=== PATIENT | male | born 1960 | race Caucasian/White ===

== ENCOUNTER 2017-08-10 10:57 | Emergency (ER) | payer OTHER ==
[2017-08-10 11:07] VITALS: BP 157/88; PULSE 68; TEMP 97.9; BMI 22.6
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
[2017-08-10] MEDS ORDERED: PIPERACILLIN/TAZOB 4.5 GM 4.5 GM in DEXTROSE 5%-WATER - 100 ML IVPB ONE (12:50)
[2017-08-10] MEDS ORDERED: VANCOMYCIN 1,000 MG in DEXTROSE 5%-WATER - 250 ML IVPB ONE (12:50)
[2017-08-10] MEDS ORDERED: VANCOMYCIN 1 GRAM (PRE-DOCKED) 1,000 MG/250 ML BAG IVPB ONE (13:08)
[2017-08-10] MEDS ORDERED: PIPERACILLIN/TAZOB 4.5 GM 4.5 GM/100 ML BAG IVPB ONE (15:04)
[2017-08-10 15:30] LABS: BASO % 0.8 % (0-2.0); EOS % 1.1 % (0-4.5); HEMATOCRIT 54.4 % (35.4-49); HEMOGLOBIN 18.3 GM/dL (11.7-16.9); LYMPH % 46.6 % (8-40); MCH 32.9 pg (25.7-33.7); MCHC 33.6 g/dl (32.0-35.9); MEAN CELL VOLUME 97.9 fl (80-96); MEAN PLT VOLUME 9.2 fl (7.5-11.1); MONO % 10.4 % (3.8-10.2); NEUT % 41.1 % (42.8-82.8); PLATELET COUNT 332 K/MM3 (134-434); RBC 5.56 M/mm3 (4.00-5.60); RDW 15.3 % (11.9-15.9); WHITE BLOOD COUNT 10.6 K/mm3 (4.0-10.0)
[2017-08-10 15:55] LABS: ALBUMIN 3.9 g/dl (3.4-5.0); ANION GAP 11 (8-16); BLOOD UREA NITROGEN 29 mg/dL (7-18); CALCIUM 9.5 mg/dL (8.5-10.1); CHLORIDE 99 mmol/L (98-107); CO2 27 mmol/L (21-32); CREATININE 0.9 mg/dL (0.7-1.3); GLUCOSE,RANDOM 174 mg/dL (74-106); POTASSIUM 4.5 mmol/L (3.5-5.1); SGOT/AST 29 U/L (15-37); SGPT/ALT 55 U/L (12-78); SODIUM 137 mmol/L (136-145)
[2017-08-10 15:57] LABS: ALK PHOS 163 U/L (45-117); BILIRUBIN,TOTAL 0.8 mg/dL (0.2-1.0); TOT PROT 8.4 g/dl (6.4-8.2)
== END 2017-08-10 16:17 | disposition left against medical advice (07) ==
LOC: JER 10:57
DX: E11.621 Type 2 diabetes mellitus with foot ulcer (principal); L97.513 Non-pressure chronic ulcer of other part of right foot with necrosis of muscle; I12.0 Hypertensive chronic kidney disease with stage 5 chronic kidney disease or end stage renal disease; E11.22 Type 2 diabetes mellitus with diabetic chronic kidney disease; N18.6 End stage renal disease; N17.8 Other acute kidney failure; Z99.2 Dependence on renal dialysis; Z79.4 Long term (current) use of insulin; J44.9 Chronic obstructive pulmonary disease, unspecified; Z94.0 Kidney transplant status; Z94.4 Liver transplant status
CPT/HCPCS: 36415; 80053; 85025; 87040; 99283-25

== ENCOUNTER 2017-08-16 11:53 | Inpatient (IN) | payer OTHER ==
[2017-08-16 12:09] VITALS: BMI 22.6
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
[2017-08-16 14:28] LABS: HEMATOCRIT 49.5 % (35.4-49); HEMOGLOBIN 16.8 GM/dL (11.7-16.9); MCHC 33.9 g/dl (32.0-35.9); MEAN CELL VOLUME 97.3 fl (80-96); MEAN PLT VOLUME 8.5 fl (7.5-11.1); PLATELET COUNT 337 K/MM3 (134-434); RBC 5.08 M/mm3 (4.00-5.60); RDW 15.3 % (11.9-15.9); WHITE BLOOD COUNT 10.5 K/mm3 (4.0-10.0)
[2017-08-16] MEDS ORDERED: PIPERACIL/TAZOB 3.375 GM 3.375 GM/50 ML PREMIX IVPB ONE (14:42)
[2017-08-16] MEDS ORDERED: VANCOMYCIN 1,000 MG in DEXTROSE 5%-WATER - 250 ML IVPB ONE (14:42)
[2017-08-16 14:52] LABS: ALBUMIN 3.6 g/dl (3.4-5.0); ANION GAP 13 (8-16); BLOOD UREA NITROGEN 19 mg/dL (7-18); CALCIUM 9.1 mg/dL (8.5-10.1); CHLORIDE 100 mmol/L (98-107); CO2 25 mmol/L (21-32); GLUCOSE,RANDOM 156 mg/dL (74-106); POTASSIUM 4.1 mmol/L (3.5-5.1); SODIUM 138 mmol/L (136-145)
[2017-08-16] MEDS ORDERED: PIPERACILLIN/TAZOB 3.375 GM 3.375 GM/50 ML BAG IVPB ONE (14:54)
[2017-08-16] MEDS ORDERED: VANCOMYCIN 1 GRAM (PRE-DOCKED) 1,000 MG/250 ML BAG IVPB ONE (14:54)
[2017-08-16 14:57] LABS: ALK PHOS 167 U/L (45-117); BILIRUBIN,TOTAL 0.7 mg/dL (0.2-1.0); CREATININE 0.8 mg/dL (0.7-1.3); SGOT/AST 51 U/L (15-37); SGPT/ALT 70 U/L (12-78); TOT PROT 7.8 g/dl (6.4-8.2)
--- NOTE | 2017-08-16 15:01 | PDOC ---
Attending Attestation - Resident Resident Name: [email or web address] - ED Attending Attestation I have performed the following: I have examined & evaluated the patient, The case was reviewed & discussed with the resident, I agree w/resident's findings & plan, Exceptions are as noted - Physicial Exam PE: 08/16/17 14:59 Patient is awake and alert, afebrile, hemodynamically stable rrr cta sft, nt, nd r. foot: +5mm stage 2 ulcer to the medial aspect of the distal phalanx of the second toe with surrounding callus. Dorsalis pedis is +1. + Extensive onychomycosis. - Medical Decision Making 08/16/17 15:00 Patient is a 56-year-old diabetic, former smoker who presents with a stage II diabetic foot ulcer to the medial aspect of the right second toe. I suspect osteomyelitis. We'll obtain blood cultures, ESR and CRP. Will administer broad- spectrum antibiotics. Will admit. <Curt Howell - Last Filed: 08/16/17 14:59> - HPI HPI: 08/16/17 15:06 The patient is a 56M with a PMH of DM, kidney and liver transplant (2014), hypertension, CHF, and COPD who presents to the ER after being seen in the wound clinic for a diabetic foot ulcer on his R 2nd toe. <Rachael Restrepo - Last Filed: 08/16/17 15:08>
[2017-08-16 15:22] LABS: ANISOCYTOSIS 0; MACROCYTOSIS 1+; PLATELET ESTIMATE NORMAL
[2017-08-16 17:46] VITALS: TEMP 98.1
[2017-08-16] MEDS ORDERED: PIPERACILLIN/TAZOB 2.25 GM/50 ML PREMIX BAG IVPB SCH (18:00)
[2017-08-16] MEDS ORDERED: INSULIN DETEMIR 100 UNITS/ML MDV SQ SCH (22:00)
[2017-08-16] MEDS: NIFEdipine E.R. 30 MG TABLET (FP) PO SCH (22:18)
[2017-08-16] MEDS: INSULIN SLIDING SCALE (NOVOLOG) 1 VIAL SQ SCH (22:18)
[2017-08-16] MEDS: METOPROLOL TARTRATE 25 MG TABLET (FP) PO SCH (22:18)
[2017-08-16] MEDS: TACROLIMUS ANHYDROUS 1 MG CAPSULE PO SCH (22:19)
[2017-08-17] MEDS: PIPERACILLIN/TAZOB 2.25 GM 2.25 GM in DEXTROSE 5%-WATER - 50 ML IVPB SCH ×2 (00:11→10:20)
[2017-08-17] MEDS: INSULIN SLIDING SCALE (NOVOLOG) 1 VIAL SQ SCH (06:55)
[2017-08-17] MEDS ORDERED: INSULIN DETEMIR 100 UNITS/ML MDV SQ SCH (07:00)
[2017-08-17 08:16] LABS: BASO % 0.8 % (0-2.0); EOS % 1.7 % (0-4.5); HEMOGLOBIN 17.4 GM/dL (11.7-16.9); LYMPH % 55.1 % (8-40); MCHC 34.2 g/dl (32.0-35.9); MEAN CELL VOLUME 96.7 fl (80-96); MEAN PLT VOLUME 8.7 fl (7.5-11.1); MONO % 9.8 % (3.8-10.2); NEUT % 32.6 % (42.8-82.8); PLATELET COUNT 338 K/MM3 (134-434); RBC 5.27 M/mm3 (4.00-5.60); RDW 15.3 % (11.9-15.9)
[2017-08-17 08:44] LABS: ALBUMIN 3.5 g/dl (3.4-5.0); ANION GAP 9 (8-16); BLOOD UREA NITROGEN 14 mg/dL (7-18); CALCIUM 9.4 mg/dL (8.5-10.1); CHLORIDE 105 mmol/L (98-107); CO2 27 mmol/L (21-32); CREATININE 0.6 mg/dL (0.7-1.3); GLUCOSE,RANDOM 121 mg/dL (74-106); POTASSIUM 4.3 mmol/L (3.5-5.1); SGOT/AST 35 U/L (15-37); SODIUM 141 mmol/L (136-145)
[2017-08-17 08:48] LABS: ALK PHOS 152 U/L (45-117); BILIRUBIN,TOTAL 0.7 mg/dL (0.2-1.0); SGPT/ALT 58 U/L (12-78); TOT PROT 7.9 g/dl (6.4-8.2)
[2017-08-17] MEDS: METOPROLOL TARTRATE 25 MG TABLET (FP) PO SCH (09:23)
[2017-08-17] MEDS: TACROLIMUS ANHYDROUS 1 MG CAPSULE PO SCH (09:24)
[2017-08-17] MEDS: NIFEdipine E.R. 30 MG TABLET (FP) PO SCH (09:24)
[2017-08-17] MEDS ORDERED: MYCOPHENOLATE MOFETIL 500 MG TABLET PO SCH (10:00)
[2017-08-17] MEDS ORDERED: predniSONE 5 MG TABLET (UD) PO SCH (10:00)
[2017-08-17] MEDS ORDERED: PANTOPRAZOLE 20 MG TABLET (FP) PO SCH (10:00)
--- NOTE | 2017-08-17 10:12 | HP ---
Admitting History and Physical - Primary Care Physician PCP: Silvia Delgado - Admission Chief Complaint: foot wound History of Present Illness: ER history - History of Present Illness Initial Comments: 08/16/17 14:20 The patient is a 56M with a PMH of DM, kidney and liver transplant (2014), hypertension, CHF, and COPD who presents to the ER with a note to be admitted. The patient was seen in our wound clinic by Dr. Hannon on 08/15/17 and he wrote a note for admission for a diabetic foot ulcer on his R 2nd toe. The patient states that he noticed a blister on his toe 2 weeks ago. It has since popped and worsened. He has chronic numbness in his b/l LE. He denies any fever , chills, nausea, vomiting, CP, SOB. Pt seen by me in the ER- He was in the ER 08/10-- received Vancomycin and Zosyn-- dc on by Dr Delgado x 7days- went to wound clinic yesterday and was advised by Podiatry for admission for iv antibiotics- as per pt, he feels well- states that the ulcer is better than it was 2 weeks ago. 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 No: Alzheimer's, CVA, Dementia, Migraine, Seizure Cardiovascular: Yes: CHF, HTN. No: Pulmonary Hypertension Pulmonary: Yes: COPD Gastrointestinal: Yes: Cancer (hepatocellular), Other (Hepatitis C) Hepatobiliary: Yes: Hepatitis C Renal/: Yes: Renal Inusuff (CKD V) Heme/Onc: Yes: Anemia - Past Surgical History Past Surgical History: Yes: AV Fistula/Graft - Smoking History Smoking history: Former smoker Have you smoked in the past 12 months: No Aproximately how many cigarettes per day: 0 If you are a former smoker, when did you quit?: 2010 - Alcohol/Substance Use Hx Alcohol Use: No History of Substance Use: reports: None - Social History History of Recent Travel: No Home Medications - Allergies Allergies/Adverse Reactions: Allergies Allergy/AdvReac Type Severity Reaction Status Date / Time morphine Allergy Verified 08/16/17 12:06 - Home Medications Home Medications: Ambulatory Orders Hydrochlorothiazide 12.5 mg PO DAILY 08/10/17 Insulin Detemir [Levemir Flextouch] 14 unit SQ BIDAC 08/10/17 Metoprolol Tartrate 25 mg PO BID 08/10/17 Mycophenolate Mofetil 500 mg PO BID 08/10/17 Nifedipine ER [Procardia XL -] 60 mg PO BID 08/10/17 Prednisone 5 mg PO HS 08/10/17 Tacrolimus 1 mg PO BID 08/10/17 Hydrochlorothiazide [Hctz -] 12.5 mg PO DAILY 08/17/17 Levofloxacin [Levaquin] 500 mg PO DAILY #7 tablet 08/17/17 Family Disease History - Family Disease History Family Disease History: Heart Disease: Sister, Respiratory: Mother Review of Systems - Review of Systems Constitutional: denies: Chills, Fever Integumentary: reports: Wound Physical Examination Vital Signs: Vital Signs Temperature 98.1 F 08/16/17 17:46 Pulse Rate 84 08/16/17 17:46 Respiratory Rate 20 08/16/17 17:46 Blood Pressure 160/94 08/16/17 17:46 O2 Sat by Pulse Oximetry (%) 100 08/16/17 21:00 Constitutional: Yes: No Distress, Calm Cardiovascular: Yes: Regular Rate and Rhythm Respiratory: Yes: CTA Bilaterally Gastrointestinal: Yes: Normal Bowel Sounds, Soft. No: Tenderness Extremities: Yes: Other (medial side of rt 2 nd toe-- ulcer- clean base, no surrounding erythema, no discharge) Edema: No Labs: CBC, BMP 08/17/17 07:48 08/17/17 07:48 Imaging - Results X-ray: Report Reviewed (no osteomyelitis) Problem List - Problems (1) Diabetic foot ulcer Code(s): E11.621 - TYPE 2 DIABETES MELLITUS WITH FOOT ULCER; L97.509 - NON- PRESSURE CHRONIC ULCER OTH PRT UNSP FOOT W UNSP SEVERITY Qualifiers: Diabetic foot ulcer location: toe Diabetes mellitus type: other specified ( including LUCI) Laterality: right Non-pressure ulcer stage: unspecified non- pressure ulcer stage Qualified Code(s): E13.621 - Other specified diabetes mellitus with foot ulcer; L97.519 - Non-pressure chronic ulcer of other part of right foot with unspecified severity; L97.519 - Non-pressure chronic ulcer of other part of right foot with unspecified severity; L97.519 - Non-pressure chronic ulcer of other part of right foot with unspecified severity; L97.519 - Non-pressure chronic ulcer of other part of right foot with unspecified severity (2) DM Diabetes mellitus type 2 Code(s): E11.9 - TYPE 2 DIABETES MELLITUS WITHOUT COMPLICATIONS (3) Diabetic ulcer of foot associated with diabetes mellitus due to underlying condition, with necrosis of muscle Code(s): E08.621 - DIABETES MELLITUS DUE TO UNDERLYING CONDITION W FOOT ULCER; L97.503 - NON-PRS CHRONIC ULCER OTH PRT UNSP FOOT W NECROSIS OF MUSCLE Qualifiers: Diabetic foot ulcer location: toe Laterality: right Qualified Code(s): E08.621 - Diabetes mellitus due to underlying condition with foot ulcer; L97.513 - Non-pressure chronic ulcer of other part of right foot with necrosis of muscle; L97.513 - Non-pressure chronic ulcer of other part of right foot with necrosis of muscle; L97.513 - Non-pressure chronic ulcer of other part of right foot with necrosis of muscle; L97.513 - Non-pressure chronic ulcer of other part of right foot with necrosis of muscle Assessment/Plan PLAN Received jasson Castillo and Christianne spoke with Dr Broderick- pt wishes to go home--will dc pt home on po Levaquin x 7 days He will follow up in office for MRI foot
--- NOTE | 2017-08-17 10:53 | PN ---
Progress Note (short form) - Note Progress Note: NONHEALING ULCER OF THE TOE Some ERYTHEMA SWELLING noted Selected Entries 08/16/17 17:46 Temperature 98.1 F Pulse Rate 84 Respiratory 20 Rate Blood Pressure 160/94 Laboratory Tests 08/16/17 08/16/17 08/17/17 14:19 Unknown 07:48 WBC 10.0 Hgb 17.4 H Hct 51.0 H Plt Count 338 ESR 2 BUN Creatinine AST ALT Alkaline Phosphatase C-Reactive Protein 0.6 H 08/17/17 07:48 WBC Hgb Hct Plt Count ESR BUN 14 D Creatinine 0.6 L D AST 35 D ALT 58 Alkaline Phosphatase 152 H C-Reactive Protein Assessment Diabetic man with toe ulcer and cellulitis of the toe RUle out osteomyelitis Plan Vanco [facility] MRI or toe If he jacobo not want admission Augmentin and outpt MRI Problem List - Problems (1) Cellulitis Code(s): L03.90 - CELLULITIS, UNSPECIFIED (2) Diabetic foot ulcer Code(s): E11.621 - TYPE 2 DIABETES MELLITUS WITH FOOT ULCER; L97.509 - NON- PRESSURE CHRONIC ULCER OTH PRT UNSP FOOT W UNSP SEVERITY Qualifiers: Diabetic foot ulcer location: toe Diabetes mellitus type: other specified ( including LUCI) Laterality: right Non-pressure ulcer stage: unspecified non- pressure ulcer stage Qualified Code(s): E13.621 - Other specified diabetes mellitus with foot ulcer; L97.519 - Non-pressure chronic ulcer of other part of right foot with unspecified severity; L97.519 - Non-pressure chronic ulcer of other part of right foot with unspecified severity; L97.519 - Non-pressure chronic ulcer of other part of right foot with unspecified severity; L97.519 - Non-pressure chronic ulcer of other part of right foot with unspecified severity
--- NOTE | 2017-08-17 11:01 | CONSULT ---
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 No: Alzheimer's, CVA, Dementia, Migraine, Seizure Cardio/Vascular: Yes: CHF, HTN. No: Pulmonary Hypertension Pulmonary: Yes: COPD Gastrointestinal: Yes: Cancer (hepatocellular), Other (Hepatitis C) Hepatobiliary: Yes: Hepatitis C Renal/: Yes: Renal Inusuff (CKD V) - Past Surgical History Past Surgical History: Yes: AV Fistula/Graft - Alcohol/Substance Use Hx Alcohol Use: No History of Substance Use: reports: None - Smoking History Smoking history: Former smoker Have you smoked in the past 12 months: No Aproximately how many cigarettes per day: 0 If you are a former smoker, when did you quit?: 2010 - Social History Usual Living Arrangement: With Parent History of Recent Travel: No Home Medications - Allergies Allergies/Adverse Reactions: Allergies Allergy/AdvReac Type Severity Reaction Status Date / Time morphine Allergy Verified 08/16/17 12:06 - Home Medications Home Medications: Ambulatory Orders Hydrochlorothiazide 12.5 mg PO DAILY 08/10/17 Insulin Detemir [Levemir Flextouch] 14 unit SQ BIDAC 08/10/17 Metoprolol Tartrate 25 mg PO BID 08/10/17 Mycophenolate Mofetil 500 mg PO BID 08/10/17 Nifedipine ER [Procardia Xl -] 60 mg PO BID 08/10/17 Prednisone 5 mg PO HS 08/10/17 Tacrolimus 1 mg PO BID 08/10/17 Hydrochlorothiazide [Hctz -] 12.5 mg PO DAILY 08/17/17 Family Disease History - Family Disease History Family Disease History: Heart Disease: Sister, Respiratory: Mother Physical Exam Vital Signs: Vital Signs Temperature 98.1 F 08/16/17 17:46 Pulse Rate 84 08/16/17 17:46 Respiratory Rate 20 08/16/17 17:46 Blood Pressure 160/94 08/16/17 17:46 O2 Sat by Pulse Oximetry (%) 100 08/16/17 21:00 Labs: CBC, BMP 08/17/17 07:48 08/17/17 07:48
--- NOTE | 2017-08-17 11:01 | DS ---
Physical Examination Vital Signs: Vital Signs Temperature 98.1 F 08/16/17 17:46 Pulse Rate 84 08/16/17 17:46 Respiratory Rate 20 08/16/17 17:46 Blood Pressure 160/94 08/16/17 17:46 O2 Sat by Pulse Oximetry (%) 100 08/16/17 21:00 Labs: CBC, BMP 08/17/17 07:48 08/17/17 07:48 Discharge Summary Reason For Visit: DIABETIC FOOT Current Active Problems Cellulitis (Acute) Diabetic foot ulcer (Acute) Hospital Course: Admitted for diabetic foot Seen by ID Xray foot - does not show osteomyelitis Received Vanco and Zosyn in ER Pt dc home on PO Levaquin x 7days to follow up with Dr Delgado for MRI foot Condition: Stable - Instructions Referrals: Silvia Delgado MD [Primary Care Provider] - Disposition: HOME - Home Medications Comprehensive Discharge Medication List: Ambulatory Orders Hydrochlorothiazide 12.5 mg PO DAILY 08/10/17 Insulin Detemir [Levemir Flextouch] 14 unit SQ BIDAC 08/10/17 Metoprolol Tartrate 25 mg PO BID 08/10/17 Mycophenolate Mofetil 500 mg PO BID 08/10/17 Nifedipine ER [Procardia Xl -] 60 mg PO BID 08/10/17 Prednisone 5 mg PO HS 08/10/17 Tacrolimus 1 mg PO BID 08/10/17 Hydrochlorothiazide [Hctz -] 12.5 mg PO DAILY 08/17/17
[2017-08-17 11:29] VITALS: BP 172/98; PULSE 67
--- NOTE | 2017-08-17 11:32 | CONS ---
INFECTIOUS DISEASE CONSULTATION DATE OF CONSULTATION: DATE OF DICTATION: 08/17/2017 This is a 56-year-old male, known insulin-dependent diabetic with a history of both liver and kidney transplant at [facility], previously had end-stage renal disease and on dialysis until he received his kidney transplant. He presents now for evaluation of a soft tissue ulcer of the right 2nd toe with erythema and swelling of the toe. He was seen by Dr. Silvia Delgado as an outpatient and apparently treated with amoxicillin and referred to the wound care clinic earlier this week, where he was advised admission but declined, instead choosing to return to be admitted today. He has no fever or chills and has already expressed his desire to not remain in the hospital. PAST MEDICAL HISTORY: As noted above. Hepatitis C. CURRENT MEDICATIONS: Include insulin, 5 mg prednisone, Lopressor, Procardia, CellCept, tacrolimus, Protonix. ALLERGIES: MORPHINE. SOCIAL HISTORY: Former smoker. Former history of substance abuse. FAMILY HISTORY: Noncontributory. REVIEW OF SYSTEMS: Respiratory: No cough, shortness of breath. Cardiac: No chest pain, palpitations, syncope. Gastrointestinal: No nausea, vomiting, diarrhea. Genitourinary: No abdominal pain, nausea, vomiting, diarrhea. PHYSICAL EXAMINATION: General: He was an alert male in no acute distress. Vital Signs: The temperature was 98.1, pulse 84, blood pressure 160/94, respirations 20. Neck: Supple. Lungs: Clear. Heart: S1, S2. Regular rhythm without murmur. Abdomen: Soft, nontender, without organomegaly. Extremities: No clubbing, cyanosis, or edema. An ulcer was noted of the right 2nd toe with diffuse swelling of the toe and erythema. DIAGNOSTIC DATA: The white count is 17.4, hemoglobin , platelets of 338. BUN 14, creatinine 0.6. Alkaline phosphatase 152. CRP 0.6. ESR of 2. ASSESSMENT: Diabetic soft tissue ulcer of the toe with secondary cellulitis and swelling, rule out underlying osteomyelitis. As discussed with his primary care doctor, could admit for admission, start vancomycin and Zosyn, obtain MRI. Should he decide not to stay, would give him Augmentin 875 b.i.d. and arrange for outpatient MRI. LUZ MARIA LAWSON M.D. [id number]
[2017-08-17] MEDS ORDERED: VANCOMYCIN 1,250 MG in DEXTROSE 5%-WATER - 250 ML IVPB SCH (13:00)
[2017-08-17] MEDS ORDERED: PIPERACILLIN/TAZOB 4.5 GM 4.5 GM in DEXTROSE 5%-WATER 100 ML IVPB SCH (18:00)
== END 2017-08-17 11:29 | disposition home or self-care (01) | DRG 383 ==
LOC: JER 11:53 → JERBED 14:42 → INTOOBSV 14:42 → UNDOADMOB 14:42 → OBSVTOIN 08-17 17:46 → JERBED 08-17 17:46 → UNDOADMOB 08-17 17:46 → INTOOBSV 08-17 17:46 → UNDOADMOB 08-17 17:47 → JERBED 08-17 17:47 → OBSVTOIN 08-17 17:47 → INTOOBSV 08-17 17:47
PROVIDERS: ADMIT Internal Medicine; ATTEND Internal Medicine
DX: L03.031 Cellulitis of right toe (principal); L97.503 Non-pressure chronic ulcer of other part of unspecified foot with necrosis of muscle; E11.621 Type 2 diabetes mellitus with foot ulcer; Z94.4 Liver transplant status; I10 Essential (primary) hypertension; J44.9 Chronic obstructive pulmonary disease, unspecified; Z94.0 Kidney transplant status
CPT/HCPCS: 36415; 73630-TC-RT-FY; 80053; 82962; 85025; 85651; 86140; 87040; 87070; 87186; 87205; 99284-25; J7517

== ENCOUNTER 2017-09-21 11:38 | Inpatient (IN) | payer OTHER ==
--- NOTE | 2017-09-21 12:08 | HP ---
Admitting History and Physical - Primary Care Physician PCP: Silvia Delgado - Admission Chief Complaint: right toe infection History of Present Illness: The patient is a 56M with a PMH of DM, kidney and liver transplant (2014), hypertension, CHF, and COPD who is directly admitted here for iv antibiotics for non healing wound for toe-- osteomyelitis. Pt was seen by ID- Dr Broderick in the office and had a probe placed inside-- advised to have terminal gauger antibiotics. Pt failed outpt PO therapy. Had been seen by me in ER last month for same--was dc on po antibiotics at that time. He has chronic numbness in his b/l LE. He denies any fever, chills, nausea, vomiting, CP, SOB. 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 No: Alzheimer's, CVA, Dementia, Migraine, Seizure Cardiovascular: Yes: CHF, HTN. No: Pulmonary Hypertension Pulmonary: Yes: COPD Gastrointestinal: Yes: Cancer (hepatocellular), Other (Hepatitis C) Hepatobiliary: Yes: Hepatitis C Renal/: Yes: Renal Inusuff (CKD V) Heme/Onc: Yes: Anemia - Past Surgical History Past Surgical History: Yes: AV Fistula/Graft - Smoking History Smoking history: Former smoker Have you smoked in the past 12 months: No Aproximately how many cigarettes per day: 0 If you are a former smoker, when did you quit?: 2010 - Alcohol/Substance Use Hx Alcohol Use: No History of Substance Use: reports: None - Social History History of Recent Travel: No Home Medications - Allergies Allergies/Adverse Reactions: Allergies Allergy/AdvReac Type Severity Reaction Status Date / Time morphine Allergy Verified 08/16/17 12:06 - Home Medications Home Medications: Ambulatory Orders Hydrochlorothiazide 12.5 mg PO DAILY 08/10/17 Insulin Detemir [Levemir Flextouch] 14 unit SQ BIDAC 08/10/17 Metoprolol Tartrate 25 mg PO BID 08/10/17 Mycophenolate Mofetil 500 mg PO BID 08/10/17 Nifedipine ER [Procardia XL -] 60 mg PO BID 08/10/17 Prednisone 5 mg PO HS 08/10/17 Tacrolimus 1 mg PO BID 08/10/17 Hydrochlorothiazide [Hctz -] 12.5 mg PO DAILY 08/17/17 Levofloxacin [Levaquin] 500 mg PO DAILY #7 tablet 08/17/17 Family Disease History - Family Disease History Family Disease History: Heart Disease: Sister, Respiratory: Mother Review of Systems - Review of Systems Constitutional: denies: Chills, Fever Integumentary: reports: Wound. denies: Blister Physical Examination Constitutional: Yes: No Distress, Calm Cardiovascular: Yes: Regular Rate and Rhythm Respiratory: Yes: CTA Bilaterally Gastrointestinal: Yes: Normal Bowel Sounds, Soft. No: Tenderness Extremities: Yes: Other (rt 2nd toe swollen, erythema+, not warm or tender. Medial side-- ulcer noted, bloody discharge) Neurological: Yes: Alert, Oriented Psychiatric: Yes: Alert Labs: pending Imaging - Results EKG: Pending Problem List - Problems (1) Osteomyelitis Code(s): M86.9 - OSTEOMYELITIS, UNSPECIFIED (2) HTN (hypertension) Code(s): I10 - ESSENTIAL (PRIMARY) HYPERTENSION (3) Diabetes Code(s): E11.9 - TYPE 2 DIABETES MELLITUS WITHOUT COMPLICATIONS (4) Diabetic foot ulcer Code(s): E11.621 - TYPE 2 DIABETES MELLITUS WITH FOOT ULCER; L97.509 - NON- PRESSURE CHRONIC ULCER OTH PRT UNSP FOOT W UNSP SEVERITY Qualifiers: Diabetic foot ulcer location: toe Diabetes mellitus type: other specified ( including LUCI) Laterality: right Non-pressure ulcer stage: unspecified non- pressure ulcer stage Qualified Code(s): E13.621 - Other specified diabetes mellitus with foot ulcer; L97.519 - Non-pressure chronic ulcer of other part of right foot with unspecified severity; L97.519 - Non-pressure chronic ulcer of other part of right foot with unspecified severity; L97.519 - Non-pressure chronic ulcer of other part of right foot with unspecified severity; L97.519 - Non-pressure chronic ulcer of other part of right foot with unspecified severity Assessment/Plan PLAN Check labs Start IV vanco and Zosyn ID and Podiatry evaluation Pt would like amputation of toe-- he does not want to stay in NH for half-way antibiotics-- but he would consider half-way antibiotics infusion at home or come here daily meds reconciled check sugars
[2017-09-21] MEDS ORDERED: PIPERACILLIN/TAZOB 4.5 GM 4.5 GM in DEXTROSE 5%-WATER 100 ML IVPB ONE (12:30)
[2017-09-21 12:42] LABS: HEMATOCRIT 52.9 % (35.4-49); HEMOGLOBIN 17.6 GM/dL (11.7-16.9); MCH 32.7 pg (25.7-33.7); MCHC 33.3 g/dl (32.0-35.9); MEAN CELL VOLUME 98.3 fl (80-96); MEAN PLT VOLUME 9.3 fl (7.5-11.1); PLATELET COUNT 369 K/MM3 (134-434); RBC 5.38 M/mm3 (4.00-5.60); RDW 14.7 % (11.9-15.9); WHITE BLOOD COUNT 10.7 K/mm3 (4.0-10.0)
--- NOTE | 2017-09-21 12:51 | CONSULT ---
Consult - text type - Consultation Consultation Note: Podiatry Consult: 56 year old DM M, history of kidney and liver transplant, COPD, presents with R 2nd digit ulcer probing to bone. Denies F/V/N/C/SOB/CP. Afebrile, VSS. Notes he was recently in the hospital and did not want IV abx, discharged on PO abx. he was seen by infectious disease who noted worsening of ulcer and ED admission prompted. BYRON: R foot: pedal pulses weakly palpable, TG wnl, CFT brisk to all toes. Medial IPJ 2nd digit ulcer probing to bone, exposed bone present, no purulence, no fluctuance, moderate periwound erythema, no streaking cellulitis, no active SOIs. Imp: 56 year old DM M with R 2nd digit ulcer and clinical osteomyelitis 1. IV abx 2. Local wound care 3. Discussed treatment options with patient who wants to have toe amputation 4. Recommend vascular studies, vascular consultation 5. Will do surgery early next week Kiki Patiño DPM
[2017-09-21] MEDS ORDERED: VANCOMYCIN 1 GM PREMIX - 1 GM/200 ML BAG IVPB ONE (13:00)
[2017-09-21 13:05] LABS: ALBUMIN 3.7 g/dl (3.4-5.0); ANION GAP 9 (8-16); BLOOD UREA NITROGEN 23 mg/dL (7-18); CALCIUM 8.8 mg/dL (8.5-10.1); CHLORIDE 100 mmol/L (98-107); CO2 27 mmol/L (21-32); CREATININE 0.8 mg/dL (0.7-1.3); GLUCOSE,RANDOM 148 mg/dL (74-106); POTASSIUM 4.3 mmol/L (3.5-5.1); SGOT/AST 42 U/L (15-37); SGPT/ALT 77 U/L (12-78); SODIUM 136 mmol/L (136-145)
[2017-09-21 13:07] LABS: ALK PHOS 206 U/L (45-117); BILIRUBIN,TOTAL 0.8 mg/dL (0.2-1.0)
[2017-09-21 13:20] VITALS: BMI 22.5
[2017-09-21 13:22] LABS: ACTIVATED PTT 31.9 SECONDS (26.9-34.4); INR 0.99 (0.82-1.09); PROTHROMBIN TIME (PATIENT) 11.2 SEC (9.7-13.0)
--- NOTE | 2017-09-21 14:02 | EKG ---
Test Reason : Blood Pressure : / mmHG Vent. Rate : 075 BPM Atrial Rate : 075 BPM P-R Int : 144 ms QRS Dur : 096 ms QT Int : 378 ms P-R-T Axes : 065 054 071 degrees QTc Int : 422 ms NORMAL SINUS RHYTHM POSSIBLE LEFT ATRIAL ENLARGEMENT LEFT VENTRICULAR HYPERTROPHY ABNORMAL ECG WHEN COMPARED WITH ECG OF 21-APR-2014 11:12, NO SIGNIFICANT CHANGE WAS FOUND Confirmed by BELTRAN ANDERSON MD ([id number]) on 09/21/2017 2:01:31 PM Referred By: Confirmed By:BELTRAN ANDERSON MD
[2017-09-21 14:05] LABS: ERYTHROCYTE SEDIMENTATION RATE 7 mm/hr (0-20)
[2017-09-21] MEDS ORDERED: PIPERACILLIN/TAZOBACTAM 4.5 GM VIAL IVPB ONE (14:27)
[2017-09-21] MEDS ORDERED: DEXTROSE 5%-WATER 100 ML IVPB ONE (14:27)
[2017-09-21 14:49] LABS: PLATELET ESTIMATE SLT INCREASE
--- NOTE | 2017-09-21 15:40 | CON.ID ---
Consult Consult Specialty:: Ingfectious disease Referred by:: Dr. Rosa Edmondson Reason for Consultation:: Osteomyelitis - History of Present Illness History of Present Illness: The patient is a 56 yo m w/ PMH DM, Kidney/Liver txp for cirrhosis (on tacrolimus, mycophenolate, prednisone), COPD who was sent to the hospital for direct admission for IV ABX by Dr. Delgado. Patient has a long history of a nonhhealing DM foot ulcer on the medial side of his second toe on the right. He was admitted to [facility] approx 1 month ago for this same ulcer and was d/c home on 7 days of levaquin and instructions to follow w/ Dr Delgado for an outpatient MRI. Per EMR records, the MRI was positive for osteo. Per the patient, he dropped a hammer on the toe 3 weeks ago and fractured it. Patient denies fevers, chills abdominal pain, diarrhea or pain at the site of the ulcer. We were called to elvaulate the patient for ABX course for acute osteo. 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 No: Alzheimer's, CVA, Dementia, Migraine, Seizure Cardio/Vascular: Yes: CHF, HTN. No: Pulmonary Hypertension Pulmonary: Yes: COPD Gastrointestinal: Yes: Cancer (hepatocellular), Other (Hepatitis C) Hepatobiliary: Yes: Hepatitis C Renal/: Yes: Renal Inusuff (CKD V) - Past Surgical History Past Surgical History: Yes: AV Fistula/Graft - Alcohol/Substance Use Hx Alcohol Use: Yes (FEW GLASSES OF WINE) History of Substance Use: reports: None - Smoking History Smoking history: Former smoker Have you smoked in the past 12 months: No Aproximately how many cigarettes per day: 0 If you are a former smoker, when did you quit?: 2010 - Social History Usual Living Arrangement: With Parent History of Recent Travel: No Home Medications - Allergies Allergies/Adverse Reactions: Allergies Allergy/AdvReac Type Severity Reaction Status Date / Time morphine Allergy Verified 08/16/17 12:06 - Home Medications Home Medications: Ambulatory Orders Insulin Detemir [Levemir Flextouch] 14 unit SQ BIDAC 08/10/17 Metoprolol Tartrate 25 mg PO BID 08/10/17 Mycophenolate Mofetil 500 mg PO BID 08/10/17 Nifedipine ER [Procardia XL -] 60 mg PO BID 08/10/17 Prednisone 5 mg PO HS 08/10/17 Tacrolimus 1 mg PO BID 08/10/17 Hydrochlorothiazide [Hctz -] 12.5 mg PO DAILY 08/17/17 Alprazolam 2 mg PO HS PRN 09/21/17 Family Disease History - Family Disease History Family Disease History: Heart Disease: Sister, Respiratory: Mother Review of Systems - Review of Systems Constitutional: denies: Chills, Fever, Night Sweats, Unintentional Wgt. Loss Cardiovascular: denies: Chest Pain, Palpitations, Shortness of Breath Respiratory: denies: Cough, SOB, SOB on Exertion Gastrointestinal: denies: Abdominal Pain, Constipation, Diarrhea, Nausea, Vomiting Integumentary: reports: Wound (right second toe) Physical Exam Vital Signs: Vital Signs Temperature 98.2 F 09/21/17 13:00 Pulse Rate 72 09/21/17 13:00 Respiratory Rate 18 09/21/17 13:00 Blood Pressure 134/80 09/21/17 13:00 O2 Sat by Pulse Oximetry (%) Constitutional: Yes: Well Nourished, No Distress, Calm HENT: Yes: Atraumatic, Normocephalic, Other (patient has no on either top or bottom.) Cardiovascular: Yes: Regular Rate and Rhythm, S1, S2. No: JVD, Gallop, Murmur, Rub Respiratory: Yes: Regular, CTA Bilaterally Gastrointestinal: Yes: Normal Bowel Sounds, Soft Extremities: Yes: Other (There is an ulcer on the medial side of the patient's second toe on the right. The ulcer is approx. 1.5x1.5 cm, clean at the base and appears to probe to bone. Patient refuses probing 2/2 pain.) Edema: No Neurological: Yes: Alert, Oriented Psychiatric: Yes: Alert, Oriented Labs: CBC, BMP 09/21/17 12:20 09/21/17 12:20 Imaging - Results Chest X-ray: Image Reviewed Assessment/Plan The patient is a 56 yo m w/ PMH DM, kidney/renal txp 2/2 Hep C and cirrhosis and COPD who was admitted for treatment of acute osteo. -s/p 7 days po levaquin -WBC elevated to 10.7 -outpatient MRI showed osteo; awaiting report from PCP -Patient afebruile and clinically stable. -will order wound cx, blood cx. -pt s/p Vancomycin 1g and Zosyn 4.5 g once each. -CRP elevated to .4 -will order Zosyn 3.375g Q8H, Vanco 1g daily -will follow -case d/w Dr. Serna
[2017-09-21] MEDS: PIPERACILLIN/TAZOB 3.375 GM 3.375 GM in DEXTROSE 5%-WATER - 50 ML IVPB SCH (17:23)
[2017-09-21] MEDS: INSULIN SLIDING SCALE (NOVOLOG) 1 VIAL SQ SCH (17:56)
[2017-09-21] MEDS ORDERED: PT OWN MED DRAWER 7, Y5N ONE ×2 (18:19→21:06)
[2017-09-21] MEDS: predniSONE 5 MG TABLET (UD) PO SCH (21:21)
[2017-09-21] MEDS: METOPROLOL TARTRATE 25 MG TABLET (FP) PO SCH (21:21)
[2017-09-21] MEDS: INSULIN (LEVEMIR) 100 UNITS/ML UNITS SQ SCH ×2 (21:21→21:41)
[2017-09-21] MEDS: MYCOPHENOLATE MOFETIL 500 MG TABLET PO SCH (21:21)
[2017-09-21] MEDS: NIFEdipine E.R. 30 MG TABLET (FP) PO SCH (21:22)
[2017-09-21] MEDS ORDERED: METOPROLOL TARTRATE 25 MG TABLET (FP) PO ONE (22:00)
[2017-09-21] MEDS: TACROLIMUS ANHYDROUS 1 MG CAPSULE PO SCH (22:57)
[2017-09-22] MEDS ORDERED: PIPERACILLIN/TAZOBACTAM 3.375 GM VIAL IVPB ONE ×3 (01:31→18:10)
[2017-09-22] MEDS ORDERED: DEXTROSE 5%-WATER - 50 ML IVPB ONE ×3 (01:31→18:10)
[2017-09-22] MEDS: VANCOMYCIN 1,000 MG in DEXTROSE 5%-WATER - 250 ML IVPB SCH ×2 (02:00→15:50)
[2017-09-22] MEDS: PIPERACILLIN/TAZOB 3.375 GM 3.375 GM in DEXTROSE 5%-WATER - 50 ML IVPB SCH ×3 (02:00→19:03)
[2017-09-22] MEDS: INSULIN SLIDING SCALE (NOVOLOG) 1 VIAL SQ SCH ×3 (06:45→17:55)
[2017-09-22] MEDS: INSULIN (LEVEMIR) 100 UNITS/ML UNITS SQ SCH ×2 (06:48→21:50)
[2017-09-22 07:18] LABS: BASO % 0.5 % (0-2.0); EOS % 0.7 % (0-4.5); HEMATOCRIT 51.2 % (35.4-49); HEMOGLOBIN 17.7 GM/dL (11.7-16.9); LYMPH % 52.2 % (8-40); MCH 33.6 pg (25.7-33.7); MCHC 34.5 g/dl (32.0-35.9); MEAN CELL VOLUME 97.3 fl (80-96); MEAN PLT VOLUME 8.8 fl (7.5-11.1); MONO % 8.8 % (3.8-10.2); NEUT % 37.8 % (42.8-82.8); PLATELET COUNT 354 K/MM3 (134-434); RBC 5.26 M/mm3 (4.00-5.60); RDW 14.8 % (11.9-15.9); WHITE BLOOD COUNT 10.9 K/mm3 (4.0-10.0)
[2017-09-22 08:00] LABS: ALBUMIN 3.4 g/dl (3.4-5.0); ANION GAP 8 (8-16); BLOOD UREA NITROGEN 15 mg/dL (7-18); CALCIUM 9.1 mg/dL (8.5-10.1); CHLORIDE 104 mmol/L (98-107); CO2 28 mmol/L (21-32); GLUCOSE,RANDOM 144 mg/dL (74-106); POTASSIUM 4.1 mmol/L (3.5-5.1); SODIUM 140 mmol/L (136-145)
[2017-09-22 08:02] LABS: ALK PHOS 172 U/L (45-117); BILIRUBIN,TOTAL 0.8 mg/dL (0.2-1.0); CREATININE 0.8 mg/dL (0.7-1.3); SGOT/AST 26 U/L (15-37); SGPT/ALT 59 U/L (12-78); TOT PROT 7.5 g/dl (6.4-8.2)
[2017-09-22] MEDS ORDERED: PT OWN MED DRAWER 7, Y5N ONE (09:54)
--- NOTE | 2017-09-22 10:07 | PN ---
Progress Note (short form) - Note Progress Note: pt seen/ examined. well known to me no complains. Vital Signs Temp 97.7 F 09/22/17 06:00 Pulse 59 L 09/22/17 06:00 Resp 18 09/22/17 06:00 BP 138/64 09/22/17 06:00 Pulse Ox Intake & Output 09/21/17 09/21/17 09/22/17 11:59 23:59 11:59 Intake Total 900 300 Balance 900 300 Weight 161 lb 9.6 oz 156 lb Intake: IVPB 300 300 Oral 600 Other: Voiding Method Toilet Toilet # Unmeasured Voids Void 3 1 Bowel Movement No No Height 5 ft 11 in Body Mass Index (BMI) 22.5 Weight Measurement Method Standing Scale Standing Scale Active Medications Hydrochlorothiazide (Hctz -) 12.5 mg PO DAILY COUNTS INCLUDE 234 BEDS AT THE [facility] Vancomycin HCl 1,000 mg/ (Dextrose) 250 mls @ 166.667 mls/hr IVPB BID@0300, 1500 COUNTS INCLUDE 234 BEDS AT THE [facility] PRN Reason: Protocol Last Admin: 09/22/17 02:00 Dose: 166.667 mls/hr Piperacillin Sod/Tazobactam (Sod 3.375 gm/ Dextrose) 50 mls @ 100 mls/hr IVPB Q8H-IV CONCEPCION PRN Reason: Protocol Last Admin: 09/22/17 02:00 Dose: 100 mls/hr Insulin Aspart (Novolog Vial Sliding Scale -) 1 vial SQ BIDAC COUNTS INCLUDE 234 BEDS AT THE [facility] PRN Reason: Protocol Last Admin: 09/22/17 06:45 Dose: Not Given Insulin Detemir (Levemir Vial) 14 units SQ BID@0700,2200 COUNTS INCLUDE 234 BEDS AT THE [facility] Last Admin: 09/22/17 06:48 Dose: 14 units Metoprolol Tartrate (Lopressor -) 50 mg PO BID COUNTS INCLUDE 234 BEDS AT THE [facility] Mycophenolate Mofetil (Cellcept -) 500 mg PO BID COUNTS INCLUDE 234 BEDS AT THE [facility] Last Admin: 09/21/17 21:21 Dose: 500 mg Nifedipine (Procardia Xl -) 60 mg PO BID COUNTS INCLUDE 234 BEDS AT THE [facility] Last Admin: 09/21/17 21:22 Dose: 60 mg Prednisone (Deltasone -) 5 mg PO HS COUNTS INCLUDE 234 BEDS AT THE [facility] Last Admin: 09/21/17 21:21 Dose: 5 mg Tacrolimus (Prograf) 1 mg PO BID COUNTS INCLUDE 234 BEDS AT THE [facility] Last Admin: 09/21/17 22:57 Dose: Not Given CBC, BMP 09/22/17 06:50 09/22/17 06:50 Physical Examination Constitutional: Yes: No Distress, Comfortable Cardiovascular: Yes: Regular Rate and Rhythm Respiratory: Yes: CTA Bilaterally Gastrointestinal: Yes: Normal Bowel Sounds, Soft. No: Tenderness Extremities: Yes: Other (rt 2nd toe swollen, erythema+, not warm or tender. Medial side-- ulcer noted, bloody discharge) Neurological: Yes: Alert, awake Psychiatric: Yes: Alert/ calm Problem List - Problems (1) Osteomyelitis Code(s): M86.9 - OSTEOMYELITIS, UNSPECIFIED (2) HTN (hypertension) Code(s): I10 - ESSENTIAL (PRIMARY) HYPERTENSION (3) Diabetes Code(s): E11.9 - TYPE 2 DIABETES MELLITUS WITHOUT COMPLICATIONS (4) Diabetic foot ulcer Code(s): E11.621 - TYPE 2 DIABETES MELLITUS WITH FOOT ULCER; L97.509 - NON- PRESSURE CHRONIC ULCER OTH PRT UNSP FOOT W UNSP SEVERITY Qualifiers: Diabetic foot ulcer location: toe Diabetes mellitus type: other specified ( including LUCI) Laterality: right Non-pressure ulcer stage: unspecified non- pressure ulcer stage Qualified Code(s): E13.621 - Other specified diabetes mellitus with foot ulcer; L97.519 - Non-pressure chronic ulcer of other part of right foot with unspecified severity; L97.519 - Non-pressure chronic ulcer of other part of right foot with unspecified severity; L97.519 - Non-pressure chronic ulcer of other part of right foot with unspecified severity; L97.519 - Non-pressure chronic ulcer of other part of right foot with unspecified severity Assessment/Plan Abx i/d on case podiatry consult noted/ appreciated Vascular consult. will follow
[2017-09-22] MEDS: METOPROLOL TARTRATE 50 MG TABLET (FP) PO SCH ×2 (10:15→21:52)
[2017-09-22] MEDS: MYCOPHENOLATE MOFETIL 500 MG TABLET PO SCH ×2 (10:15→21:51)
[2017-09-22] MEDS: NIFEdipine E.R. 30 MG TABLET (FP) PO SCH ×2 (10:16→21:51)
[2017-09-22] MEDS: HYDROCHLOROTHIAZIDE 12.5 MG CAPSULE (FP) PO SCH (10:16)
[2017-09-22] MEDS: TACROLIMUS ANHYDROUS 1 MG CAPSULE PO SCH ×2 (10:16→21:52)
--- NOTE | 2017-09-22 10:19 | CONSULT ---
Consult Consult Specialty:: vascular Reason for Consultation:: right 2nd toe ulcer with bone exposed. Pt wants amputation. Podiatry on case. 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 No: Alzheimer's, CVA, Dementia, Migraine, Seizure Cardio/Vascular: Yes: CHF, HTN. No: Pulmonary Hypertension Pulmonary: Yes: COPD Gastrointestinal: Yes: Cancer (hepatocellular), Other (Hepatitis C) Hepatobiliary: Yes: Hepatitis C Renal/: Yes: Renal Inusuff (CKD V) - Past Surgical History Past Surgical History: Yes: AV Fistula/Graft - Alcohol/Substance Use Hx Alcohol Use: Yes (FEW GLASSES OF WINE) History of Substance Use: reports: None - Smoking History Smoking history: Former smoker Have you smoked in the past 12 months: No Aproximately how many cigarettes per day: 0 If you are a former smoker, when did you quit?: 2010 - Social History Usual Living Arrangement: With Parent History of Recent Travel: No Home Medications - Allergies Allergies/Adverse Reactions: Allergies Allergy/AdvReac Type Severity Reaction Status Date / Time morphine Allergy Verified 08/16/17 12:06 - Home Medications Home Medications: Ambulatory Orders Insulin Detemir [Levemir Flextouch] 14 unit SQ BIDAC 08/10/17 Metoprolol Tartrate 50 mg PO BID 08/10/17 Mycophenolate Mofetil 500 mg PO BID 08/10/17 Nifedipine ER [Procardia XL -] 60 mg PO BID 08/10/17 Prednisone 5 mg PO HS 08/10/17 Tacrolimus 1 mg PO BID 08/10/17 Hydrochlorothiazide [Hctz -] 12.5 mg PO DAILY 08/17/17 Alprazolam 2 mg PO HS PRN 09/21/17 Family Disease History - Family Disease History Family Disease History: Heart Disease: Sister, Respiratory: Mother Review of Systems - Review of Systems Constitutional: reports: No Symptoms Eyes: reports: No Symptoms HENT: reports: No Symptoms Neck: reports: No Symptoms Cardiovascular: reports: No Symptoms Respiratory: reports: No Symptoms Gastrointestinal: reports: No Symptoms Genitourinary: reports: No Symptoms Breasts: reports: No Symptoms Reported Musculoskeletal: reports: No Symptoms Integumentary: reports: No Symptoms Neurological: reports: No Symptoms Endocrine: reports: No Symptoms Hematology/Lymphatic: reports: No Symptoms Psychiatric: reports: No Symptoms Physical Exam Vital Signs: Vital Signs Temperature 97.7 F 09/22/17 06:00 Pulse Rate 59 L 09/22/17 06:00 Respiratory Rate 18 09/22/17 06:00 Blood Pressure 138/64 09/22/17 06:00 O2 Sat by Pulse Oximetry (%) Constitutional: Yes: Well Nourished, No Distress, Calm Eyes: Yes: WNL, Conjunctiva Clear, EOM Intact HENT: Yes: WNL, Atraumatic, Normocephalic Neck: Yes: WNL, Supple, Trachea Midline Cardiovascular: Yes: WNL, Regular Rate and Rhythm Respiratory: Yes: WNL, Regular, CTA Bilaterally Gastrointestinal: Yes: WNL, Normal Bowel Sounds ...Rectal Exam: Yes: WNL Renal/: Yes: WNL Breast(s): Yes: WNL Musculoskeletal: Yes: WNL Extremities: Yes: Other (right 2nd toe ulcer.) Integumentary: Yes: WNL Wound/Incision: Yes: Clean/Dry Neurological: Yes: WNL, Alert, Oriented ...Motor Strength: WNL Psychiatric: Yes: WNL Labs: CBC, BMP 09/22/17 06:50 09/22/17 06:50 Problem List - Problems (1) Diabetes Code(s): E11.9 - TYPE 2 DIABETES MELLITUS WITHOUT COMPLICATIONS (2) Diabetic ulcer of foot associated with diabetes mellitus due to underlying condition, with necrosis of muscle Code(s): E08.621 - DIABETES MELLITUS DUE TO UNDERLYING CONDITION W FOOT ULCER; L97.503 - NON-PRS CHRONIC ULCER OTH PRT UNSP FOOT W NECROSIS OF MUSCLE Qualifiers: Diabetic foot ulcer location: toe Laterality: right Qualified Code(s): E08.621 - Diabetes mellitus due to underlying condition with foot ulcer; L97.513 - Non-pressure chronic ulcer of other part of right foot with necrosis of muscle; L97.513 - Non-pressure chronic ulcer of other part of right foot with necrosis of muscle; L97.513 - Non-pressure chronic ulcer of other part of right foot with necrosis of muscle; L97.513 - Non-pressure chronic ulcer of other part of right foot with necrosis of muscle Assessment/Plan right 2nd toe ulcer with bone exposed. Will order CTA to look at runoff of into foot. Pt is a ex smoker for 30 plus years. Podiatry on case for amputation. Brian Franz DO
[2017-09-22] MEDS: METOPROLOL TARTRATE 25 MG TABLET (FP) PO SCH (10:30)
[2017-09-22 10:32] LABS: ERYTHROCYTE SEDIMENTATION RATE 2 mm/hr (0-20)
--- NOTE | 2017-09-22 15:29 | PN ---
Progress Note, Physician History of Present Illness: ID follow up Patient seen and examined at bedside. No new complaints, no events overnight. - Current Medication List Current Medications: Active Medications Hydrochlorothiazide (Hctz -) 12.5 mg PO DAILY [facility] Last Admin: 09/22/17 10:16 Dose: 12.5 mg Vancomycin HCl 1,000 mg/ (Dextrose) 250 mls @ 166.667 mls/hr IVPB BID@0300, 1500 [facility] PRN Reason: Protocol Last Admin: 09/22/17 02:00 Dose: 166.667 mls/hr Piperacillin Sod/Tazobactam (Sod 3.375 gm/ Dextrose) 50 mls @ 100 mls/hr IVPB Q8H-IV [facility] PRN Reason: Protocol Last Admin: 09/22/17 10:14 Dose: 100 mls/hr Insulin Aspart (Novolog Vial Sliding Scale -) 1 vial SQ BIDAC [facility] PRN Reason: Protocol Last Admin: 09/22/17 06:45 Dose: Not Given Insulin Detemir (Levemir Vial) 14 units SQ BID@0700,2200 [facility] Last Admin: 09/22/17 06:48 Dose: 14 units Metoprolol Tartrate (Lopressor -) 50 mg PO BID [facility] Last Admin: 09/22/17 10:15 Dose: 50 mg Mycophenolate Mofetil (Cellcept -) 500 mg PO BID [facility] Last Admin: 09/22/17 10:15 Dose: 500 mg Nifedipine (Procardia Xl -) 60 mg PO BID [facility] Last Admin: 09/22/17 10:16 Dose: 60 mg Prednisone (Deltasone -) 5 mg PO HS [facility] Last Admin: 09/21/17 21:21 Dose: 5 mg Tacrolimus (Prograf) 1 mg PO BID [facility] Last Admin: 09/22/17 10:16 Dose: 1 mg - Objective Vital Signs: Vital Signs Temperature 97.9 F 09/22/17 14:45 Pulse Rate 69 09/22/17 14:45 Respiratory Rate 20 09/22/17 14:45 Blood Pressure 159/96 09/22/17 14:45 O2 Sat by Pulse Oximetry (%) Constitutional: Yes: Well Nourished, No Distress, Calm HENT: Yes: Atraumatic, Normocephalic Cardiovascular: Yes: Regular Rate and Rhythm, S1, S2. No: Bruit, JVD, Gallop, Murmur, Rub Respiratory: Yes: Regular, CTA Bilaterally Gastrointestinal: Yes: Normal Bowel Sounds, Soft Extremities: Yes: Other (Patient's second toe erythema improved today. Ulcer unchanged.) Edema: No Neurological: Yes: Alert, Oriented Psychiatric: Yes: Alert, Oriented Labs: CBC, BMP 09/22/17 06:50 09/22/17 06:50 INR, PTT INR 0.99 (0.82-1.09) 09/21/17 12:20 Assessment/Plan The patient is a 56 yo m w/ PMH DM, kidney/renal txp 2/2 Hep C and cirrhosis and COPD who was admitted for treatment of acute osteo. -WBC elevated to 10.9 -outpatient MRI showed osteo; awaiting report from PCP -Patient afebrile and clinically stable. -f/u wound cx, blood cx. -c/w Zosyn 3.375g Q8H (day 3) -c/w Vanco 1g daily (day3) -Patient seen by Dr. Franz; ordered CTA w/ runoff. -surgical mgmt as per vascular and podiatry. -will follow -case d/w Dr. Serna
[2017-09-22] MEDS ORDERED: INSULIN (NOVOLOG) ASPART 100 UNITS/ML 10ML VIAL SQ ONE (21:23)
[2017-09-22] MEDS: predniSONE 5 MG TABLET (UD) PO SCH (21:51)
[2017-09-23] MEDS ORDERED: DEXTROSE 5%-WATER - 50 ML IVPB ONE ×3 (00:58→17:51)
[2017-09-23] MEDS ORDERED: PIPERACILLIN/TAZOBACTAM 3.375 GM VIAL IVPB ONE ×3 (00:58→17:51)
[2017-09-23] MEDS: PIPERACILLIN/TAZOB 3.375 GM 3.375 GM in DEXTROSE 5%-WATER - 50 ML IVPB SCH ×3 (01:45→18:12)
[2017-09-23] MEDS: VANCOMYCIN 1,000 MG in DEXTROSE 5%-WATER - 250 ML IVPB SCH ×2 (02:13→15:19)
[2017-09-23] MEDS: INSULIN SLIDING SCALE (NOVOLOG) 1 VIAL SQ SCH ×2 (06:45→17:09)
[2017-09-23] MEDS: INSULIN (LEVEMIR) 100 UNITS/ML UNITS SQ SCH ×2 (06:52→22:19)
[2017-09-23] MEDS ORDERED: INSULIN (NOVOLOG) ASPART 100 UNITS/ML 10ML VIAL ONE (07:00)
--- NOTE | 2017-09-23 08:28 | PN ---
Progress Note, Physician Chief Complaint: no complaints - Current Medication List Current Medications: Active Medications Hydrochlorothiazide (Hctz -) 12.5 mg PO DAILY [facility] Last Admin: 09/22/17 10:16 Dose: 12.5 mg Vancomycin HCl 1,000 mg/ (Dextrose) 250 mls @ 166.667 mls/hr IVPB BID@0300, 1500 [facility] PRN Reason: Protocol Last Admin: 09/23/17 02:13 Dose: 166.667 mls/hr Piperacillin Sod/Tazobactam (Sod 3.375 gm/ Dextrose) 50 mls @ 100 mls/hr IVPB Q8H-IV [facility] PRN Reason: Protocol Last Admin: 09/23/17 01:45 Dose: 100 mls/hr Insulin Aspart (Novolog Vial Sliding Scale -) 1 vial SQ BIDAC [facility] PRN Reason: Protocol Last Admin: 09/23/17 06:45 Dose: Not Given Insulin Detemir (Levemir Vial) 14 units SQ BID@0700,2200 [facility] Last Admin: 09/23/17 06:52 Dose: 10 units Metoprolol Tartrate (Lopressor -) 50 mg PO BID [facility] Last Admin: 09/22/17 21:52 Dose: 50 mg Mycophenolate Mofetil (Cellcept -) 500 mg PO BID [facility] Last Admin: 09/22/17 21:51 Dose: 500 mg Nifedipine (Procardia Xl -) 60 mg PO BID [facility] Last Admin: 09/22/17 21:51 Dose: 60 mg Prednisone (Deltasone -) 5 mg PO HS [facility] Last Admin: 09/22/17 21:51 Dose: 5 mg Tacrolimus (Prograf) 1 mg PO BID [facility] Last Admin: 09/22/17 21:52 Dose: 1 mg - Objective Vital Signs: Vital Signs Temperature 97.3 F L 09/23/17 06:05 Pulse Rate 68 09/23/17 06:05 Respiratory Rate 20 09/23/17 06:05 Blood Pressure 132/94 09/23/17 06:05 O2 Sat by Pulse Oximetry (%) 98 09/22/17 21:00 Constitutional: Yes: No Distress Cardiovascular: Yes: Regular Rate and Rhythm Respiratory: Yes: CTA Bilaterally Gastrointestinal: Yes: Normal Bowel Sounds, Soft. No: Tenderness Edema: No Labs: CBC, BMP 09/22/17 06:50 09/22/17 06:50 INR, PTT INR 0.99 (0.82-1.09) 09/21/17 12:20 Problem List - Problems (1) Osteomyelitis Code(s): M86.9 - OSTEOMYELITIS, UNSPECIFIED (2) HTN (hypertension) Code(s): I10 - ESSENTIAL (PRIMARY) HYPERTENSION (3) Diabetes Code(s): E11.9 - TYPE 2 DIABETES MELLITUS WITHOUT COMPLICATIONS (4) Diabetic foot ulcer Code(s): E11.621 - TYPE 2 DIABETES MELLITUS WITH FOOT ULCER; L97.509 - NON- PRESSURE CHRONIC ULCER OTH PRT UNSP FOOT W UNSP SEVERITY Qualifiers: Diabetic foot ulcer location: toe Diabetes mellitus type: other specified ( including LUCI) Laterality: right Non-pressure ulcer stage: unspecified non- pressure ulcer stage Qualified Code(s): E13.621 - Other specified diabetes mellitus with foot ulcer; L97.519 - Non-pressure chronic ulcer of other part of right foot with unspecified severity; L97.519 - Non-pressure chronic ulcer of other part of right foot with unspecified severity; L97.519 - Non-pressure chronic ulcer of other part of right foot with unspecified severity; L97.519 - Non-pressure chronic ulcer of other part of right foot with unspecified severity Assessment/Plan PLAN iv antibiotics CTA noted-- spoke with Dr Franz-- will need angiogram and angioplasty Renal eval continue with meds DM control
[2017-09-23] MEDS ORDERED: PT OWN MED DRAWER 7, Y5N ONE ×3 (11:06→22:17)
[2017-09-23] MEDS: HYDROCHLOROTHIAZIDE 12.5 MG CAPSULE (FP) PO SCH (11:10)
[2017-09-23] MEDS: NIFEdipine E.R. 30 MG TABLET (FP) PO SCH ×2 (11:10→22:20)
[2017-09-23] MEDS: METOPROLOL TARTRATE 50 MG TABLET (FP) PO SCH ×2 (11:10→22:20)
[2017-09-23] MEDS: MYCOPHENOLATE MOFETIL 500 MG TABLET PO SCH ×2 (11:11→22:20)
[2017-09-23] MEDS: TACROLIMUS ANHYDROUS 1 MG CAPSULE PO SCH ×2 (11:11→22:21)
--- NOTE | 2017-09-23 12:47 | PN ---
Progress Note (short form) - Note Progress Note: Vascular surgery CTA reviewed - pt with right second toe ulcer with bone exposed. CTA obtained due to extensive smoking history. CTA shows disease in external iliac artery, Sfa, and popliteal artery. Infrapopliteal vessels not well visualized. Pt will need angiogram, angioplasty to look at runoff. Please medically clear. Brian Franz DO Problem List - Problems (1) Diabetes Code(s): E11.9 - TYPE 2 DIABETES MELLITUS WITHOUT COMPLICATIONS (2) Diabetic ulcer of foot associated with diabetes mellitus due to underlying condition, with necrosis of muscle Code(s): E08.621 - DIABETES MELLITUS DUE TO UNDERLYING CONDITION W FOOT ULCER; L97.503 - NON-PRS CHRONIC ULCER OTH PRT UNSP FOOT W NECROSIS OF MUSCLE Qualifiers: Diabetic foot ulcer location: toe Laterality: right Qualified Code(s): E08.621 - Diabetes mellitus due to underlying condition with foot ulcer; L97.513 - Non-pressure chronic ulcer of other part of right foot with necrosis of muscle; L97.513 - Non-pressure chronic ulcer of other part of right foot with necrosis of muscle; L97.513 - Non-pressure chronic ulcer of other part of right foot with necrosis of muscle; L97.513 - Non-pressure chronic ulcer of other part of right foot with necrosis of muscle
--- NOTE | 2017-09-23 13:14 | PN ---
Progress Note, Physician History of Present Illness: Awake, alert No compliants No c/o toe pain Afebrile - Current Medication List Current Medications: Active Medications Hydrochlorothiazide (Hctz -) 12.5 mg PO DAILY [facility] Last Admin: 09/23/17 11:10 Dose: 12.5 mg Vancomycin HCl 1,000 mg/ (Dextrose) 250 mls @ 166.667 mls/hr IVPB BID@0300, 1500 [facility] PRN Reason: Protocol Last Admin: 09/23/17 02:13 Dose: 166.667 mls/hr Piperacillin Sod/Tazobactam (Sod 3.375 gm/ Dextrose) 50 mls @ 100 mls/hr IVPB Q8H-IV [facility] PRN Reason: Protocol Last Admin: 09/23/17 11:10 Dose: 100 mls/hr Insulin Aspart (Novolog Vial Sliding Scale -) 1 vial SQ BIDAC [facility] PRN Reason: Protocol Last Admin: 09/23/17 06:45 Dose: Not Given Insulin Detemir (Levemir Vial) 14 units SQ BID@0700,2200 [facility] Last Admin: 09/23/17 06:52 Dose: 10 units Metoprolol Tartrate (Lopressor -) 50 mg PO BID [facility] Last Admin: 09/23/17 11:10 Dose: 50 mg Mycophenolate Mofetil (Cellcept -) 500 mg PO BID [facility] Last Admin: 09/23/17 11:11 Dose: 500 mg Nifedipine (Procardia Xl -) 60 mg PO BID [facility] Last Admin: 09/23/17 11:10 Dose: 60 mg Prednisone (Deltasone -) 5 mg PO HS [facility] Last Admin: 09/22/17 21:51 Dose: 5 mg Tacrolimus (Prograf) 1 mg PO BID [facility] Last Admin: 09/23/17 11:11 Dose: 1 mg - Objective Vital Signs: Vital Signs Temperature 97.3 F L 09/23/17 06:05 Pulse Rate 75 09/23/17 10:00 Respiratory Rate 18 09/23/17 10:00 Blood Pressure 166/99 09/23/17 10:00 O2 Sat by Pulse Oximetry (%) 98 09/22/17 21:00 Constitutional: Yes: No Distress Cardiovascular: Yes: Regular Rate and Rhythm, S1, S2 Respiratory: Yes: CTA Bilaterally Gastrointestinal: Yes: Normal Bowel Sounds Extremities: Yes: Other (+ R 2nd toe ulcer no drainage) Labs: CBC, BMP 09/22/17 06:50 09/22/17 06:50 INR, PTT INR 0.99 (0.82-1.09) 09/21/17 12:20 Assessment/Plan Infected toe ulcer/ osteomyelitis Diabetes mellitus S/P Liver/ kidney transplant Await c/s Continue empiric vancomycin/zosyn Vancomycin level
--- NOTE | 2017-09-23 17:42 | PN ---
Progress Note (short form) - Note Progress Note: Seen at bedside with non healing ulcer 2nd toe left foot Pt seen by vascular and angio discussed Pt has wound interdigitally with bone exposed Non tender on palpation and ROM Proximal phalanx head exposed (+) edema and erythema noted Impression; Osteomyelitis 2nd toe left Plan: Pt will need 2nd toe amputation after vascular clearance Will cont to follow
[2017-09-23] MEDS: predniSONE 5 MG TABLET (UD) PO SCH (22:20)
[2017-09-24] MEDS ORDERED: PIPERACILLIN/TAZOBACTAM 3.375 GM VIAL IVPB ONE ×3 (00:59→16:50)
[2017-09-24] MEDS ORDERED: DEXTROSE 5%-WATER - 50 ML IVPB ONE ×3 (00:59→16:50)
[2017-09-24] MEDS: PIPERACILLIN/TAZOB 3.375 GM 3.375 GM in DEXTROSE 5%-WATER - 50 ML IVPB SCH ×3 (01:06→18:40)
[2017-09-24] MEDS: VANCOMYCIN 1,000 MG in DEXTROSE 5%-WATER - 250 ML IVPB SCH ×2 (02:03→16:56)
[2017-09-24] MEDS: INSULIN SLIDING SCALE (NOVOLOG) 1 VIAL SQ SCH ×2 (06:53→16:36)
[2017-09-24] MEDS: INSULIN (LEVEMIR) 100 UNITS/ML UNITS SQ SCH ×2 (06:53→23:31)
[2017-09-24] MEDS ORDERED: PT OWN MED DRAWER 7, Y5N ONE ×4 (09:07→22:01)
[2017-09-24] MEDS: NIFEdipine E.R. 30 MG TABLET (FP) PO SCH ×2 (09:11→23:30)
[2017-09-24] MEDS: METOPROLOL TARTRATE 50 MG TABLET (FP) PO SCH ×2 (09:11→23:30)
[2017-09-24] MEDS: MYCOPHENOLATE MOFETIL 500 MG TABLET PO SCH ×2 (09:11→23:31)
[2017-09-24] MEDS: HYDROCHLOROTHIAZIDE 12.5 MG CAPSULE (FP) PO SCH (09:11)
[2017-09-24] MEDS: TACROLIMUS ANHYDROUS 1 MG CAPSULE PO SCH ×2 (09:12→23:30)
--- NOTE | 2017-09-24 11:05 | CONSULT ---
Consult - text type - Consultation Consultation Note: Renal Consult for Renal transplant and Contrast Nephropathy Risk Stratification This is a 56 year old gentleman with PMhx of Hepatitis C with HCC s/p Liver and Kidney transplant, DM, CHF, COPD who presented with infected wound on foot with osteomylitis. Pt s/p CTA with runoff earlier this admission. Cr is 0.8mg and stable. No acute complaints. getting IV Abx. Denies any sob, chest pain, abd pain, N/V/D. Making urine. No flank pain or graft pain. PMhx: as above Allergies: NKDA Family hx: NC Social Hx: Former smoker ROS: as per HPI Home Medications Medication Instructions Recorded Insulin Detemir [Levemir Flextouch] 14 unit SQ BIDAC 08/10/17 Metoprolol Tartrate 50 mg PO BID 08/10/17 Mycophenolate Mofetil 500 mg PO BID 08/10/17 Nifedipine ER [Procardia XL -] 60 mg PO BID 08/10/17 Prednisone 5 mg PO HS 08/10/17 Tacrolimus 2 mg PO BID 08/10/17 Hydrochlorothiazide [Hctz -] 12.5 mg PO DAILY 08/17/17 Alprazolam 2 mg PO HS PRN 09/21/17 Vital Signs Temperature 97.8 F 09/24/17 06:10 Pulse Rate 64 09/24/17 06:10 Respiratory Rate 18 09/24/17 06:10 Blood Pressure 128/70 09/24/17 06:10 O2 Sat by Pulse Oximetry (%) 97 09/23/17 21:00 Intake & Output 09/21/17 09/22/17 09/23/17 09/24/17 23:59 23:59 23:59 23:59 Intake Total 900 1715 1100 300 Output Total 2000 Balance 900 1715 -900 300 Weight 73.301 kg 70.76 kg NAD awake and alert MMM No JVD RRR soft NT/Nd no LE edema CBC, BMP 09/22/17 06:50 09/22/17 06:50 Current Medications Hydrochlorothiazide (Hctz -) 12.5 mg PO DAILY [facility] Last Admin: 09/24/17 09:11 Dose: 12.5 mg Vancomycin HCl 1,000 mg/ (Dextrose) 250 mls @ 166.667 mls/hr IVPB BID@0300, 1500 [facility] PRN Reason: Protocol Last Admin: 09/24/17 02:03 Dose: 166.667 mls/hr Piperacillin Sod/Tazobactam (Sod 3.375 gm/ Dextrose) 50 mls @ 100 mls/hr IVPB Q8H-IV [facility] PRN Reason: Protocol Last Admin: 09/24/17 09:13 Dose: 100 mls/hr Insulin Aspart (Novolog Vial Sliding Scale -) 1 vial SQ BIDAC [facility] PRN Reason: Protocol Last Admin: 09/24/17 06:53 Dose: 2 units Insulin Detemir (Levemir Vial) 14 units SQ BID@0700,2200 [facility] Last Admin: 09/24/17 06:53 Dose: 14 units Metoprolol Tartrate (Lopressor -) 50 mg PO BID [facility] Last Admin: 09/24/17 09:11 Dose: 50 mg Mycophenolate Mofetil (Cellcept -) 500 mg PO BID [facility] Last Admin: 09/24/17 09:11 Dose: 500 mg Nifedipine (Procardia Xl -) 60 mg PO BID [facility] Last Admin: 09/24/17 09:11 Dose: 60 mg Prednisone (Deltasone -) 5 mg PO HS [facility] Last Admin: 09/23/17 22:20 Dose: 5 mg Tacrolimus (Prograf) 2 mg PO BID [facility] 56 year old gentleman with PMhx of Hepatitis C with HCC s/p Liver and Kidney transplant, DM, CHF, COPD who presented with infected wound on foot with osteomylitis. #ESRD s/p Renal Transplant #Liver transplant #LE Wound/Osteomylitis #PVD #Hypertension #Contrast Nephropathy Risk stratification Risk of MASHA discussed with the patient. He was informed that Renal Transplant patients with normal renal function have a 3-7% change of Renal injury with IV contrast exposure. It was explained to him that low osm contrast, IVF Hydration can be done to minimize risk but not eliminate it completely. At this time he says that he would not want to have contrast exposure at this time. I will call his transplant human resources director and discuss the case with him tomorrow. Tacrolimus dose was increased to 2mg BID (was dose he was on at home) continue MMF 500mg BID, prednisone 5mg daily continue Abx as per ID check Vanco levels continue Neifedipine, HCTZ, Metoprolol Thank you Will follow Alvin Alexandra DO
--- NOTE | 2017-09-24 11:10 | PN ---
Progress Note, Physician Chief Complaint: no complaints anxious to leave hospital - Current Medication List Current Medications: Active Medications Hydrochlorothiazide (Hctz -) 12.[address] [facility] Last Admin: 09/24/17 09:11 Dose: 12.5 mg Vancomycin HCl 1,000 mg/ (Dextrose) 250 mls @ 166.667 mls/hr IVPB BID@0300, 1500 [facility] PRN Reason: Protocol Last Admin: 09/24/17 02:03 Dose: 166.667 mls/hr Piperacillin Sod/Tazobactam (Sod 3.375 gm/ Dextrose) 50 mls @ 100 mls/hr IVPB Q8H-IV [facility] PRN Reason: Protocol Last Admin: 09/24/17 09:13 Dose: 100 mls/hr Insulin Aspart (Novolog Vial Sliding Scale -) [address] [facility] PRN Reason: Protocol Last Admin: 09/24/17 06:53 Dose: 2 units Insulin Detemir (Levemir Vial) 14 units SQ BID@0700,2200 [facility] Last Admin: 09/24/17 06:53 Dose: 14 units Metoprolol Tartrate (Lopressor -) [address] [facility] Last Admin: 09/24/17 09:11 Dose: 50 mg Mycophenolate Mofetil (Cellcept -) [address] [facility] Last Admin: 09/24/17 09:11 Dose: 500 mg Nifedipine (Procardia Xl -) [address] [facility] Last Admin: 09/24/17 09:11 Dose: 60 mg Prednisone (Deltasone -) [address] [facility] Last Admin: 09/23/17 22:20 Dose: 5 mg Tacrolimus (Prograf) [address] [facility] - Objective Vital Signs: Vital Signs Temperature 97.8 F 09/24/17 06:10 Pulse Rate 64 09/24/17 06:10 Respiratory Rate 18 09/24/17 06:10 Blood Pressure 128/70 09/24/17 06:10 O2 Sat by Pulse Oximetry (%) 97 09/23/17 21:00 Constitutional: Yes: No Distress Cardiovascular: Yes: Regular Rate and Rhythm Respiratory: Yes: CTA Bilaterally Gastrointestinal: Yes: Normal Bowel Sounds, Soft. No: Tenderness Edema: No Labs: CBC, BMP 09/22/17 06:50 09/22/17 06:50 INR, PTT INR 0.99 (0.82-1.09) 09/21/17 12:20 Problem List - Problems (1) Osteomyelitis Code(s): M86.9 - OSTEOMYELITIS, UNSPECIFIED (2) HTN (hypertension) Code(s): I10 - ESSENTIAL (PRIMARY) HYPERTENSION (3) Diabetes Code(s): E11.9 - TYPE 2 DIABETES MELLITUS WITHOUT COMPLICATIONS (4) Diabetic foot ulcer Code(s): E11.621 - TYPE 2 DIABETES MELLITUS WITH FOOT ULCER; L97.509 - NON- PRESSURE CHRONIC ULCER OTH PRT UNSP FOOT W UNSP SEVERITY Qualifiers: Diabetic foot ulcer location: toe Diabetes mellitus type: other specified ( including LUCI) Laterality: right Non-pressure ulcer stage: unspecified non- pressure ulcer stage Qualified Code(s): E13.621 - Other specified diabetes mellitus with foot ulcer; L97.519 - Non-pressure chronic ulcer of other part of right foot with unspecified severity; L97.519 - Non-pressure chronic ulcer of other part of right foot with unspecified severity; L97.519 - Non-pressure chronic ulcer of other part of right foot with unspecified severity; L97.519 - Non-pressure chronic ulcer of other part of right foot with unspecified severity Assessment/Plan PLAN iv antibiotics CTA noted-- spoke with Dr Franz-- will need angiogram and angioplasty spoke with Nephrology- Dr Alexandra-- may need to use CO2 for angio continue with meds DM control
[2017-09-24] MEDS: predniSONE 5 MG TABLET (UD) PO SCH (23:30)
[2017-09-25] MEDS ORDERED: PIPERACILLIN/TAZOBACTAM 3.375 GM VIAL IVPB ONE ×3 (01:56→17:57)
[2017-09-25] MEDS ORDERED: DEXTROSE 5%-WATER - 50 ML IVPB ONE ×3 (01:56→17:58)
[2017-09-25] MEDS: PIPERACILLIN/TAZOB 3.375 GM 3.375 GM in DEXTROSE 5%-WATER - 50 ML IVPB SCH ×3 (02:10→18:17)
[2017-09-25] MEDS ORDERED: PT OWN MED DRAWER 7, Y5N ONE ×5 (02:52→21:25)
[2017-09-25] MEDS: VANCOMYCIN 1,000 MG in DEXTROSE 5%-WATER - 250 ML IVPB SCH ×2 (02:56→15:36)
[2017-09-25] MEDS: INSULIN (LEVEMIR) 100 UNITS/ML UNITS SQ SCH ×2 (06:35→21:46)
[2017-09-25] MEDS: INSULIN SLIDING SCALE (NOVOLOG) 1 VIAL SQ SCH ×2 (06:36→17:13)
[2017-09-25] MEDS: METOPROLOL TARTRATE 50 MG TABLET (FP) PO SCH ×2 (10:20→21:45)
[2017-09-25] MEDS: HYDROCHLOROTHIAZIDE 12.5 MG CAPSULE (FP) PO SCH (10:20)
[2017-09-25] MEDS: NIFEdipine E.R. 30 MG TABLET (FP) PO SCH ×2 (10:21→21:44)
[2017-09-25] MEDS: MYCOPHENOLATE MOFETIL 500 MG TABLET PO SCH ×2 (10:26→21:44)
[2017-09-25] MEDS: TACROLIMUS ANHYDROUS 1 MG CAPSULE PO SCH ×2 (10:28→21:44)
--- NOTE | 2017-09-25 11:30 | PN ---
Progress Note (short form) - Note Progress Note: Podiatry: Seen/evaluated at bedside, NAD. Pain controlled, denies F/V/N/C/SOB/CP. AFebrile, VSS. BYRON: R foot: pedal pulses dopplerable, TG wnl, CFT brisk to all toes. Medial 2nd digit ulcer chronic with exposed bone at IPJ, no purulence, no fluctuance, no streaking cellulitis, no signs of active infection. Mild tenderness to palpation. Imp: 56 year old DM M R 2nd digit ulcer exposed bone, clinical osteomyelitis 1. IV abx 2. Discussed case at length with Dr. Franz who will clear patient for OR. 3. Discussed risks, benefits, alternatives to surgery. He is amenable to 2nd digit amputation. Discussed increased risk given his smoking, diabetes and liver/kidney transplant. 4. NPO at midnight 5. For 2nd toe amputation tomorrow Kiki Patiño DPM
[2017-09-25 12:59] LABS: ANION GAP 6 (8-16); BLOOD UREA NITROGEN 17 mg/dL (7-18); CHLORIDE 101 mmol/L (98-107); CO2 28 mmol/L (21-32); CREATININE 0.7 mg/dL (0.7-1.3); GLUCOSE,RANDOM 70 mg/dL (74-106); POTASSIUM 3.8 mmol/L (3.5-5.1); SODIUM 135 mmol/L (136-145)
--- NOTE | 2017-09-25 13:12 | PN ---
Progress Note (short form) - Note Progress Note: Pt seen/ examined comfortable All f/u noted Discussed with Dr. Franz also No angio planned Cleared for surgery tomorrow Vital Signs Temp 97.9 F 09/25/17 10:18 Pulse 68 09/25/17 10:18 Resp 20 09/25/17 10:18 BP 172/98 09/25/17 10:18 Pulse Ox 99 09/24/17 21:00 Intake & Output 09/24/17 09/25/17 09/25/17 23:59 11:59 23:59 Intake Total 950 300 Balance 950 300 Intake: IVPB 300 300 Oral 650 Other: Voiding Method Toilet Toilet # Unmeasured Voids Void 1 2 Bowel Movement Yes No # Bowel Movements 1 Active Medications Hydrochlorothiazide (Hctz -) 12.5 mg PO DAILY [facility] Last Admin: 09/25/17 10:20 Dose: 12.5 mg Vancomycin HCl 1,000 mg/ (Dextrose) 250 mls @ 166.667 mls/hr IVPB BID@0300, 1500 [facility] PRN Reason: Protocol Last Admin: 09/25/17 02:56 Dose: 166.667 mls/hr Piperacillin Sod/Tazobactam (Sod 3.375 gm/ Dextrose) 50 mls @ 100 mls/hr IVPB Q8H-IV [facility] PRN Reason: Protocol Last Admin: 09/25/17 10:25 Dose: 100 mls/hr Insulin Aspart (Novolog Vial Sliding Scale -) 1 vial SQ BIDAC [facility] PRN Reason: Protocol Last Admin: 09/25/17 06:36 Dose: 4 units Insulin Detemir (Levemir Vial) 14 units SQ BID@0700,2200 [facility] Last Admin: 09/25/17 06:35 Dose: 14 units Metoprolol Tartrate (Lopressor -) 50 mg PO BID [facility] Last Admin: 09/25/17 10:20 Dose: 50 mg Mycophenolate Mofetil (Cellcept -) 500 mg PO BID [facility] Last Admin: 09/25/17 10:26 Dose: 500 mg Nifedipine (Procardia Xl -) 60 mg PO BID [facility] Last Admin: 09/25/17 10:21 Dose: 60 mg Prednisone (Deltasone -) 5 mg PO HS [facility] Last Admin: 09/24/17 23:30 Dose: 5 mg Tacrolimus (Prograf) 2 mg PO BID [facility] Last Admin: 09/25/17 10:28 Dose: 2 mg CBC, BMP 09/22/17 06:50 09/25/17 12:15 Microbiology 09/21/17 16:40 Blood Culture - Preliminary Blood - Peripheral Venous NO GROWTH OBTAINED AFTER 72 HOURS, INCUBATION TO CONTINUE FOR 2 DAYS. 09/21/17 18:00 Gram Stain - Final Toe - Right Second Wound Culture - Final Staphylococcus Coagulase Neg Corynebacterium Species Physical Examination Constitutional: Yes: No Distress, Comfortable Cardiovascular: Yes: Regular Rate and Rhythm Respiratory: Yes: CTA Bilaterally Gastrointestinal: Yes: Normal Bowel Sounds, Soft. No: Tenderness Extremities: Yes: Other (rt 2nd toe swollen, erythema+, not warm or tender. Medial side-- ulcer noted, bloody discharge) Neurological: Yes: Alert, awake Psychiatric: Yes: Alert/Awake A/P Stable For OR tomorrow Medically stable for same will follow Problem List - Problems (1) Diabetes Code(s): E11.9 - TYPE 2 DIABETES MELLITUS WITHOUT COMPLICATIONS (2) HTN (hypertension) Code(s): I10 - ESSENTIAL (PRIMARY) HYPERTENSION (3) Osteomyelitis Code(s): M86.9 - OSTEOMYELITIS, UNSPECIFIED (4) Diabetic ulcer of foot associated with diabetes mellitus due to underlying condition, with necrosis of muscle Code(s): E08.621 - DIABETES MELLITUS DUE TO UNDERLYING CONDITION W FOOT ULCER; L97.503 - NON-PRS CHRONIC ULCER OTH PRT UNSP FOOT W NECROSIS OF MUSCLE Qualifiers: Diabetic foot ulcer location: toe Laterality: right Qualified Code(s): E08.621 - Diabetes mellitus due to underlying condition with foot ulcer; L97.513 - Non-pressure chronic ulcer of other part of right foot with necrosis of muscle; L97.513 - Non-pressure chronic ulcer of other part of right foot with necrosis of muscle; L97.513 - Non-pressure chronic ulcer of other part of right foot with necrosis of muscle; L97.513 - Non-pressure chronic ulcer of other part of right foot with necrosis of muscle
--- NOTE | 2017-09-25 14:31 | PN ---
Progress Note, Physician History of Present Illness: Awake, alert OOB in chair No complaints of foot pain Afebrile - Current Medication List Current Medications: Active Medications Hydrochlorothiazide (Hctz -) 12.5 mg PO DAILY [facility] Last Admin: 09/25/17 10:20 Dose: 12.5 mg Vancomycin HCl 1,000 mg/ (Dextrose) 250 mls @ 166.667 mls/hr IVPB BID@0300, 1500 [facility] PRN Reason: Protocol Last Admin: 09/25/17 02:56 Dose: 166.667 mls/hr Piperacillin Sod/Tazobactam (Sod 3.375 gm/ Dextrose) 50 mls @ 100 mls/hr IVPB Q8H-IV [facility] PRN Reason: Protocol Last Admin: 09/25/17 10:25 Dose: 100 mls/hr Insulin Aspart (Novolog Vial Sliding Scale -) 1 vial SQ BIDAC [facility] PRN Reason: Protocol Last Admin: 09/25/17 06:36 Dose: 4 units Insulin Detemir (Levemir Vial) 14 units SQ BID@0700,2200 [facility] Last Admin: 09/25/17 06:35 Dose: 14 units Metoprolol Tartrate (Lopressor -) 50 mg PO BID [facility] Last Admin: 09/25/17 10:20 Dose: 50 mg Mycophenolate Mofetil (Cellcept -) 500 mg PO BID [facility] Last Admin: 09/25/17 10:26 Dose: 500 mg Nifedipine (Procardia Xl -) 60 mg PO BID [facility] Last Admin: 09/25/17 10:21 Dose: 60 mg Prednisone (Deltasone -) 5 mg PO HS [facility] Last Admin: 09/24/17 23:30 Dose: 5 mg Tacrolimus (Prograf) 2 mg PO BID [facility] Last Admin: 09/25/17 10:28 Dose: 2 mg - Objective Vital Signs: Vital Signs Temperature 97.9 F 09/25/17 10:18 Pulse Rate 64 09/25/17 13:46 Respiratory Rate 20 09/25/17 13:46 Blood Pressure 135/84 09/25/17 13:46 O2 Sat by Pulse Oximetry (%) 98 09/25/17 10:15 Constitutional: Yes: No Distress Eyes: Yes: Conjunctiva Clear Cardiovascular: Yes: Regular Rate and Rhythm, S1, S2 Respiratory: Yes: CTA Bilaterally Gastrointestinal: Yes: Normal Bowel Sounds, Soft. No: Tenderness Extremities: Yes: Other (decreased 2nd toe erythema/ swelling. Ulcer dry) Labs: CBC, BMP 09/22/17 06:50 09/25/17 12:15 INR, PTT INR 0.99 (0.82-1.09) 09/21/17 12:20 Assessment/Plan Infected toe ulcer/ osteomyelitis Diabetes mellitus S/P Liver/ kidney transplant Wound c/s likely contaminant Continue empiric vancomycin/zosyn For toe amputation
--- NOTE | 2017-09-25 16:40 | PN ---
Progress Note (short form) - Note Progress Note: VAscular Surgery Pt seen and examined. right second digit ulcer with bone exposed. Pt has a strong dopplerable pulse on foot. There is a signal in the distal foot above the the second toe. Pt is a translpant pt , and it would be best to spare the pt the contrast load. Pt should heal procedure. Podiatry to do procedure laurent. Cleared from a vascular standpoint. Radha Franz DO Problem List - Problems (1) Diabetes Code(s): E11.9 - TYPE 2 DIABETES MELLITUS WITHOUT COMPLICATIONS (2) Diabetic ulcer of foot associated with diabetes mellitus due to underlying condition, with necrosis of muscle Code(s): E08.621 - DIABETES MELLITUS DUE TO UNDERLYING CONDITION W FOOT ULCER; L97.503 - NON-PRS CHRONIC ULCER OTH PRT UNSP FOOT W NECROSIS OF MUSCLE Qualifiers: Diabetic foot ulcer location: toe Laterality: right Qualified Code(s): E08.621 - Diabetes mellitus due to underlying condition with foot ulcer; L97.513 - Non-pressure chronic ulcer of other part of right foot with necrosis of muscle; L97.513 - Non-pressure chronic ulcer of other part of right foot with necrosis of muscle; L97.513 - Non-pressure chronic ulcer of other part of right foot with necrosis of muscle; L97.513 - Non-pressure chronic ulcer of other part of right foot with necrosis of muscle
--- NOTE | 2017-09-25 17:08 | PN ---
Progress Note (short form) - Note Progress Note: Renal follow up for Renal transplant, contrast nephropathy prophylaxis Pt seen and examined in the solarium no acute complaints denies any sob, chest pain no LE pain or swelling' Vital Signs Temperature 97.9 F 09/25/17 14:27 Pulse Rate 61 09/25/17 14:27 Respiratory Rate 18 09/25/17 14:27 Blood Pressure 135/84 09/25/17 13:46 O2 Sat by Pulse Oximetry (%) 98 09/25/17 10:15 Intake & Output 09/22/17 09/23/17 09/24/17 09/25/17 23:59 23:59 23:59 23:59 Intake Total 1715 1100 1250 1200 Output Total 2000 Balance 1715 -900 1250 1200 Weight 70.76 kg NAD awake and alert No LE edema CBC, BMP 09/22/17 06:50 09/25/17 12:15 Current Medications Hydrochlorothiazide (Hctz -) 12.5 mg PO DAILY [facility] Last Admin: 09/25/17 10:20 Dose: 12.5 mg Vancomycin HCl 1,000 mg/ (Dextrose) 250 mls @ 166.667 mls/hr IVPB BID@0300, 1500 [facility] PRN Reason: Protocol Last Admin: 09/25/17 15:36 Dose: 166.667 mls/hr Piperacillin Sod/Tazobactam (Sod 3.375 gm/ Dextrose) 50 mls @ 100 mls/hr IVPB Q8H-IV [facility] PRN Reason: Protocol Last Admin: 09/25/17 10:25 Dose: 100 mls/hr Insulin Aspart (Novolog Vial Sliding Scale -) 1 vial SQ BIDAC [facility] PRN Reason: Protocol Last Admin: 09/25/17 06:36 Dose: 4 units Insulin Detemir (Levemir Vial) 14 units SQ BID@0700,2200 [facility] Last Admin: 09/25/17 06:35 Dose: 14 units Metoprolol Tartrate (Lopressor -) 50 mg PO BID [facility] Last Admin: 09/25/17 10:20 Dose: 50 mg Mycophenolate Mofetil (Cellcept -) 500 mg PO BID [facility] Last Admin: 09/25/17 10:26 Dose: 500 mg Nifedipine (Procardia Xl -) 60 mg PO BID [facility] Last Admin: 09/25/17 10:21 Dose: 60 mg Prednisone (Deltasone -) 5 mg PO HS [facility] Last Admin: 09/24/17 23:30 Dose: 5 mg Tacrolimus (Prograf) 2 mg PO BID [facility] Last Admin: 09/25/17 10:28 Dose: 2 mg 56 year old gentleman with PMhx of Hepatitis C with HCC s/p Liver and Kidney transplant, DM, CHF, COPD who presented with infected wound on foot with osteomylitis. #ESRD s/p Renal Transplant #Liver transplant #LE Wound/Osteomylitis #PVD #Hypertension #Contrast Nephropathy Risk stratification Discussed case with Dr. Kumar who is ok with pt receiving contrast if it were needed as per vascular and podiatry will plan for amputation as peripheral pules seem good Renal function stable after initial contrast exposure continue Tacrolimus, MMF, Prednisone Abx as per JEFFY Alexandra DO
[2017-09-25] MEDS: predniSONE 5 MG TABLET (UD) PO SCH (21:45)
[2017-09-26] MEDS ORDERED: DEXTROSE 5%-WATER - 50 ML IVPB ONE ×3 (01:17→18:30)
[2017-09-26] MEDS ORDERED: PIPERACILLIN/TAZOBACTAM 3.375 GM VIAL IVPB ONE ×3 (01:17→18:30)
[2017-09-26] MEDS: PIPERACILLIN/TAZOB 3.375 GM 3.375 GM in DEXTROSE 5%-WATER - 50 ML IVPB SCH ×3 (02:10→18:33)
[2017-09-26] MEDS: VANCOMYCIN 1,000 MG in DEXTROSE 5%-WATER - 250 ML IVPB SCH ×2 (02:51→15:18)
[2017-09-26] MEDS: INSULIN (LEVEMIR) 100 UNITS/ML UNITS SQ SCH ×2 (06:41→22:16)
[2017-09-26] MEDS: INSULIN SLIDING SCALE (NOVOLOG) 1 VIAL SQ SCH ×2 (06:42→18:41)
[2017-09-26] MEDS: HYDROCHLOROTHIAZIDE 12.5 MG CAPSULE (FP) PO SCH (10:15)
[2017-09-26] MEDS: METOPROLOL TARTRATE 50 MG TABLET (FP) PO SCH ×2 (10:15→22:16)
[2017-09-26] MEDS: NIFEdipine E.R. 30 MG TABLET (FP) PO SCH ×2 (10:15→22:16)
[2017-09-26] MEDS ORDERED: PT OWN MED DRAWER 7, Y5N ONE ×2 (10:16→22:04)
[2017-09-26] MEDS: MYCOPHENOLATE MOFETIL 500 MG TABLET PO SCH ×2 (10:17→22:17)
[2017-09-26] MEDS: TACROLIMUS ANHYDROUS 1 MG CAPSULE PO SCH ×2 (10:19→22:18)
[2017-09-26] MEDS ORDERED: SODIUM CHLORIDE 0.45% 1,000 ML IV SCH ×2 (10:30→17:35)
--- NOTE | 2017-09-26 11:15 | PN ---
Progress Note, Physician Chief Complaint: awaiting to go to OR for amputation no complaints - Current Medication List Current Medications: Active Medications Hydrochlorothiazide (Hctz -) 12.5 mg PO DAILY [facility] Last Admin: 09/26/17 10:15 Dose: 12.5 mg Vancomycin HCl 1,000 mg/ (Dextrose) 250 mls @ 166.667 mls/hr IVPB BID@0300, 1500 [facility] PRN Reason: Protocol Last Admin: 09/26/17 02:51 Dose: 166.667 mls/hr Piperacillin Sod/Tazobactam (Sod 3.375 gm/ Dextrose) 50 mls @ 100 mls/hr IVPB Q8H-IV [facility] PRN Reason: Protocol Last Admin: 09/26/17 10:18 Dose: 100 mls/hr Sodium Chloride (1/2 Normal Saline) 1,000 mls @ 75 mls/hr IV ASDIR [facility] Insulin Aspart (Novolog Vial Sliding Scale -) 1 vial SQ BIDAC [facility] PRN Reason: Protocol Last Admin: 09/26/17 06:42 Dose: Not Given Insulin Detemir (Levemir Vial) 14 units SQ BID@0700,2200 [facility] Last Admin: 09/26/17 06:41 Dose: Not Given Metoprolol Tartrate (Lopressor -) 50 mg PO BID [facility] Last Admin: 09/26/17 10:15 Dose: 50 mg Mycophenolate Mofetil (Cellcept -) 500 mg PO BID [facility] Last Admin: 09/26/17 10:17 Dose: 500 mg Nifedipine (Procardia Xl -) 60 mg PO BID [facility] Last Admin: 09/26/17 10:15 Dose: 60 mg Prednisone (Deltasone -) 5 mg PO HS [facility] Last Admin: 09/25/17 21:45 Dose: 5 mg Tacrolimus (Prograf) 2 mg PO BID [facility] Last Admin: 09/26/17 10:19 Dose: 2 mg - Objective Vital Signs: Vital Signs Temperature 97.3 F L 09/26/17 06:10 Pulse Rate 69 09/26/17 06:10 Respiratory Rate 18 09/26/17 06:10 Blood Pressure 138/74 09/26/17 06:10 O2 Sat by Pulse Oximetry (%) 97 09/25/17 21:00 Constitutional: Yes: No Distress Cardiovascular: Yes: Regular Rate and Rhythm Respiratory: Yes: CTA Bilaterally Gastrointestinal: Yes: Normal Bowel Sounds, Soft. No: Tenderness Extremities: Yes: Other (right second toe-- edema, erythema, ulcer noted with exposed bone) Edema: No Labs: CBC, BMP 09/22/17 06:50 09/25/17 12:15 INR, PTT INR 0.99 (0.82-1.09) 09/21/17 12:20 Problem List - Problems (1) Osteomyelitis Code(s): M86.9 - OSTEOMYELITIS, UNSPECIFIED (2) HTN (hypertension) Code(s): I10 - ESSENTIAL (PRIMARY) HYPERTENSION (3) Diabetes Code(s): E11.9 - TYPE 2 DIABETES MELLITUS WITHOUT COMPLICATIONS (4) Diabetic foot ulcer Code(s): E11.621 - TYPE 2 DIABETES MELLITUS WITH FOOT ULCER; L97.509 - NON- PRESSURE CHRONIC ULCER OTH PRT UNSP FOOT W UNSP SEVERITY Qualifiers: Diabetic foot ulcer location: toe Diabetes mellitus type: other specified ( including LUCI) Laterality: right Non-pressure ulcer stage: unspecified non- pressure ulcer stage Qualified Code(s): E13.621 - Other specified diabetes mellitus with foot ulcer; L97.519 - Non-pressure chronic ulcer of other part of right foot with unspecified severity; L97.519 - Non-pressure chronic ulcer of other part of right foot with unspecified severity; L97.519 - Non-pressure chronic ulcer of other part of right foot with unspecified severity; L97.519 - Non-pressure chronic ulcer of other part of right foot with unspecified severity Assessment/Plan PLAN iv antibiotics for amputation today continue with meds DM control Vascular follow up noted-- pt has pulses , does not need angio at this time
[2017-09-26] MEDS ORDERED: MIDAZOLAM HCL 2 MG/2 ML SINGLE DOSE VIAL ONE ×2 (16:23→16:32)
[2017-09-26] MEDS ORDERED: LIDOCAINE HCL 1%, 10 MG/ML (20ML VIAL) INF ONE (16:44)
--- NOTE | 2017-09-26 17:14 | OP ---
Operative Note - Note: Operative Date: 09/26/17 Pre-Operative Diagnosis: R 2nd toe osteomyelitis Operation: R 2nd toe amputation Findings: see op note Post-Operative Diagnosis: Same as Pre-op Surgeon: Rajesh Patiño Anesthesia: Local, MAC Specimens Removed: R 2nd toe bone and soft tissue Estimated Blood Loss (mls): 20 Operative Report Dictated: Yes
[2017-09-26] MEDS ORDERED: oxyCODONE HCL 5 MG TABLET PO PRN (17:17)
--- NOTE | 2017-09-26 17:18 | PN ---
Progress Note (short form) - Note Progress Note: Renal follow up for Renal transplant, contrast nephropathy prophylaxis Pt seen and examined at the bedside awake and alert no acute complaints for OR today Vital Signs Temperature 97.4 F L 09/26/17 14:43 Pulse Rate 64 09/26/17 14:43 Respiratory Rate 18 09/26/17 14:43 Blood Pressure 157/96 09/26/17 14:43 O2 Sat by Pulse Oximetry (%) 97 09/26/17 09:00 Intake & Output 09/23/17 09/24/17 09/25/17 09/26/17 23:59 23:59 23:59 23:59 Intake Total 1100 1250 1500 200 Output Total 2000 520 Balance -900 1250 1500 -320 NAD awake and alert No LE edema CBC, BMP 09/22/17 06:50 09/25/17 12:15 Laboratory Tests 09/25/17 12:15 Calcium 9.0 Current Medications Hydrochlorothiazide (Hctz -) 12.5 mg PO DAILY [facility] Last Admin: 09/26/17 10:15 Dose: 12.5 mg Vancomycin HCl 1,000 mg/ (Dextrose) 250 mls @ 166.667 mls/hr IVPB BID@0300, 1500 [facility] PRN Reason: Protocol Last Admin: 09/26/17 15:18 Dose: 166.667 mls/hr Piperacillin Sod/Tazobactam (Sod 3.375 gm/ Dextrose) 50 mls @ 100 mls/hr IVPB Q8H-IV [facility] PRN Reason: Protocol Last Admin: 09/26/17 10:18 Dose: 100 mls/hr Sodium Chloride (1/2 Normal Saline) 1,000 mls @ 75 mls/hr IV ASDIR [facility] Last Admin: 09/26/17 11:57 Dose: 75 mls/hr Insulin Aspart (Novolog Vial Sliding Scale -) 1 vial SQ BIDAC [facility] PRN Reason: Protocol Last Admin: 09/26/17 06:42 Dose: Not Given Insulin Detemir (Levemir Vial) 14 units SQ BID@0700,2200 [facility] Last Admin: 09/26/17 06:41 Dose: Not Given Metoprolol Tartrate (Lopressor -) 50 mg PO BID [facility] Last Admin: 09/26/17 10:15 Dose: 50 mg Mycophenolate Mofetil (Cellcept -) 500 mg PO BID [facility] Last Admin: 09/26/17 10:17 Dose: 500 mg Nifedipine (Procardia Xl -) 60 mg PO BID [facility] Last Admin: 09/26/17 10:15 Dose: 60 mg Prednisone (Deltasone -) 5 mg PO HS [facility] Last Admin: 09/25/17 21:45 Dose: 5 mg Tacrolimus (Prograf) 2 mg PO BID [facility] Last Admin: 09/26/17 10:19 Dose: 2 mg 56 year old gentleman with PMhx of Hepatitis C with HCC s/p Liver and Kidney transplant, DM, CHF, COPD who presented with infected wound on foot with osteomylitis. #ESRD s/p Renal Transplant #Liver transplant #LE Wound/Osteomylitis #PVD #Hypertension #Contrast Nephropathy Risk stratification Renal function stable at this time no plan for further contrast exposure at this time continue Tacrolimus BID, Cellcept, Prednisone Trend BUN/Cr Abx as per ID Podiatry and vascular follow up Alvin Alexandra DO
--- NOTE | 2017-09-26 18:20 | OP ---
DATE OF OPERATION: 09/26/2017 PREOPERATIVE DIAGNOSIS: Right second toe osteomyelitis. POSTOPERATIVE DIAGNOSIS: Right second toe osteomyelitis. PROCEDURE: Right second toe amputation. SURGEON: Rajesh Patiño D.P.M. PLANT OPERATIONS MANAGER: None. ANESTHESIA: IV sedation with local. ESTIMATED BLOOD LOSS: 20 mL. HEMOSTASIS: Surgical dissection. PATHOLOGY: Right second toe, bone and soft tissue. COMPLICATIONS: None. DESCRIPTION OF PROCEDURE: The patient was brought to the operating room and placed on the operating table in a supine position. Following induction of IV sedation, local anesthesia was achieved utilizing 10 mL of 2% lidocaine plain. The right foot was scrubbed, draped, and prepped in the usual sterile fashion. Attention was directed to the right second toe, where an ulcer on the medial aspect of the toe was exposed, bone was visualized and appreciated. I began by performing a 4-cm linear longitudinal incision over the 2nd metatarsal. I extended my incision distally in tennis racket fashion to circumferentially excise the 2nd toe. The incision was deepened to the level of the bone, utilizing sharp and blunt dissection. The 2nd toe was disarticulated at the level of the 2nd metatarsal phalangeal joint. It was removed from the operative site and sent to pathology for analysis. An appropriate soft tissue culture was obtained. Next a linear periosteal incision was made on the dorsal aspect of the 2nd metatarsal. The 2nd metatarsal head was then resected utilizing a sagittal saw. The 2nd metatarsal head was removed from the operative site and sectioned for both bone culture and proximal bone pathology. Surgical site was copiously irrigated with sterile saline. The incision was coapted and maintained utilizing 3-0 nylon in a simple interrupted suture fashion. Following conclusion of the procedure, the incision was covered with Xeroform and a sterile compressive dressing was applied to the right foot consisting of sterile gauze, Linnea, Kerlix, and an DEBORAH wrap. The patient tolerated the procedure and anesthesia well without complication. He was transferred from the operating room to recovery unit with vital signs stable and neurovasculature intact to the right foot. PRO [id number] cc: [facility]
[2017-09-26] MEDS ORDERED: predniSONE 5 MG TABLET (UD) PO SCH (22:00)
[2017-09-26] MEDS ORDERED: INSULIN (LEVEMIR) 100 UNITS/ML UNITS SQ ONE (22:03)
[2017-09-26] MEDS ORDERED: INSULIN (NOVOLOG) ASPART 100 UNITS/ML 10ML VIAL ONE (22:04)
[2017-09-26] MEDS: oxyCODONE HCL 5 MG TABLET PO PRN (22:14)
[2017-09-27] MEDS ORDERED: VANCOMYCIN 1,000 MG in DEXTROSE 5%-WATER - 250 ML IVPB SCH (03:00)
[2017-09-27] MEDS ORDERED: DEXTROSE 5%-WATER - 50 ML IVPB ONE ×2 (03:13→09:51)
[2017-09-27] MEDS ORDERED: PIPERACILLIN/TAZOBACTAM 3.375 GM VIAL IVPB ONE ×2 (03:13→09:50)
[2017-09-27] MEDS: PIPERACILLIN/TAZOB 3.375 GM 3.375 GM in DEXTROSE 5%-WATER - 50 ML IVPB SCH ×2 (03:20→10:08)
[2017-09-27] MEDS ORDERED: PT OWN MED DRAWER 7, Y5N ONE ×2 (04:05→09:50)
[2017-09-27] MEDS ORDERED: INSULIN SLIDING SCALE (NOVOLOG) 1 VIAL SQ SCH (07:00)
[2017-09-27] MEDS: INSULIN (LEVEMIR) 100 UNITS/ML UNITS SQ SCH (07:13)
[2017-09-27 08:10] LABS: CHLORIDE 103 mmol/L (98-107); POTASSIUM 4.2 mmol/L (3.5-5.1); SODIUM 138 mmol/L (136-145)
[2017-09-27 08:18] LABS: ANION GAP 9 (8-16); BLOOD UREA NITROGEN 14 mg/dL (7-18); CALCIUM 8.8 mg/dL (8.5-10.1); CO2 26 mmol/L (21-32); CREATININE 0.7 mg/dL (0.7-1.3); GLUCOSE,RANDOM 153 mg/dL (74-106)
[2017-09-27] MEDS ORDERED: HYDROCHLOROTHIAZIDE 12.5 MG CAPSULE (FP) PO SCH (10:00)
[2017-09-27] MEDS: TACROLIMUS ANHYDROUS 1 MG CAPSULE PO SCH (10:06)
[2017-09-27] MEDS: NIFEdipine E.R. 30 MG TABLET (FP) PO SCH (10:07)
[2017-09-27] MEDS: METOPROLOL TARTRATE 50 MG TABLET (FP) PO SCH (10:07)
[2017-09-27] MEDS: MYCOPHENOLATE MOFETIL 500 MG TABLET PO SCH (10:08)
[2017-09-27] MEDS: oxyCODONE HCL 5 MG TABLET PO PRN (10:09)
--- NOTE | 2017-09-27 11:32 | PN ---
Progress Note (short form) - Note Progress Note: Podiatry F/U: Seen/evaluated at bedside, NAD. Pain controlled, denies F/V/N/C/SOB/CP. Afebrile. S/p R 2nd digit amputation POD#1. BYRON: R foot: dressing C/D/I, no active bleeding, no strikethrough. Sutures well coapted, no dehiscence noted. No purulent drainage, no fluctuance, no periwound erythema, no ascending cellulitis, no signs of active infection. Minimal tenderness to palpation. WBC: 10.9 OR Cx: pending OR Path: pending Imp: 56 year old DM M s/p R 2nd digit amputation for clinical osteomyelitis 1. Abx per ID. Discussed case with ID, will likely discharge on PO abx given confidence of all infected bone removed. 2. Keep dressing C/D/I. DSD applied R foot. 3. Partial WB R heel with surgical offloading shoe. 4. Does not need dressing care at home, will keep dressing C/D/i at home. 5. Will f/u with me in 1 week in wound healing center, 10/03/17. Kiki Patiño DPM
--- NOTE | 2017-09-27 11:52 | PN ---
Progress Note, Physician History of Present Illness: POD #1 amputation R 2nd toe Awake, alert No complaints of foot pain Afebrile - Current Medication List Current Medications: Active Medications Hydrochlorothiazide (Hctz -) 12.5 mg PO DAILY [facility] Last Admin: 09/27/17 10:08 Dose: 12.5 mg Sodium Chloride (1/2 Normal Saline) 1,000 mls @ 75 mls/hr IV ASDIR [facility] Last Admin: 09/26/17 18:32 Dose: 75 mls/hr Vancomycin HCl 1,000 mg/ (Dextrose) 250 mls @ 166.667 mls/hr IVPB BID@0300, 1500 [facility]; Protocol Last Admin: 09/27/17 04:00 Dose: 166.667 mls/hr Piperacillin Sod/Tazobactam (Sod 3.375 gm/ Dextrose) 50 mls @ 100 mls/hr IVPB Q8H-IV [facility]; Protocol Last Admin: 09/27/17 10:08 Dose: 100 mls/hr [facility]ulin [facility] ([facility]iding [facility] -[facility] Last Admin: 09/27/17 07:12 Dose: 4 units Insulin Detemir (Levemir Vial) 14 units SQ BID@0700,2200 [facility] Last Admin: 09/27/17 07:13 Dose: 14 units Metoprolol Tartrate (Lopressor -) 50 mg PO BID [facility] Last Admin: 09/27/17 10:07 Dose: 50 mg Mycophenolate Mofetil (Cellcept -) 500 mg PO BID [facility] Last Admin: 09/27/17 10:08 Dose: 500 mg Nifedipine (Procardia Xl -) 60 mg PO BID [facility] Last Admin: 09/27/17 10:07 Dose: 60 mg Oxycodone HCl (Roxicodone -) 5 mg PO Q4H PRN PRN Reason: PAIN LEVEL 1-5 Last Admin: 09/26/17 18:33 Dose: 5 mg Oxycodone HCl (Roxicodone -) 10 mg PO Q6H PRN PRN Reason: PAIN LEVEL 6 - 10 Last Admin: 09/27/17 10:09 Dose: 10 mg Prednisone (Deltasone -) 5 mg PO [facility] Last Admin: 09/26/17 22:16 Dose: 5 mg Tacrolimus (Prograf) 2 mg PO BID [facility] Last Admin: 09/27/17 10:06 Dose: 2 mg - Objective Vital Signs: Vital Signs Temperature 97.5 F L 09/27/17 10:00 Pulse Rate 74 09/27/17 10:00 Respiratory Rate 19 09/27/17 10:00 Blood Pressure 131/78 09/27/17 10:00 O2 Sat by Pulse Oximetry (%) 96 09/26/17 21:00 Constitutional: Yes: No Distress Eyes: Yes: Conjunctiva Clear Cardiovascular: Yes: Regular Rate and Rhythm, S1, S2 Respiratory: Yes: CTA Bilaterally Gastrointestinal: Yes: Normal Bowel Sounds, Soft Extremities: Yes: Other (R 2nd toe amputation site with sutures in place.) Labs: CBC, BMP 09/22/17 06:50 09/27/17 06:50 INR, PTT INR 0.99 (0.82-1.09) 09/21/17 12:20 Assessment/Plan POD #1 amputation R 2nd toe Infected toe ulcer/ osteomyelitis Diabetes mellitus S/P Liver/ kidney transplant D/C IV antibiotics Keflex 500mg po bid x 3d Outpatient follow up wound care center 1w
--- NOTE | 2017-09-27 12:03 | DS ---
Physical Examination Vital Signs: Vital Signs Temperature 97.5 F L 09/27/17 10:00 Pulse Rate 74 09/27/17 10:00 Respiratory Rate 19 09/27/17 10:00 Blood Pressure 131/78 09/27/17 10:00 O2 Sat by Pulse Oximetry (%) 96 09/26/17 21:00 Constitutional: Yes: No Distress, Calm Cardiovascular: Yes: Regular Rate and Rhythm Respiratory: Yes: CTA Bilaterally Gastrointestinal: Yes: Normal Bowel Sounds, Soft. No: Tenderness Extremities: Yes: Amputation Edema: No Labs: CBC, BMP 09/22/17 06:50 09/27/17 06:50 Discharge Summary Reason For Visit: OSTEOMYELITIS Current Active Problems Diabetes (Acute) HTN (hypertension) (Acute) Osteomyelitis (Acute) Hospital Course: Admitted for right second toe ulcer, osteomyelitis Seen by ID, Vascular, Podiatry and Renal CTA shows peripheral arterial disease-- no need for angiogram per Vascular as pt can not tolerate contrast burden due to transplanted kidneys and it was decided that he can be medically managed. He underwent amputation of second toe right foot in 09/26 will be dc home on PO Keflex x 3 days Follow up with DR Patiño in 1 week Condition: Improved - Instructions Referrals: Rajesh Patiño MD [Staff Physician] - 1 Week Disposition: HOME - Home Medications Comprehensive Discharge Medication List: Ambulatory Orders Insulin Detemir [Levemir Flextouch] 14 unit SQ BIDAC 08/10/17 Metoprolol Tartrate 50 mg PO BID 08/10/17 Mycophenolate Mofetil 500 mg PO BID 08/10/17 Nifedipine ER [Procardia XL -] 60 mg PO BID 08/10/17 Prednisone 5 mg PO HS 08/10/17 Tacrolimus 1 mg PO BID 08/10/17 Hydrochlorothiazide [Hctz -] 12.5 mg PO DAILY 08/17/17 Alprazolam 2 mg PO HS PRN 09/21/17
[2017-09-27] MEDS ORDERED: CEPHALEXIN MONOHYDRATE 500 MG CAPSULE (UD) PO SCH (12:15)
[2017-09-27 13:25] VITALS: BP 155/95; PULSE 67; TEMP 98
--- NOTE | 2017-09-27 14:01 | PN ---
Progress Note (short form) - Note Progress Note: Anesthesia post op Pt seen and examined S:alert and awake O: Vital Signs Temperature 98 F 09/27/17 13:23 Pulse Rate 67 09/27/17 13:23 Respiratory Rate 18 09/27/17 13:23 Blood Pressure 155/95 09/27/17 13:23 O2 Sat by Pulse Oximetry (%) 97 09/27/17 09:00 CBC, BMP 09/22/17 06:50 09/27/17 06:50 A/P: s/p Right 2nd toe amputation Doing well post op Continue current care Micah Morgan MD
--- NOTE | 2017-09-27 18:09 | PN ---
Progress Note (short form) - Note Progress Note: Renal follow up for Renal transplant, contrast nephropathy prophylaxis Pt seen and examined at the bedside no complaints for discharge home today Vital Signs Temperature 98 F 09/27/17 13:23 Pulse Rate 67 09/27/17 13:23 Respiratory Rate 18 09/27/17 13:23 Blood Pressure 155/95 09/27/17 13:23 O2 Sat by Pulse Oximetry (%) 97 09/27/17 09:00 NAD awake and alert No LE edema CBC, BMP 09/22/17 06:50 09/27/17 06:50 56 year old gentleman with PMhx of Hepatitis C with HCC s/p Liver and Kidney transplant, DM, CHF, COPD who presented with infected wound on foot with osteomylitis. 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
--- NOTE | 2017-09-29 17:33 | PATH ---
Surgical Pathology Report Patient Name: CATRACHO GARCIA [facility]. Rec. #: [id number] /Age/Gender: 1960 (Age: 56) / M Account: [id number] Location: [address] [place] [address]/[facility] Taken: 09/26/2017 Received: 09/27/2017 Reported: 09/29/2017 Physicians: PRO Harris M.D. Specimen(s) Received A: SECOND TOE RIGHT FOOT B: PROXIMAL BONE Clinical History Osteomyelitis Final Diagnosis A. FOOT, SECOND TOE, RIGHT, AMPUTATION: PORTION OF DIGIT WITH ACUTE AND CHRONIC NECROTIZING INFLAMMATION, AND ASSOCIATED ULCERATION. UNDERLYING BONE WITH ACUTE OSTEOMYELITIS. SURGICAL MARGINS ARE VIABLE. B. PROXIMAL BONE, BIOPSY: BONE WITHOUT SIGNIFICANT PATHOLOGIC FINDINGS. NO EVIDENCE OF ACUTE OSTEOMYELITIS. Electronically Signed Shereen Renteria M.D. Gross Description A. Received in formalin labeled "second toe right foot," is a 6.0 x 2.2 x 2.0 cm toe amputation specimen. The specimen displays a 2 cm in length exposed portion of bone at the proximal aspect. The epidermal surface displays a 1.3 x 0.6 cm peters, ulcerated lesion at 0.5 cm from the skin and soft tissue margin. The lesion appears to involve the underlying bone. Shoulder Pad Molder sections are submitted in 3 cassettes as follows: 1-lesion with underlying bone, following decalcification; 2-bone margin, following decalcification; 3-skin and soft tissue margin. B. Received in formalin labeled "proximal bone," is a 1.7 x 1.1 x 0.8 cm peters, irregular portion of bone. Shoulder Pad Molder sections are submitted in one cassette, following decalcification. 09/28/2017 [facility]/28/2017
== END 2017-09-27 14:05 | disposition home or self-care (01) | DRG 314 ==
LOC: J5S 11:38
PROVIDERS: ADMIT Internal Medicine; ATTEND Internal Medicine
PROC: 0Y6R0Z0 Detachment at Right 2nd Toe, Complete, Open Approach (ICD-10-PCS; principal; 2017-09-26 13:00)
DX: E11.69 Type 2 diabetes mellitus with other specified complication (principal); E11.621 Type 2 diabetes mellitus with foot ulcer; Z94.0 Kidney transplant status; E11.51 Type 2 diabetes mellitus with diabetic peripheral angiopathy without gangrene; L97.519 Non-pressure chronic ulcer of other part of right foot with unspecified severity; Z94.4 Liver transplant status; M86.171 Other acute osteomyelitis, right ankle and foot; I12.9 Hypertensive chronic kidney disease with stage 1 through stage 4 chronic kidney disease, or unspecified chronic kidney disease; E11.22 Type 2 diabetes mellitus with diabetic chronic kidney disease; N18.9 Chronic kidney disease, unspecified
CPT/HCPCS: 36415; 71045-TC-FY; 73630-TC-RT-FY; 75635-TC; 80048; 80053; 82962; 85025; 85610; 85651; 85730; 86140; 87040; 87070; 87075; 87077; 87205; 93005; 93010; 94760; G0480; J7517

== ENCOUNTER 2018-09-04 07:54 | Day surgery (SDC) | payer OTHER ==
[2018-09-04 09:02] VITALS: BMI 22.6
[2018-09-04 11:11] VITALS: TEMP 97.5
[2018-09-04 11:33] VITALS: PULSE 61
[2018-09-04 14:44] VITALS: BP 121/74
== END 2018-09-04 12:00 | disposition home or self-care (01) ==
LOC: JASU-ENDO 07:54
PROVIDERS: ATTEND Internal Medicine Gastroenterology
PROC: 0DJD8ZZ Inspection of Lower Intestinal Tract, Via Natural or Artificial Opening Endoscopic (ICD-10-PCS; principal; 2018-09-04 09:45)
DX: Z12.11 Encounter for screening for malignant neoplasm of colon (principal); Z86.010 Personal history of colon polyps
CPT/HCPCS: 82962

== ENCOUNTER 2019-12-14 19:31 | Inpatient (IN) | payer OTHER ==
[2019-12-14] MEDS ORDERED: ACETAMINOPHEN 1000 MG/100 ML VIAL (NON FORMULARY) IVPB ONE (22:28)
[2019-12-14] MEDS ORDERED: METOCLOPRAMIDE HCL INJECTION 10 MG/2 ML VIAL IVPB ONE (22:28)
[2019-12-14] MEDS ORDERED: SODIUM CHLORIDE 1,000 ML IV ONE (22:31)
[2019-12-14] MEDS ORDERED: METOCLOPRAMIDE HCL INJECTION 10 MG/2 ML VIAL ONE (22:48)
[2019-12-14] MEDS ORDERED: ACETAMINOPHEN INJECTION 100 ML IVPB ONE (22:48)
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
--- NOTE | 2019-12-14 22:56 | PDOC ---
Documentation entered by Marci Olmstead SCRIBE, acting as scribe for Davide Lunsford MD. Davide Lunsford MD: This documentation has been prepared by the ryaneAysha Sydney, SCRIBE, under my direction and personally reviewed by me in its entirety. I confirm that the documentation accurately reflects all work, treatment, procedures, and medical decision making performed by me. Attending Attestation - Resident Resident Name: Angelica Gardner - ED Attending Attestation I have performed the following: I have examined & evaluated the patient, The case was reviewed & discussed with the resident, I agree w/resident's findings & plan, Exceptions are as noted - HPI HPI: 12/14/19 22:33 59yM hx of DM, kidney and liver transplant (2014), hypertension, CHF, and COPD who presents to the ER with a few weeks of intermitent headache. Patient states that he started off with a headache around Father's Day that woke him from sleep, was in posterior scalp, was intermittent and occasionally radiate down his shoulder, had followed up with his primary care doctor who referred him for a CAT scan which was unremarkable, he was referred to neurology who recommended an MRI that is sitll pending. Patient states that his headache is constant for the last several weeks seems to worsen when he is laying down, it also seems to intermittently radiate from the back of his head down his arms, face, legs. He denies any focal vision changes, focal numbness, tingling, weakness, nausea, vomiting, chest pain, shortness of breath, abdominal pain. No recent falls or injuries. Patient did briefly have his prednisone dose increased as it was thought to be a cluster headache however it did not help his headaches so it was changed back to his normal dose. Patient was also given headache medicain that briefly improves his headcahe for 30 min. pt also notes he has had a weak/hoarse voice for several weeks and has [facility] E[facility] and had a scope without any abnormalities. - Physicial Exam PE: 12/14/19 22:47 GENERAL: The patient is awake, alert, and fully oriented, Nontoxic - in no acute distress. HEAD: Normocephalic, atraumatic. EYES: extraocular movements intact, sclera anicteric, conjunctiva clear. ENT: Normal voice, Moist mucous membranes. NECK: Normal range of motion, supple, no focal midline tenderness in the thoracic or lumbar spine LUNGS: Breath sounds equal, clear to auscultation bilaterally. No wheezes, no rhonchi, no rales. HEART: Regular rate and rhythm, normal S1 and S2 without murmur, rub or gallop. ABDOMEN: Soft, nontender, No guarding, no rebound. No CVA tenderness EXTREMITIES: Normal range of motion, no edema. NEUROLOGICAL: No facial assymetry, Normal speech, moving all 4 extremities spontaneously and symmetrically, sensation intact and symmeric in upper and lower extremities, rapid alternating movements normal, [id number] normal. PSYCH: Normal mood, normal affect. SKIN: Warm, Dry, normal turgor, - Medical Decision Making 12/14/19 22:48 Differential for the patient's headache includes possible cluster headache, cervical spine radiculopathy will ck basic labs pt given supplemental o2 o see if it improves his headache will give regluan for headache. p declines motrin/tylenol will obtain ct cervical spine as he harley has a CT head to eval for possible cervical cause will reassess 12/14/19 23:[address], pt still having headache case signed out to evening team to reeval and dispo Discharge - Discharge Information Problems reviewed: Yes Clinical Impression/Diagnosis: Headache Qualifiers: Headache type: unspecified Headache chronicity pattern: chronic headache Intractability: intractable Qualified Code(s): R51 - Headache Condition: Stable - Additional Discharge Information - Follow up/Referral - Patient Discharge Instructions - Post Discharge Activity
[2019-12-14] MEDS ORDERED: oxyCODONE HCL 5 MG TABLET PO ONE (23:18)
[2019-12-14 23:20] LABS: BASO % 0.9 % (0-2.0); EOS % 0.7 % (0-4.5); HEMATOCRIT 52.5 % (35.4-49); HEMOGLOBIN 17.5 GM/dL (11.7-16.9); LYMPH % 30.6 % (8-40); MCH 32.8 pg (25.7-33.7); MCHC 33.3 g/dl (32.0-35.9); MEAN CELL VOLUME 98.5 fl (80-96); MEAN PLT VOLUME 8.7 fl (7.5-11.1); MONO % 7.6 % (3.8-10.2); NEUT % 60.2 % (42.8-82.8); PLATELET COUNT 362 K/MM3 (134-434); RBC 5.33 M/mm3 (4.00-5.60); RDW 14.1 % (11.9-15.9); WHITE BLOOD COUNT 8.8 K/mm3 (4.0-10.0)
[2019-12-14 23:37] LABS: ALBUMIN 3.1 g/dl (3.4-5.0); BLOOD UREA NITROGEN 13.5 mg/dL (7-18); CALCIUM 9.7 mg/dL (8.5-10.1); CREATININE 0.8 mg/dL (0.55-1.3); MAGNESIUM 1.9 mg/dL (1.8-2.4); PHOSPHOROUS 3.2 mg/dL (2.5-4.9); POTASSIUM 5.2 mmol/L (3.5-5.1); TOT PROT 7.1 g/dl (6.4-8.2)
[2019-12-14 23:41] LABS: BILIRUBIN,TOTAL 0.4 mg/dL (0.2-1)
[2019-12-14] MEDS ORDERED: oxyCODONE HCL 5 MG TABLET ONE (23:46)
--- NOTE | 2019-12-15 00:38 | PN ---
Teaching Attending Note Name of Resident: Kala Godinez ATTENDING PHYSICIAN STATEMENT I saw and evaluated the patient. I reviewed the resident's note and discussed the case with the resident. I agree with the resident's findings and plan as documented. SUBJECTIVE: Patient is a 59 year old man with a PMH of Insulin-treated DM, Kidney and liver transplant (2014), Hypertension, CHF (no ECHO on record) and COPD who presents to the ER with a few weeks of intermittent headache. Patient states that he started off with a headache around Father's Day that woke him from sleep, was in posterior scalp, was intermittent and occasionally radiate down his shoulder, had followed up with his primary care doctor who referred him for a CAT scan which was unremarkable. He was referred to Neurology who recommended an MRI that is still pending. Patient states that his headache is constant for the last several weeks seems to worsen when he is laying down, it also seems to intermittently radiate from the back of his head down his arms, face, legs. He denies any focal vision changes, focal numbness, tingling, weakness, nausea, vomiting, chest pain, shortness of breath or abdominal pain. No recent falls or injuries. Patient did briefly have his Prednisone dose increased as it was thought to be a cluster headache however it did not help his headaches so it was changed back to his normal dose. Patient reports he has had a weak/hoarse voice for several weeks and has seen ENT and had a scope without any abnormalities. Patient denies palpitations, dizziness, fever, chills, diarrhea, constipation, dysuria, frequency, urgency, melena, hematochezia or hematuria. Denies alcohol, tobacco or illicit drug use. No sick contacts or recent travels. Family history is unremarkable. OBJECTIVE: Alert Vital Signs Period Temp Pulse Resp BP Sys/[place] Pulse Ox Last 24 Hr 97.3 F-98.7 F 87-89 19-20 131-157/81-89 98-99 HEENT: No Jaundice, eye redness or discharge, PERRLA, EOMI. Normocephalic, atraumatic. External ears are normal and hearing is grossly intact. No nasal discharge. Neck: Supple, nontender. No palpable adenopathy or thyromegaly. No JVD Chest: Good effort. Clear to auscultation and percussion. Heart: Regular. No S3, rub or murmur Abdomen: Not distended, soft, nontender and no HSM. No rebound or guarding. Normal bowel sounds. Ext: Peripheral pulses intact. Leg edema. Skin: Warm and dry. No petechiae, rash or ecchymosis. Neuro: Alert. Oriented x3. CN 2-12 grossly intact. Sensation grossly intact in all four extremities and DTR are symmetric. Psych: Appropriate mood and affect. Good insight. Home Medications Medication Instructions Recorded Nifedipine ER [Procardia XL -] 60 mg PO BID 08/10/17 Prednisone 5 mg PO HS 08/10/17 Tacrolimus 2 mg PO BID 08/10/17 Alprazolam 1 mg PO HS 09/03/18 Aspirin [Aspirin EC] 81 mg PO DAILY 09/03/18 Insulin Glargine,Hum.rec.anlog 14 unit SQ BID 09/03/18 [Basaglar Kwikpen U-100] Mycophenolate Mofetil 500 mg PO BID 09/03/18 Gluco Tab 1 tab PO PRN PRN 09/04/18 Metoprolol Tartrate 25 mg PO BID 12/14/19 Butalb/Acetaminophen/Caffeine 1 each PO TID PRN #12 capsule 12/15/19 [Fioricet 50-300-40 mg Capsule] Abnormal Lab Results 12/14/19 12/14/19 23:00 23:00 Hgb 17.5 H Hct 52.5 H MCV 98.5 H Sodium 133 L Potassium 5.2 H Chloride 97 L Anion Gap 5 L Random Glucose 123 H AST 43 H Albumin 3.1 L Current Medications Generic Name Dose Route Start Last Admin Trade Name Freq PRN Reason Stop Dose Admin Enoxaparin Sodium 40 mg 12/15/19 10:00 Lovenox - SQ DAILY CONCEPCION Hydromorphone HCl 0.5 mg 12/15/19 06:03 Dilaudid Vial - IVPB Q4H PRN PAIN LEVEL 7 - 10 Sodium Chloride 1,000 mls @ 75 mls/hr 12/15/19 06:00 12/15/19 06:14 Normal Saline - IV 75 mls/hr ASDIR CONCEPCION Administration Topiramate 25 mg 12/15/19 22:00 Topamax - PO HS CONCEPCION ASSESSMENT AND PLAN: 1. Persistent headache - Etiology unclear. No evidence of acute intracranial pathology on noncontrast head CT scan. Will get MRI of brain, treat with Imitrex and Topamax, consult Neurology. CXR and urinalysis pending. Hyperkalemia is unexplained. Will hydrate gently with IV NS to enhance potassium excretion. Continue antirejection drugs and consult Nephrology/GI for transplant care. Avoid any hepatotoxic agents and nephrotoxic agents such as NSAIDS, aminoglycosides, contrast dyes and certain Alternative medicine products. Viral testing for COVID-19 ordered and patient placed on airborne, droplet and contact isolation. EKG shows NSR at 77/minute, T wave inversion in aVL,V5,V6 and QTc [address] Initial troponin is negative. No old EKG available for comparison. Will repeat EKG in am. Will continue comprehensive care for all of patients comorbid conditions. 2. Hypoalbuminemia - Possibly due to combined effects of malnutrition and inflammation associated with comorbid conditions. Will ensure adequate dietary protein intake and also consult chief station engineer. Urinalysis pending. 3. DM For now, we will hold the home diabetes drugs and implement sliding scale insulin regimen. Provide comprehensive diabetes care with patient teaching and counseling about the importance of adherence to prescribed diabetes regimen, euglycemia, eye care and foot care. 4. Hypertension Will restart suitable outpatient antihypertensive drugs when clinically appropriate. Subsequently, will revise regimen to ensure [id number] excellent BP control. Patient counseled on the injurious effects of uncontrolled hypertension. Nonpharmacologic measures to control hypertension like weight loss, salt restriction and exercise stressed. Importance of adherence to treatment regimen and attainment of normotension emphasized. 5. DVT prophylaxis - Heparin 5000u sq tid. 6. Advance directives - Full code
[2019-12-15] MEDS ORDERED: morphine CARPU-JECT 2 MG/1 ML DISP.SYRIN IVPUSH ONE ×2 (01:28→02:45)
[2019-12-15] MEDS ORDERED: MORPHINE SULFATE 2 MG/ML VIAL ONE ×2 (02:12→02:58)
[2019-12-15 05:24] VITALS: BMI 21.9
[2019-12-15] MEDS ORDERED: SUMAtriptan SUCCINATE 50 MG TABLET PO ONE (05:58)
[2019-12-15] MEDS ORDERED: TOPIRAMATE 25 MG TABLET PO ONE (05:59)
[2019-12-15] MEDS ORDERED: HYDROmorphone HCl 2 MG/ML VIAL IVPB PRN ×2 (06:03→13:25)
[2019-12-15] MEDS: SODIUM CHLORIDE 1,000 ML IV SCH ×2 (06:14→21:32)
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
[2019-12-15 08:01] LABS: BLOOD UREA NITROGEN 12.8 mg/dL (7-18); CALCIUM 9.7 mg/dL (8.5-10.1); CREATININE 0.7 mg/dL (0.55-1.3); POTASSIUM 4.6 mmol/L (3.5-5.1)
--- NOTE | 2019-12-15 08:52 | EKG ---
Test Reason : Blood Pressure : / mmHG Vent. Rate : 077 BPM Atrial Rate : 077 BPM P-R Int : 146 ms QRS Dur : 090 ms QT Int : 370 ms P-R-T Axes : 063 070 108 degrees QTc Int : 418 ms NORMAL SINUS RHYTHM SEPTAL INFARCT , AGE UNDETERMINED T WAVE ABNORMALITY, CONSIDER LATERAL ISCHEMIA ABNORMAL ECG WHEN COMPARED WITH ECG OF 21-SEP-2017 13:48, T WAVE INVERSION NOW EVIDENT IN LATERAL LEADS Confirmed by Lisa Veras ([id number]) on 12/15/2019 8:52:04 AM Referred By: Confirmed By:Lisa Veras
[2019-12-15] MEDS: ENOXAPARIN NA (PORCINE) 40 MG/0.4 ML DISP.SYRIN SQ SCH (09:23)
--- NOTE | 2019-12-15 10:44 | PN ---
Progress Note (short form) - Note Progress Note: PULMONARY CONSULTATION DICTATED 12/15/19 IMP L HILAR MASS/CONSOLIDATION LIKELY CA HEADACHES H/O LIVER CA WITH RENAL METS S/P LIVER/KIDNEY TRANSPLANT H/O HEP C COPD CHF HTN DM ERYTHROCYTOSIS H/O TOBACCO ABUSE HOARSENESS ? SECONDARY TO LUNG CA PLAN CHEST CT INHALED BRONCHODILATORS NEURO EVALUATION FURTHER RECOMMENDATIONS AFTER CHEST CT REVIEWED REPEAT CBC ENT EVALUATION DR RIVERA Problem List - Problems (1) Headache Code(s): R51 - HEADACHE (2) Diabetes Code(s): E11.9 - TYPE 2 DIABETES MELLITUS WITHOUT COMPLICATIONS (3) Hypertensive renal disease Code(s): I12.9 - HYPERTENSIVE CHRONIC KIDNEY DISEASE W STG 1-4/UNSP CHR KDNY; N18.9 - CHRONIC KIDNEY DISEASE, UNSPECIFIED (4) Infiltrate noted on imaging study Code(s): R93.8 - ABNORMAL FINDINGS ON DIAGNOSTIC IMAGING OF ANN * DO NOT USE * (5) Hoarseness Code(s): R49.0 - DYSPHONIA (6) Lung mass Code(s): R91.8 - OTHER NONSPECIFIC ABNORMAL FINDING OF LUNG FIELD
[2019-12-15] MEDS ORDERED: HYDROmorphone HCL CARPU-JECT 2 MG/1 ML DISP.SYRIN IVPUSH PRN (13:21)
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
[2019-12-15] MEDS ORDERED: morphine SULFATE IMMEDIATE RELEASE 30 MG TAB PO SCH (13:30)
[2019-12-15] MEDS: morphine SO4 SUSTAINED ACTING 30 MG TABLET.SA PO SCH ×2 (14:28→21:30)
[2019-12-15] MEDS: HYDROmorphone HCl 2 MG/ML VIAL IVPB PRN ×2 (14:41→23:20)
[2019-12-15] MEDS: ONDANSETRON 4 MG/2 ML VIAL IVPUSH PRN ×2 (14:41→21:45)
--- NOTE | 2019-12-15 14:58 | CONS ---
PULMONARY CONSULTATION DATE OF CONSULTATION: 12/15/2019 REFERRING PHYSICIAN: Elsie Mohan MD HISTORY: Patient is a 59-year-old male with an extensive past medical history that includes liver CA initially treated with radiation seed implants and subsequent kidney metastasis, status post liver and kidney transplant in 2014 at [facility], insulin-dependent diabetes mellitus, hypertension, CHF, questionable COPD, longstanding history of tobacco use approximately a pack and a half a day to 2 packs per day, quit approximately 10 years ago, admitted to [facility] with a complaint of headache which started around Father's Day. Patient states at the time he woke up from his sleep, posterior scalp, headache was intermittent and radiating to his shoulder. Of note is the patient apparently went to a neurologist who recommended an MRI of the was negative. Of note is the patient has also been complaining of about a 10-pound weight loss since the headaches began as well as in the past week or so hoarseness. Apparently he went for an ENT evaluation and was told everything was within normal limits. Of note is the patient had a chest x-ray performed on admission which revealed left hilar mass and mass consolidation. 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 There is no history of recent travel. PAST MEDICAL HISTORY: Again includes liver CA as well as with metastasis to the kidney, status post radiation seed implants, status post renal transplant, hypertension, insulin-dependent diabetes mellitus, COPD. REVIEW OF SYSTEMS: Positive hoarseness. Positive weight loss. Positive headaches. No fever. No chills. No hemoptysis. No chest pain. No palpitations. CURRENT MEDICATIONS: Include Lovenox, Topamax, normal saline, Dilaudid. PHYSICAL EXAMINATION: General: Patient is a thin male awake, alert in no acute distress. Vital Signs: He is afebrile. Blood pressure is 167/93. Respiratory rate is 18. O2 saturation is 98% on room air. HEENT: Normocephalic, atraumatic. Neck: Supple. Heart: Regular, S1, S2. Chest: Clear. Abdomen: Soft. Bowel sounds positive. Extremities: No cyanosis or edema. LABORATORIES: WBC is 8.8, hemoglobin 17.5, hematocrit 52.5 with a platelet count of 362,000. BUN 10, creatinine 12.8. He is COVID negative. Chest x-ray as noted. IMPRESSION: 1. 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 2. Headaches. 3. History of liver carcinoma with renal metastasis, status post liver and kidney transplant. 4. History of hepatitis C. 5. Chronic obstructive pulmonary disease. 6. Congestive heart failure. 7. Hypertension. 8. Diabetes. 9. Erythrocytosis. 10. History of tobacco use. 11. Hoarseness questionably secondary to lung carcinoma. PLAN: Chest CT, inhaled bronchodilators, neurologic evaluation. Further recommendations after CT scan of the chest reviewed. Repeat CBC. Consider ENT evaluation. ATIF RIVERA M.D. LEWIS/[id number]
[2019-12-15] MEDS ORDERED: diazePAM 5 MG TABLET PO ONE (16:30)
[2019-12-15] MEDS: INSULIN (NOVOLOG) ASPART 100 UNITS/ML 10ML VIAL SQ SCH (16:43)
[2019-12-15] MEDS ORDERED: PT OWN MED DRAWER 7, Y5N ONE ×3 (17:34→23:12)
[2019-12-15] MEDS ORDERED: INSULIN (NOVOLOG) ASPART 100 UNITS/ML 10ML VIAL ONE (21:03)
[2019-12-15] MEDS: NIFEdipine E.R 60 MG TABLET PO SCH (21:30)
[2019-12-15] MEDS: TACROLIMUS ANHYDROUS 1 MG CAPSULE PO SCH (21:30)
[2019-12-15] MEDS: predniSONE 5 MG TABLET (UD) PO SCH (21:30)
[2019-12-15] MEDS: METOPROLOL TARTRATE 25 MG TABLET (FP) PO SCH (21:30)
[2019-12-15] MEDS: TOPIRAMATE 25 MG TABLET PO SCH (21:30)
[2019-12-15] MEDS: INSULIN (LEVEMIR) 100 UNITS/ML UNITS SQ SCH (21:31)
[2019-12-15] MEDS: MYCOPHENOLATE MOFETIL 250 MG CAPSULE PO SCH (21:31)
[2019-12-15] MEDS ORDERED: TACROLIMUS ANHYDROUS 1 MG CAPSULE PO SCH (22:00)
[2019-12-15] MEDS ORDERED: MYCOPHENOLATE MOFETIL 250 MG CAPSULE PO SCH (22:00)
--- NOTE | 2019-12-15 22:29 | CON.NEURO ---
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 No: Alzheimer's, CVA, Dementia, Migraine, Seizure Cardio/Vascular: Yes: CHF, HTN. No: Pulmonary Hypertension Pulmonary: Yes: COPD Gastrointestinal: Yes: Cancer (hepatocellular), Other (Hepatitis C) Hepatobiliary: Yes: Hepatitis C Renal/: Yes: Renal Inusuff (CKD V) - Past Surgical History Past Surgical History: Yes: AV Fistula/Graft - Alcohol/Substance Use Hx Alcohol Use: Yes (FEW GLASSES OF WINE) History of Substance Use: reports: None - Smoking History Smoking history: Former smoker Have you smoked in the past 12 months: No Aproximately how many cigarettes per day: 0 If you are a former smoker, when did you quit?: 2010 - Social History Usual Living Arrangement: With Parent History of Recent Travel: No Home Medications - Allergies Allergies/Adverse Reactions: Allergies Allergy/AdvReac Type Severity Reaction Status Date / Time morphine Allergy Verified 12/15/19 02:26 - Home Medications Home Medications: Ambulatory Orders Nifedipine ER [Procardia XL -] 60 mg PO BID 08/10/17 Prednisone 5 mg PO HS 08/10/17 Tacrolimus 2 mg PO BID 08/10/17 Alprazolam 1 mg PO HS 09/03/18 Aspirin [Aspirin EC] 81 mg PO DAILY 09/03/18 Insulin Glargine,Hum.rec.anlog [Basaglar Kwikpen U-100] 14 unit SQ BID 09/03/18 Mycophenolate Mofetil 500 mg PO BID 09/03/18 Gluco Tab 1 tab PO PRN PRN 09/04/18 Metoprolol Tartrate 25 mg PO BID 12/14/19 Butalb/Acetaminophen/Caffeine [Fioricet 50-300-40 mg Capsule] 1 each PO TID PRN #12 capsule 12/15/19 Physical Exam-Neuro Vital Signs: Vital Signs Temperature 98.6 F 12/15/19 09:00 Pulse Rate 82 12/15/19 09:00 Respiratory Rate 18 12/15/19 09:00 Blood Pressure 150/84 12/15/19 09:00 O2 Sat by Pulse Oximetry (%) 96 12/15/19 09:00 Labs: CBC, BMP 12/14/19 23:00 12/15/19 06:15 Assessment/Plan cc Consntant headache since october 2019 HPI 59 year old male , seen with his son and health proxy at bedside. He has history of DM, Kidney trasnpant [place] 2015, HTN, CHF, COPD. Patient has nodule in lung and being work up. Patient has liver ca with renal mets. He has been having headache, which started in occpital region and has been constant everyday. He has bene taking oxycodone, fiorecet . Patient had normal ct head in [facility] in november 2019. He ws scheduled for mri and could not get it doen . Patient continue to have constant severe headache . Patient also have voice hoarseness . He also have history of neck pain and disc disease. PAST MEDICAL HISTORY: as above Allergies morphine Allergy (Verified 12/15/19 02:26) HOME MEDICATIONS: Home Medications Medication Instructions Recorded Nifedipine ER [Procardia XL -] 60 mg PO BID 08/10/17 Prednisone 5 mg PO HS 08/10/17 Tacrolimus 2 mg PO BID 08/10/17 Alprazolam 1 mg PO HS 09/03/18 Aspirin [Aspirin EC] 81 mg PO DAILY 09/03/18 Insulin Glargine,Hum.rec.anlog 14 unit SQ BID 09/03/18 [Basaglar Kwikpen U-100] Mycophenolate Mofetil 500 mg PO BID 09/03/18 Gluco Tab 1 tab PO PRN PRN 09/04/18 Metoprolol Tartrate 25 mg PO BID 12/14/19 Butalb/Acetaminophen/Caffeine 1 each PO TID PRN #12 capsule 12/15/19 [Fioricet 50-300-40 mg Capsule] ROS,FH,SH reviewed in chart NEUROLOGICAL EXAMINATION Alert oriented x 3, neck is supple vss voice is hoarse, speech is normal, eomi, pupils reactive neck is supple moving all ext sensation is normal ct head normal in november 2019 mri of brain pending bun and creatinine is normal Assessment/Plan Constant headhace since october, clinically there is no evidence of meningitis( no fever, mental status is normal and neck is supple), most likley cervicogenic headhace, vs medication overuse and rule out any mets Plan: start nortripytline 25 mg qhs - agree with mri of brain, mri of brain can be done with contrast if 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
[2019-12-16] MEDS: morphine SO4 SUSTAINED ACTING 30 MG TABLET.SA PO SCH ×3 (06:09→21:39)
[2019-12-16] MEDS: ONDANSETRON 4 MG/2 ML VIAL IVPUSH PRN ×2 (06:09→11:44)
[2019-12-16] MEDS: SODIUM CHLORIDE 1,000 ML IV SCH ×2 (06:21→17:49)
[2019-12-16] MEDS: INSULIN (NOVOLOG) ASPART 100 UNITS/ML 10ML VIAL SQ SCH ×3 (06:22→16:41)
[2019-12-16 08:35] LABS: HEMATOCRIT 52.4 % (35.4-49); HEMOGLOBIN 17.5 GM/dL (11.7-16.9); MCH 33.3 pg (25.7-33.7); MCHC 33.3 g/dl (32.0-35.9); MEAN PLT VOLUME 9.6 fl (7.5-11.1); PLATELET COUNT 317 K/MM3 (134-434); RBC 5.24 M/mm3 (4.00-5.60); RDW 13.6 % (11.9-15.9); WHITE BLOOD COUNT 9.6 K/mm3 (4.0-10.0)
[2019-12-16 08:57] LABS: ALBUMIN 2.9 g/dl (3.4-5.0); BILIRUBIN,TOTAL 0.6 mg/dL (0.2-1); BLOOD UREA NITROGEN 17.8 mg/dL (7-18); CALCIUM 9.3 mg/dL (8.5-10.1); CREATININE 0.7 mg/dL (0.55-1.3); POTASSIUM 4.7 mmol/L (3.5-5.1); TOT PROT 6.6 g/dl (6.4-8.2)
[2019-12-16] MEDS ORDERED: PT OWN MED DRAWER 7, Y5N ONE ×2 (09:28→21:33)
[2019-12-16] MEDS: HYDROmorphone HCl 2 MG/ML VIAL IVPB PRN (09:29)
[2019-12-16] MEDS: NIFEdipine E.R 60 MG TABLET PO SCH ×2 (09:32→21:42)
[2019-12-16] MEDS: MYCOPHENOLATE MOFETIL 250 MG CAPSULE PO SCH ×2 (09:34→21:42)
[2019-12-16] MEDS: INSULIN (LEVEMIR) 100 UNITS/ML UNITS SQ SCH ×2 (09:34→21:39)
[2019-12-16] MEDS: ENOXAPARIN NA (PORCINE) 40 MG/0.4 ML DISP.SYRIN SQ SCH (09:35)
[2019-12-16] MEDS: METOPROLOL TARTRATE 25 MG TABLET (FP) PO SCH ×2 (09:35→21:41)
[2019-12-16] MEDS: TACROLIMUS ANHYDROUS 1 MG CAPSULE PO SCH ×2 (09:36→21:41)
--- NOTE | 2019-12-16 11:11 | PN ---
Progress Note (short form) - Note Progress Note: PULMONARY Denies shortness of breath, chest pain. +voice hoarseness. Vital Signs Period Temp Pulse Resp BP Sys/[place] Pulse Ox Last 24 Hr 97.9 F-98.7 F 87-168 18-18 144-195/95-120 95-97 Gen: NAD at rest Heart: RRR Lung: decreased breath sounds at the bases Abd: soft, nontender Ext: no edema CBC, BMP 12/16/19 06:57 12/16/19 06:57 Active Medications Diazepam (Valium -) 5 mg PO ONCE ONE Stop: 12/15/19 13:23 Enoxaparin Sodium (Lovenox -) 40 mg SQ DAILY [facility] Last Admin: 12/16/19 09:35 Dose: 40 mg Documented by: Hydromorphone HCl (Dilaudid Vial -) 1 mg IVPB Q6H PRN PRN Reason: PAIN LEVEL 6-10 Last Admin: 12/16/19 09:29 Dose: 1 mg Documented by: Sodium Chloride (Normal Saline -) 1,000 mls @ 75 mls/hr IV ASDIR [facility] Last Admin: 12/16/19 06:21 Dose: Not Given Documented by: Insulin Aspart (Novolog Vial) 0 units SQ TIDAC [facility]; Protocol Last Admin: 12/16/19 06:22 Dose: Not Given Documented by: Insulin Detemir (Levemir Vial) 14 units SQ BID [facility] Last Admin: 12/16/19 09:34 Dose: 14 units Documented by: Metoprolol Tartrate (Lopressor -) 25 mg PO BID [facility] Last Admin: 12/16/19 09:35 Dose: 25 mg Documented by: Morphine Sulfate (Ms Contin -) 30 mg PO TID [facility] Last Admin: 12/16/19 06:09 Dose: 30 mg Documented by: Mycophenolate Mofetil (Cellcept -) 500 mg PO BID [facility] Last Admin: 12/16/19 09:34 Dose: 500 mg Documented by: Nifedipine (Procardia Xl -) 60 mg PO BID [facility] Last Admin: 12/16/19 09:32 Dose: 60 mg Documented by: Nortriptyline HCl (Pamelor -) 25 mg PO HS [facility] Ondansetron HCl (Zofran Injection) 4 mg IVPUSH Q4H PRN PRN Reason: NAUSEA AND/OR VOMITING Last Admin: 12/16/19 06:09 Dose: 4 mg Documented by: Prednisone (Deltasone -) 5 mg PO HS [facility] Last Admin: 12/15/19 21:30 Dose: 5 mg Documented by: Tacrolimus (Prograf) 2 mg PO BID [facility] Last Admin: 12/16/19 09:36 Dose: 2 mg Documented by: Topiramate (Topamax -) 25 mg PO HS [facility] Last Admin: 12/15/19 21:30 Dose: 25 mg Documented by: A/P Suspect Metastatic Lung Cancer Hyponatremia h/o Liver Ca s/p Liver/Renal Transplant COPD CHF h/o Hep C HTN DM - oncology eval - thoracic surgery eval for possible EBUS - O2 to keep SpO2 >90% - inhaled bronchodilators - pain control - DVT prophylaxis
[2019-12-16] MEDS ORDERED: INSULIN (NOVOLOG) ASPART 100 UNITS/ML 10ML VIAL ONE ×2 (11:37→16:30)
--- NOTE | 2019-12-16 11:42 | PN ---
Progress Note, Physician History of Present Illness: pt seen/ examined chart is reviewed Awake and comfortable Still complains of headache all follow-ups noted CT chest----images also removed with pulmonary----hilar/lung mass--- likely malignant Biopsy to be planned Patient denies chest pain Or shortness of breath Hoarseness of voice present - Current Medication List Current Medications: Active Medications Diazepam (Valium -) 5 mg PO ONCE ONE Stop: 12/15/19 13:23 Enoxaparin Sodium (Lovenox -) 40 mg SQ DAILY [facility] Last Admin: 12/16/19 09:35 Dose: 40 mg Documented by: Hydromorphone HCl (Dilaudid Vial -) 1 mg IVPB Q6H PRN PRN Reason: PAIN LEVEL 6-10 Last Admin: 12/16/19 09:29 Dose: 1 mg Documented by: Sodium Chloride (Normal Saline -) 1,000 mls @ 75 mls/hr IV ASDIR [facility] Last Admin: 12/16/19 06:21 Dose: Not Given Documented by: Insulin Aspart (Novolog Vial) 0 units SQ TIDAC [facility]; Protocol Last Admin: 12/16/19 06:22 Dose: Not Given Documented by: Insulin Detemir (Levemir Vial) 14 units SQ BID [facility] Last Admin: 12/16/19 09:34 Dose: 14 units Documented by: Metoprolol Tartrate (Lopressor -) 25 mg PO BID [facility] Last Admin: 12/16/19 09:35 Dose: 25 mg Documented by: Morphine Sulfate (Ms Contin -) 30 mg PO TID [facility] Last Admin: 12/16/19 06:09 Dose: 30 mg Documented by: Mycophenolate Mofetil (Cellcept -) 500 mg PO BID [facility] Last Admin: 12/16/19 09:34 Dose: 500 mg Documented by: Nifedipine (Procardia Xl -) 60 mg PO BID [facility] Last Admin: 12/16/19 09:32 Dose: 60 mg Documented by: Nortriptyline HCl (Pamelor -) 25 mg PO [facility] Ondansetron HCl (Zofran Injection) 4 mg IVPUSH Q4H PRN PRN Reason: NAUSEA AND/OR VOMITING Last Admin: 12/16/19 06:09 Dose: 4 mg Documented by: Prednisone (Deltasone -) 5 mg PO [facility] Last Admin: 12/15/19 21:30 Dose: 5 mg Documented by: Tacrolimus (Prograf) 2 mg PO BID [facility] Last Admin: 12/16/19 09:36 Dose: 2 mg Documented by: Topiramate (Topamax -) 25 mg PO HS [facility] Last Admin: 12/15/19 21:30 Dose: 25 mg Documented by: - Objective Vital Signs: Vital Signs Temperature 98.0 F 12/16/19 10:00 Pulse Rate 90 12/16/19 10:00 Respiratory Rate 18 12/16/19 10:00 Blood Pressure 142/76 12/16/19 10:00 O2 Sat by Pulse Oximetry (%) 95 12/16/19 10:00 Constitutional: Yes: No Distress, Anxious Eyes: Yes: Conjunctiva Clear Neck: Yes: Supple Cardiovascular: Yes: Regular Rate and Rhythm Respiratory: Yes: Diminished Gastrointestinal: Yes: Soft Edema: No Neurological: Yes: Alert Labs: CBC, BMP 12/16/19 06:57 12/16/19 06:57 Problem List - Problems (1) Transplanted organ and tissue status Code(s): Z94.9 - TRANSPLANTED ORGAN AND TISSUE STATUS, UNSPECIFIED (2) Headache Code(s): R51 - HEADACHE Qualifiers: Headache type: unspecified Headache chronicity pattern: chronic headache Intractability: intractable Qualified Code(s): R51 - Headache (3) Hoarseness Code(s): R49.0 - DYSPHONIA (4) Lung mass Code(s): R91.8 - OTHER NONSPECIFIC ABNORMAL FINDING OF LUNG FIELD Assessment/Plan discussed with patient also in detail MRI brain today Thoracic surgery and oncology consults Lung biopsy--- to be scheduled Continue present care for now Discussed with Dr. Rivas also Will follow
--- NOTE | 2019-12-16 13:22 | PN ---
Progress Note (short form) - Note Progress Note: Thoracic Surgery: Consult re: possible EBUS. Appears to have advanced lung cancer, small cell is high in differential. Should have brain MR, bronchoscopy may be sufficient for dx and staging if small cell. If not, could do EBUS as outpatient.
--- NOTE | 2019-12-16 13:31 | CONSULT ---
Consultation: REQUESTING PROVIDER: Dr. Rivas CONSULT REQUEST: We have been asked to medically evaluate this patient for possible metastatic lung CA. HISTORY OF PRESENT ILLNESS: Patient is a 59 year old male with past medical history of liver cancer (HCC) with renal metastasis s/p kidney/liver transplant (2014), HTN, CHF, COPD, Hx of HCV, was admitted for further evaluation of headache. Head CT was unremarkable, Neurology has been consulted which recommended Topamax and Nortriptylline daily. Chest CT was done which showed LAUREL mass with multiple LAD, concern for possible metastatic lung CA. On evaluation, patient reported headache and "not feeling good", that he didn't want to answer any more questions, stating "so many doctors has seen me already. I don't want to repeat myself again and again." He provided he gets his care from [facility], but does not follow a heme-onc doctor. PMHx:as above PSHx: AVF/graft, cholecystectomy, ?splenectomy, kidney/liver transplant SHx: former smoker, denies EtOH use Allergies: morphine REVIEW OF SYSTEMS: CONSTITUTIONAL: Absent: fever, chills, diaphoresis, generalized weakness, malaise, loss of appetite, weight change HEENT: Absent: rhinorrhea, nasal congestion, throat pain, throat swelling, difficulty swallowing, mouth swelling, ear pain, eye pain, visual changes CARDIOVASCULAR: Absent: chest pain, syncope, palpitations, irregular heart rate, lightheadedness, peripheral edema RESPIRATORY: Absent: cough, shortness of breath, dyspnea with exertion, orthopnea, wheezing, stridor, hemoptysis GASTROINTESTINAL: Absent: abdominal pain, abdominal distension, nausea, vomiting, diarrhea, constipation, melena, hematochezia GENITOURINARY: Absent: dysuria, frequency, urgency, hesitancy, hematuria, flank pain, genital pain MUSCULOSKELETAL: Absent: myalgia, arthralgia, joint swelling, back pain, neck pain SKIN: Absent: rash, itching, pallor HEMATOLOGIC/IMMUNOLOGIC: Absent: easy bleeding, easy bruising, lymphadenopathy, frequent infections ENDOCRINE: Absent: unexplained weight gain, unexplained weight loss, heat intolerance, cold intolerance NEUROLOGIC: headache Absent:focal weakness or paresthesias, dizziness, unsteady gait, seizure, mental status changes, bladder or bowel incontinence PSYCHIATRIC: Absent: anxiety, depression, suicidal or homicidal ideation, hallucinations. PHYSICAL EXAMINATION Vital Signs - 24 hr 12/15/19 12/15/19 12/16/19 21:00 23:45 02:00 Temperature 98.7 F 98.4 F Pulse Rate 95 H 92 H 87 Respiratory 18 18 Rate Blood Pressure 195/120 H 144/95 157/104 H O2 Sat by Pulse 96 97 Oximetry (%) 12/16/19 12/16/19 06:00 10:00 Temperature 97.9 F 98.0 F Pulse Rate 168 H 90 Respiratory 18 18 Rate Blood Pressure 168/95 142/76 O2 Sat by Pulse 95 95 Oximetry (%) GENERAL: Awake, alert, and fully oriented. Patient refused further physical exam. Laboratory Results - last 24 hr 12/15/19 12/15/19 12/15/19 02:40 16:41 21:29 WBC RBC Hgb Hct MCV MCH MCHC RDW Plt Count MPV Sodium Potassium Chloride Carbon Dioxide Anion Gap BUN Creatinine Est GFR (CKD-EPI)AfAm Est GFR (CKD-EPI)NonAf POC Glucometer 114 141 Random Glucose Calcium Total Bilirubin AST ALT Alkaline Phosphatase Total Protein Albumin COVID-19 (FRANKO) Not detected 12/16/19 12/16/19 12/16/19 06:13 06:57 06:57 WBC 9.6 RBC 5.24 Hgb 17.5 H Hct 52.4 H MCV 100.0 H MCH 33.3 MCHC 33.3 RDW 13.6 Plt Count 317 MPV 9.6 D Sodium 135 L Potassium 4.7 Chloride 99 Carbon Dioxide 27 Anion Gap 9 BUN 17.8 Creatinine 0.7 Est GFR (CKD-EPI)AfAm 120.56 Est GFR (CKD-EPI)NonAf 104.02 POC Glucometer 108 Random Glucose 135 H Calcium 9.3 Total Bilirubin 0.6 AST 42 H ALT 29 Alkaline Phosphatase 106 Total Protein 6.6 Albumin 2.9 L COVID-19 (FRANKO) 12/16/19 12/16/19 09:45 11:32 WBC RBC Hgb Hct MCV MCH MCHC RDW Plt Count MPV Sodium Potassium Chloride Carbon Dioxide Anion Gap BUN Creatinine Est GFR (CKD-EPI)AfAm Est GFR (CKD-EPI)NonAf POC Glucometer 197 157 Random Glucose Calcium Total Bilirubin AST ALT Alkaline Phosphatase Total Protein Albumin COVID-19 (FRANKO) Active Medications Generic Name Dose Route Start Last Admin Trade Name Freq PRN Reason Stop Dose Admin Diazepam 5 mg 12/15/19 13:22 Valium - PO 12/15/19 13:23 ONCE ONE Enoxaparin Sodium 40 mg 12/15/19 10:00 12/16/19 09:35 Lovenox - SQ 40 mg DAILY [facility] Administration Hydromorphone HCl 1 mg 12/15/19 13:59 12/16/19 09:29 Dilaudid Vial - IVPB 1 mg Q6H PRN Administration PAIN LEVEL 6-10 Sodium Chloride 1,000 mls @ 75 mls/hr 12/15/19 06:00 12/16/19 06:21 Normal Saline - IV Not Given ASDIR [facility] Insulin Aspart 0 units 12/15/19 16:30 12/16/19 11:45 Novolog Vial SQ 2 units TIDAC [facility] Administration Protocol Insulin Detemir 14 units 12/15/19 22:00 12/16/19 09:34 Levemir Vial SQ 14 units BID [facility] Administration Metoprolol Tartrate 25 mg 12/15/19 22:00 12/16/19 09:35 Lopressor - PO 25 mg BID [facility] Administration Morphine Sulfate 30 mg 12/15/19 14:15 12/16/19 06:09 Ms Contin - PO 30 mg TID [facility] Administration Mycophenolate Mofetil 500 mg 12/15/19 22:00 12/16/19 09:34 Cellcept - PO 500 mg BID [facility] Administration Nifedipine 60 mg 12/15/19 22:00 12/16/19 09:32 Procardia Xl - PO 60 mg BID [facility] Administration Nortriptyline HCl 25 mg 12/16/19 22:00 Pamelor - PO HS [facility] Ondansetron HCl 4 mg 12/15/19 13:03 12/16/19 11:44 Zofran Injection IVPUSH 4 mg Q4H PRN Administration NAUSEA AND/OR VOMITING Prednisone 5 mg 12/15/19 22:00 12/15/19 21:30 Deltasone - PO 5 mg HS [facility] Administration Tacrolimus 2 mg 12/15/19 22:00 12/16/19 09:36 Prograf PO 2 mg BID [facility] Administration Topiramate 25 mg 12/15/19 22:00 12/15/19 21:30 Topamax - PO 25 mg HS [facility] Administration ASSESSMENT/PLAN: Patient is a 59 year old male with past medical history of ?liver cancer with renal metastasis s/p kidney/liver transplant (2015), HTN, CHF, COPD, Hx of HCV, found to have lung mass on chest CT with concern for possible metastatic lung CA. #LAUREL lung mass -Chest CT : mass within upper lobe abutting the mediastinum and inseparable from mediastinal adenopathy. Additional mediastinal adenopathy in the tracheal,precarinal and subcarinal areas. Sclerotic lesion within the body of the sternum. -Thoracic surgery (Dr. Luevano) consulted. Recs appreciated. 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 - New Patient This patient is new to me today: Yes Date on this admission: 12/16/19 - Critical Care Critical Care patient: No ATTENDING PHYSICIAN STATEMENT I saw and evaluated the patient. I reviewed the resident's note and discussed the case with the resident. I agree with the resident's findings and plan as documented. SUBJECTIVE: OBJECTIVE: ASSESSMENT AND PLAN:
[2019-12-16] MEDS ORDERED: diazePAM 5 MG TABLET PO ONE (16:45)
--- NOTE | 2019-12-16 18:21 | PN ---
Progress Note (short form) - Note Progress Note: c Consntant headache since october 2019 HPI 59 year old male , seen with his son and health proxy at bedside. He has history of DM, Kidney trasnpant [place] 2015, HTN, CHF, COPD. Patient has nodule in lung and being work up. Patient has liver ca with renal mets. He has been having headache, which started in occpital region and has been constant everyday. He has bene taking oxycodone, fiorecet . Patient had normal ct head in [facility] in november 2019. He ws scheduled for mri and could not get it doen . Patient continue to have constant severe headache . Patient also have voice hoarseness . He also have history of neck pain and disc disease. patient continue to have headache and would get his first dose of nortripytline today NEUROLOGICAL EXAMINATION Alert oriented x 3, neck is supple vss voice is hoarse, speech is normal, eomi, pupils reactive neck is supple moving all ext sensation is normal ct head normal in november 2019 mri of brain pending bun and creatinine is normal Assessment/Plan Constant headhace since october, clinically there is no evidence of meningitis( no fever, mental status is normal and neck is supple), most likley cervicogenic headhace, vs medication overuse and rule out any mets Plan: continu enortripytline 25 mg qhs - would follow up mri of brain - avoid analgesic overuse Thanking you so much Ahsan Van MD
[2019-12-16] MEDS: predniSONE 5 MG TABLET (UD) PO SCH (21:40)
[2019-12-16] MEDS: TOPIRAMATE 25 MG TABLET PO SCH (21:41)
[2019-12-16] MEDS ORDERED: NORTRIPTYLINE HCL 25 MG CAPSULE PO SCH (22:00)
[2019-12-16 23:08] LABS: EPI CELLS 4 /uL (0-25.1); HYALINE CASTS 1 /uL (0-3.1); PH,URINE 6.5 (5.0-8.0); URINE APPEARANCE CLEAR; URINE BACTERIA 45 /uL (0-1359); URINE BILIRUBIN NEGATIVE (NEGATIVE); URINE COLOR YELLOW; URINE GLUCOSE (UA) NEGATIVE (NEGATIVE); URINE KETONE TRACE (NEGATIVE); URINE LEUK ESTERASE NEGATIVE (NEGATIVE); URINE NITRITE NEGATIVE (NEGATIVE); URINE PROTEIN 2+ (NEGATIVE); URINE WBC 4 /uL (0-25.8)
[2019-12-17] MEDS ORDERED: METOPROLOL TARTRATE 25 MG TABLET (FP) PO ONE (02:00)
[2019-12-17] MEDS: SODIUM CHLORIDE 1,000 ML IV SCH ×2 (03:54→06:04)
[2019-12-17] MEDS: HYDROmorphone HCl 2 MG/ML VIAL IVPB PRN (04:02)
[2019-12-17] MEDS: ONDANSETRON 4 MG/2 ML VIAL IVPUSH PRN (04:02)
[2019-12-17] MEDS: INSULIN (NOVOLOG) ASPART 100 UNITS/ML 10ML VIAL SQ SCH ×2 (06:04→11:08)
[2019-12-17] MEDS: morphine SO4 SUSTAINED ACTING 30 MG TABLET.SA PO SCH ×3 (06:44→14:07)
--- NOTE | 2019-12-17 08:03 | PN ---
Teaching Attending Note Name of Resident: Martha Briggs ATTENDING PHYSICIAN STATEMENT I saw and evaluated the patient. I reviewed the resident's note and discussed the case with the resident. I agree with the resident's findings and plan as documented. ASSESSMENT AND PLAN: 89 year old male with past medical history of hepatitis C, hepatocellular carcinoma s/p TACE ] s/p kidney/liver transplant (2014), HTN, CHF, COPD, Hx of HCV, was admitted for further evaluation of headache. CT was done which showed 10 cm LAUREL mass contiguous with mediastinal adenopathy, encasing LAUREL bronchus'. Sclerotic sternal lesion Evaluated by CT surgery and recommending CT guided biopsy awaiting tissue diagnosis will check AFP Erythrocytosis --post transplant erythrocytosis. Check LDH/erythropoietin level Monitor
[2019-12-17 08:56] LABS: INR 1.03 (0.83-1.09); PROTHROMBIN TIME (PATIENT) 12.1 SEC (9.7-13.0)
[2019-12-17 09:28] LABS: ALBUMIN 2.8 g/dl (3.4-5.0); BILIRUBIN,TOTAL 0.7 mg/dL (0.2-1); BLOOD UREA NITROGEN 14.2 mg/dL (7-18); CALCIUM 8.5 mg/dL (8.5-10.1); CREATININE 0.6 mg/dL (0.55-1.3); POTASSIUM 4.2 mmol/L (3.5-5.1); TOT PROT 6.1 g/dl (6.4-8.2); URIC ACID 7.1 mg/dL (2.6-7.2)
[2019-12-17] MEDS: NIFEdipine E.R 60 MG TABLET PO SCH (09:29)
[2019-12-17] MEDS: ENOXAPARIN NA (PORCINE) 40 MG/0.4 ML DISP.SYRIN SQ SCH (09:29)
[2019-12-17] MEDS: TACROLIMUS ANHYDROUS 1 MG CAPSULE PO SCH (09:30)
[2019-12-17] MEDS: MYCOPHENOLATE MOFETIL 250 MG CAPSULE PO SCH (09:30)
[2019-12-17] MEDS: METOPROLOL TARTRATE 25 MG TABLET (FP) PO SCH (09:35)
[2019-12-17] MEDS ORDERED: METOPROLOL TARTRATE 50 MG TABLET (FP) PO SCH (10:00)
--- NOTE | 2019-12-17 11:01 | PN ---
Progress Note (short form) - Note Progress Note: PULMONARY Still with headache. MRI brain unremarkable. Denies shortness of breath, chest pain. +voice hoarseness. Unable to do CT guided biopsy until 12/19 as he was on A SA. Vital Signs Period Temp Pulse Resp BP Sys/Montelongo Pulse Ox Last 24 Hr 97.7 F-99.1 F 79-91 18-18 124-171/75-110 94-96 Gen: NAD at rest Heart: RRR Lung: decreased breath sounds at the bases Abd: soft, nontender Ext: no edema CBC, BMP 12/17/19 07:50 12/17/19 07:50 Active Medications Enoxaparin Sodium (Lovenox -) 40 mg SQ DAILY [facility] Last Admin: 12/17/19 09:29 Dose: 40 mg Documented by: Hydromorphone HCl (Dilaudid Vial -) 1 mg IVPB Q6H PRN PRN Reason: PAIN LEVEL 6-10 Last Admin: 12/17/19 04:02 Dose: 1 mg Documented by: Sodium Chloride (Normal Saline -) 1,000 mls @ 75 mls/hr IV ASDIR [facility] Last Admin: 12/17/19 06:04 Dose: Not Given Documented by: Insulin Aspart (Novolog Vial) 0 units SQ TIDAC [facility]; Protocol Last Admin: 12/17/19 06:04 Dose: Not Given Documented by: Insulin Detemir (Levemir Vial) 14 units SQ BID [facility] Last Admin: 12/16/19 21:39 Dose: 10 units Documented by: Metoprolol Tartrate (Lopressor -) 25 mg PO BID [facility] Last Admin: 12/17/19 09:35 Dose: Not Given Documented by: Metoprolol Tartrate (Lopressor -) 50 mg PO BID [facility] Last Admin: 12/17/19 09:29 Dose: 50 mg Documented by: Morphine Sulfate (Ms Contin -) 30 mg PO TID [facility] Last Admin: 12/17/19 07:43 Dose: 30 mg Documented by: Mycophenolate Mofetil (Cellcept -) 500 mg PO BID [facility] Last Admin: 12/17/19 09:30 Dose: 500 mg Documented by: Nifedipine (Procardia Xl -) 60 mg PO BID [facility] Last Admin: 12/17/19 09:29 Dose: 60 mg Documented by: Nortriptyline HCl (Pamelor -) 25 mg PO HS [facility] Last Admin: 12/16/19 21:41 Dose: 25 mg Documented by: Ondansetron HCl (Zofran Injection) 4 mg IVPUSH Q4H PRN PRN Reason: NAUSEA AND/OR VOMITING Last Admin: 12/17/19 04:02 Dose: 4 mg Documented by: Prednisone (Deltasone -) 5 mg PO [facility] Last Admin: 12/16/19 21:40 Dose: 5 mg Documented by: Tacrolimus (Prograf) 2 mg PO BID [facility] Last Admin: 12/17/19 09:30 Dose: 2 mg Documented by: Topiramate (Topamax -) 25 mg PO [facility] Last Admin: 12/16/19 21:41 Dose: 25 mg Documented by: A/P Suspect Metastatic Lung Cancer Hyponatremia h/o Liver Ca s/p Liver/Renal Transplant COPD CHF h/o Hep C HTN DM - O2 to keep SpO2 >90% - inhaled bronchodilators - pain control - DVT prophylaxis - no objections to discharge home and outpt f/u for CT guided biopsy
[2019-12-17] MEDS: INSULIN (LEVEMIR) 100 UNITS/ML UNITS SQ SCH (11:08)
--- NOTE | 2019-12-17 12:01 | PN ---
Physical Exam: SUBJECTIVE: Patient still reports headache. MRI w/o contrast unremarkable. On review of patient's chart at [facility], patient has hx of HCC s/p TACE, s/p renal/liver transplant in 2015. Polycythemia noted on previous labs, with baseline Hct around 50. Patient refused thorough exam. OBJECTIVE: Vital Signs Period Temp Pulse Resp BP Sys/Montelongo Pulse Ox Last 24 Hr 97.7 F-99.1 F 79-91 18-18 124-171/75-110 94-96 GENERAL: The patient is awake, alert, and fully oriented, in no acute distress LUNGS: decreased breath sounds bilaterally HEART: Regular rate and rhythm, S1, S2 ABDOMEN: Soft, nontender, nondistended, normoactive bowel sounds EXTREMITIES: warm, well-perfused, no edema. SKIN: Warm, dry, normal turgor Laboratory Results - last 24 hr 12/16/19 12/16/19 12/16/19 16:07 21:28 21:30 WBC Corrected WBC (auto) RBC Hgb Hct MCV MCH MCHC RDW Plt Count MPV Absolute Neuts (auto) Neutrophils % Lymphocytes % Monocytes % Eosinophils % Basophils % Nucleated RBC % Platelet Estimate Platelet Comment PT with INR INR Sodium Potassium Chloride Carbon Dioxide Anion Gap BUN Creatinine Est GFR (CKD-EPI)AfAm Est GFR (CKD-EPI)NonAf POC Glucometer 175 152 Random Glucose Uric Acid Calcium Total Bilirubin AST ALT Alkaline Phosphatase LD Total Total Protein Albumin Vitamin B12 Serum Folate TSH Urine Color Yellow Urine Appearance Clear Urine pH 6.5 Ur Specific [place] 1.018 Urine Protein 2+ H Urine Glucose (UA) Negative Urine Ketones Trace H Urine Blood Negative Urine Nitrite Negative Urine Bilirubin Negative Urine Urobilinogen 1.0 Ur Leukocyte Esterase Negative Urine WBC (Auto) 4 Urine Casts (Auto) 1 U Epithel Cells (Auto) 4 Urine Bacteria (Auto) 45 12/17/19 12/17/19 12/17/19 06:02 07:50 07:50 WBC Cancelled Corrected WBC (auto) Cancelled RBC Cancelled Hgb Cancelled Hct Cancelled MCV Cancelled MCH Cancelled MCHC Cancelled RDW Cancelled Plt Count Cancelled MPV Cancelled Absolute Neuts (auto) Cancelled Neutrophils % Cancelled Lymphocytes % Cancelled Monocytes % Cancelled Eosinophils % Cancelled Basophils % Cancelled Nucleated RBC % Cancelled Platelet Estimate Cancelled Platelet Comment Cancelled PT with INR 12.10 INR 1.03 Sodium Potassium Chloride Carbon Dioxide Anion Gap BUN Creatinine Est GFR (CKD-EPI)AfAm Est GFR (CKD-EPI)NonAf POC Glucometer 89 Random Glucose Uric Acid Calcium Total Bilirubin AST ALT Alkaline Phosphatase LD Total Total Protein Albumin Vitamin B12 Serum Folate TSH Urine Color Urine Appearance Urine pH Ur Specific [place] Urine Protein Urine Glucose (UA) Urine Ketones Urine Blood Urine Nitrite Urine Bilirubin Urine Urobilinogen Ur Leukocyte Esterase Urine WBC (Auto) Urine Casts (Auto) U Epithel Cells (Auto) Urine Bacteria (Auto) 12/17/19 12/17/19 07:50 11:03 WBC Corrected WBC (auto) RBC Hgb Hct MCV MCH MCHC RDW Plt Count MPV Absolute Neuts (auto) Neutrophils % Lymphocytes % Monocytes % Eosinophils % Basophils % Nucleated RBC % Platelet Estimate Platelet Comment PT with INR INR Sodium 135 L Potassium 4.2 Chloride 100 Carbon Dioxide 27 Anion Gap 7 L BUN 14.2 Creatinine 0.6 Est GFR (CKD-EPI)AfAm 128.45 Est GFR (CKD-EPI)NonAf 110.83 POC Glucometer 143 Random Glucose 99 Uric Acid 7.1 Calcium 8.5 Total Bilirubin 0.7 AST 36 ALT 24 Alkaline Phosphatase 92 LD Total 751 H Total Protein 6.1 L Albumin 2.8 L Vitamin B12 466 Serum Folate 8 TSH 0.61 Urine Color Urine Appearance Urine pH Ur Specific [place] Urine Protein Urine Glucose (UA) Urine Ketones Urine Blood Urine Nitrite Urine Bilirubin Urine Urobilinogen Ur Leukocyte Esterase Urine WBC (Auto) Urine Casts (Auto) U Epithel Cells (Auto) Urine Bacteria (Auto) Active Medications Generic Name Dose Route Start Last Admin Trade Name Erica PRN Reason Stop Dose Admin Enoxaparin Sodium 40 mg 12/15/19 10:00 12/17/19 09:29 Lovenox - SQ 40 mg DAILY [facility] Administration Hydromorphone HCl 1 mg 12/15/19 13:59 12/17/19 04:02 Dilaudid Vial - IVPB 1 mg Q6H PRN Administration PAIN LEVEL 6-10 Sodium Chloride 1,000 mls @ 75 mls/hr 12/15/19 06:00 12/17/19 06:04 Normal Saline - IV Not Given ASDIR [facility] Insulin Aspart 0 units 12/15/19 16:30 12/17/19 11:08 Novolog Vial SQ Not Given TIDAC [facility] Protocol Insulin Detemir 14 units 08/09/20 22:00 12/17/19 11:08 Levemir Vial SQ 14 units BID [facility] Administration Metoprolol Tartrate 25 mg 12/15/19 22:00 12/17/19 09:35 Lopressor - PO Not Given BID [facility] Metoprolol Tartrate 50 mg 12/17/19 10:00 12/17/19 09:29 Lopressor - PO 50 mg BID [facility] Administration Morphine Sulfate 30 mg 12/15/19 14:15 12/17/19 07:43 Ms Contin - PO 30 mg TID [facility] Administration Mycophenolate Mofetil 500 mg 12/15/19 22:00 12/17/19 09:30 Cellcept - PO 500 mg BID [facility] Administration Nifedipine 60 mg 12/15/19 22:00 12/17/19 09:29 Procardia Xl - PO 60 mg BID [facility] Administration Nortriptyline HCl 25 mg 12/16/19 22:00 12/16/19 21:41 Pamelor - PO 25 mg HS [facility] Administration Ondansetron HCl 4 mg 12/15/19 13:03 12/17/19 04:02 Zofran Injection IVPUSH 4 mg Q4H PRN Administration NAUSEA AND/OR VOMITING Prednisone 5 mg 12/15/19 22:00 12/16/19 21:40 Deltasone - PO 5 mg HS [facility] Administration Tacrolimus 2 mg 12/15/19 22:00 12/17/19 09:30 Prograf PO 2 mg BID [facility] Administration Topiramate 25 mg 12/15/19 22:00 12/16/19 21:41 Topamax - PO 25 mg HS [facility] Administration ASSESSMENT/PLAN: Patient is a 59 year old male with past medical history of ?liver cancer with renal metastasis s/p kidney/liver transplant (2014), HTN, CHF, COPD, Hx of HCV, found to have lung mass on chest CT with concern for possible metastatic lung CA. #LAUREL lung mass -Chest CT : mass within upper lobe abutting the mediastinum and inseparable from mediastinal adenopathy. Additional mediastinal adenopathy in the tracheal,precarinal and subcarinal areas. Sclerotic lesion within the body of the sternum. -Thoracic surgery (Dr. Luevano) consulted. Recs appreciated. 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 - New Patient This patient is new to me today: No - Critical Care Critical Care patient: No ATTENDING PHYSICIAN STATEMENT I saw and evaluated the patient. I reviewed the resident's note and discussed the case with the resident. I agree with the resident's findings and plan as documented. SUBJECTIVE: OBJECTIVE: ASSESSMENT AND PLAN:
--- NOTE | 2019-12-17 12:45 | DS ---
Physical Examination Vital Signs: Vital Signs Temperature 98.0 F 12/17/19 10:00 Pulse Rate 85 12/17/19 10:00 Respiratory Rate 18 12/17/19 10:00 Blood Pressure 146/85 12/17/19 10:00 O2 Sat by Pulse Oximetry (%) 96 12/17/19 10:00 Constitutional: Yes: No Distress, Anxious Cardiovascular: Yes: Regular Rate and Rhythm Respiratory: Yes: CTA Bilaterally Gastrointestinal: Yes: Normal Bowel Sounds, Soft. No: Tenderness Edema: No Labs: CBC, BMP 12/17/19 07:50 12/17/19 07:50 Discharge Summary Problems reviewed: Yes Reason For Visit: HEADACHE Current Active Problems Headache (Acute) Hoarseness (Acute) Lung mass (Acute) Transplanted organ and tissue status (Acute) Hospital Course: Admitted for intractable headaches - CT head whic was done last month was negative. CT c spine no acute pathology He had CXR suspicious for left upper lobe mass- CT chest shows neoplasm in left upper lobe CT CHEST IMPRESSION: Mass within the left upper lobe abutting the mediastinum and inseparable from mediastinal adenopathy as described above. Additional mediastinal adenopathy as discussed above. Sclerotic lesion within the body of the sternum. Small pericardiac effusion. Status post laminectomy. MRI BRAIN Impression: No suspicious metastatic disease to the brain or to the meninges at this no ncontrast study. If metastasis remain clinically suspicious MRI with contrast should be considered for definitive diagnosis. Otherwise there are ischemic changes in the white matter of both cerebral hemispheres also in the kimo sequela most probably to long-standing hypertension or small vessel atherosclerosis.. No evidence of acute infarction. No evidence of intracerebral hemorrhage, subdural fluid collection or hydrocephalus.. Cerebellopontine angles unremarkable Seen by Neurology, Pulmonary and Cardiothoracic surgeon I spoke with Priti clinical nurse coordinator for liver transplant team at [facility] and she agreed for Nortriptyline and Topamax for headaches Headaches better with meds Pt dc home today with advice to come to registration here at [facility] ---> Pt advised to come to [facility] for COVID 19 PCR on Tuesday 12/19 -- schedule CTguided biopsy needle lung on Friday 12/22 Condition: Stable - Instructions Diet, Activity, Other Instructions: Pt advised to come to [facility] for COVID 19 PCR on Tuesday 12/19 -- schedule CTguided biopsy needle lung on Friday 12/22 Disposition: HOME - Home Medications Comprehensive Discharge Medication List: Ambulatory Orders Nifedipine ER [Procardia XL -] 60 mg PO BID 08/10/17 Prednisone 5 mg PO HS 08/10/17 Tacrolimus 2 mg PO BID 08/10/17 Alprazolam 1 mg PO HS 09/03/18 Insulin Glargine,Hum.rec.anlog [Basaglar Kwikpen U-100] 14 unit SQ BID 09/03/18 Mycophenolate Mofetil 500 mg PO BID 09/03/18 Gluco Tab 1 tab PO PRN PRN 09/04/18 Metoprolol Tartrate 25 mg PO BID 12/14/19 Butalb/Acetaminophen/Caffeine [Fioricet 50-300-40 mg Capsule] 1 each PO TID PRN #12 capsule 12/15/19 Morphine *Sr* [MS Contin -] 30 mg PO TID #30 tablet.sa MDD 3 12/17/19 Nortriptyline HCl [Pamelor -] 25 mg PO HS #30 capsule 12/17/19 Polyethylene Glycol 3350 [Miralax (For Daily Use) -] 17 gm PO DAILY #1 bottle 12/17/19 Topiramate [Topamax -] 25 mg PO HS #30 tablet 12/17/19
[2019-12-17 13:25] VITALS: BP 108/67; PULSE 75; TEMP 97.7
--- NOTE | 2019-12-17 22:52 | PN ---
Progress Note (short form) - Note Progress Note: HPI 59 year old male , seen with his son and health proxy at bedside. He has history of DM, Kidney trasnpant IN 2015, HTN, CHF, COPD. Patient has nodule in lung and being work up. Patient has liver ca with renal mets. He has been having headache, which started in occpital region and has been constant everyday. He has bene taking oxycodone, fiorecet . Patient had normal ct head in [facility] in november 2019. He ws scheduled for mri and could not get it doen . Patient continue to have constant severe headache . Patient also have voice hoarseness . mri of brain without contast is normal, he refused with contrast without consulting his transplant toilet attendant. pateint headhace is better NEUROLOGICAL EXAMINATION Alert oriented x 3, neck is supple vss voice is hoarse, speech is normal, eomi, pupils reactive neck is supple moving all ext sensation is normal ct head normal in november 2019 mri of brain is normal, he refused with contrast withotu consulting his transplant toilet attendant bun and creatinine is normal Assessment/Plan Constant headhace since october, clinically there is no evidence of meningitis( no fever, mental status is normal and neck is supple), most likley cervicogenic headhace, vs medication overuse , there is no evidence of mets ( mri of brain done without contrast) Plan: continu enortripytline 25 mg qhs - mri of brain with contrast if needed and symptoms worsened - avoid analgesic overuse, follow up outpatient Thanking you so much Ahsan Van MD
== END 2019-12-17 17:35 | disposition home or self-care (01) | DRG 136 ==
LOC: JER 19:31 → JERBED 12-15 00:20 → J6S 12-15 03:51
PROVIDERS: ADMIT Internal Medicine; ATTEND Internal Medicine
DX: C34.90 Malignant neoplasm of unspecified part of unspecified bronchus or lung (principal); R91.8 Other nonspecific abnormal finding of lung field; I13.2 Hypertensive heart and chronic kidney disease with heart failure and with stage 5 chronic kidney disease, or end stage renal disease; E11.22 Type 2 diabetes mellitus with diabetic chronic kidney disease; N18.5 Chronic kidney disease, stage 5; I50.9 Heart failure, unspecified; Z94.0 Kidney transplant status; J44.9 Chronic obstructive pulmonary disease, unspecified; Z94.4 Liver transplant status; E87.1 Hypo-osmolality and hyponatremia; D75.1 Secondary polycythemia; E11.40 Type 2 diabetes mellitus with diabetic neuropathy, unspecified; M50.223 Other cervical disc displacement at C6-C7 level; R59.0 Localized enlarged lymph nodes; R49.0 Dysphonia; M54.12 Radiculopathy, cervical region; E87.5 Hyperkalemia; G43.909 Migraine, unspecified, not intractable, without status migrainosus; Z86.19 Personal history of other infectious and parasitic diseases; Z85.05 Personal history of malignant neoplasm of liver
CPT/HCPCS: 36415; 70551-TC; 71045-TC-FY; 71250-TC; 72125-TC; 80048; 80053; 81003; 82607; 82668; 82746; 82962; 83615; 83735; 84100; 84443; 84550; 85025; 85027; 85610; 85730; 93005; 93010; 99285-25; J7517; U0003

== ENCOUNTER 2019-12-24 05:05 | Day surgery (SDC) | payer OTHER ==
[2019-12-23 10:54] VITALS: BMI 29.6
[2019-12-24 15:26] VITALS: BP 144/83; PULSE 80; TEMP 97.7
--- NOTE | 2019-12-26 14:55 | PATH ---
Surgical Pathology Report Patient Name: CATRACHO GARCIA [facility]. Rec. #: [id number] /Age/Gender: 1960 (Age: 59) / M Account: [id number] Location: RADIOLOGY INTER Taken: 12/24/2019 Received: 12/24/2019 Reported: 12/26/2019 Physicians: Adrian Merino M.D. 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 SEE COMMENT. Comment: Histologic sections show a predominantly necrotic neoplasm. Viable tumor aggregates show hyperchromasia, increased nucleus to cytoplasmic ratio, and granular chromatin. Focal nuclear molding noted. Marked apoptosis and necrosis present. Immunohistochemical stains performed and interpreted at [facility] show the tumor is positive for synaptophysin; while negative for TTF-1. Rare focal staining for chromogranin and AE1/3 is noted. CD45 stains rare aggregates of lymphocytes. Additional immunohistochemical stains performed [facility] [place] ([id number]) and interpreted at [facility] show the tumor is positive for CD56, while negative for CK7, CK20, p40, Tdt, CD117. Rare aggregates of CD5+ T-lymphocytes are noted. Proliferative marker, Ki-67 is high (~50%). Overall findings show a necrotic neoplasm with neuroendocrine differentiation, suspect Small cell carcinoma. Imaging findings of large mediastinal and hilar masses, as well as associated lymphadenopathy are noted. Suggest clinical and radiologic correlation. Case discussed with Dr. Edmondson, 12/26/19. Positive and negative controls (internal if applicable) show appropriate results. Electronically Signed Shereen Renteria M.D. Gross Description Received in formalin labeled "mediastinal biopsy," is a 1.0 x 0.5 x 0.1 cm aggregate of peters soft tissue fragments. The formalin is filtered and the specimen is entirely submitted in one cassette. DL/12/24/2019 saudi/12/24/2019
== END 2019-12-24 15:03 | disposition home or self-care (01) ==
LOC: JRADIR 05:05
PROVIDERS: ATTEND Internal Medicine
PROC: 0WBC3ZX Excision of Mediastinum, Percutaneous Approach, Diagnostic (ICD-10-PCS; principal; 2019-12-24)
DX: D38.3 Neoplasm of uncertain behavior of mediastinum (principal)
CPT/HCPCS: 32405; 71045-TC-FY; 77012-TC; 88305-TC; 88341-TC; 88342-TC

== ENCOUNTER 2019-12-26 12:00 | Inpatient (IN) | payer OTHER ==
[2019-12-26 12:05] VITALS: BMI 22.3
[2019-12-26] MEDS ORDERED: LACTATED RINGERS SOLUTION 1000 ML INFUS.BAG IV ONE (12:22)
[2019-12-26 12:49] LABS: ACTIVATED PTT 30.1 SECONDS (25.2-36.5)
[2019-12-26 12:53] LABS: INR 1.36 (0.82-1.09); PROTHROMBIN TIME (PATIENT) 15.1 SEC (10.2-13.0)
[2019-12-26 12:57] LABS: HEMOGLOBIN 17.4 GM/dl (11.7-16.9); MCH 32.6 pg (25.7-33.7); MCHC 32.7 g/dl (32.0-35.9); MEAN CELL VOLUME 99.8 fl (80-96); MEAN PLT VOLUME 10.4 fl (7.5-11.1); PLATELET COUNT 593 K/MM3 (134-434); RBC 5.31 M/mm3 (4.00-5.60); RDW 13.4 % (11.9-15.9); WHITE BLOOD COUNT 15.6 K/mm3 (4.0-10.8)
[2019-12-26] MEDS ORDERED: VANCOMYCIN 1,000 MG in DEXTROSE 5%-WATER - 250 ML IVPB ONE (13:07)
[2019-12-26] MEDS ORDERED: PIPERACILLIN/TAZOB 3.375 GM 3.375 GM in DEXTROSE 5%-WATER - 50 ML IVPB ONE (13:07)
[2019-12-26 13:16] LABS: ALBUMIN 2.6 g/dl (3.4-5.0); BILIRUBIN,TOTAL 1.8 mg/dl (0.2-1); CALCIUM 9.3 mg/dl (8.5-10); CREATININE 0.9 mg/dl (0.55-1.3); TOT PROT 6.5 g/dl (6.4-8.2)
--- NOTE | 2019-12-26 13:28 | PDOC ---
Attending Attestation - Resident Resident Name: Warren De León - ED Attending Attestation I have performed the following: I have examined & evaluated the patient, The case was reviewed & discussed with the resident, I agree w/resident's findings & plan, Exceptions are as noted - HPI HPI: 12/26/19 13:28 59 year old male with past medical history of hepatitis C, hepatocellular carcinoma s/p TACE ] s/p kidney/liver transplant (2014), HTN, CHF, COPD, Hx of HCV, Status post lung biopsy on Monday presents to the ED with decreased p.o. intake nausea continued headaches constipation generalized weakness. Nauseous and retching but no vomiting no diarrhea last bowel movement yesterday no abdominal distention denies fevers but endorses chills unable to tolerate p.o. secondary to nausea - Physicial Exam PE: 12/26/19 13:29 12/26/19 13:33 Discharge - Follow up/Referral Referrals: Silvia Delgado MD [Primary Care Provider] - - Patient Discharge Instructions - Post Discharge Activity
[2019-12-26] MEDS ORDERED: ACETAMINOPHEN 1000 MG/100 ML VIAL (NON FORMULARY) IVPB ONE (13:30)
[2019-12-26] MEDS ORDERED: METOCLOPRAMIDE HCL INJECTION 10 MG/2 ML VIAL IVPB ONE (13:30)
[2019-12-26] MEDS ORDERED: SODIUM CHLORIDE 0.9% 1000 ML INFUS.BAG IV ONE (13:30)
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
[2019-12-26] MEDS ORDERED: PIPERACILLIN/TAZOB 3.375 GM 3.375 GM/50 ML BAG IVPB ONE (13:34)
[2019-12-26] MEDS ORDERED: METOCLOPRAMIDE HCL INJECTION 10 MG/2 ML VIAL ONE (13:34)
[2019-12-26] MEDS ORDERED: ACETAMINOPHEN INJECTION 100 ML IVPB ONE (13:34)
[2019-12-26] MEDS ORDERED: Methylnaltrexone Bromide 12 MG/0.6 ML KIT SQ STA (13:47)
[2019-12-26] MEDS ORDERED: VANCOMYCIN 1,000 MG VIAL (RESTRICTED TO ID ONLY) ONE (13:55)
--- NOTE | 2019-12-26 14:16 | HP ---
Admitting History and Physical - Past Medical History [employer]: Yes: Peripheral Neuropathy. No: Alzheimer's, CVA, Dementia, Migraine, Seizure Cardiovascular: Yes: CHF, HTN. No: Pulmonary Hypertension Pulmonary: Yes: COPD Gastrointestinal: Yes: Cancer (hepatocellular), Other (Hepatitis C) Hepatobiliary: Yes: Hepatitis C Renal/: Yes: Renal Inusuff (CKD V) Heme/Onc: Yes: Anemia - Past Surgical History Past Surgical History: Yes: AV Fistula/Graft - Smoking History Smoking history: Former smoker Have you smoked in the past 12 months: No Aproximately how many cigarettes per day: 0 If you are a former smoker, when did you quit?: 2010 - Alcohol/Substance Use Hx Alcohol Use: Yes (FEW GLASSES OF WINE) History of Substance Use: reports: None - Social History History of Recent Travel: No Home Medications - Allergies Allergies/Adverse Reactions: Allergies Allergy/AdvReac Type Severity Reaction Status Date / Time morphine AdvReac Verified 12/26/19 12:01 - Home Medications Home Medications: Ambulatory Orders Nifedipine ER [Procardia XL -] 60 mg PO BID 08/10/17 Prednisone 5 mg PO HS 08/10/17 Tacrolimus 2 mg PO BID 08/10/17 Alprazolam 1 mg PO HS 09/03/18 Insulin Glargine,Hum.rec.anlog [Basagljuan Farrar U-100] 14 unit SQ BID 09/03/18 Mycophenolate Mofetil 500 mg PO BID 09/03/18 Metoprolol Tartrate 25 mg PO BID 12/14/19 Physical Examination Vital Signs: Vital Signs Temperature 98.1 F 12/26/19 12:01 Pulse Rate 118 H 12/26/19 13:46 Respiratory Rate 19 12/26/19 13:46 Blood Pressure 167/101 H 12/26/19 13:46 O2 Sat by Pulse Oximetry (%) 99 12/26/19 13:46 Labs: CBC, BMP 12/26/19 12:25 12/26/19 12:25 Assessment/Plan spoke with pathologist-- necrotic lesion--neoplasm--- may be small cell - would prefer the lung biopsy as this one was mediastinal biopsy Will call Oncology evaluation
[2019-12-26 14:21] LABS: EPITHELIAL CELLS RARE /hpf
[2019-12-26 14:23] LABS: ADD RBC MORPHOLOGY YES
[2019-12-26 14:25] LABS: ANISOCYTOSIS 1+; HOWELL-JOLLY BODIES 1+; PLATELET ESTIMATE INCREASED
[2019-12-26] MEDS ORDERED: cefTRIAXone SODIUM 1 GM VIAL ONE (17:14)
[2019-12-26] MEDS ORDERED: DEXTROSE 5%-WATER - 50 ML IVPB ONE (17:15)
[2019-12-26] MEDS: INSULIN SLIDING SCALE (NOVOLOG) 1 VIAL SQ SCH (18:03)
[2019-12-26] MEDS: CEFTRIAXONE 1 GM in DEXTROSE 5%-WATER - 50 ML IVPB SCH (18:03)
[2019-12-26] MEDS ORDERED: INSULIN (NOVOLOG) ASPART 100 UNITS/ML 10ML VIAL ONE (18:46)
[2019-12-26] MEDS ORDERED: morphine SO4 SUSTAINED ACTING 15 MG TABLET.SA PO ONE (19:57)
[2019-12-26] MEDS ORDERED: PT OWN MED DRAWER 7, Y5N ONE (21:23)
[2019-12-26] MEDS: METOPROLOL TARTRATE 25 MG TABLET (FP) PO SCH (21:32)
[2019-12-26] MEDS: INSULIN (LEVEMIR) 100 UNITS/ML UNITS SQ SCH (21:32)
[2019-12-26] MEDS: ALPRAZolam 1 MG TABLET PO SCH (21:33)
[2019-12-26] MEDS: predniSONE 5 MG TABLET (UD) PO SCH (21:33)
[2019-12-26] MEDS: MYCOPHENOLATE MOFETIL 500 MG TABLET PO SCH (21:33)
[2019-12-26] MEDS: NIFEdipine E.R 60 MG TABLET PO SCH (21:33)
[2019-12-26] MEDS: TACROLIMUS ANHYDROUS 1 MG CAPSULE PO SCH (21:35)
[2019-12-26] MEDS: ONDANSETRON 4 MG/2 ML VIAL IVPUSH PRN (21:45)
[2019-12-27] MEDS: INSULIN SLIDING SCALE (NOVOLOG) 1 VIAL SQ SCH ×3 (06:46→17:35)
[2019-12-27 08:12] LABS: HEMATOCRIT 47.6 % (35.4-49); HEMOGLOBIN 16.2 GM/dL (11.7-16.9); MCH 33.2 pg (25.7-33.7); MEAN CELL VOLUME 97.7 fl (80-96); MEAN PLT VOLUME 9.8 fl (7.5-11.1); PLATELET COUNT 535 K/MM3 (134-434); RBC 4.87 M/mm3 (4.00-5.60); RDW 13.9 % (11.9-15.9); WHITE BLOOD COUNT 12.1 K/mm3 (4.0-10.0)
--- NOTE | 2019-12-27 10:41 | EKG ---
Test Reason : Blood Pressure : / mmHG Vent. Rate : 114 BPM Atrial Rate : 114 BPM P-R Int : 080 ms QRS Dur : 126 ms QT Int : 370 ms P-R-T Axes : 000 025 199 degrees QTc Int : 509 ms SINUS TACHYCARDIA WITH SHORT SD WITH PREMATURE SUPRAVENTRICULAR COMPLEXES LEFT VENTRICULAR HYPERTROPHY WITH QRS WIDENING AND REPOLARIZATION ABNORMALITY NONSPECIFIC ST ABNORMALITY ABNORMAL ECG Confirmed by ADORE LABOY MD ([id number]) on 12/27/2019 10:41:23 AM Referred By: BELTRAN PAGAN Confirmed By:ADORE LABOY MD
[2019-12-27] MEDS ORDERED: DEXTROSE 5%-WATER - 50 ML IVPB ONE ×2 (11:15→17:15)
[2019-12-27] MEDS ORDERED: cefTRIAXone SODIUM 1 GM VIAL ONE (11:15)
--- NOTE | 2019-12-27 11:45 | PN ---
Progress Note, Physician History of Present Illness: patient seen and examined Chart is reviewed In pain----chest hurts as well as back Moderate distress Not eating Otherwise alert and awake - Current Medication List Current Medications: Active Medications Alprazolam (Xanax) 1 mg PO HS [facility] Last Admin: 12/26/19 21:33 Dose: 1 mg Documented by: Ceftriaxone Sodium 1 gm/ (Dextrose) 50 mls @ 100 mls/hr IVPB DAILY [facility] Last Admin: 12/26/19 18:03 Dose: 100 mls/hr Documented by: Potassium Chloride/Dextrose/Sod Cl (D5-1/2ns+20 Meq Kcl -) 20 meq in 1,000 mls @ 42 mls/hr IV ASDIR [facility] Insulin Aspart (Novolog Vial Sliding Scale -) 1 vial SQ TIDAC [facility]; Protocol Last Admin: 12/27/19 06:46 Dose: Not Given Documented by: Insulin Detemir (Levemir Vial) 14 units SQ BID [facility] Last Admin: 12/26/19 21:32 Dose: 14 units Documented by: Metoprolol Tartrate (Lopressor -) 25 mg PO BID [facility] Last Admin: 12/26/19 21:32 Dose: 25 mg Documented by: Mycophenolate Mofetil (Cellcept -) 500 mg PO BID [facility] Last Admin: 12/26/19 21:33 Dose: 500 mg Documented by: Nifedipine (Procardia Xl -) 60 mg PO BID [facility] Last Admin: 12/26/19 21:33 Dose: 60 mg Documented by: Nortriptyline HCl (Pamelor -) 25 mg PO DAILY [facility] Ondansetron HCl (Zofran Injection) 4 mg IVPUSH Q4H PRN PRN Reason: NAUSEA AND/OR VOMITING Last Admin: 12/26/19 21:45 Dose: 4 mg Documented by: Oxycodone HCl (Roxicodone -) 5 mg PO Q4H PRN PRN Reason: PAIN LEVEL 6-10 Prednisone (Deltasone -) 5 mg PO HS [facility] Last Admin: 12/26/19 21:33 Dose: 5 mg Documented by: Tacrolimus (Prograf) 2 mg PO BID [facility] Last Admin: 12/26/19 21:35 Dose: 2 mg Documented by: Topiramate (Topamax -) 25 mg PO DAILY [facility] - Objective Vital Signs: Vital Signs Temperature 98.5 F 12/27/19 02:18 Pulse Rate 94 H 12/27/19 02:18 Respiratory Rate 22 H 12/27/19 02:18 Blood Pressure 147/89 12/27/19 02:18 O2 Sat by Pulse Oximetry (%) 94 L 12/27/19 02:18 Constitutional: Yes: Moderate Distress Neck: Yes: Supple Cardiovascular: Yes: Regular Rate and Rhythm Respiratory: Yes: Diminished Gastrointestinal: Yes: Soft Edema: No Neurological: Yes: Alert Labs: CBC, BMP 12/27/19 06:53 12/26/19 12:25 INR, PTT INR 1.36 (0.82-1.09) H 12/26/19 12:21 Problem List - Problems (1) Lung cancer Code(s): C34.90 - MALIGNANT NEOPLASM OF UNSP PART OF UNSP BRONCHUS OR LUNG (2) Pneumonia Code(s): J18.9 - PNEUMONIA, UNSPECIFIED ORGANISM Qualifiers: Pneumonia type: due to unspecified organism Laterality: left Lung location: lower lobe of lung Qualified Code(s): J18.9 - Pneumonia, unspecified organism (3) Diabetes Code(s): E11.9 - TYPE 2 DIABETES MELLITUS WITHOUT COMPLICATIONS (4) Lung mass Code(s): R91.8 - OTHER NONSPECIFIC ABNORMAL FINDING OF LUNG FIELD (5) Transplanted organ and tissue status Code(s): Z94.9 - TRANSPLANTED ORGAN AND TISSUE STATUS, UNSPECIFIED (6) Pericardial effusion Code(s): I31.3 - PERICARDIAL EFFUSION (NONINFLAMMATORY) Assessment/Plan discussed with nursing staff patient not eating Will start on mild hydration Start on oxycodone for pain echocardiogram--- For pericardial effusion Antibiotics--- got Zosyn dose yesterday Pulmonary/ID/oncology consults have been requested Mediastinal biopsy----shows----small cell Await above consults--input Condition guarded We will follow
[2019-12-27] MEDS: INSULIN (LEVEMIR) 100 UNITS/ML UNITS SQ SCH ×2 (11:59→22:31)
[2019-12-27] MEDS: METOPROLOL TARTRATE 25 MG TABLET (FP) PO SCH ×2 (11:59→22:26)
[2019-12-27] MEDS: NIFEdipine E.R 60 MG TABLET PO SCH ×2 (11:59→22:26)
[2019-12-27] MEDS: TOPIRAMATE 25 MG TABLET PO SCH (12:00)
[2019-12-27] MEDS: TACROLIMUS ANHYDROUS 1 MG CAPSULE PO SCH ×2 (12:00→22:26)
[2019-12-27] MEDS: CEFTRIAXONE 1 GM in DEXTROSE 5%-WATER - 50 ML IVPB SCH (12:01)
[2019-12-27] MEDS: NORTRIPTYLINE HCL 25 MG CAPSULE PO SCH (12:02)
[2019-12-27] MEDS: MYCOPHENOLATE MOFETIL 500 MG TABLET PO SCH ×2 (12:04→22:25)
--- NOTE | 2019-12-27 13:06 | PN ---
Progress Note (short form) - Note Progress Note: ID CONSULT DICTATED
--- NOTE | 2019-12-27 13:19 | ECHO ---
Version: 1 Name: CATRACHO GARCIA Exam: Adult Echocardiogram Study Date: 12/27/2019, 12:40 PM Age: 59 Years MMode/2D Measurements & Calculations IVSd: 1.48 cm LVIDs: 2.47 cm LVIDd: 3.1 cm LVPWd: 0.87 cm LAV (MOD-bp): 50.1 ml LVOT diam: 2.01 cm Ao root diam: 2.7 cm LA dimension: 3.5 cm Doppler Measurements & Calculations MV E max lizzy: 47.4 cm/sec MV A max lizzy: 89.3 cm/sec MV E/A: 0.53 Ao max P.7 mmHg Ao V2 max: 129.0 cm/sec AI P1/2t: 258.5 msec Left Ventricle There is mild concentric left ventricular hypertrophy. Left ventricular systolic function is grossly normal. Ejection Fraction = 50-55%. The transmitral spectral Doppler flow pattern is suggestive of impaired LV relaxation. Right Ventricle The right ventricle is grossly normal size. The right ventricular systolic function is grossly donavan l. Atria The left atrium is mildly dilated. Mitral Valve There is moderate to severe mitral annular calcification. There is no mitral valve stenosis. There i s no mitral regurgitation noted. Tricuspid Valve The tricuspid valve is not well visualized, but is grossly normal. There is Trace to mild tricuspid regurgitation. Aortic Valve The aortic valve opens well. There is mild aortic sclerosis.;. No hemodynamically significant valvul ar aortic stenosis. Trace to mild aortic regurgitation. Pulmonic Valve The pulmonic valve is not well seen, but is grossly normal. There is no pulmonic valvular stenosis. Great Vessels The aortic root is normal size. Pericardium/Pleura Small to moderate sized pericardial effusion. No RA or RV diastolic collapse to suggest tamponade, c linical correlation required. Summary Statements Small to moderate sized pericardial effusion. No RA or RV diastolic collapse to suggest tamponade, c linical correlation required. There is mild concentric left ventricular hypertrophy. Left ventricular systolic function is grossly normal. Ejection Fraction = 50-55%. The transmitral spectral Doppler flow pattern is suggestive of impaired LV relaxation. The left atrium is mildly dilated. There is moderate to severe mitral annular calcification. There is Trace to mild tricuspid regurgitation. Trace to mild aortic regurgitation. MD Jordan *Carola 12/27/2019, 1:18 PM Ordering Physician: Silvia Delgado Performed By: Sandra Lieberman
[2019-12-27] MEDS: oxyCODONE HCL 5 MG TABLET PO PRN (13:38)
[2019-12-27] MEDS: D5-1/2NS+20 MEQ KCL - 20 MEQ/1,000 ML INFUS.BAG IV SCH (13:39)
--- NOTE | 2019-12-27 14:12 | CON.NEP ---
Consult Consult Specialty:: Nephrology Referred by:: Medicine Reason for Consultation:: Renal Transplantat - History of Present Illness Chief Complaint: Weakness History of Present Illness: This is a 59 year old male with history of Hep C with HCC s/p Liver and kidney transplant (2014), CHF, COPD, and hypertension who presented to the ED with anoxrexia and generalized weakness and admitted with suspected pnemonia and pleural effusion with suspicion of empyema. Pt recently had a IR Lung biopsy to access a hilar mass noted on recent imaging. Pt has worsening anxoreixa and constipation following and presented to the ED. Pt has a productive cough with clear/white sputum. Denies any chest pain. Denies any sob at rest. No flank pain. No graft tenderness. Making urine but less so as he is not eating well. Denies any fever or chills. 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 No: Alzheimer's, CVA, Dementia, Migraine, Seizure Cardio/Vascular: Yes: CHF, HTN. No: Pulmonary Hypertension Pulmonary: Yes: COPD Gastrointestinal: Yes: Cancer (hepatocellular), Other (Hepatitis C) Hepatobiliary: Yes: Hepatitis C Renal/: Yes: Renal Inusuff (CKD V) - Past Surgical History Past Surgical History: Yes: AV Fistula/Graft - Alcohol/Substance Use Hx Alcohol Use: Yes (FEW GLASSES OF WINE) History of Substance Use: reports: None - Smoking History Smoking history: Former smoker Have you smoked in the past 12 months: No Aproximately how many cigarettes per day: 0 If you are a former smoker, when did you quit?: 2010 - Social History Usual Living Arrangement: With Parent History of Recent Travel: No Home Medications - Allergies Allergies/Adverse Reactions: Allergies Allergy/AdvReac Type Severity Reaction Status Date / Time morphine AdvReac Verified 12/26/19 12:01 - Home Medications Home Medications: Ambulatory Orders Nifedipine ER [Procardia XL -] 60 mg PO BID 08/10/17 Prednisone 5 mg PO HS 08/10/17 Tacrolimus 2 mg PO BID 08/10/17 Alprazolam 1 mg PO HS 09/03/18 Insulin Glargine,Hum.rec.anlog [Basaglar Kwikpen U-100] 14 unit SQ BID 09/03/18 Mycophenolate Mofetil 500 mg PO BID 09/03/18 Metoprolol Tartrate 25 mg PO BID 12/14/19 Family Medical History Family History: Unremarkable Review of Systems - Review of Systems Constitutional: reports: Lethargy, Loss of Appetite, Weakness Eyes: reports: No Symptoms HENT: reports: No Symptoms Neck: reports: No Symptoms Cardiovascular: denies: Chest Pain, Edema, Palpitations, Shortness of Breath Respiratory: reports: Cough. denies: Hemoptysis, SOB, SOB on Exertion Gastrointestinal: reports: Constipation. denies: Abdominal Pain, Diarrhea Genitourinary: reports: No Symptoms Musculoskeletal: reports: No Symptoms Integumentary: reports: No Symptoms Neurological: reports: No Symptoms Endocrine: reports: No Symptoms Nephrology Consult - Height Height: 5 ft 11 in - Weight Weight: 72.575 kg - BMI Body Mass Index (BMI): 22.3 - Lab Results CBC,BMP: CBC, BMP 12/27/19 06:53 12/26/19 12:25 Anion Gap: Anion Gap Anion Gap 24 MMOL/L (8-16) H 12/26/19 12:25 - Imaging Cat Scan: Report Reviewed - Physical Examination Vital Signs: Vital Signs Temperature 98.5 F 12/27/19 02:18 Pulse Rate 94 H 12/27/19 02:18 Respiratory Rate 22 H 12/27/19 02:18 Blood Pressure 147/89 12/27/19 02:18 O2 Sat by Pulse Oximetry (%) 94 L 12/27/19 02:18 Constitutional: Yes: No Distress, Calm Eyes: Yes: Conjunctiva Clear HENT: Yes: Atraumatic, Normocephalic Neck: Yes: Supple, Trachea Midline Cardiovascular: Yes: Regular Rate and Rhythm Respiratory: Yes: Regular, Diminished (Left more then right). No: On Nasal O2, Rales, Rhonchi Gastrointestinal: Yes: Soft, Other (no tenderness over renal graft site). No: Tenderness Renal/: No: Anuria, Bladder Distention, CVA Tenderness - Left, CVA Tenderness - Right, Jimenez Present Extremities: No: Cold, Cool, Cyanosis Edema: No Neurological: Yes: Alert, Oriented Assessment/Plan 59 year old male with history of Hep C with HCC s/p Liver and kidney transplant (2014), CHF, COPD, and hypertension who presented to the ED with anoxrexia and generalized weakness and admitted with suspected pnemonia and pleural effusion with suspicion of empyema. 1. CKD/Renal transplant with preserved eGFR 2. Anorexia/Weakness 3. Suspected pneumonia/empyema 4. Lung mass 5. Colitis/Constipation 6. Lactic acidosis Renal function stable at this time. Continue Cellcept/Prograf at the present doses. Trend renal function and electrolytes daily Check prograf level in AM Continue empiric antibiotics as per ID Pulmonary eval pending to access lung mass/effusion/empyema Trend Lactic acid levels to normal can continue gentle IVF hydration PRN Lasix for shortness of breath Thank you Alvin Alexandra DO
[2019-12-27] MEDS ORDERED: PIPERACILLIN/TAZOBACTAM 3.375 GM VIAL IVPB ONE (17:15)
[2019-12-27] MEDS: PIPERACILLIN/TAZOB 3.375 GM 3.375 GM in DEXTROSE 5%-WATER - 50 ML IVPB SCH (17:35)
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
[2019-12-27] MEDS ORDERED: PT OWN MED DRAWER 7, Y5N ONE (22:23)
[2019-12-27] MEDS: predniSONE 5 MG TABLET (UD) PO SCH (22:25)
[2019-12-27] MEDS: ALPRAZolam 1 MG TABLET PO SCH (22:26)
[2019-12-28] MEDS ORDERED: DEXTROSE 5%-WATER - 50 ML IVPB ONE ×3 (01:29→16:57)
[2019-12-28] MEDS ORDERED: PIPERACILLIN/TAZOBACTAM 3.375 GM VIAL IVPB ONE ×3 (01:29→16:57)
[2019-12-28] MEDS: PIPERACILLIN/TAZOB 3.375 GM 3.375 GM in DEXTROSE 5%-WATER - 50 ML IVPB SCH ×3 (01:47→17:34)
[2019-12-28] MEDS: oxyCODONE HCL 5 MG TABLET PO PRN ×4 (05:13→21:35)
[2019-12-28] MEDS: INSULIN SLIDING SCALE (NOVOLOG) 1 VIAL SQ SCH ×3 (06:12→17:34)
[2019-12-28 07:47] LABS: BASO % 0.2 % (0-2.0); EOS % 0.1 % (0-4.5); HEMATOCRIT 46.3 % (35.4-49); HEMOGLOBIN 15.4 GM/dL (11.7-16.9); LYMPH % 13.8 % (8-40); MCH 32.3 pg (25.7-33.7); MCHC 33.3 g/dl (32.0-35.9); MEAN CELL VOLUME 97.1 fl (80-96); MEAN PLT VOLUME 9.6 fl (7.5-11.1); NEUT % 73.9 % (42.8-82.8); PLATELET COUNT 557 K/MM3 (134-434); RBC 4.77 M/mm3 (4.00-5.60); RDW 14.2 % (11.9-15.9); WHITE BLOOD COUNT 11.4 K/mm3 (4.0-10.0)
[2019-12-28 08:14] LABS: BILIRUBIN,TOTAL 0.8 mg/dL (0.2-1); BLOOD UREA NITROGEN 17.5 mg/dL (7-18); CALCIUM 8.8 mg/dL (8.5-10.1); CREATININE 0.6 mg/dL (0.55-1.3); MAGNESIUM 1.5 mg/dL (1.8-2.4); PHOSPHOROUS 3.2 mg/dL (2.5-4.9); POTASSIUM 3.7 mmol/L (3.5-5.1); TOT PROT 5.5 g/dl (6.4-8.2)
--- NOTE | 2019-12-28 09:27 | PN ---
Progress Note (short form) - Note Progress Note: c/o diffuse body pain no headaches decrease appetite nausea+ depressed Vital Signs - 24 hr 12/27/19 12/27/19 12/27/19 14:00 18:20 21:00 Temperature 98.1 F 98.7 F Pulse Rate 90 98 H Respiratory 20 20 Rate Blood Pressure 112/79 141/82 O2 Sat by Pulse 96 95 Oximetry (%) 12/27/19 12/28/19 22:28 06:17 Temperature 98.2 F 97.6 F Pulse Rate 103 H 107 H Respiratory 22 H 22 H Rate Blood Pressure 119/77 112/71 O2 Sat by Pulse 94 L 94 L Oximetry (%) Current Medications Generic Name Dose Route Start Last Admin Trade Name Freq PRN Reason Stop Dose Admin Alprazolam 1 mg 12/26/19 22:00 12/27/19 22:26 Xanax PO 1 mg HS CONCEPCION Administration Potassium Chloride/Dextrose/Sod Cl 20 meq in 1,000 mls @ 42 mls/hr 12/27/19 11:45 12/27/19 13:39 D5-1/2ns+20 Meq Kcl - IV 42 mls/hr ASDIR CONCEPCION Administration Piperacillin Sod/Tazobactam 50 mls @ 100 mls/hr 12/27/19 18:00 12/28/19 09:37 Sod 3.375 gm/ Dextrose IVPB 100 mls/hr Q8H-IV CONCEPCION Administration Protocol Insulin Aspart 1 vial 12/26/19 16:30 12/28/19 06:12 Novolog Vial Sliding Scale - SQ 2 units TIDAC [facility]CE[facility] Administration Protocol Insulin Detemir 14 units 12/26/19 22:00 12/28/19 09:37 Levemir Vial SQ 14 units BID CON[facility]ION Administration Metoprolol Tartrate 25 mg 12/26/19 22:00 12/28/19 09:35 Lopressor - PO 25 mg BID CON[facility] Administration Mycophenolate Mofetil 500 mg 12/26/19 22:00 12/28/19 09:36 Cellcept - PO 500 mg BID CON[facility] Administration Nifedipine 60 mg 12/26/19 22:00 12/28/19 09:35 Procardia Xl - PO 60 mg BID CON[facility] Administration Nortriptyline HCl 25 mg 12/27/19 10:00 12/28/19 09:35 Pamelor - PO 25 mg DAILY [facility]CE[facility] Administration Ondansetron HCl 4 mg 12/26/19 15:33 12/28/19 09:50 Zofran Injection IVPUSH 4 mg Q4H PRN Administration NAUSEA AND/OR VOMITING Oxycodone HCl 5 mg 12/27/19 11:42 12/28/19 09:37 Roxicodone - PO 5 mg Q4H PRN Administration PAIN LEVEL 6-10 Prednisone 5 mg 12/26/19 22:00 12/27/19 22:25 Deltasone - PO 5 mg HS [facility] Administration Tacrolimus 2 mg 12/26/19 22:00 12/28/19 09:36 Prograf PO 2 mg BID CON[facility]PCION Administration Topiramate 25 mg 12/27/19 10:00 12/28/19 09:36 Topamax - PO 25 mg DAILY CON[facility] Administration Laboratory Results - last 24 hr 12/26/19 12/27/19 12/27/19 14:03 12:07 17:19 WBC RBC Hgb Hct MCV MCH MCHC RDW Plt Count MPV Absolute Neuts (auto) Neutrophils % Lymphocytes % Monocytes % Eosinophils % Basophils % Nucleated RBC % Sodium Potassium Chloride Carbon Dioxide Anion Gap BUN Creatinine Est GFR (CKD-EPI)AfAm Est GFR (CKD-EPI)NonAf POC Glucometer 97 158 Random Glucose Lactic Acid Calcium Phosphorus Magnesium Total Bilirubin AST ALT Alkaline Phosphatase Total Protein Albumin COVID-19 (FRANKO) Not detected 12/27/19 12/28/19 12/28/19 22:30 06:11 06:40 WBC 11.4 H RBC 4.77 Hgb 15.4 Hct 46.3 MCV 97.1 H MCH 32.3 MCHC 33.3 RDW 14.2 Plt Count 557 H MPV 9.6 Absolute Neuts (auto) 8.5 H Neutrophils % 73.9 D Lymphocytes % 13.8 D Monocytes % 12.0 H Eosinophils % 0.1 D Basophils % 0.2 Nucleated RBC % 0 Sodium Potassium Chloride Carbon Dioxide Anion Gap BUN Creatinine Est GFR (CKD-EPI)AfAm Est GFR (CKD-EPI)NonAf POC Glucometer 157 191 Random Glucose Lactic Acid Calcium Phosphorus Magnesium Total Bilirubin AST ALT Alkaline Phosphatase Total Protein Albumin COVID-19 (FRANKO) 12/28/19 12/28/19 06:40 06:40 WBC RBC Hgb Hct MCV MCH MCHC RDW Plt Count MPV Absolute Neuts (auto) Neutrophils % Lymphocytes % Monocytes % Eosinophils % Basophils % Nucleated RBC % Sodium 133 L Potassium 3.7 Chloride 92 L Carbon Dioxide 29 Anion Gap 12 BUN 17.5 Creatinine 0.6 Est GFR (CKD-EPI)AfAm 128.45 Est GFR (CKD-EPI)NonAf 110.83 POC Glucometer Random Glucose 171 H Lactic Acid 1.8 Calcium 8.8 Phosphorus 3.2 Magnesium 1.5 L Total Bilirubin 0.8 AST 28 ALT 12 L Alkaline Phosphatase 113 Total Protein 5.5 L Albumin 2.0 L COVID-19 (FRANKO) S1 S2 RRR Weak Lungs decreased Abd- soft, NT no edema PLAN IV antibiotics Pain control Advance diet Oncology eval DVT prophylaxis Problem List - Problems (1) Lung cancer Code(s): C34.90 - MALIGNANT NEOPLASM OF UNSP PART OF UNSP BRONCHUS OR LUNG (2) Pneumonia Code(s): J18.9 - PNEUMONIA, UNSPECIFIED ORGANISM Qualifiers: Pneumonia type: due to unspecified organism Laterality: left Lung location: lower lobe of lung Qualified Code(s): J18.9 - Pneumonia, unspecified organism (3) DM Diabetes mellitus type 2 Code(s): E11.9 - TYPE 2 DIABETES MELLITUS WITHOUT COMPLICATIONS (4) HTN (hypertension) Code(s): I10 - ESSENTIAL (PRIMARY) HYPERTENSION
[2019-12-28] MEDS ORDERED: PT OWN MED DRAWER 7, Y5N ONE (09:31)
[2019-12-28] MEDS: NORTRIPTYLINE HCL 25 MG CAPSULE PO SCH (09:35)
[2019-12-28] MEDS: NIFEdipine E.R 60 MG TABLET PO SCH ×2 (09:35→21:29)
[2019-12-28] MEDS: METOPROLOL TARTRATE 25 MG TABLET (FP) PO SCH ×2 (09:35→21:30)
[2019-12-28] MEDS: TACROLIMUS ANHYDROUS 1 MG CAPSULE PO SCH ×2 (09:36→21:29)
[2019-12-28] MEDS: MYCOPHENOLATE MOFETIL 500 MG TABLET PO SCH ×2 (09:36→21:34)
[2019-12-28] MEDS: TOPIRAMATE 25 MG TABLET PO SCH (09:36)
[2019-12-28] MEDS: INSULIN (LEVEMIR) 100 UNITS/ML UNITS SQ SCH ×2 (09:37→21:31)
[2019-12-28] MEDS: ONDANSETRON 4 MG/2 ML VIAL IVPUSH PRN ×3 (09:50→21:15)
[2019-12-28] MEDS ORDERED: FENTANYL PATCH WASTE MC PRN (09:58)
[2019-12-28 11:23] LABS: ANISOCYTOSIS 0; MACROCYTOSIS 0; PLATELET ESTIMATE INCREASED
[2019-12-28] MEDS: fentaNYL 12mcg/hr PATCH.TD72 TD SCH (11:54)
[2019-12-28] MEDS: HEPARIN NA (PORCINE) 5,000 UNITS/ML 1ML VIAL SQ SCH ×2 (11:55→21:32)
[2019-12-28] MEDS: D5-1/2NS+20 MEQ KCL - 20 MEQ/1,000 ML INFUS.BAG IV SCH ×2 (11:56→16:01)
--- NOTE | 2019-12-28 12:19 | CON.PULM ---
Consult Consult Specialty:: PULMONARY Referred by:: MONIKA Reason for Consultation:: LUNG CANCER - History of Present Illness Chief Complaint: NAUSEA/ANOREXIA/DEPRESSION History of Present Illness: 59 year old male with past medical history of hepatitis C, hepatocellular carcinoma s/p TACE ] s/p kidney/liver transplant (2014), HTN, CHF, COPD, Hx of HCV, Status post lung biopsy on Monday presents to the ED with decreased p.o. intake nausea continued headaches constipation generalized weakness. Nauseous and retching but no vomiting no diarrhea last bowel movement yesterday no abdominal distention denies fevers but endorses chills unable to tolerate p.o. 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 No: Alzheimer's, CVA, Dementia, Migraine, Seizure Cardio/Vascular: Yes: CHF, HTN. No: Pulmonary Hypertension Pulmonary: Yes: COPD Gastrointestinal: Yes: Cancer (hepatocellular), Other (Hepatitis C) Hepatobiliary: Yes: Hepatitis C Renal/: Yes: Renal Inusuff (CKD V) Heme/Onc: Yes: Anemia - Past Surgical History Past Surgical History: Yes: AV Fistula/Graft - Alcohol/Substance Use Hx Alcohol Use: Yes (FEW GLASSES OF WINE) History of Substance Use: reports: None - Smoking History Smoking history: Former smoker Have you smoked in the past 12 months: No Aproximately how many cigarettes per day: 0 If you are a former smoker, when did you quit?: 2010 - Social History Usual Living Arrangement: With Parent History of Recent Travel: No Home Medications - Allergies Allergies/Adverse Reactions: Allergies Allergy/AdvReac Type Severity Reaction Status Date / Time morphine AdvReac Verified 12/26/19 12:01 - Home Medications Home Medications: Ambulatory Orders Nifedipine ER [Procardia XL -] 60 mg PO BID 08/10/17 Prednisone 5 mg PO HS 08/10/17 Tacrolimus 2 mg PO BID 08/10/17 Alprazolam 1 mg PO HS 09/03/18 Insulin Glargine,Hum.rec.anlog [Basaglar Kwikpen U-100] 14 unit SQ BID 09/03/18 Mycophenolate Mofetil 500 mg PO BID 09/03/18 Metoprolol Tartrate 25 mg PO BID 12/14/19 Family Medical History Family History: Unable to Obtain, Unremarkable Review of Systems - Review of Systems Constitutional: reports: Lethargy, Malaise, Unintentional Wgt. Loss, Weakness. denies: Fever Eyes: denies: Blind Spots HENT: denies: Difficult Swallowing Neck: reports: No Symptoms Cardiovascular: reports: Chest Pain, Shortness of Breath Respiratory: reports: Cough, Exercise Intolerance, SOB, SOB on Exertion. denies: Hemoptysis, Wheezing Gastrointestinal: reports: Nausea. denies: Abdominal Pain, Diarrhea, Rectal Bleeding, Vomiting Genitourinary: denies: Burning Breasts: reports: No Symptoms Reported Musculoskeletal: reports: Back Pain Integumentary: reports: No Symptoms Neurological: reports: No Symptoms Psychiatric: reports: Depression Physical Exam Vital Sings: Vital Signs Temperature 98.7 F 12/28/19 10:00 Pulse Rate 99 H 12/28/19 10:00 Respiratory Rate 18 12/28/19 10:00 Blood Pressure 125/76 12/28/19 10:00 O2 Sat by Pulse Oximetry (%) 96 12/28/19 10:00 Constitutional: Yes: Thin Eyes: Yes: Conjunctiva Clear HENT: Yes: Atraumatic Neck: Yes: Supple Cardiovascular: Yes: Tachycardia, S1, S2 Respiratory: Yes: Diminished Gastrointestinal: Yes: Soft Edema: No Neurological: Yes: Alert Psychiatric: Yes: Other (APPEARS DEPRESSED) Labs: CBC, BMP 12/28/19 06:40 12/28/19 06:40 REST REVIEWED Imaging - Results Chest X-ray: Report Reviewed, Image Reviewed Cat Scan: Report Reviewed, Image Reviewed EKG: Report Reviewed, Image Reviewed Problem List - Problems (1) Nausea Code(s): R11.0 - NAUSEA (2) Lung cancer Code(s): C34.90 - MALIGNANT NEOPLASM OF UNSP PART OF UNSP BRONCHUS OR LUNG (3) Pneumonia Code(s): J18.9 - PNEUMONIA, UNSPECIFIED ORGANISM Qualifiers: Pneumonia type: due to unspecified organism Laterality: left Lung location: lower lobe of lung Qualified Code(s): J18.9 - Pneumonia, unspecified organism (4) CKD (chronic kidney disease) stage 5, GFR less than 15 ml/min Code(s): N18.5 - CHRONIC KIDNEY DISEASE, STAGE 5 (5) DM Diabetes mellitus type 2 Code(s): E11.9 - TYPE 2 DIABETES MELLITUS WITHOUT COMPLICATIONS (6) HTN (hypertension) Code(s): I10 - ESSENTIAL (PRIMARY) HYPERTENSION (7) Infiltrate noted on imaging study Code(s): R93.8 - ABNORMAL FINDINGS ON DIAGNOSTIC IMAGING OF ANN * DO NOT USE * (8) Lung mass Code(s): R91.8 - OTHER NONSPECIFIC ABNORMAL FINDING OF LUNG FIELD (9) Transplanted organ and tissue status Code(s): Z94.9 - TRANSPLANTED ORGAN AND TISSUE STATUS, UNSPECIFIED Assessment/Plan LARGE MASS (PRESUMED SMALL CELL ON PATH) AND LOCULATED EFFUSION (DOUBT EMPYEMA CLINICAL SCENARIO DOES NOT SUPPORT) WOULD ASK IR TO PERFORM THORACENTESIS AWAITING ONCO INPUT BRAIN MRI IS NEGATIVE FOR METS Km DUPREE MD
--- NOTE | 2019-12-28 16:27 | PN.HO ---
Progress Note (short form) - Note Progress Note: Patient seen and examined c/o pain allover Discussed in great detail his pathology results AFVSS Rt. neck adenopathy? Cor: RSR, No murmurs, No gallops Lungs: decreased at bases Abd: Soft, Normal bowel sounds, No organomegaly Ext:No significant edema LAbs/MEds reviewed A/P 59 year old male with past medical history of HTN, DM, hepatitis C, hepatocellular carcinoma s/p TACE ] s/p kidney/liver transplant (2014), HTN, CHF, COPD, Hx of HCV, Status CT guided mediastinal biopsy on 12/24/19 presents to the ED with decreased p.o. intake, nausea continued headaches generalized weakness. CT c/a/p -- LAUREL infiltrate/ Large , partially loculate Left pleural effusion, Large lt. hilar mass with mediastinal extensions, extensive mediatinal adenopathy, occlusion of LAUREL bronchus, s/p cholecystectomy, s/p splenectomy, ? 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 - TTF1 neg., high Ki67 50%, + synaptophysis, rare chromogranin and AE1/3 on cellcept/prograf on zosyn on antihypertensives, pain control blood cultures negative Cr 0.6/LFTs nl/Hgbnl/Plts nl/ ECho-- LVH, LVEF --50-55% thoracentesis per IR/pulmonary Will need to complete staging w/u with bone scan . If feasible PETCT outpatient MRI brain w/o contrast 12/15 was neg. for mets will need port placement will need rad-onc consult Furtehr recs based on staging w/u check LDH/uric acid
[2019-12-28] MEDS ORDERED: INSULIN (NOVOLOG) ASPART 100 UNITS/ML 10ML VIAL ONE (18:02)
--- NOTE | 2019-12-28 18:03 | PN ---
Progress Note (short form) - Note Progress Note: Problems 1. CKD/Renal transplant with preserved eGFR 2. Anorexia/Weakness 3. Suspected pneumonia/empyema 4. Lung mass 5. Colitis/Constipation 6. Lactic acidosis Active Medications Alprazolam (Xanax) 1 mg PO HS [facility] Last Admin: 12/27/19 22:26 Dose: 1 mg Documented by: Docusate Sodium (Colace -) 300 mg PO [facility] Fentanyl (Duragesic 12mcg Patch -) 1 patch TD Q72H [facility] Stop: 01/04/20 09:59 Last Admin: 12/28/19 11:54 Dose: 1 patch Documented by: Heparin Sodium (Porcine) (Heparin -) 5,000 unit SQ BID [facility] Last Admin: 12/28/19 11:55 Dose: 5,000 unit Documented by: Potassium Chloride/Dextrose/Sod Cl (D5-1/2ns+20 Meq Kcl -) 20 meq in 1,000 mls @ 42 mls/hr IV ASDIR [facility] Last Admin: 12/28/19 16:01 Dose: 42 mls/hr Documented by: Piperacillin Sod/Tazobactam (Sod 3.375 gm/ Dextrose) 50 mls @ 100 mls/hr IVPB Q8H-IV [facility]; Protocol Last Admin: 12/28/19 17:34 Dose: 100 mls/hr Documented by: Insulin Aspart (Novolog Vial Sliding Scale -) 1 vial SQ TIDAC [facility]; Protocol Last Admin: 12/28/19 17:34 Dose: Not Given Documented by: Insulin Detemir (Levemir Vial) 14 units SQ BID [facility] Last Admin: 12/28/19 09:37 Dose: 14 units Documented by: Metoprolol Tartrate (Lopressor -) 25 mg PO BID [facility] Last Admin: 12/28/19 09:35 Dose: 25 mg Documented by: Miscellaneous (Duragesic Patch Waste) 1 each MC PRN PRN PRN Reason: PAIN Mycophenolate Mofetil (Cellcept -) 500 mg PO BID [facility] Last Admin: 12/28/19 09:36 Dose: 500 mg Documented by: Nifedipine (Procardia Xl -) 60 mg PO BID [facility] Last Admin: 12/28/19 09:35 Dose: 60 mg Documented by: Nortriptyline HCl (Pamelor -) 25 mg PO DAILY [facility] Last Admin: 12/28/19 09:35 Dose: 25 mg Documented by: Ondansetron HCl (Zofran Injection) 4 mg IVPUSH Q4H PRN PRN Reason: NAUSEA AND/OR VOMITING Last Admin: 12/28/19 17:34 Dose: 4 mg Documented by: Oxycodone HCl (Roxicodone -) 5 mg PO Q4H PRN PRN Reason: PAIN LEVEL 6-10 Last Admin: 12/28/19 16:01 Dose: 5 mg Documented by: Prednisone (Deltasone -) 5 mg PO HS [facility] Last Admin: 12/27/19 22:25 Dose: 5 mg Documented by: Tacrolimus (Prograf) 2 mg PO BID [facility] Last Admin: 12/28/19 09:36 Dose: 2 mg Documented by: Topiramate (Topamax -) 25 mg PO DAILY [facility] Last Admin: 12/28/19 09:36 Dose: 25 mg Documented by: Last Vital Signs Temp Pulse Resp BP Pulse Ox 98.7 F 99 H 18 125/76 96 12/28/19 10:00 12/28/19 10:00 12/28/19 10:00 12/28/19 10:00 12/28/19 10:00 CBC, BMP 12/28/19 06:40 12/28/19 06:40 IMP- Hyponatremia Hyperglycemia Leukocytosis Kidney transplant Renal function stable at this time. Plan Continue Cellcept/Prograf at the present doses. Trend renal function and electrolytes daily Check prograf level Continue empiric antibiotics as per ID Pulmonary eval pending to access lung mass/effusion/empyema Trend Lactic acid levels can continue gentle IVF hydration PRN Lasix for shortness of breath
[2019-12-28] MEDS: DOCUSATE SODIUM 100 MG CAPSULE (FP) PO SCH (21:28)
[2019-12-28] MEDS: predniSONE 5 MG TABLET (UD) PO SCH (21:34)
[2019-12-28] MEDS: ALPRAZolam 1 MG TABLET PO SCH (21:36)
[2019-12-29] MEDS ORDERED: DEXTROSE 5%-WATER - 50 ML IVPB ONE ×3 (01:58→15:34)
[2019-12-29] MEDS ORDERED: PIPERACILLIN/TAZOBACTAM 3.375 GM VIAL IVPB ONE ×3 (01:58→15:33)
[2019-12-29] MEDS: PIPERACILLIN/TAZOB 3.375 GM 3.375 GM in DEXTROSE 5%-WATER - 50 ML IVPB SCH ×3 (04:46→17:22)
[2019-12-29] MEDS: ONDANSETRON 4 MG/2 ML VIAL IVPUSH PRN ×3 (04:48→17:18)
[2019-12-29] MEDS: oxyCODONE HCL 5 MG TABLET PO PRN ×4 (06:51→20:02)
[2019-12-29] MEDS: INSULIN SLIDING SCALE (NOVOLOG) 1 VIAL SQ SCH ×3 (06:51→17:26)
[2019-12-29] MEDS ORDERED: PT OWN MED DRAWER 7, Y5N ONE ×2 (09:02→15:35)
[2019-12-29] MEDS: MYCOPHENOLATE MOFETIL 500 MG TABLET PO SCH ×2 (10:11→22:31)
[2019-12-29] MEDS: INSULIN (LEVEMIR) 100 UNITS/ML UNITS SQ SCH ×2 (10:11→22:31)
[2019-12-29] MEDS: HEPARIN NA (PORCINE) 5,000 UNITS/ML 1ML VIAL SQ SCH ×2 (10:11→22:32)
[2019-12-29] MEDS: TACROLIMUS ANHYDROUS 1 MG CAPSULE PO SCH ×2 (10:12→22:32)
[2019-12-29] MEDS: TOPIRAMATE 25 MG TABLET PO SCH (10:12)
[2019-12-29] MEDS: NORTRIPTYLINE HCL 25 MG CAPSULE PO SCH (10:12)
[2019-12-29] MEDS: NIFEdipine E.R 60 MG TABLET PO SCH ×2 (10:12→22:30)
[2019-12-29] MEDS: METOPROLOL TARTRATE 25 MG TABLET (FP) PO SCH ×2 (10:12→22:30)
[2019-12-29] MEDS: D5-1/2NS+20 MEQ KCL - 20 MEQ/1,000 ML INFUS.BAG IV SCH ×2 (11:39→15:45)
--- NOTE | 2019-12-29 11:41 | PN ---
Progress Note (short form) - Note Progress Note: PULMONARY NO ACUTE EVENTS OVERNIGHT AFEBRILE 93% R/A Constitutional: Yes: Thin Eyes: Yes: Conjunctiva Clear HENT: Yes: Atraumatic Neck: Yes: Supple Cardiovascular: Yes: Tachycardia, S1, S2 Respiratory: Yes: Diminished Gastrointestinal: Yes: Soft Edema: No Neurological: Yes: Alert Psychiatric: Yes: Other (APPEARS DEPRESSED) Labs: NOTED Chest X-ray: Report Reviewed, Image Reviewed Cat Scan: Report Reviewed, Image Reviewed EKG: Report Reviewed, Image Reviewed Problem List - Problems (1) Nausea Code(s): R11.0 - NAUSEA (2) Lung cancer Code(s): C34.90 - MALIGNANT NEOPLASM OF UNSP PART OF UNSP BRONCHUS OR LUNG (3) Pneumonia Code(s): J18.9 - PNEUMONIA, UNSPECIFIED ORGANISM Qualifiers: Pneumonia type: due to unspecified organism Laterality: left Lung location: lower lobe of lung Qualified Code(s): J18.9 - Pneumonia, unspecified organism (4) CKD (chronic kidney disease) stage 5, GFR less than 15 ml/min Code(s): N18.5 - CHRONIC KIDNEY DISEASE, STAGE 5 (5) DM Diabetes mellitus type 2 Code(s): E11.9 - TYPE 2 DIABETES MELLITUS WITHOUT COMPLICATIONS (6) HTN (hypertension) Code(s): I10 - ESSENTIAL (PRIMARY) HYPERTENSION (7) Infiltrate noted on imaging study Code(s): R93.8 - ABNORMAL FINDINGS ON DIAGNOSTIC IMAGING OF ANN * DO NOT USE * (8) Lung mass Code(s): R91.8 - OTHER NONSPECIFIC ABNORMAL FINDING OF LUNG FIELD (9) Transplanted organ and tissue status Code(s): Z94.9 - TRANSPLANTED ORGAN AND TISSUE STATUS, UNSPECIFIED Assessment/Plan LARGE MASS (PRESUMED SMALL CELL ON PATH) AND LOCULATED EFFUSION (DOUBT EMPYEMA CLINICAL SCENARIO DOES NOT SUPPORT) WOULD ASK IR TO PERFORM THORACENTESIS ONCO INPUT NOTED BRAIN MRI IS NEGATIVE FOR METS Km DUPREE MD Problem List - Problems (1) Nausea Code(s): R11.0 - NAUSEA (2) Lung cancer Code(s): C34.90 - MALIGNANT NEOPLASM OF UNSP PART OF UNSP BRONCHUS OR LUNG (3) Pneumonia Code(s): J18.9 - PNEUMONIA, UNSPECIFIED ORGANISM Qualifiers: Pneumonia type: due to unspecified organism Laterality: left Lung location: lower lobe of lung Qualified Code(s): J18.9 - Pneumonia, unspecified organism (4) CKD (chronic kidney disease) stage 5, GFR less than 15 ml/min Code(s): N18.5 - CHRONIC KIDNEY DISEASE, STAGE 5 (5) DM Diabetes mellitus type 2 Code(s): E11.9 - TYPE 2 DIABETES MELLITUS WITHOUT COMPLICATIONS (6) HTN (hypertension) Code(s): I10 - ESSENTIAL (PRIMARY) HYPERTENSION (7) Infiltrate noted on imaging study Code(s): R93.8 - ABNORMAL FINDINGS ON DIAGNOSTIC IMAGING OF ANN * DO NOT USE * (8) Lung mass Code(s): R91.8 - OTHER NONSPECIFIC ABNORMAL FINDING OF LUNG FIELD (9) Transplanted organ and tissue status Code(s): Z94.9 - TRANSPLANTED ORGAN AND TISSUE STATUS, UNSPECIFIED
--- NOTE | 2019-12-29 14:20 | PN ---
Progress Note (short form) - Note Progress Note: c/o diffuse body pain no headaches decrease appetite nausea+ depressed vitals noted Requesting to increase oxycodone 12/26/19 12/27/19 12/27/19 14:03 12:07 17:19 WBC RBC Hgb Hct MCV MCH MCHC RDW Plt Count MPV Absolute Neuts (auto) Neutrophils % Lymphocytes % Monocytes % Eosinophils % Basophils % Nucleated RBC % Sodium Potassium Chloride Carbon Dioxide Anion Gap BUN Creatinine Est GFR (CKD-EPI)AfAm Est GFR (CKD-EPI)NonAf POC Glucometer 97 158 Random Glucose Lactic Acid Calcium Phosphorus Magnesium Total Bilirubin AST ALT Alkaline Phosphatase Total Protein Albumin COVID-19 (FRANKO) Not detected 12/27/19 12/28/19 12/28/19 22:30 06:11 06:40 WBC 11.4 H RBC 4.77 Hgb 15.4 Hct 46.3 MCV 97.1 H MCH 32.3 MCHC 33.3 RDW 14.2 Plt Count 557 H MPV 9.6 Absolute Neuts (auto) 8.5 H Neutrophils % 73.9 D Lymphocytes % 13.8 D Monocytes % 12.0 H Eosinophils % 0.1 D Basophils % 0.2 Nucleated RBC % 0 Sodium Potassium Chloride Carbon Dioxide Anion Gap BUN Creatinine Est GFR (CKD-EPI)AfAm Est GFR (CKD-EPI)NonAf POC Glucometer 157 191 Random Glucose Lactic Acid Calcium Phosphorus Magnesium Total Bilirubin AST ALT Alkaline Phosphatase Total Protein Albumin COVID-19 (FRANKO) 12/28/19 12/28/19 06:40 06:40 WBC RBC Hgb Hct MCV MCH MCHC RDW Plt Count MPV Absolute Neuts (auto) Neutrophils % Lymphocytes % Monocytes % Eosinophils % Basophils % Nucleated RBC % Sodium 133 L Potassium 3.7 Chloride 92 L Carbon Dioxide 29 Anion Gap 12 BUN 17.5 Creatinine 0.6 Est GFR (CKD-EPI)AfAm 128.45 Est GFR (CKD-EPI)NonAf 110.83 POC Glucometer Random Glucose 171 H Lactic Acid 1.8 Calcium 8.8 Phosphorus 3.2 Magnesium 1.5 L Total Bilirubin 0.8 AST 28 ALT 12 L Alkaline Phosphatase 113 Total Protein 5.5 L Albumin 2.0 L COVID-19 (FRANKO) S1 S2 RRR Weak Lungs decreased Abd- soft, NT no edema PLAN hematology eval noted. I will consult radiation oncology. Bone scan tomorrow Pain control--increase oxycodone Advance diet DVT prophylaxis Problem List - Problems (1) Lung cancer Code(s): C34.90 - MALIGNANT NEOPLASM OF UNSP PART OF UNSP BRONCHUS OR LUNG (2) Pneumonia Code(s): J18.9 - PNEUMONIA, UNSPECIFIED ORGANISM Qualifiers: Pneumonia type: due to unspecified organism Laterality: left Lung location: lower lobe of lung Qualified Code(s): J18.9 - Pneumonia, unspecified organism (3) DM Diabetes mellitus type 2 Code(s): E11.9 - TYPE 2 DIABETES MELLITUS WITHOUT COMPLICATIONS (4) HTN (hypertension) Code(s): I10 - ESSENTIAL (PRIMARY) HYPERTENSION
[2019-12-29] MEDS ORDERED: INSULIN (LEVEMIR) 100 UNITS/ML UNITS SQ ONE (15:34)
[2019-12-29] MEDS ORDERED: INSULIN (NOVOLOG) ASPART 100 UNITS/ML 10ML VIAL ONE (17:31)
[2019-12-29] MEDS: NYSTATIN 500,000 UNITS/5 ML SUSPENSION PO SCH (17:31)
[2019-12-29] MEDS: DOCUSATE SODIUM 100 MG CAPSULE (FP) PO SCH (22:30)
[2019-12-29] MEDS: predniSONE 5 MG TABLET (UD) PO SCH (22:31)
[2019-12-29] MEDS: ALPRAZolam 1 MG TABLET PO SCH (22:33)
[2019-12-30] MEDS: NYSTATIN 500,000 UNITS/5 ML SUSPENSION PO SCH ×5 (00:23→23:48)
[2019-12-30] MEDS: oxyCODONE HCL 5 MG TABLET PO PRN ×7 (00:24→22:46)
[2019-12-30] MEDS: ONDANSETRON 4 MG/2 ML VIAL IVPUSH PRN ×5 (00:28→23:48)
[2019-12-30] MEDS ORDERED: DEXTROSE 50%-WATER - 25 GM/50 ML VIAL IVPUSH ONE (01:36)
[2019-12-30] MEDS ORDERED: PIPERACILLIN/TAZOBACTAM 3.375 GM VIAL IVPB ONE ×3 (01:53→17:24)
[2019-12-30] MEDS ORDERED: DEXTROSE 5%-WATER - 50 ML IVPB ONE ×3 (01:53→17:24)
[2019-12-30] MEDS: PIPERACILLIN/TAZOB 3.375 GM 3.375 GM in DEXTROSE 5%-WATER - 50 ML IVPB SCH ×3 (01:58→17:33)
--- NOTE | 2019-12-30 03:24 | PN ---
Progress Note (short form) - Note Progress Note: Rapid response called for pt at 07/22 on 12/30/2019 to [place]. Rapid response team arrived at bedside immediately. RN reports unwitnessed fall. Pt found seated on floor, with soiled underwear. He reports attempting to clean himself after passing bowel movement and sliding off the toilet bowl. No loss of consciousness, no dizziness, no aura, no tongue biting, and no vision changes. Pt reports that he did not hit his head. On exam, pt is AOx3, requesting help to get cleaned up. After being cleaned, pt refusing any further assessment. Including vital sings and physical exam. Risks and complications of a fall without complete assessment explained in detail. Pt made aware of specific signs and symptoms - including but not limited to: localized pain, bleeding, vision changes, headache, and sensorimotor deficits. Pt refusing CT scan and other relevant radiographs. Plan agreed for regular re-assessment with RN and nurses aide.
[2019-12-30] MEDS: INSULIN SLIDING SCALE (NOVOLOG) 1 VIAL SQ SCH ×3 (06:58→17:32)
[2019-12-30] MEDS ORDERED: PT OWN MED DRAWER 7, Y5N ONE ×2 (09:05→21:43)
[2019-12-30] MEDS: NIFEdipine E.R 60 MG TABLET PO SCH ×2 (09:29→21:56)
[2019-12-30] MEDS: TACROLIMUS ANHYDROUS 1 MG CAPSULE PO SCH ×2 (09:29→21:56)
[2019-12-30] MEDS: INSULIN (LEVEMIR) 100 UNITS/ML UNITS SQ SCH ×2 (09:29→21:55)
[2019-12-30] MEDS: METOPROLOL TARTRATE 25 MG TABLET (FP) PO SCH ×2 (09:30→21:56)
[2019-12-30] MEDS: MYCOPHENOLATE MOFETIL 500 MG TABLET PO SCH ×2 (09:30→21:55)
[2019-12-30] MEDS: TOPIRAMATE 25 MG TABLET PO SCH (09:30)
[2019-12-30] MEDS: NORTRIPTYLINE HCL 25 MG CAPSULE PO SCH (09:31)
[2019-12-30] MEDS: HEPARIN NA (PORCINE) 5,000 UNITS/ML 1ML VIAL SQ SCH ×2 (09:39→21:55)
--- NOTE | 2019-12-30 10:02 | PN ---
Progress Note, Physician - Current Medication List Current Medications: Active Medications Alprazolam (Xanax) 1 mg PO HS [facility] Last Admin: 12/29/19 22:33 Dose: Not Given Documented by: Docusate Sodium (Colace -) 300 mg PO HS [facility] Last Admin: 12/29/19 22:30 Dose: 300 mg Documented by: Fentanyl (Duragesic 12mcg Patch -) 1 patch TD Q72H [facility] Stop: 01/04/20 09:59 Last Admin: 12/28/19 11:54 Dose: 1 patch Documented by: Heparin Sodium (Porcine) (Heparin -) 5,000 unit SQ BID [facility] Last Admin: 12/30/19 09:39 Dose: 5,000 unit Documented by: Potassium Chloride/Dextrose/Sod Cl (D5-1/2ns+20 Meq Kcl -) 20 meq in 1,000 mls @ 42 mls/hr IV ASDIR [facility] Last Admin: 12/29/19 15:45 Dose: 42 mls/hr Documented by: Piperacillin Sod/Tazobactam (Sod 3.375 gm/ Dextrose) 50 mls @ 100 mls/hr IVPB Q8H-IV [facility]; Protocol Last Admin: 12/30/19 01:58 Dose: 100 mls/hr Documented by: Insulin Aspart (Novolog Vial Sliding Scale -) 1 vial SQ TIDAC [facility]; Protocol Last Admin: 12/30/19 06:58 Dose: Not Given Documented by: Insulin Detemir (Levemir Vial) 14 units SQ BID [facility] Last Admin: 12/30/19 09:29 Dose: 14 units Documented by: Metoprolol Tartrate (Lopressor -) 25 mg PO BID [facility] Last Admin: 12/30/19 09:30 Dose: 25 mg Documented by: Miscellaneous (Duragesic Patch Waste) 1 each MC PRN PRN PRN Reason: PAIN Mycophenolate Mofetil (Cellcept -) 500 mg PO BID [facility] Last Admin: 12/30/19 09:30 Dose: 500 mg Documented by: Nifedipine (Procardia Xl -) 60 mg PO BID [facility] Last Admin: 12/30/19 09:29 Dose: 60 mg Documented by: Nortriptyline HCl (Pamelor -) 25 mg PO DAILY [facility] Last Admin: 12/30/19 09:31 Dose: 25 mg Documented by: Nystatin (Nystatin Oral Suspension -) 500,000 units PO Q6HPO [facility] Last Admin: 12/30/19 06:14 Dose: 500,000 units Documented by: Ondansetron HCl (Zofran Injection) 4 mg IVPUSH Q4H PRN PRN Reason: NAUSEA AND/OR VOMITING Last Admin: 12/30/19 09:38 Dose: 4 mg Documented by: Oxycodone HCl (Roxicodone -) 10 mg PO Q4H PRN PRN Reason: PAIN LEVEL 6-10 Last Admin: 12/30/19 09:31 Dose: 10 mg Documented by: Prednisone (Deltasone -) 5 mg PO HS [facility] Last Admin: 12/29/19 22:31 Dose: 5 mg Documented by: Tacrolimus (Prograf) 2 mg PO BID [facility] Last Admin: 12/30/19 09:29 Dose: 2 mg Documented by: Topiramate (Topamax -) 25 mg PO DAILY [facility] Last Admin: 12/30/19 09:30 Dose: 25 mg Documented by: - Objective Vital Signs: Vital Signs Temperature 98.1 F 12/30/19 05:16 Pulse Rate 101 H 12/30/19 05:16 Respiratory Rate 18 12/30/19 05:16 Blood Pressure 109/63 12/30/19 05:16 O2 Sat by Pulse Oximetry (%) 95 12/30/19 05:16 Labs: CBC, BMP 12/28/19 06:40 12/28/19 06:40 INR, PTT INR 1.36 (0.82-1.09) H 12/26/19 12:21 Assessment/Plan Problem List - Problems (1) Nausea Code(s): R11.0 - NAUSEA (2) Lung cancer Code(s): C34.90 - MALIGNANT NEOPLASM OF UNSP PART OF UNSP BRONCHUS OR LUNG (3) Pneumonia Code(s): J18.9 - PNEUMONIA, UNSPECIFIED ORGANISM Qualifiers: Pneumonia type: due to unspecified organism Laterality: left Lung location: lower lobe of lung Qualified Code(s): J18.9 - Pneumonia, unspecified organism (4) CKD (chronic kidney disease) stage 5, GFR less than 15 ml/min Code(s): N18.5 - CHRONIC KIDNEY DISEASE, STAGE 5 (5) DM Diabetes mellitus type 2 Code(s): E11.9 - TYPE 2 DIABETES MELLITUS WITHOUT COMPLICATIONS (6) HTN (hypertension) Code(s): I10 - ESSENTIAL (PRIMARY) HYPERTENSION (7) Infiltrate noted on imaging study Code(s): R93.8 - ABNORMAL FINDINGS ON DIAGNOSTIC IMAGING OF ANN * DO NOT USE * (8) Lung mass Code(s): R91.8 - OTHER NONSPECIFIC ABNORMAL FINDING OF LUNG FIELD (9) Transplanted organ and tissue status Code(s): Z94.9 - TRANSPLANTED ORGAN AND TISSUE STATUS, UNSPECIFIED Assessment/Plan LARGE MASS (PRESUMED SMALL CELL ON PATH) AND LOCULATED EFFUSION (DOUBT EMPYEMA CLINICAL SCENARIO DOES NOT SUPPORT) WOULD ASK IR TO PERFORM THORACENTESIS AWAITING ONCO INPUT BRAIN MRI IS NEGATIVE FOR METS DR RIVERA
[2019-12-30 10:30] LABS: BASO % 0.2 % (0-2.0); HEMATOCRIT 46.9 % (35.4-49); HEMOGLOBIN 15.2 GM/dL (11.7-16.9); LYMPH % 9.9 % (8-40); MCH 31.8 pg (25.7-33.7); MCHC 32.5 g/dl (32.0-35.9); MEAN CELL VOLUME 98.1 fl (80-96); MEAN PLT VOLUME 9.8 fl (7.5-11.1); MONO % 10.7 % (3.8-10.2); NEUT % 79.2 % (42.8-82.8); PLATELET COUNT 618 K/MM3 (134-434); RBC 4.78 M/mm3 (4.00-5.60); RDW 14.3 % (11.9-15.9); WHITE BLOOD COUNT 17.5 K/mm3 (4.0-10.0)
[2019-12-30 11:41] LABS: ALBUMIN 1.9 g/dl (3.4-5.0); BILIRUBIN,TOTAL 0.8 mg/dL (0.2-1); BLOOD UREA NITROGEN 17.4 mg/dL (7-18); CALCIUM 8.8 mg/dL (8.5-10.1); CREATININE 0.8 mg/dL (0.55-1.3); TOT PROT 5.8 g/dl (6.4-8.2)
--- NOTE | 2019-12-30 11:41 | PN ---
Progress Note, Physician History of Present Illness: patient seen and examined today Chart is reviewed awake events noted pain better Not eating due to nausea - Current Medication List Current Medications: Active Medications Alprazolam (Xanax) 1 mg PO HS [facility] Last Admin: 12/29/19 22:33 Dose: Not Given Documented by: Docusate Sodium (Colace -) 300 mg PO HS [facility] Last Admin: 12/29/19 22:30 Dose: 300 mg Documented by: Fentanyl (Duragesic 12mcg Patch -) 1 patch TD Q72H [facility] Stop: 01/04/20 09:59 Last Admin: 12/28/19 11:54 Dose: 1 patch Documented by: Heparin Sodium (Porcine) (Heparin -) 5,000 unit SQ BID [facility] Last Admin: 12/30/19 09:39 Dose: 5,000 unit Documented by: Potassium Chloride/Dextrose/Sod Cl (D5-1/2ns+20 Meq Kcl -) 20 meq in 1,000 mls @ 42 mls/hr IV ASDIR [facility] Last Admin: 12/29/19 15:45 Dose: 42 mls/hr Documented by: Piperacillin Sod/Tazobactam (Sod 3.375 gm/ Dextrose) 50 mls @ 100 mls/hr IVPB Q8H-IV [facility]; Protocol Last Admin: 12/30/19 11:00 Dose: 100 mls/hr Documented by: Insulin Aspart (Novolog Vial Sliding Scale -) 1 vial SQ TIDAC [facility]; Protocol Last Admin: 12/30/19 06:58 Dose: Not Given Documented by: Insulin Detemir (Levemir Vial) 14 units SQ BID [facility] Last Admin: 12/30/19 09:29 Dose: 14 units Documented by: Metoprolol Tartrate (Lopressor -) 25 mg PO BID [facility] Last Admin: 12/30/19 09:30 Dose: 25 mg Documented by: Miscellaneous (Duragesic Patch Waste) 1 each MC PRN PRN PRN Reason: PAIN Mycophenolate Mofetil (Cellcept -) 500 mg PO BID [facility] Last Admin: 12/30/19 09:30 Dose: 500 mg Documented by: Nifedipine (Procardia Xl -) 60 mg PO BID [facility] Last Admin: 12/30/19 09:29 Dose: 60 mg Documented by: Nortriptyline HCl (Pamelor -) 25 mg PO DAILY [facility] Last Admin: 12/30/19 09:31 Dose: 25 mg Documented by: Nystatin (Nystatin Oral Suspension -) 500,000 units PO Q6HPO [facility] Last Admin: 12/30/19 06:14 Dose: 500,000 units Documented by: Ondansetron HCl (Zofran Injection) 4 mg IVPUSH Q4H PRN PRN Reason: NAUSEA AND/OR VOMITING Last Admin: 12/30/19 09:38 Dose: 4 mg Documented by: Oxycodone HCl (Roxicodone -) 10 mg PO Q4H PRN PRN Reason: PAIN LEVEL 6-10 Last Admin: 12/30/19 09:31 Dose: 10 mg Documented by: Prednisone (Deltasone -) 5 mg PO HS [facility] Last Admin: 12/29/19 22:31 Dose: 5 mg Documented by: Tacrolimus (Prograf) 2 mg PO BID [facility] Last Admin: 12/30/19 09:29 Dose: 2 mg Documented by: Topiramate (Topamax -) 25 mg PO DAILY [facility] Last Admin: 12/30/19 09:30 Dose: 25 mg Documented by: - Objective Vital Signs: Vital Signs Temperature 98.1 F 12/30/19 05:16 Pulse Rate 101 H 12/30/19 05:16 Respiratory Rate 18 12/30/19 05:16 Blood Pressure 109/63 12/30/19 05:16 O2 Sat by Pulse Oximetry (%) 95 12/30/19 05:16 Constitutional: Yes: Anxious, Mild Distress Neck: Yes: Supple Cardiovascular: Yes: Regular Rate and Rhythm Respiratory: Yes: Diminished Gastrointestinal: Yes: Soft Edema: No Neurological: Yes: Alert Labs: CBC, BMP 12/30/19 09:00 12/30/19 09:00 INR, PTT INR 1.36 (0.82-1.09) H 12/26/19 12:21 Problem List - Problems (1) Lung cancer Code(s): C34.90 - MALIGNANT NEOPLASM OF UNSP PART OF UNSP BRONCHUS OR LUNG (2) Pneumonia Code(s): J18.9 - PNEUMONIA, UNSPECIFIED ORGANISM Qualifiers: Pneumonia type: due to unspecified organism Laterality: left Lung location: lower lobe of lung Qualified Code(s): J18.9 - Pneumonia, unspecified organism (3) Diabetes Code(s): E11.9 - TYPE 2 DIABETES MELLITUS WITHOUT COMPLICATIONS (4) Lung mass Code(s): R91.8 - OTHER NONSPECIFIC ABNORMAL FINDING OF LUNG FIELD (5) Transplanted organ and tissue status Code(s): Z94.9 - TRANSPLANTED ORGAN AND TISSUE STATUS, UNSPECIFIED (6) Pericardial effusion Code(s): I31.3 - PERICARDIAL EFFUSION (NONINFLAMMATORY) Assessment/Plan Discussed with RN/ Pt Continue present care Fall precautions Work up -- staging in progress Bone scan today Increase Zofran will follow thoracocentesis to be scheduled as per pulmonary
[2019-12-30] MEDS: D5-1/2NS+20 MEQ KCL - 20 MEQ/1,000 ML INFUS.BAG IV SCH ×2 (12:17→23:55)
--- NOTE | 2019-12-30 15:30 | PN ---
Progress Note, Physician History of Present Illness: PULMONARY COMFORTABLE,-RESP DISTRESS,=CP - Current Medication List Current Medications: Active Medications Alprazolam (Xanax) 1 mg PO HS [facility] Last Admin: 12/29/19 22:33 Dose: Not Given Documented by: Docusate Sodium (Colace -) 300 mg PO HS [facility] Last Admin: 12/29/19 22:30 Dose: 300 mg Documented by: Fentanyl (Duragesic 12mcg Patch -) 1 patch TD Q72H [facility] Stop: 01/04/20 09:59 Last Admin: 12/28/19 11:54 Dose: 1 patch Documented by: Heparin Sodium (Porcine) (Heparin -) 5,000 unit SQ BID [facility] Last Admin: 12/30/19 09:39 Dose: 5,000 unit Documented by: Potassium Chloride/Dextrose/Sod Cl (D5-1/2ns+20 Meq Kcl -) 20 meq in 1,000 mls @ 42 mls/hr IV ASDIR [facility] Last Admin: 12/30/19 12:17 Dose: 42 mls/hr Documented by: Piperacillin Sod/Tazobactam (Sod 3.375 gm/ Dextrose) 50 mls @ 100 mls/hr IVPB Q8H-IV [facility]; Protocol Last Admin: 12/30/19 11:00 Dose: 100 mls/hr Documented by: Insulin Aspart (Novolog Vial Sliding Scale -) 1 vial SQ TIDAC [facility]; Protocol Last Admin: 12/30/19 12:15 Dose: Not Given Documented by: Insulin Detemir (Levemir Vial) 14 units SQ BID [facility] Last Admin: 12/30/19 09:29 Dose: 14 units Documented by: Metoprolol Tartrate (Lopressor -) 25 mg PO BID [facility] Last Admin: 12/30/19 09:30 Dose: 25 mg Documented by: Miscellaneous (Duragesic Patch Waste) 1 each MC PRN PRN PRN Reason: PAIN Mycophenolate Mofetil (Cellcept -) 500 mg PO BID [facility] Last Admin: 12/30/19 09:30 Dose: 500 mg Documented by: Nifedipine (Procardia Xl -) 60 mg PO BID [facility] Last Admin: 12/30/19 09:29 Dose: 60 mg Documented by: Nortriptyline HCl (Pamelor -) 25 mg PO DAILY [facility] Last Admin: 12/30/19 09:31 Dose: 25 mg Documented by: Nystatin (Nystatin Oral Suspension -) 500,000 units PO Q6HPO [facility] Last Admin: 12/30/19 12:17 Dose: 500,000 units Documented by: Ondansetron HCl (Zofran Injection) 8 mg IVPUSH Q6H PRN PRN Reason: NAUSEA AND/OR VOMITING Oxycodone HCl (Roxicodone -) 10 mg PO Q4H PRN PRN Reason: PAIN LEVEL 6-10 Last Admin: 12/30/19 14:24 Dose: 10 mg Documented by: Prednisone (Deltasone -) 5 mg PO HS [facility] Last Admin: 12/29/19 22:31 Dose: 5 mg Documented by: Tacrolimus (Prograf) 2 mg PO BID [facility] Last Admin: 12/30/19 09:29 Dose: 2 mg Documented by: Topiramate (Topamax -) 25 mg PO DAILY [facility] Last Admin: 12/30/19 09:30 Dose: 25 mg Documented by: - Objective Vital Signs: Vital Signs Temperature 98.6 F 12/30/19 14:47 Pulse Rate 90 12/30/19 08:35 Respiratory Rate 20 12/30/19 14:47 Blood Pressure 90/52 L 12/30/19 14:47 O2 Sat by Pulse Oximetry (%) 98 12/30/19 09:00 Constitutional: Yes: Calm, Thin Eyes: Yes: WNL HENT: Yes: WNL Neck: Yes: WNL Cardiovascular: Yes: Regular Rate and Rhythm, S1, S2 Respiratory: Yes: Diminished Gastrointestinal: Yes: Normal Bowel Sounds, Soft Extremities: Yes: WNL Edema: No Labs: CBC, BMP 12/30/19 09:00 12/30/19 09:00 INR, PTT INR 1.36 (0.82-1.09) H 12/26/19 12:21 Assessment/Plan Assessment/Plan LARGE MASS (PRESUMED SMALL CELL ON PATH) AND LOCULATED EFFUSION IR TO PERFORM THORACENTESIS OUTPATIENT PET CT BONE SCAN RESULTS PENDING DR RIVERA Problem List - Problems (1) Nausea Code(s): R11.0 - NAUSEA (2) Lung cancer Code(s): C34.90 - MALIGNANT NEOPLASM OF UNSP PART OF UNSP BRONCHUS OR LUNG (3) Pneumonia Code(s): J18.9 - PNEUMONIA, UNSPECIFIED ORGANISM Qualifiers: Pneumonia type: due to unspecified organism Laterality: left Lung locati on: lower lobe of lung Qualified Code(s): J18.9 - Pneumonia, unspecified organism (4) CKD (chronic kidney disease) stage 5, GFR less than 15 ml/min Code(s): N18.5 - CHRONIC KIDNEY DISEASE, STAGE 5 (5) DM Diabetes mellitus type 2 Code(s): E11.9 - TYPE 2 DIABETES MELLITUS WITHOUT COMPLICATIONS (6) HTN (hypertension) Code(s): I10 - ESSENTIAL (PRIMARY) HYPERTENSION (7) Infiltrate noted on imaging study Code(s): R93.8 - ABNORMAL FINDINGS ON DIAGNOSTIC IMAGING OF ANN * DO NOT USE * (8) Lung mass Code(s): R91.8 - OTHER NONSPECIFIC ABNORMAL FINDING OF LUNG FIELD (9) Transplanted organ and tissue status Code(s): Z94.9 - TRANSPLANTED ORGAN AND TISSUE STATUS, UNSPECIFIED
--- NOTE | 2019-12-30 16:16 | PN ---
Physical Exam: SUBJECTIVE: Patient seen and examined at bedside. Patient had an unwitnessed fall overnight. Today, patient still reports generalized body aches, denies headache. Denies chest pain, shortness of breath, dizziness. OBJECTIVE: Vital Signs Temperature 98.6 F 12/30/19 14:47 Pulse Rate 101 H 12/30/19 14:40 Respiratory Rate 12/30/19 14:47 Blood Pressure 90/52 L 12/30/19 14:47 O2 Sat by Pulse Oximetry (%) 100 12/30/19 14:40 GENERAL: The patient is awake, alert, and fully oriented, in no acute distress LUNGS: decreased breath sounds bilaterally HEART: Regular rate and rhythm, S1, S2 ABDOMEN: Soft, nontender, nondistended, normoactive bowel sounds EXTREMITIES: warm, well-perfused, no edema. SKIN: Warm, dry, normal turgor Laboratory Results - last 24 hr 12/29/19 12/30/19 12/30/19 17:17 01:33 02:11 WBC RBC Hgb Hct MCV MCH MCHC RDW Plt Count MPV Absolute Neuts (auto) Neutrophils % Lymphocytes % Monocytes % Eosinophils % Basophils % Nucleated RBC % Sodium Potassium Chloride Carbon Dioxide Anion Gap BUN Creatinine Est GFR (CKD-EPI)AfAm Est GFR (CKD-EPI)NonAf POC Glucometer 90 50 184 Random Glucose Calcium Total Bilirubin AST ALT Alkaline Phosphatase Total Protein Albumin 12/30/19 12/30/19 12/30/19 06:17 07:01 09:00 WBC 17.5 H RBC 4.78 Hgb 15.2 Hct 46.9 MCV 98.1 H MCH 31.8 MCHC 32.5 RDW 14.3 Plt Count 618 H MPV 9.8 Absolute Neuts (auto) 13.9 H Neutrophils % 79.2 Lymphocytes % 9.9 D Monocytes % 10.7 H Eosinophils % 0.0 D Basophils % 0.2 Nucleated RBC % 0 Sodium Potassium Chloride Carbon Dioxide Anion Gap BUN Creatinine Est GFR (CKD-EPI)AfAm Est GFR (CKD-EPI)NonAf POC Glucometer 65 76 Random Glucose Calcium Total Bilirubin AST ALT Alkaline Phosphatase Total Protein Albumin 12/30/19 12/30/19 09:00 12:12 WBC RBC Hgb Hct MCV MCH MCHC RDW Plt Count MPV Absolute Neuts (auto) Neutrophils % Lymphocytes % Monocytes % Eosinophils % Basophils % Nucleated RBC % Sodium 134 L Potassium 4.0 Chloride 92 L Carbon Dioxide 29 Anion Gap 13 BUN 17.4 Creatinine 0.8 Est GFR (CKD-EPI)AfAm 114.13 Est GFR (CKD-EPI)NonAf 98.47 POC Glucometer 120 Random Glucose 67 L Calcium 8.8 Total Bilirubin 0.8 AST 41 H ALT 12 L Alkaline Phosphatase 118 H Total Protein 5.8 L Albumin 1.9 L Active Medications Generic Name Dose Route Start Last Admin Trade Name Freq PRN Reason Stop Dose Admin Alprazolam 1 mg 12/26/19 22:00 12/29/19 22:33 Xanax PO Not Given HS [facility] Docusate Sodium 300 mg 12/28/19 22:00 12/29/19 22:30 Colace - PO 300 mg HS [facility] Administration Fentanyl 1 patch 12/28/19 10:00 12/28/19 11:54 Duragesic 12mcg Patch - TD 01/04/20 09:59 1 patch Q72H [facility] Administration Heparin Sodium (Porcine) 5,000 unit 12/28/19 10:00 12/30/19 09:39 Heparin - SQ 5,000 unit BID [facility] Administration Potassium Chloride/Dextrose/Sod Cl 20 meq in 1,000 mls @ 42 mls/hr 12/27/19 11:45 12/30/19 12:17 D5-1/2ns+20 Meq Kcl - IV 42 mls/hr ASDIR [facility] Administration Piperacillin Sod/Tazobactam 50 mls @ 100 mls/hr 12/27/19 18:00 12/30/19 11:00 Sod 3.375 gm/ Dextrose IVPB 100 mls/hr Q8H-IV [facility] Administration Protocol Insulin Aspart 1 vial 12/26/19 16:30 12/30/19 12:15 Novolog Vial Sliding Scale - SQ Not Given TIDAC [facility] Protocol Insulin Detemir 14 units 12/26/19 22:00 12/30/19 09:29 Levemir Vial SQ 14 units BID [facility] Administration Metoprolol Tartrate 25 mg 12/26/19 22:00 12/30/19 09:30 Lopressor - PO 25 mg BID [facility] Administration Miscellaneous 1 each 12/28/19 09:58 Duragesic Patch Waste MC PRN PRN PAIN Mycophenolate Mofetil 500 mg 12/26/19 22:00 12/30/19 09:30 Cellcept - PO 500 mg BID [facility] Administration Nifedipine 60 mg 12/26/19 22:00 12/30/19 09:29 Procardia Xl - PO 60 mg BID [facility] Administration Nortriptyline HCl 25 mg 12/27/19 10:00 12/30/19 09:31 Pamelor - PO 25 mg DAILY [facility] Administration Nystatin 500,000 units 12/29/19 18:00 12/30/19 12:17 Nystatin Oral Suspension - PO 500,000 units Q6HPO [facility] Administration Ondansetron HCl 8 mg 12/30/19 11:40 Zofran Injection IVPUSH Q6H PRN NAUSEA AND/OR VOMITING Oxycodone HCl 10 mg 12/29/19 14:19 12/30/19 14:24 Roxicodone - PO 10 mg Q4H PRN Administration PAIN LEVEL 6-10 Prednisone 5 mg 12/26/19 22:00 12/29/19 22:31 Deltasone - PO 5 mg HS [facility] Administration Tacrolimus 2 mg 12/26/19 22:00 12/30/19 09:29 Prograf PO 2 mg BID [facility] Administration Topiramate 25 mg 12/27/19 10:00 12/30/19 09:30 Topamax - PO 25 mg DAILY [facility] Administration ASSESSMENT/PLAN: Patient is a 59 year old male with past medical history of ?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 #LAUREL lung mass -Chest CT : interval increased LAUREL opacity consistent with an infiltrate. Interval development of moderate to large at least partially loculated left pleural fluid collection, sterile vs possibly empyema. Large left hilar lesion with contiguous mediastinal extension. Extensive mediastinal lymphadenopathy. Possible ascending and transverse colitis. 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 -ID consulted. REcs appreciated. -Pulm consulted. Recs appreciated. -Rad-onc consulted. Recs appreciated. 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 - New Patient This patient is new to me today: No - Critical Care Critical Care patient: No ATTENDING PHYSICIAN STATEMENT I saw and evaluated the patient. I reviewed the resident's note and discussed the case with the resident. I agree with the resident's findings and plan as documented. SUBJECTIVE: OBJECTIVE: ASSESSMENT AND PLAN:
--- NOTE | 2019-12-30 16:36 | PN ---
Progress Note, Physician Chief Complaint: Shortness of breath History of Present Illness: Seen and examined at the bedside. Awake and alert. Continues to have productive cough and shortness of breath no fever, chills, N/V/D making urine no flank pain. - Current Medication List Current Medications: Active Medications Alprazolam (Xanax) 1 mg PO HS [facility] Last Admin: 12/29/19 22:33 Dose: Not Given Documented by: Docusate Sodium (Colace -) 300 mg PO HS [facility] Last Admin: 12/29/19 22:30 Dose: 300 mg Documented by: Fentanyl (Duragesic 12mcg Patch -) 1 patch TD Q72H [facility] Stop: 01/04/20 09:59 Last Admin: 12/28/19 11:54 Dose: 1 patch Documented by: Heparin Sodium (Porcine) (Heparin -) 5,000 unit SQ BID [facility] Last Admin: 12/30/19 09:39 Dose: 5,000 unit Documented by: Potassium Chloride/Dextrose/Sod Cl (D5-1/2ns+20 Meq Kcl -) 20 meq in 1,000 mls @ 42 mls/hr IV ASDIR [facility] Last Admin: 12/30/19 12:17 Dose: 42 mls/hr Documented by: Piperacillin Sod/Tazobactam (Sod 3.375 gm/ Dextrose) 50 mls @ 100 mls/hr IVPB Q8H-IV [facility]; Protocol Last Admin: 12/30/19 11:00 Dose: 100 mls/hr Documented by: Insulin Aspart (Novolog Vial Sliding Scale -) 1 vial SQ TIDAC [facility]; Protocol Last Admin: 12/30/19 12:15 Dose: Not Given Documented by: Insulin Detemir (Levemir Vial) 14 units SQ BID [facility] Last Admin: 12/30/19 09:29 Dose: 14 units Documented by: Metoprolol Tartrate (Lopressor -) 25 mg PO BID [facility] Last Admin: 12/30/19 09:30 Dose: 25 mg Documented by: Miscellaneous (Duragesic Patch Waste) 1 each MC PRN PRN PRN Reason: PAIN Mycophenolate Mofetil (Cellcept -) 500 mg PO BID [facility] Last Admin: 12/30/19 09:30 Dose: 500 mg Documented by: Nifedipine (Procardia Xl -) 60 mg PO BID [facility] Last Admin: 12/30/19 09:29 Dose: 60 mg Documented by: Nortriptyline HCl (Pamelor -) 25 mg PO DAILY [facility] Last Admin: 12/30/19 09:31 Dose: 25 mg Documented by: Nystatin (Nystatin Oral Suspension -) 500,000 units PO Q6HPO [facility] Last Admin: 12/30/19 12:17 Dose: 500,000 units Documented by: Ondansetron HCl (Zofran Injection) 8 mg IVPUSH Q6H PRN PRN Reason: NAUSEA AND/OR VOMITING Oxycodone HCl (Roxicodone -) 10 mg PO Q4H PRN PRN Reason: PAIN LEVEL 6-10 Last Admin: 12/30/19 14:24 Dose: 10 mg Documented by: Prednisone (Deltasone -) 5 mg PO HS [facility] Last Admin: 12/29/19 22:31 Dose: 5 mg Documented by: Tacrolimus (Prograf) 2 mg PO BID [facility] Last Admin: 12/30/19 09:29 Dose: 2 mg Documented by: Topiramate (Topamax -) 25 mg PO DAILY [facility] Last Admin: 12/30/19 09:30 Dose: 25 mg Documented by: - Objective Vital Signs: Vital Signs Temperature 98.6 F 12/30/19 14:47 Pulse Rate 101 H 12/30/19 14:40 Respiratory Rate 20 12/30/19 14:47 Blood Pressure 90/52 L 12/30/19 14:47 O2 Sat by Pulse Oximetry (%) 100 12/30/19 14:40 Constitutional: Yes: No Distress, Calm HENT: Yes: Atraumatic Neck: Yes: Supple Cardiovascular: Yes: Regular Rate and Rhythm Respiratory: Yes: Diminished Gastrointestinal: Yes: Soft Extremities: No: Cyanosis Edema: No Labs: CBC, BMP 12/30/19 09:00 12/30/19 09:00 INR, PTT INR 1.36 (0.82-1.09) H 12/26/19 12:21 Assessment/Plan 59 year old male with history of Hep C with HCC s/p Liver and kidney transplant (2014), CHF, COPD, and hypertension who presented to the ED with anoxrexia and generalized weakness and admitted with suspected pnemonia and pleural effusion with suspicion of empyema. 1. CKD/Renal transplant with preserved eGFR 2. Anorexia/Weakness 3. Suspected pneumonia/empyema 4. Lung mass 5. Colitis/Constipation 6. Lactic acidosis 7. Hyponatremia Renal function remains stable. Continue Cellcept/Prograf at the present doses. Trend renal function and electrolytes daily Prograf level pending. Continue empiric antibiotics as per ID for IR thoracentesis as per pulmonary consider d/c IVF if able to tolerate oral diet PRN Lasix for shortness of breath Thank you Alvin Alexandra DO
--- NOTE | 2019-12-30 19:08 | PN.HO ---
Progress Note (short form) - Note Progress Note: Patient seen and examined c/o pain allover Discussed in great detail his pathology results AFVSS Rt. neck adenopathy? Cor: RSR, No murmurs, No gallops Lungs: decreased at bases Abd: Soft, Normal bowel sounds, No organomegaly Ext:No significant edema LAbs/MEds reviewed A/P 59 year old male with past medical history of HTN, DM, hepatitis C, hepatocellular carcinoma s/p TACE ] s/p kidney/liver transplant (2014), HTN, CHF, COPD, Hx of HCV, Status CT guided mediastinal biopsy on 12/24/19 presents to the ED with decreased p.o. intake, nausea continued headaches generalized weakness. CT c/a/p -- LAUREL infiltrate/ Large , partially loculated Left pleural effusion, Large lt. hilar mass with mediastinal extensions, extensive mediatinal adenopathy, occlusion of LAUREL bronchus, s/p cholecystectomy, s/p splenectomy, ? 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 - TTF1 neg., high Ki67 50%, + synaptophysis, rare chromogranin and AE1/3 on cellcept/prograf on zosyn on antihypertensives, pain control blood cultures negative Cr 0.6/LFTs nl/Hgbnl/Plts nl/ ECho-- LVH, LVEF --50-55% thoracentesis per IR/pulmonary Will need to complete staging w/u with bone scan . If feasible PETCT outpatient MRI brain w/o contrast 12/15 was neg. for mets will need port placement -- refusing at this time will need rad-onc consult Furtehr recs based on staging w/u check LDH/uric acid
[2019-12-30] MEDS: ALPRAZolam 1 MG TABLET PO SCH ×2 (21:54→22:06)
[2019-12-30] MEDS: DOCUSATE SODIUM 100 MG CAPSULE (FP) PO SCH ×2 (21:54→22:06)
[2019-12-30] MEDS: predniSONE 5 MG TABLET (UD) PO SCH (21:55)
[2019-12-31] MEDS ORDERED: DEXTROSE 5%-WATER - 50 ML IVPB ONE ×3 (01:54→17:46)
[2019-12-31] MEDS ORDERED: PIPERACILLIN/TAZOBACTAM 3.375 GM VIAL IVPB ONE ×3 (01:54→17:45)
[2019-12-31] MEDS: PIPERACILLIN/TAZOB 3.375 GM 3.375 GM in DEXTROSE 5%-WATER - 50 ML IVPB SCH ×3 (02:31→17:53)
[2019-12-31] MEDS: oxyCODONE HCL 5 MG TABLET PO PRN ×3 (02:59→12:05)
[2019-12-31] MEDS: ONDANSETRON 4 MG/2 ML VIAL IVPUSH PRN (06:27)
[2019-12-31] MEDS: NYSTATIN 500,000 UNITS/5 ML SUSPENSION PO SCH ×3 (06:27→17:53)
[2019-12-31] MEDS: INSULIN SLIDING SCALE (NOVOLOG) 1 VIAL SQ SCH ×3 (06:27→17:59)
[2019-12-31 09:35] LABS: BLOOD UREA NITROGEN 18.8 mg/dL (7-18); CALCIUM 8.8 mg/dL (8.5-10.1); CREATININE 0.9 mg/dL (0.55-1.3); POTASSIUM 4.6 mmol/L (3.5-5.1)
--- NOTE | 2019-12-31 10:24 | PN ---
Progress Note, Physician History of Present Illness: pulmonary alert,c/o cough,thick white sputum. pt to have thoracentesis today - Current Medication List Current Medications: Active Medications Alprazolam (Xanax) 1 mg PO HS [facility] Last Admin: 12/30/19 22:06 Dose: Not Given Documented by: Docusate Sodium (Colace -) 300 mg PO HS [facility] Last Admin: 12/30/19 22:06 Dose: Not Given Documented by: Fentanyl (Duragesic 12mcg Patch -) 1 patch TD Q72H [facility] Stop: 01/04/20 09:59 Last Admin: 12/28/19 11:54 Dose: 1 patch Documented by: Heparin Sodium (Porcine) (Heparin -) 5,000 unit SQ BID [facility] Last Admin: 12/30/19 21:55 Dose: 5,000 unit Documented by: Potassium Chloride/Dextrose/Sod Cl (D5-1/2ns+20 Meq Kcl -) 20 meq in 1,000 mls @ 42 mls/hr IV ASDIR [facility] Last Admin: 12/30/19 23:55 Dose: 42 mls/hr Documented by: Piperacillin Sod/Tazobactam (Sod 3.375 gm/ Dextrose) 50 mls @ 100 mls/hr IVPB Q8H-IV [facility]; Protocol Last Admin: 12/31/19 02:31 Dose: 100 mls/hr Documented by: Insulin Aspart (Novolog Vial Sliding Scale -) 1 vial SQ TIDAC [facility]; Protocol Last Admin: 12/31/19 06:27 Dose: Not Given Documented by: Insulin Detemir (Levemir Vial) 14 units SQ BID [facility] Last Admin: 12/30/19 21:55 Dose: 14 units Documented by: Metoprolol Tartrate (Lopressor -) 25 mg PO BID [facility] Last Admin: 12/30/19 21:56 Dose: Not Given Documented by: Miscellaneous (Duragesic Patch Waste) 1 each MC PRN PRN PRN Reason: PAIN Mycophenolate Mofetil (Cellcept -) 500 mg PO BID [facility] Last Admin: 12/30/19 21:55 Dose: 500 mg Documented by: Nifedipine (Procardia Xl -) 60 mg PO BID [facility] Last Admin: 12/30/19 21:56 Dose: Not Given Documented by: Nortriptyline HCl (Pamelor -) 25 mg PO DAILY [facility] Last Admin: 12/30/19 09:31 Dose: 25 mg Documented by: Nystatin (Nystatin Oral Suspension -) 500,000 units PO Q6HPO [facility] Last Admin: 12/31/19 06:27 Dose: 500,000 units Documented by: Ondansetron HCl (Zofran Injection) 8 mg IVPUSH Q6H PRN PRN Reason: NAUSEA AND/OR VOMITING Last Admin: 12/31/19 06:27 Dose: 8 mg Documented by: Oxycodone HCl (Roxicodone -) 10 mg PO Q4H PRN PRN Reason: PAIN LEVEL 6-10 Last Admin: 12/31/19 07:03 Dose: 10 mg Documented by: Prednisone (Deltasone -) 5 mg PO HS [facility] Last Admin: 12/30/19 21:55 Dose: 5 mg Documented by: Tacrolimus (Prograf) 1 mg PO BID [facility] Last Admin: 12/30/19 21:56 Dose: 1 mg Documented by: Topiramate (Topamax -) 25 mg PO DAILY [facility] Last Admin: 12/30/19 09:30 Dose: 25 mg Documented by: - Objective Vital Signs: Vital Signs Temperature 97.9 F 12/31/19 06:00 Pulse Rate 99 H 12/31/19 06:00 Respiratory Rate 18 12/31/19 06:00 Blood Pressure 140/78 12/31/19 06:00 O2 Sat by Pulse Oximetry (%) 97 12/31/19 06:00 Constitutional: Yes: Well Nourished, Calm Eyes: Yes: WNL HENT: Yes: WNL Neck: Yes: WNL Cardiovascular: Yes: Regular Rate and Rhythm, S1, S2 Respiratory: Yes: Diminished Gastrointestinal: Yes: Normal Bowel Sounds, Soft Extremities: Yes: WNL Edema: No Labs: CBC, BMP 12/31/19 07:35 INR, PTT INR 1.36 (0.82-1.09) H 12/26/19 12:21 Assessment/Plan Assessment/Plan LARGE MASS (PRESUMED SMALL CELL ON PATH) AND LOCULATED EFFUSION THORACENTESIS TODAY OUTPATIENT PET CT BONE SCAN RESULTS PENDING INHALED BRONCHODILATORS ZOILA RIVERA Problem List - Problems (1) Nausea Code(s): R11.0 - NAUSEA (2) Lung cancer Code(s): C34.90 - MALIGNANT NEOPLASM OF UNSP PART OF UNSP BRONCHUS OR LUNG (3) Pneumonia Code(s): J18.9 - PNEUMONIA, UNSPECIFIED ORGANISM Qualifiers: Pneumonia type: due to unspecified organism Laterality: left Lung location: lower lobe of lung Qualified Code(s): J18.9 - Pneumonia, unspecified organism (4) CKD (chronic kidney disease) stage 5, GFR less than 15 ml/min Code(s): N18.5 - CHRONIC KIDNEY DISEASE, STAGE 5 (5) DM Diabetes mellitus type 2 Code(s): E11.9 - TYPE 2 DIABETES MELLITUS WITHOUT COMPLICATIONS (6) HTN (hypertension) Code(s): I10 - ESSENTIAL (PRIMARY) HYPERTENSION (7) Infiltrate noted on imaging study Code(s): R93.8 - ABNORMAL FINDINGS ON DIAGNOSTIC IMAGING OF ANN * DO NOT USE * (8) Lung mass Code(s): R91.8 - OTHER NONSPECIFIC ABNORMAL FINDING OF LUNG FIELD (9) Transplanted organ and tissue status Code(s): Z94.9 - TRANSPLANTED ORGAN AND TISSUE STATUS, UNSPECIFIED
[2019-12-31] MEDS: NIFEdipine E.R 60 MG TABLET PO SCH ×2 (10:59→21:48)
[2019-12-31] MEDS: METOPROLOL TARTRATE 25 MG TABLET (FP) PO SCH ×2 (10:59→21:48)
[2019-12-31] MEDS: fentaNYL 12mcg/hr PATCH.TD72 TD SCH (10:59)
[2019-12-31] MEDS: TACROLIMUS ANHYDROUS 1 MG CAPSULE PO SCH ×2 (11:00→21:49)
[2019-12-31] MEDS: HEPARIN NA (PORCINE) 5,000 UNITS/ML 1ML VIAL SQ SCH ×3 (11:01→22:14)
[2019-12-31] MEDS: INSULIN (LEVEMIR) 100 UNITS/ML UNITS SQ SCH ×3 (11:02→22:14)
[2019-12-31] MEDS: TOPIRAMATE 25 MG TABLET PO SCH (11:04)
[2019-12-31] MEDS ORDERED: PT OWN MED DRAWER 7, Y5N ONE (11:25)
[2019-12-31] MEDS: D5-1/2NS+20 MEQ KCL - 20 MEQ/1,000 ML INFUS.BAG IV SCH (11:59)
[2019-12-31] MEDS: NORTRIPTYLINE HCL 25 MG CAPSULE PO SCH (12:30)
[2019-12-31] MEDS: MYCOPHENOLATE MOFETIL 500 MG TABLET PO SCH ×2 (12:30→21:48)
--- NOTE | 2019-12-31 13:25 | PN ---
Progress Note (short form) - Note Progress Note: pain better with meds no headaches decreased appetite nausea+ depressed Vital Signs - 24 hr 12/30/19 12/30/19 12/30/19 18:07 18:36 21:00 Temperature 97.5 F L 97.7 F Pulse Rate 99 H 87 Respiratory 18 20 Rate Blood Pressure 101/72 135/62 O2 Sat by Pulse 92 L 97 Oximetry (%) 12/30/19 12/31/19 22:47 06:00 Temperature 98.1 F 97.9 F Pulse Rate 65 99 H Respiratory 20 18 Rate Blood Pressure 96/65 140/78 O2 Sat by Pulse 97 Oximetry (%) Current Medications Generic Name Dose Route Start Last Admin Trade Name Freq PRN Reason Stop Dose Admin Albuterol Sulfate 1 amp 12/31/19 12:27 Ventolin 0.083% Nebulizer Soln - NEB Q4H PRN SHORT OF BREATH/WHEEZING Alprazolam 1 mg 12/26/19 22:00 12/30/19 22:06 Xanax PO Not Given HS [facility] Docusate Sodium 300 mg 12/28/19 22:00 12/30/19 22:06 Colace - PO Not Given [facility] Fentanyl 1 patch 12/28/19 10:00 12/31/19 10:59 Duragesic 12mcg Patch - TD 01/04/20 09:59 1 patch Q72H [facility] Administration Guaifenesin 10 ml 12/31/19 12:26 Robitussin Dm - PO Q4H PRN COUGH Heparin Sodium (Porcine) 5,000 unit 12/28/19 10:00 12/31/19 11:01 Heparin - SQ Not Given BID [facility] Potassium Chloride/Dextrose/Sod Cl 20 meq in 1,000 mls @ 42 mls/hr 12/27/19 11:45 12/31/19 11:59 D5-1/2ns+20 Meq Kcl - IV Not Given ASDIR [facility] Piperacillin Sod/Tazobactam 50 mls @ 100 mls/hr 12/27/19 18:00 12/31/19 11:00 Sod 3.375 gm/ Dextrose IVPB 100 mls/hr Q8H-IV [facility] Administration Protocol Insulin Aspart 1 vial 12/26/19 16:30 12/31/19 11:58 Novolog Vial Sliding Scale - SQ Not Given TIDAC [facility] Protocol Insulin Detemir 14 units 08/20/20 22:00 12/31/19 11:02 Levemir Vial SQ 14 units BID [facility] Administration Metoclopramide HCl 5 mg 12/31/19 16:30 Reglan - PO TIDAC [facility] Metoprolol Tartrate 25 mg 12/26/19 22:00 12/31/19 10:59 Lopressor - PO 25 mg BID [facility] Administration Miscellaneous 1 each 12/28/19 09:58 12/31/19 13:08 Duragesic Patch Waste [facility] 1 each PRN PRN Administration PAIN Mycophenolate Mofetil 500 mg 12/26/19 22:00 12/31/19 12:30 Cellcept - PO 500 mg BID [facility] Administration Nifedipine 60 mg 12/26/19 22:00 12/31/19 10:59 Procardia Xl - PO 60 mg BID [facility] Administration Nortriptyline HCl 25 mg 12/27/19 10:00 12/31/19 12:30 Pamelor - PO 25 mg DAILY [facility] Administration Nystatin 500,000 units 12/29/19 18:00 12/31/19 11:59 Nystatin Oral Suspension - PO 500,000 units Q6HPO [facility] Administration Ondansetron HCl 8 mg 12/30/19 11:40 12/31/19 06:27 Zofran Injection IVPUSH 8 mg Q6H PRN Administration NAUSEA AND/OR VOMITING Oxycodone HCl 10 mg 12/29/19 14:19 12/31/19 12:05 Roxicodone - PO 10 mg Q4H PRN Administration PAIN LEVEL 6-10 Prednisone 5 mg 12/26/19 22:00 12/30/19 21:55 Deltasone - PO 5 mg HS [facility] Administration Tacrolimus 1 mg 12/30/19 22:00 12/31/19 11:00 Prograf PO 1 mg BID [facility] Administration Topiramate 25 mg 12/27/19 10:00 12/31/19 11:04 Topamax - PO 25 mg DAILY [facility] Administration Laboratory Results - last 24 hr 12/28/19 12/30/19 12/30/19 06:40 17:31 21:49 Sodium Potassium Chloride Carbon Dioxide Anion Gap BUN Creatinine Est GFR (CKD-EPI)AfAm Est GFR (CKD-EPI)NonAf POC Glucometer 114 155 Random Glucose Calcium Tacrolimus 21.8 H 12/31/19 12/31/19 12/31/19 06:21 07:35 11:57 Sodium 134 L Potassium 4.6 Chloride 92 L Carbon Dioxide 29 Anion Gap 13 BUN 18.8 H Creatinine 0.9 Est GFR (CKD-EPI)AfAm 108.73 Est GFR (CKD-EPI)NonAf 93.82 POC Glucometer 117 147 Random Glucose 125 H Calcium 8.8 Tacrolimus vitals noted S1 S2 RRR Weak Lungs decreased Abd- soft, NT no edema PLAN hematology eval noted. I will consult radiation oncology. Bone scan done thoracentesis today Pain control--continue oxycodone add Reglan tid DVT prophylaxis Problem List - Problems (1) Lung cancer Code(s): C34.90 - MALIGNANT NEOPLASM OF UNSP PART OF UNSP BRONCHUS OR LUNG (2) Pneumonia Code(s): J18.9 - PNEUMONIA, UNSPECIFIED ORGANISM Qualifiers: Pneumonia type: due to unspecified organism Laterality: left Lung location: lower lobe of lung Qualified Code(s): J18.9 - Pneumonia, unspecified organism (3) DM Diabetes mellitus type 2 Code(s): E11.9 - TYPE 2 DIABETES MELLITUS WITHOUT COMPLICATIONS (4) HTN (hypertension) Code(s): I10 - ESSENTIAL (PRIMARY) HYPERTENSION
--- NOTE | 2019-12-31 15:22 | PN ---
Progress Note, Physician History of Present Illness: AWAKE IN BED LETHARGIC CHRONICALY ILL APPEARING AFEBRILE WBC ELEVATED CULTURES NEGATIVE - Current Medication List Current Medications: Active Medications Albuterol Sulfate (Ventolin 0.083% Nebulizer Soln -) 1 amp NEB Q4H PRN PRN Reason: SHORT OF BREATH/WHEEZING Alprazolam (Xanax) 1 mg PO HS [facility] Last Admin: 12/30/19 22:06 Dose: Not Given Documented by: Docusate Sodium (Colace -) 300 mg PO HS [facility] Last Admin: 12/30/19 22:06 Dose: Not Given Documented by: Fentanyl (Duragesic 12mcg Patch -) 1 patch TD Q72H [facility] Stop: 01/04/20 09:59 Last Admin: 12/31/19 10:59 Dose: 1 patch Documented by: Guaifenesin (Robitussin Dm -) 10 ml PO Q4H PRN PRN Reason: COUGH Heparin Sodium (Porcine) (Heparin -) 5,000 unit SQ BID [facility] Last Admin: 12/31/19 11:01 Dose: Not Given Documented by: Potassium Chloride/Dextrose/Sod Cl (D5-1/2ns+20 Meq Kcl -) 20 meq in 1,000 mls @ 42 mls/hr IV ASDIR [facility] Last Admin: 12/31/19 11:59 Dose: Not Given Documented by: Piperacillin Sod/Tazobactam (Sod 3.375 gm/ Dextrose) 50 mls @ 100 mls/hr IVPB Q8H-IV [facility]; Protocol Last Admin: 12/31/19 11:00 Dose: 100 mls/hr Documented by: Insulin Aspart (Novolog Vial Sliding Scale -) 1 vial SQ TIDAC [facility]; Protocol Last Admin: 12/31/19 11:58 Dose: Not Given Documented by: Insulin Detemir (Levemir Vial) 14 units SQ BID [facility] Last Admin: 12/31/19 11:02 Dose: 14 units Documented by: Metoclopramide HCl (Reglan -) 5 mg PO TIDAC [facility] Metoprolol Tartrate (Lopressor -) 25 mg PO BID [facility] Last Admin: 12/31/19 10:59 Dose: 25 mg Documented by: Miscellaneous (Duragesic Patch Waste) 1 each MC PRN PRN PRN Reason: PAIN Last Admin: 12/31/19 13:08 Dose: 1 each Documented by: Mycophenolate Mofetil (Cellcept -) 500 mg PO BID [facility] Last Admin: 12/31/19 12:30 Dose: 500 mg Documented by: Nifedipine (Procardia Xl -) 60 mg PO BID [facility] Last Admin: 12/31/19 10:59 Dose: 60 mg Documented by: Nortriptyline HCl (Pamelor -) 25 mg PO DAILY [facility] Last Admin: 12/31/19 12:30 Dose: 25 mg Documented by: Nystatin (Nystatin Oral Suspension -) 500,000 units PO Q6HPO [facility] Last Admin: 12/31/19 11:59 Dose: 500,000 units Documented by: Ondansetron HCl (Zofran Injection) 8 mg IVPUSH Q6H PRN PRN Reason: NAUSEA AND/OR VOMITING Last Admin: 12/31/19 06:27 Dose: 8 mg Documented by: Oxycodone HCl (Roxicodone -) 10 mg PO Q4H PRN PRN Reason: PAIN LEVEL 6-10 Last Admin: 12/31/19 12:05 Dose: 10 mg Documented by: Prednisone (Deltasone -) 5 mg PO HS [facility] Last Admin: 12/30/19 21:55 Dose: 5 mg Documented by: Tacrolimus (Prograf) 1 mg PO BID [facility] Last Admin: 12/31/19 11:00 Dose: 1 mg Documented by: Topiramate (Topamax -) 25 mg PO DAILY [facility] Last Admin: 12/31/19 11:04 Dose: 25 mg Documented by: - Objective Vital Signs: Vital Signs Temperature 97.9 F 12/31/19 06:00 Pulse Rate 99 H 12/31/19 06:00 Respiratory Rate 18 12/31/19 06:00 Blood Pressure 140/78 12/31/19 06:00 O2 Sat by Pulse Oximetry (%) 97 12/31/19 06:00 Constitutional: Yes: No Distress Cardiovascular: Yes: Regular Rate and Rhythm, S1, S2 Respiratory: Yes: CTA Bilaterally Gastrointestinal: Yes: Normal Bowel Sounds, Soft, Abdomen, Obese. No: Tenderness Edema: No Labs: CBC, BMP 12/30/19 09:00 12/31/19 07:35 INR, PTT INR 1.36 (0.82-1.09) H 12/26/19 12:21 Assessment/Plan ?POST OBSTRUCTIVE PNEUMONIA LARGE PLEURAL EFFUSION ? SMALL CELL CA MEDIASTINAL ADENOPATHY COLITIS CONTINUE EMPIRIC ZOSYN
--- NOTE | 2019-12-31 15:46 | PN ---
Progress Note (short form) - Note Progress Note: Radiation Oncology Pt off floor for thoracentesis. Consult to follow.
--- NOTE | 2019-12-31 16:13 | PN ---
Progress Note, Physician Chief Complaint: Shortness of breath History of Present Illness: Seen and examined at the bedside. Awake and alert. offers no acute complaints no fever, chills, N/V/D making urine no flank pain. - Current Medication List Current Medications: Active Medications Albuterol Sulfate (Ventolin 0.083% Nebulizer Soln -) 1 amp NEB Q4H PRN PRN Reason: SHORT OF BREATH/WHEEZING Alprazolam (Xanax) 1 mg PO HS [facility] Last Admin: 12/30/19 22:06 Dose: Not Given Documented by: Docusate Sodium (Colace -) 300 mg PO HS [facility] Last Admin: 12/30/19 22:06 Dose: Not Given Documented by: Fentanyl (Duragesic 12mcg Patch -) 1 patch TD Q72H [facility] Stop: 01/04/20 09:59 Last Admin: 12/31/19 10:59 Dose: 1 patch Documented by: Guaifenesin (Robitussin Dm -) 10 ml PO Q4H PRN PRN Reason: COUGH Heparin Sodium (Porcine) (Heparin -) 5,000 unit SQ BID [facility] Last Admin: 12/31/19 11:01 Dose: Not Given Documented by: Potassium Chloride/Dextrose/Sod Cl (D5-1/2ns+20 Meq Kcl -) 20 meq in 1,000 mls @ 42 mls/hr IV ASDIR [facility] Last Admin: 12/31/19 11:59 Dose: Not Given Documented by: Piperacillin Sod/Tazobactam (Sod 3.375 gm/ Dextrose) 50 mls @ 100 mls/hr IVPB Q8H-IV [facility]; Protocol Last Admin: 12/31/19 11:00 Dose: 100 mls/hr Documented by: Insulin Aspart (Novolog Vial Sliding Scale -) 1 vial SQ TIDAC [facility]; Protocol Last Admin: 12/31/19 11:58 Dose: Not Given Documented by: Insulin Detemir (Levemir Vial) 14 units SQ BID [facility] Last Admin: 12/31/19 11:02 Dose: 14 units Documented by: Metoclopramide HCl (Reglan -) 5 mg PO TIDAC [facility] Metoprolol Tartrate (Lopressor -) 25 mg PO BID [facility] Last Admin: 12/31/19 10:59 Dose: 25 mg Documented by: Miscellaneous (Duragesic Patch Waste) 1 each MC PRN PRN PRN Reason: PAIN Last Admin: 12/31/19 13:08 Dose: 1 each Documented by: Mycophenolate Mofetil (Cellcept -) 500 mg PO BID [facility] Last Admin: 12/31/19 12:30 Dose: 500 mg Documented by: Nifedipine (Procardia Xl -) 60 mg PO BID [facility] Last Admin: 12/31/19 10:59 Dose: 60 mg Documented by: Nortriptyline HCl (Pamelor -) 25 mg PO DAILY [facility] Last Admin: 12/31/19 12:30 Dose: 25 mg Documented by: Nystatin (Nystatin Oral Suspension -) 500,000 units PO Q6HPO [facility] Last Admin: 12/31/19 11:59 Dose: 500,000 units Documented by: Ondansetron HCl (Zofran Injection) 8 mg IVPUSH Q6H PRN PRN Reason: NAUSEA AND/OR VOMITING Last Admin: 12/31/19 06:27 Dose: 8 mg Documented by: Oxycodone HCl (Roxicodone -) 10 mg PO Q4H PRN PRN Reason: PAIN LEVEL 6-10 Last Admin: 12/31/19 12:05 Dose: 10 mg Documented by: Prednisone (Deltasone -) 5 mg PO HS [facility] Last Admin: 12/30/19 21:55 Dose: 5 mg Documented by: Tacrolimus (Prograf) 1 mg PO BID [facility] Last Admin: 12/31/19 11:00 Dose: 1 mg Documented by: Topiramate (Topamax -) 25 mg PO DAILY [facility] Last Admin: 12/31/19 11:04 Dose: 25 mg Documented by: - Objective Vital Signs: Vital Signs Temperature 98.0 F 12/31/19 16:07 Pulse Rate 94 H 12/31/19 16:07 Respiratory Rate 18 12/31/19 16:07 Blood Pressure 115/73 12/31/19 16:07 O2 Sat by Pulse Oximetry (%) 91 L 12/31/19 16:07 Constitutional: Yes: No Distress Eyes: Yes: Conjunctiva Clear HENT: Yes: Atraumatic Neck: Yes: Supple Cardiovascular: Yes: Regular Rate and Rhythm Respiratory: Yes: Diminished, Rales Gastrointestinal: Yes: Soft Extremities: No: Cyanosis Edema: No Neurological: Yes: Alert Labs: CBC, BMP 12/30/19 09:00 12/31/19 07:35 INR, PTT INR 1.36 (0.82-1.09) H 12/26/19 12:21 Assessment/Plan 59 year old male with history of Hep C with HCC s/p Liver and kidney transplant (2014), CHF, COPD, and hypertension who presented to the ED with anoxrexia and generalized weakness and admitted with suspected pnemonia and pleural effusion with suspicion of empyema. 1. CKD/Renal transplant with preserved eGFR 2. Anorexia/Weakness 3. Suspected pneumonia/empyema 4. Lung mass 5. Colitis/Constipation 6. Lactic acidosis 7. Hyponatremia Renal function remains stable. Prograf level noted to be elevated, will reduce to 1mg BID and check repeat levels Continue prednisone and cellcept and monitor WBC levels Trend renal function and electrolytes daily Continue empiric antibiotics as per ID for IR thoracentesis as per pulmonary PRN Lasix for shortness of breath Thank you Alvin Alexandra DO
--- NOTE | 2019-12-31 16:26 | PN ---
Physical Exam: SUBJECTIVE: Patient seen and examined OBJECTIVE: Vital Signs Temperature 98.0 F 12/31/19 16:07 Pulse Rate 94 H 12/31/19 16:07 Respiratory Rate 18 12/31/19 16:07 Blood Pressure 115/73 12/31/19 16:07 O2 Sat by Pulse Oximetry (%) 91 L 12/31/19 16:07 GENERAL: The patient is awake, alert, and fully oriented, in no acute distress LUNGS: decreased breath sounds bilaterally HEART: Regular rate and rhythm, S1, S2 ABDOMEN: Soft, nontender, nondistended, normoactive bowel sounds EXTREMITIES: warm, well-perfused, no edema. SKIN: Warm, dry, normal turgor Laboratory Results - last 24 hr 12/28/19 12/30/19 12/30/19 06:40 17:31 21:49 Sodium Potassium Chloride Carbon Dioxide Anion Gap BUN Creatinine Est GFR (CKD-EPI)AfAm Est GFR (CKD-EPI)NonAf POC Glucometer 114 155 Random Glucose Calcium Tacrolimus 21.8 H 12/31/19 12/31/19 12/31/19 06:21 07:35 11:57 Sodium 134 L Potassium 4.6 Chloride 92 L Carbon Dioxide 29 Anion Gap 13 BUN 18.8 H Creatinine 0.9 Est GFR (CKD-EPI)AfAm 108.73 Est GFR (CKD-EPI)NonAf 93.82 POC Glucometer 117 147 Random Glucose 125 H Calcium 8.8 Tacrolimus 12/31/19 15:36 Sodium Potassium Chloride Carbon Dioxide Anion Gap BUN Creatinine Est GFR (CKD-EPI)AfAm Est GFR (CKD-EPI)NonAf POC Glucometer 134 Random Glucose Calcium Tacrolimus Active Medications Generic Name Dose Route Start Last Admin Trade Name Freq PRN Reason Stop Dose Admin Albuterol Sulfate 1 amp 12/31/19 12:27 Ventolin 0.083% Nebulizer Soln - NEB Q4H PRN SHORT OF BREATH/WHEEZING Alprazolam 1 mg 12/26/19 22:00 12/30/19 22:06 Xanax PO Not Given HS [facility] Docusate Sodium 300 mg 12/28/19 22:00 12/30/19 22:06 Colace - PO Not Given HS [facility] Fentanyl 1 patch 12/28/19 10:00 12/31/19 10:59 Duragesic 12mcg Patch - TD 01/04/20 09:59 1 patch Q72H [facility] Administration Guaifenesin 10 ml 12/31/19 12:26 Robitussin Dm - PO Q4H PRN COUGH Heparin Sodium (Porcine) 5,000 unit 12/28/19 10:00 12/31/19 11:01 Heparin - SQ Not Given BID [facility] Potassium Chloride/Dextrose/Sod Cl 20 meq in 1,000 mls @ 42 mls/hr 12/27/19 11:45 12/31/19 11:59 D5-1/2ns+20 Meq Kcl - IV Not Given ASDIR [facility] Piperacillin Sod/Tazobactam 50 mls @ 100 mls/hr 12/27/19 18:00 12/31/19 11:00 Sod 3.375 gm/ Dextrose IVPB 100 mls/hr Q8H-IV [facility] Administration Protocol Insulin Aspart 1 vial 12/26/19 16:30 12/31/19 11:58 Novolog Vial Sliding Scale - SQ Not Given TIDAC [facility] Protocol Insulin Detemir 14 units 12/26/19 22:00 12/31/19 11:02 Levemir Vial SQ 14 units BID [facility] Administration Metoclopramide HCl 5 mg 12/31/19 16:30 Reglan - PO TIDAC [facility] Metoprolol Tartrate 25 mg 12/26/19 22:00 12/31/19 10:59 Lopressor - PO 25 mg BID [facility] Administration Miscellaneous 1 each 12/28/19 09:58 12/31/19 13:08 Duragesic Patch Waste [facility] 1 each PRN PRN Administration PAIN Mycophenolate Mofetil 500 mg 12/26/19 22:00 12/31/19 12:30 Cellcept - PO 500 mg BID [facility] Administration Nifedipine 60 mg 12/26/19 22:00 12/31/19 10:59 Procardia Xl - PO 60 mg BID [facility] Administration Nortriptyline HCl 25 mg 12/27/19 10:00 12/31/19 12:30 Pamelor - PO 25 mg DAILY [facility] Administration Nystatin 500,000 units 12/29/19 18:00 12/31/19 11:59 Nystatin Oral Suspension - PO 500,000 units Q6HPO [facility] Administration Ondansetron HCl 8 mg 12/30/19 11:40 12/31/19 06:27 Zofran Injection IVPUSH 8 mg Q6H PRN Administration NAUSEA AND/OR VOMITING Oxycodone HCl 10 mg 12/29/19 14:19 12/31/19 12:05 Roxicodone - PO 10 mg Q4H PRN Administration PAIN LEVEL 6-10 Prednisone 5 mg 12/26/19 22:00 12/30/19 21:55 Deltasone - PO 5 mg HS [facility] Administration Tacrolimus 1 mg 12/30/19 22:00 12/31/19 11:00 Prograf PO 1 mg BID [facility] Administration Topiramate 25 mg 12/27/19 10:00 12/31/19 11:04 Topamax - PO 25 mg DAILY [facility] Administration ASSESSMENT/PLAN: Patient is a 59 year old male with past medical history of ?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 #LAUREL lung mass -Chest CT : interval increased LAUREL opacity consistent with an infiltrate. Interval development of moderate to large at least partially loculated left pleural fluid collection, sterile vs possibly empyema. Large left hilar lesion with contiguous mediastinal extension. Extensive mediastinal lymphadenopathy. Possible ascending and transverse colitis. 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 -ID consulted. REcs appreciated. -Pulm consulted. Recs appreciated. -Rad-onc consulted. Recs appreciated. 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 - New Patient This patient is new to me today: No - Critical Care Critical Care patient: No ATTENDING PHYSICIAN STATEMENT I saw and evaluated the patient. I reviewed the resident's note and discussed the case with the resident. I agree with the resident's findings and plan as documented. SUBJECTIVE: OBJECTIVE: ASSESSMENT AND PLAN:
--- NOTE | 2019-12-31 16:59 | CONSULT ---
Consult Consult Specialty:: Radiation Oncology Referred by:: Dr. Edmondson Reason for Consultation:: Neuroendocrine small cell lung cancer - History of Present Illness Chief Complaint: Chest pain and cough History of Present Illness: Pt is a 59yo former smoker w/hx of HCC, renal mets s/p TACE and left renal/liver transplant 2014 on cellcept/prograf who recently had neg MRI brain for headache and admitted for chest pains, productive cough, 15-20lb wt loss, decreased po and generalized weakness. CT CAP showed LAUREL infiltrate, 10cm left hilar mass extension to mediastinum, extensive mediastinal LAD, occlusion LAUREL bronchus, loculated left pleural effusion, small pericardial effusion. 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 He had a bone scan, results awaited. He went down for CT-guided thoracentesis earlier but procedure was rescheduled. Denies hemoptysis, dysphagia, hoarseness, prior RT. 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 No: Alzheimer's, CVA, Dementia, Migraine, Seizure Cardio/Vascular: Yes: CHF, HTN. No: Pulmonary Hypertension Pulmonary: Yes: COPD Gastrointestinal: Yes: Cancer (hepatocellular), Other (Hepatitis C) Hepatobiliary: Yes: Hepatitis C Renal/: Yes: Renal Inusuff (CKD V) - Past Surgical History Past Surgical History: Yes: AV Fistula/Graft, Cholecystectomy, Kidney Transplant , Liver Transplant, Splenectomy - Alcohol/Substance Use Hx Alcohol Use: Yes (FEW GLASSES OF WINE) History of Substance Use: reports: None - Smoking History Smoking history: Former smoker Have you smoked in the past 12 months: No Aproximately how many cigarettes per day: 20 (20-25 pack years) If you are a former smoker, when did you quit?: 2010 - Social History Usual Living Arrangement: With Parent 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 History of Recent Travel: No Home Medications - Allergies Allergies/Adverse Reactions: Allergies Allergy/AdvReac Type Severity Reaction Status Date / Time morphine AdvReac Verified 12/26/19 12:01 - Home Medications Home Medications: Ambulatory Orders Nifedipine ER [Procardia XL -] 60 mg PO BID 08/10/17 Prednisone 5 mg PO HS 08/10/17 Tacrolimus 2 mg PO BID 08/10/17 Alprazolam 1 mg PO HS 09/03/18 Insulin Glargine,Hum.rec.anlog [Gary Farrar U-100] 14 unit SQ BID 09/03/18 Mycophenolate Mofetil 500 mg PO BID 09/03/18 Metoprolol Tartrate 25 mg PO BID 12/14/19 Family Medical History Family History: Unable to Obtain, Unremarkable Other Family History: No cancer hx Review of Systems - Review of Systems Constitutional: reports: Loss of Appetite, Unintentional Wgt. Loss, Weakness Eyes: reports: No Symptoms HENT: reports: No Symptoms Neck: reports: No Symptoms Cardiovascular: reports: Chest Pain Respiratory: reports: Cough Gastrointestinal: reports: No Symptoms Genitourinary: reports: No Symptoms Musculoskeletal: reports: Back Pain Integumentary: reports: No Symptoms Neurological: reports: Headache Endocrine: reports: Unexplained Weight Loss Hematology/Lymphatic: reports: No Symptoms Pain Intensity: 4 (left and mid chest and back) Physical Exam Vital Signs: Vital Signs Temperature 98.0 F 12/31/19 16:07 Pulse Rate 94 H 12/31/19 16:07 Respiratory Rate 18 12/31/19 16:07 Blood Pressure 115/73 12/31/19 16:07 O2 Sat by Pulse Oximetry (%) 91 L 12/31/19 16:07 Constitutional: Yes: No Distress, Calm, Thin Eyes: Yes: WNL HENT: Yes: WNL Neck: Yes: WNL Cardiovascular: Yes: WNL Respiratory: Yes: Cough, Diminished (left lung), SOB on Exertion Gastrointestinal: Yes: WNL Musculoskeletal: Yes: WNL Extremities: Yes: WNL Edema: No Neurological: Yes: WNL ...Motor Strength: WNL Psychiatric: Yes: WNL Labs: CBC, BMP 12/30/19 09:00 12/31/19 07:35 Imaging - Results Cat Scan: Report Reviewed, Image Reviewed (See HPI) Assessment/Plan A 59yo ex-smoker with 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 He is undergoing staging workup. MRI brain negative. Bone scan and CT-guided thoracentesis pending. Would benefit from outpatient PET-CT as recommended. Therapeutic recommendations will largely depend on stage (limited versus extensive/metastatic), i.e. chemotherapy + concurrent RT for limited stage versus chemo +/- RT for palliation or consolidation for extensive stage. Regardless, he will likely need to start with chemotherapy. Continue workup, thoracentesis to r/o malignant effusion which would be considered extensive stage. I discussed this with the patient who understood and will follow up with us when discharged.
--- NOTE | 2019-12-31 17:47 | PN ---
Teaching Attending Note Name of Resident: Martha Briggs ATTENDING PHYSICIAN STATEMENT I saw and evaluated the patient. I reviewed the resident's note and discussed the case with the resident. I agree with the resident's findings and plan as documented. ASSESSMENT AND PLAN: 59 year old gentleman with past medical history of liver cancer with renal metastasis s/p kidney/liver transplant (2014), HTN, CHF, COPD, Hx of HCV, lumg mass, mediastinal mass s/p biopsy, was admitted for decreased po intake, continu ed headaches, and generalized weakness. Recommend: 1) Large Left hilar mass with contiguous mediastinal LAD. Prior bx showing necrotic neoplasm with neuroendocrine differentiation suspicious for SCLC. Staging work-up in progress. Therapeutic plan to be formulated upon final staging (May consider Carboplatin/Etoposide/Atezolizumab) 2) Brain MRI negative 3) Bone scan pending 4) CT guided thoracentesis 5) [facility]-Onc evaluation and help. 6) Posttransplant erythrocytosis. May consider ACEI/ARB upon discussion with PCP if appropriate.
[2019-12-31] MEDS: METOCLOPRAMIDE HCL 10 MG TABLET (FP) PO SCH (17:51)
[2019-12-31] MEDS ORDERED: oxyCODONE HCL 5 MG TABLET PO ONE (19:52)
[2019-12-31] MEDS: guaiFENesin/D-METHORPHAN HB 10 ML UNIT-DOSE CUPS PO PRN (21:47)
[2019-12-31] MEDS: DOCUSATE SODIUM 100 MG CAPSULE (FP) PO SCH (21:47)
[2019-12-31] MEDS: ALPRAZolam 1 MG TABLET PO SCH ×2 (21:48→22:07)
[2019-12-31] MEDS: predniSONE 5 MG TABLET (UD) PO SCH (21:48)
[2020-01-01] MEDS: ONDANSETRON 4 MG/2 ML VIAL IVPUSH PRN (00:16)
[2020-01-01] MEDS: NYSTATIN 500,000 UNITS/5 ML SUSPENSION PO SCH ×5 (00:16→18:10)
[2020-01-01] MEDS: D5-1/2NS+20 MEQ KCL - 20 MEQ/1,000 ML INFUS.BAG IV SCH ×2 (00:16→17:21)
[2020-01-01] MEDS ORDERED: PIPERACILLIN/TAZOBACTAM 3.375 GM VIAL IVPB ONE ×3 (01:31→17:52)
[2020-01-01] MEDS ORDERED: DEXTROSE 5%-WATER - 50 ML IVPB ONE ×3 (01:31→17:53)
[2020-01-01] MEDS: PIPERACILLIN/TAZOB 3.375 GM 3.375 GM in DEXTROSE 5%-WATER - 50 ML IVPB SCH ×3 (02:01→18:10)
[2020-01-01] MEDS ORDERED: PT OWN MED DRAWER 7, Y5N ONE ×2 (05:32→21:33)
[2020-01-01] MEDS: METOCLOPRAMIDE HCL 10 MG TABLET (FP) PO SCH ×3 (06:16→18:10)
[2020-01-01] MEDS: INSULIN SLIDING SCALE (NOVOLOG) 1 VIAL SQ SCH ×3 (06:21→18:11)
--- NOTE | 2020-01-01 08:04 | PN ---
Progress Note, Physician History of Present Illness: pulmonary alert,comfortable,-sob,less cough - Current Medication List Current Medications: Active Medications Albuterol Sulfate (Ventolin 0.083% Nebulizer Soln -) 1 amp NEB Q4H PRN PRN Reason: SHORT OF BREATH/WHEEZING Alprazolam (Xanax) 1 mg PO HS [facility] Last Admin: 12/31/19 22:07 Dose: Not Given Documented by: Docusate Sodium (Colace -) 300 mg PO HS [facility] Last Admin: 12/31/19 21:47 Dose: 300 mg Documented by: Fentanyl (Duragesic 12mcg Patch -) 1 patch TD Q72H [facility] Stop: 01/04/20 09:59 Last Admin: 12/31/19 10:59 Dose: 1 patch Documented by: Guaifenesin (Robitussin Dm -) 10 ml PO Q4H PRN PRN Reason: COUGH Heparin Sodium (Porcine) (Heparin -) 5,000 unit SQ BID [facility] Last Admin: 12/31/19 22:14 Dose: Not Given Documented by: Potassium Chloride/Dextrose/Sod Cl (D5-1/2ns+20 Meq Kcl -) 20 meq in 1,000 mls @ 42 mls/hr IV ASDIR [facility] Last Admin: 01/01/20 00:16 Dose: 42 mls/hr Documented by: Piperacillin Sod/Tazobactam (Sod 3.375 gm/ Dextrose) 50 mls @ 100 mls/hr IVPB Q8H-IV [facility]; Protocol Last Admin: 01/01/20 02:01 Dose: 100 mls/hr Documented by: Insulin Aspart (Novolog Vial Sliding Scale -) 1 vial SQ TIDAC [facility]; Protocol Last Admin: 01/01/20 06:21 Dose: Not Given Documented by: Insulin Detemir (Levemir Vial) 14 units SQ BID [facility] Last Admin: 12/31/19 22:14 Dose: Not Given Documented by: Metoclopramide HCl (Reglan -) 5 mg PO TIDAC [facility] Last Admin: 01/01/20 06:16 Dose: 5 mg Documented by: Metoprolol Tartrate (Lopressor -) 25 mg PO BID [facility] Last Admin: 12/31/19 21:48 Dose: 25 mg Documented by: Miscellaneous (Duragesic Patch Waste) 1 each [facility] PRN PRN PRN Reason: PAIN Last Admin: 12/31/19 13:08 Dose: 1 each Documented by: Mycophenolate Mofetil (Cellcept -) 500 mg PO BID [facility] Last Admin: 12/31/19 21:48 Dose: 500 mg Documented by: Nifedipine (Procardia Xl -) 60 mg PO BID [facility] Last Admin: 12/31/19 21:48 Dose: 60 mg Documented by: Nortriptyline HCl (Pamelor -) 25 mg PO DAILY [facility] Last Admin: 12/31/19 12:30 Dose: 25 mg Documented by: Nystatin (Nystatin Oral Suspension -) 500,000 units PO Q6HPO [facility] Last Admin: 01/01/20 06:22 Dose: Not Given Documented by: Ondansetron HCl (Zofran Injection) 8 mg IVPUSH Q6H PRN PRN Reason: NAUSEA AND/OR VOMITING Last Admin: 01/01/20 00:16 Dose: 8 mg Documented by: Oxycodone HCl (Roxicodone -) 10 mg PO Q4H PRN PRN Reason: PAIN LEVEL 6-10 Last Admin: 12/31/19 12:05 Dose: 10 mg Documented by: Prednisone (Deltasone -) 5 mg PO [facility] Last Admin: 12/31/19 21:48 Dose: 5 mg Documented by: Tacrolimus (Prograf) 1 mg PO BID [facility] Last Admin: 12/31/19 21:49 Dose: 1 mg Documented by: Topiramate (Topamax -) 25 mg PO DAILY [facility] Last Admin: 12/31/19 11:04 Dose: 25 mg Documented by: - Objective Vital Signs: Vital Signs Temperature 98.2 F 01/01/20 02:43 Pulse Rate 90 01/01/20 02:43 Respiratory Rate 18 01/01/20 02:43 Blood Pressure 123/62 01/01/20 02:43 O2 Sat by Pulse Oximetry (%) 95 01/01/20 02:43 Constitutional: Yes: Well Nourished, Calm Eyes: Yes: WNL HENT: Yes: WNL Neck: Yes: WNL Cardiovascular: Yes: Regular Rate and Rhythm, S1, S2 Respiratory: Yes: Diminished Gastrointestinal: Yes: Normal Bowel Sounds, Soft Extremities: Yes: WNL Edema: No Labs: CBC, BMP 12/30/19 09:00 12/31/19 07:35 INR, PTT INR 1.36 (0.82-1.09) H 12/26/19 12:21 Assessment/Plan Assessment/Plan LARGE MASS (PRESUMED SMALL CELL ON PATH) AND LOCULATED EFFUSION THORACENTESIS TODAY OUTPATIENT PET CT INHALED BRONCHODILATORS ZOILA RIVERA Problem List - Problems (1) Nausea Code(s): R11.0 - NAUSEA (2) Lung cancer Code(s): C34.90 - MALIGNANT NEOPLASM OF UNSP PART OF UNSP BRONCHUS OR LUNG (3) Pneumonia Code(s): J18.9 - PNEUMONIA, UNSPECIFIED ORGANISM Qualifiers: Pneumonia type: due to unspecified organism Laterality: left Lung location: lower lobe of lung Qualified Code(s): J18.9 - Pneumonia, unspecified organism (4) CKD (chronic kidney disease) stage 5, GFR less than 15 ml/min Code(s): N18.5 - CHRONIC KIDNEY DISEASE, STAGE 5 (5) DM Diabetes mellitus type 2 Code(s): E11.9 - TYPE 2 DIABETES MELLITUS WITHOUT COMPLICATIONS (6) HTN (hypertension) Code(s): I10 - ESSENTIAL (PRIMARY) HYPERTENSION (7) Infiltrate noted on imaging study Code(s): R93.8 - ABNORMAL FINDINGS ON DIAGNOSTIC IMAGING OF ANN * DO NOT USE * (8) Lung mass Code(s): R91.8 - OTHER NONSPECIFIC ABNORMAL FINDING OF LUNG FIELD (9) Transplanted organ and tissue status Code(s): Z94.9 - TRANSPLANTED ORGAN AND TISSUE STATUS, UNSPECIFIED
[2020-01-01] MEDS: ALBUTEROL SO4 0.083% IH SOL 2.5 MG/3 ML VIAL.NEB. NEB PRN (08:32)
[2020-01-01 09:06] LABS: HEMATOCRIT 45.9 % (35.4-49); MCH 31.8 pg (25.7-33.7); MCHC 32.6 g/dl (32.0-35.9); MEAN CELL VOLUME 97.5 fl (80-96); PLATELET COUNT 666 K/MM3 (134-434); RBC 4.71 M/mm3 (4.00-5.60); RDW 14.5 % (11.9-15.9); WHITE BLOOD COUNT 16.1 K/mm3 (4.0-10.0)
[2020-01-01 09:34] LABS: CALCIUM 8.8 mg/dL (8.5-10.1); CREATININE 0.8 mg/dL (0.55-1.3); MAGNESIUM 1.3 mg/dL (1.8-2.4); PHOSPHOROUS 3.1 mg/dL (2.5-4.9); POTASSIUM 4.5 mmol/L (3.5-5.1)
[2020-01-01] MEDS ORDERED: MAGNESIUM 2GM/50ML STERILE WATER IVPB IVPB ONE (09:53)
--- NOTE | 2020-01-01 10:06 | PN ---
Progress Note, Physician History of Present Illness: AWAKE IN BED OFFERS NO COMPLAINTS CHRONICALY ILL APPEARING AFEBRILE WBC ELEVATED CULTURES NEGATIVE - Current Medication List Current Medications: Active Medications Albuterol Sulfate (Ventolin 0.083% Nebulizer Soln -) 1 amp NEB Q4H PRN PRN Reason: SHORT OF BREATH/WHEEZING Last Admin: 01/01/20 08:32 Dose: 1 amp Documented by: Alprazolam (Xanax) 1 mg PO HS [facility] Last Admin: 12/31/19 22:07 Dose: Not Given Documented by: Docusate Sodium (Colace -) 300 mg PO HS [facility] Last Admin: 12/31/19 21:47 Dose: 300 mg Documented by: Fentanyl (Duragesic 12mcg Patch -) 1 patch TD Q72H [facility] Stop: 01/04/20 09:59 Last Admin: 12/31/19 10:59 Dose: 1 patch Documented by: Guaifenesin (Robitussin Dm -) 10 ml PO Q4H PRN PRN Reason: COUGH Heparin Sodium (Porcine) (Heparin -) 5,000 unit SQ BID [facility] Last Admin: 12/31/19 22:14 Dose: Not Given Documented by: Potassium Chloride/Dextrose/Sod Cl (D5-1/2ns+20 Meq Kcl -) 20 meq in 1,000 mls @ 42 mls/hr IV ASDIR [facility] Last Admin: 01/01/20 00:16 Dose: 42 mls/hr Documented by: Piperacillin Sod/Tazobactam (Sod 3.375 gm/ Dextrose) 50 mls @ 100 mls/hr IVPB Q8H-IV [facility]; Protocol Last Admin: 01/01/20 02:01 Dose: 100 mls/hr Documented by: Insulin Aspart (Novolog Vial Sliding Scale -) 1 vial SQ TIDAC [facility]; Protocol Last Admin: 01/01/20 06:21 Dose: Not Given Documented by: Insulin Detemir (Levemir Vial) 14 units SQ BID [facility] Last Admin: 12/31/19 22:14 Dose: Not Given Documented by: Metoclopramide HCl (Reglan -) 5 mg PO TIDAC [facility] Last Admin: 01/01/20 06:16 Dose: 5 mg Documented by: Metoprolol Tartrate (Lopressor -) 25 mg PO BID [facility] Last Admin: 08/25/20 21:48 Dose: 25 mg Documented by: Miscellaneous (Duragesic Patch Waste) 1 each MC PRN PRN PRN Reason: PAIN Last Admin: 12/31/19 13:08 Dose: 1 each Documented by: Mycophenolate Mofetil (Cellcept -) 500 mg PO BID [facility] Last Admin: 12/31/19 21:48 Dose: 500 mg Documented by: Nifedipine (Procardia Xl -) 60 mg PO BID [facility] Last Admin: 12/31/19 21:48 Dose: 60 mg Documented by: Nortriptyline HCl (Pamelor -) 25 mg PO DAILY [facility] Last Admin: 12/31/19 12:30 Dose: 25 mg Documented by: Nystatin (Nystatin Oral Suspension -) 500,000 units PO Q6HPO [facility] Last Admin: 01/01/20 06:22 Dose: Not Given Documented by: Ondansetron HCl (Zofran Injection) 8 mg IVPUSH Q6H PRN PRN Reason: NAUSEA AND/OR VOMITING Last Admin: 01/01/20 00:16 Dose: 8 mg Documented by: Oxycodone HCl (Roxicodone -) 10 mg PO Q4H PRN PRN Reason: PAIN LEVEL 6-10 Last Admin: 12/31/19 12:05 Dose: 10 mg Documented by: Prednisone (Deltasone -) 5 mg PO [facility] Last Admin: 12/31/19 21:48 Dose: 5 mg Documented by: Tacrolimus (Prograf) 1 mg PO BID [facility] Last Admin: 12/31/19 21:49 Dose: 1 mg Documented by: Topiramate (Topamax -) 25 mg PO DAILY [facility] Last Admin: 12/31/19 11:04 Dose: 25 mg Documented by: - Objective Vital Signs: Vital Signs Temperature 98.2 F 01/01/20 02:43 Pulse Rate 90 01/01/20 02:43 Respiratory Rate 18 01/01/20 02:43 Blood Pressure 123/62 01/01/20 02:43 O2 Sat by Pulse Oximetry (%) 95 01/01/20 02:43 Constitutional: Yes: No Distress Cardiovascular: Yes: Regular Rate and Rhythm, S1, S2 Respiratory: Yes: Other (DECREASED BS L LUNG FIELD) Edema: No Labs: CBC, BMP 01/01/20 07:54 01/01/20 07:54 INR, PTT INR 1.36 (0.82-1.09) H 12/26/19 12:21 Assessment/Plan ?POST OBSTRUCTIVE PNEUMONIA LAUREL LOCULATED PLEURAL EFFUSION SMALL CELL CA MEDIASTINAL ADENOPATHY COLITIS FOR THORACENTESIS TODAY CONTINUE EMPIRIC ZOSYN
[2020-01-01] MEDS: NIFEdipine E.R 60 MG TABLET PO SCH ×2 (10:31→21:52)
[2020-01-01] MEDS: oxyCODONE HCL 5 MG TABLET PO PRN ×3 (10:32→22:10)
[2020-01-01] MEDS: TOPIRAMATE 25 MG TABLET PO SCH (10:32)
[2020-01-01] MEDS: TACROLIMUS ANHYDROUS 1 MG CAPSULE PO SCH ×2 (10:33→21:51)
[2020-01-01] MEDS: METOPROLOL TARTRATE 25 MG TABLET (FP) PO SCH ×2 (10:33→21:48)
[2020-01-01] MEDS: NORTRIPTYLINE HCL 25 MG CAPSULE PO SCH (10:34)
[2020-01-01] MEDS: HEPARIN NA (PORCINE) 5,000 UNITS/ML 1ML VIAL SQ SCH ×2 (10:34→21:47)
[2020-01-01] MEDS: MYCOPHENOLATE MOFETIL 500 MG TABLET PO SCH ×2 (10:34→21:51)
[2020-01-01] MEDS: INSULIN (LEVEMIR) 100 UNITS/ML UNITS SQ SCH ×2 (10:35→21:48)
[2020-01-01 13:50] LABS: BF WBC & OTHER NUCLEATED CELLS 1030 /mm3
--- NOTE | 2020-01-01 13:55 | PN ---
Progress Note (short form) - Note Progress Note: pain better with meds no headaches S/P thoracentesis mild pain in left back no sob Vital Signs - 24 hr 12/31/19 12/31/19 12/31/19 16:07 20:37 21:00 Temperature 98.0 F 98.4 F Pulse Rate 94 H 104 H Respiratory 18 18 Rate Blood Pressure 115/73 104/62 O2 Sat by Pulse 91 L 94 L 94 L Oximetry (%) 01/01/20 01/01/20 01/01/20 02:43 09:00 10:41 Temperature 98.2 F 98.6 F Pulse Rate 90 104 H Respiratory 18 24 H 24 H Rate Blood Pressure 123/62 115/73 O2 Sat by Pulse 95 98 98 Oximetry (%) Current Medications Generic Name Dose Route Start Last Admin Trade Name Freq PRN Reason Stop Dose Admin Albuterol Sulfate 1 amp 12/31/19 12:27 01/01/20 08:32 Ventolin 0.083% Nebulizer Soln - NEB 1 amp Q4H PRN Administration SHORT OF BREATH/WHEEZING Alprazolam 1 mg 12/26/19 22:00 12/31/19 22:07 Xanax PO Not Given [facility] Docusate Sodium 300 mg 12/28/19 22:00 12/31/19 21:47 Colace - PO 300 mg HS [facility] Administration Fentanyl 1 patch 12/28/19 10:00 12/31/19 10:59 Duragesic 12mcg Patch - TD 01/04/20 09:59 1 patch Q72H [facility] Administration Guaifenesin 10 ml 12/31/19 12:26 Robitussin Dm - PO Q4H PRN COUGH Heparin Sodium (Porcine) 5,000 unit 12/28/19 10:00 01/01/20 10:34 Heparin - SQ Not Given BID [facility] Potassium Chloride/Dextrose/Sod Cl 20 meq in 1,000 mls @ 42 mls/hr 12/27/19 11:45 01/01/20 00:16 D5-1/2ns+20 Meq Kcl - IV 42 mls/hr [facility] Administration Piperacillin Sod/Tazobactam 50 mls @ 100 mls/hr 12/27/19 18:00 01/01/20 10:33 Sod 3.375 gm/ Dextrose IVPB 100 mls/hr Q8H-IV [facility] Administration Protocol Insulin Aspart 1 vial 12/26/19 16:30 01/01/20 11:15 Novolog Vial Sliding Scale - SQ Not Given TIDAC [facility] Protocol Insulin Detemir 14 units 12/26/19 22:00 01/01/20 10:35 Levemir Vial SQ Not Given BID [facility] Metoclopramide HCl 5 mg 12/31/19 16:30 01/01/20 10:31 Reglan - PO 5 mg TIDAC [facility] Administration Metoprolol Tartrate 25 mg 12/26/19 22:00 01/01/20 10:33 Lopressor - PO 25 mg BID [facility] Administration Miscellaneous 1 each 12/28/19 09:58 12/31/19 13:08 Duragesic Patch Waste [facility] 1 each PRN PRN Administration PAIN Mycophenolate Mofetil 500 mg 12/26/19 22:00 01/01/20 10:34 Cellcept - PO 500 mg BID [facility] Administration Nifedipine 60 mg 12/26/19 22:00 01/01/20 10:31 Procardia Xl - PO 60 mg BID [facility] Administration Nortriptyline HCl 25 mg 12/27/19 10:00 01/01/20 10:34 Pamelor - PO 25 mg DAILY [facility] Administration Nystatin 500,000 units 12/29/19 18:00 01/01/20 11:27 Nystatin Oral Suspension - PO 500,000 units Q6HPO [facility] Administration Ondansetron HCl 8 mg 12/30/19 11:40 01/01/20 00:16 Zofran Injection IVPUSH 8 mg Q6H PRN Administration NAUSEA AND/OR VOMITING Oxycodone HCl 10 mg 12/29/19 14:19 01/01/20 10:32 Roxicodone - PO 10 mg Q4H PRN Administration PAIN LEVEL 6-10 Prednisone 5 mg 12/26/19 22:00 12/31/19 21:48 Deltasone - PO 5 mg HS [facility] Administration Tacrolimus 1 mg 12/30/19 22:00 01/01/20 10:33 Prograf PO 1 mg BID [facility] Administration Topiramate 25 mg 12/27/19 10:00 01/01/20 10:32 Topamax - PO 25 mg DAILY [facility] Administration Laboratory Results - last 24 hr 08/25/20 08/25/20 08/25/20 15:36 17:56 22:01 WBC RBC Hgb Hct MCV MCH MCHC RDW Plt Count MPV Sodium Potassium Chloride Carbon Dioxide Anion Gap BUN Creatinine Est GFR (CKD-EPI)AfAm Est GFR (CKD-EPI)NonAf POC Glucometer 134 106 118 Random Glucose Calcium Phosphorus Magnesium 01/01/20 01/01/20 01/01/20 06:18 07:54 07:54 WBC 16.1 H RBC 4.71 Hgb 15.0 Hct 45.9 MCV 97.5 H MCH 31.8 MCHC 32.6 RDW 14.5 Plt Count 666 H MPV 10.0 Sodium 131 L Potassium 4.5 Chloride 93 L Carbon Dioxide 25 Anion Gap 13 BUN 19.0 H Creatinine 0.8 Est GFR (CKD-EPI)AfAm 114.13 Est GFR (CKD-EPI)NonAf 98.47 POC Glucometer 150 Random Glucose 165 H Calcium 8.8 Phosphorus 3.1 Magnesium 1.3 L vitals noted S1 S2 RRR Weak Lungs decreased Abd- soft, NT no edema PLAN hematology eval noted. radiation oncology noted Bone scan done-- noted results-- do not see bone mets thoracentesis today Pain control--continue oxycodone add Reglan tid decrease xanax will need PET -CT as outpatient DVT prophylaxis Problem List - Problems (1) Lung cancer Code(s): C34.90 - MALIGNANT NEOPLASM OF UNSP PART OF UNSP BRONCHUS OR LUNG (2) Pneumonia Code(s): J18.9 - PNEUMONIA, UNSPECIFIED ORGANISM Qualifiers: Pneumonia type: due to unspecified organism Laterality: left Lung location: lower lobe of lung Qualified Code(s): J18.9 - Pneumonia, unspecified organism (3) DM Diabetes mellitus type 2 Code(s): E11.9 - TYPE 2 DIABETES MELLITUS WITHOUT COMPLICATIONS (4) HTN (hypertension) Code(s): I10 - ESSENTIAL (PRIMARY) HYPERTENSION
[2020-01-01 14:32] LABS: BODY FLUID MONOCYTE 2 %
[2020-01-01] MEDS: guaiFENesin/D-METHORPHAN HB 10 ML UNIT-DOSE CUPS PO PRN (18:12)
[2020-01-01] MEDS: DOCUSATE SODIUM 100 MG CAPSULE (FP) PO SCH (21:48)
[2020-01-01] MEDS: ALPRAZolam 1 MG TABLET PO SCH (21:48)
[2020-01-01] MEDS: predniSONE 5 MG TABLET (UD) PO SCH (21:51)
[2020-01-02] MEDS ORDERED: PIPERACILLIN/TAZOBACTAM 3.375 GM VIAL IVPB ONE ×3 (00:58→16:29)
[2020-01-02] MEDS ORDERED: DEXTROSE 5%-WATER - 50 ML IVPB ONE ×3 (00:59→16:29)
[2020-01-02] MEDS: NYSTATIN 500,000 UNITS/5 ML SUSPENSION PO SCH ×4 (01:01→18:32)
[2020-01-02] MEDS: PIPERACILLIN/TAZOB 3.375 GM 3.375 GM in DEXTROSE 5%-WATER - 50 ML IVPB SCH ×3 (01:01→18:32)
[2020-01-02] MEDS: oxyCODONE HCL 5 MG TABLET PO PRN ×5 (02:37→21:40)
[2020-01-02] MEDS ORDERED: INSULIN (LEVEMIR) 100 UNITS/ML UNITS SQ ONE ×2 (05:43→10:54)
[2020-01-02] MEDS: INSULIN SLIDING SCALE (NOVOLOG) 1 VIAL SQ SCH ×3 (06:21→16:27)
[2020-01-02] MEDS: METOCLOPRAMIDE HCL 10 MG TABLET (FP) PO SCH ×3 (06:39→16:32)
--- NOTE | 2020-01-02 07:49 | PN ---
Progress Note, Physician History of Present Illness: pulmonary alert,comfortable,dyspnea improving,-cp. pt s/p thoracentesis with removal 1000cc hemmoragic fluid - Current Medication List Current Medications: Active Medications Albuterol Sulfate (Ventolin 0.083% Nebulizer Soln -) 1 amp NEB Q4H PRN PRN Reason: SHORT OF BREATH/WHEEZING Last Admin: 01/01/20 08:32 Dose: 1 amp Documented by: Alprazolam (Xanax) 1 mg PO HS [facility] Last Admin: 01/01/20 21:48 Dose: 1 mg Documented by: Docusate Sodium (Colace -) 300 mg PO HS [facility] Last Admin: 01/01/20 21:48 Dose: 300 mg Documented by: Fentanyl (Duragesic 12mcg Patch -) 1 patch TD Q72H [facility] Stop: 01/04/20 09:59 Last Admin: 12/31/19 10:59 Dose: 1 patch Documented by: Guaifenesin (Robitussin Dm -) 10 ml PO Q4H PRN PRN Reason: COUGH Last Admin: 01/01/20 18:12 Dose: 10 ml Documented by: Heparin Sodium (Porcine) (Heparin -) 5,000 unit SQ BID [facility] Last Admin: 01/01/20 21:47 Dose: 5,000 unit Documented by: Potassium Chloride/Dextrose/Sod Cl (D5-1/2ns+20 Meq Kcl -) 20 meq in 1,000 mls @ 42 mls/hr IV ASDIR [facility] Last Admin: 01/01/20 17:21 Dose: Not Given Documented by: Piperacillin Sod/Tazobactam (Sod 3.375 gm/ Dextrose) 50 mls @ 100 mls/hr IVPB Q8H-IV [facility]; Protocol Last Admin: 01/02/20 01:01 Dose: 100 mls/hr Documented by: Insulin Aspart (Novolog Vial Sliding Scale -) 1 vial SQ TIDAC [facility]; Protocol Last Admin: 01/02/20 06:21 Dose: Not Given Documented by: Insulin Detemir (Levemir Vial) 14 units SQ BID [facility] Last Admin: 01/01/20 21:48 Dose: 14 units Documented by: Metoclopramide HCl (Reglan -) 5 mg PO TIDAC [facility] Last Admin: 01/02/20 06:39 Dose: 5 mg Documented by: Metoprolol Tartrate (Lopressor -) 25 mg PO BID [facility] Last Admin: 01/01/20 21:48 Dose: 25 mg Documented by: Miscellaneous (Duragesic Patch Waste) 1 each MC PRN PRN PRN Reason: PAIN Last Admin: 12/31/19 13:08 Dose: 1 each Documented by: Mycophenolate Mofetil (Cellcept -) 500 mg PO BID [facility] Last Admin: 01/01/20 21:51 Dose: 500 mg Documented by: Nifedipine (Procardia Xl -) 60 mg PO BID [facility] Last Admin: 01/01/20 21:52 Dose: 60 mg Documented by: Nortriptyline HCl (Pamelor -) 25 mg PO DAILY [facility] Last Admin: 01/01/20 10:34 Dose: 25 mg Documented by: Nystatin (Nystatin Oral Suspension -) 500,000 units PO Q6HPO [facility] Last Admin: 01/02/20 06:39 Dose: 500,000 units Documented by: Ondansetron HCl (Zofran Injection) 8 mg IVPUSH Q6H PRN PRN Reason: NAUSEA AND/OR VOMITING Last Admin: 01/01/20 00:16 Dose: 8 mg Documented by: Oxycodone HCl (Roxicodone -) 10 mg PO Q4H PRN PRN Reason: PAIN LEVEL 5-10 Last Admin: 01/02/20 06:39 Dose: 10 mg Documented by: Prednisone (Deltasone -) 5 mg PO HS [facility] Last Admin: 01/01/20 21:51 Dose: 5 mg Documented by: Tacrolimus (Prograf) 1 mg PO BID [facility] Last Admin: 01/01/20 21:51 Dose: 1 mg Documented by: Topiramate (Topamax -) 25 mg PO DAILY [facility] Last Admin: 01/01/20 10:32 Dose: 25 mg Documented by: - Objective Vital Signs: Vital Signs Temperature 97.8 F 01/02/20 07:42 Pulse Rate 101 H 01/02/20 07:42 Respiratory Rate 22 H 01/02/20 07:42 Blood Pressure 142/87 01/02/20 07:42 O2 Sat by Pulse Oximetry (%) 93 L 01/02/20 07:42 Constitutional: Yes: Well Nourished, Calm Eyes: Yes: WNL HENT: Yes: WNL Neck: Yes: WNL Cardiovascular: Yes: Regular Rate and Rhythm, S1, S2 Respiratory: Yes: Diminished Gastrointestinal: Yes: Normal Bowel Sounds, Soft Extremities: Yes: WNL Edema: No Labs: CBC, BMP Assessment/Plan Assessment/Plan LARGE MASS (PRESUMED SMALL CELL ON PATH) AND LOCULATED EFFUSION OUTPATIENT PET CT INHALED BRONCHODILATORS ROBITUSSIN DM RESULTS OF PLEURAL FLUID CHEMISTRY AND CYTOLOGY PENDING DR RIVERA Problem List - Problems (1) Nausea Code(s): R11.0 - NAUSEA (2) Lung cancer Code(s): C34.90 - MALIGNANT NEOPLASM OF UNSP PART OF UNSP BRONCHUS OR LUNG (3) Pneumonia Code(s): J18.9 - PNEUMONIA, UNSPECIFIED ORGANISM Qualifiers: Pneumonia type: due to unspecified organism Laterality: left Lung location: lower lobe of lung Qualified Code(s): J18.9 - Pneumonia, unspecified organism (4) CKD (chronic kidney disease) stage 5, GFR less than 15 ml/min Code(s): N18.5 - CHRONIC KIDNEY DISEASE, STAGE 5 (5) DM Diabetes mellitus type 2 Code(s): E11.9 - TYPE 2 DIABETES MELLITUS WITHOUT COMPLICATIONS (6) HTN (hypertension) Code(s): I10 - ESSENTIAL (PRIMARY) HYPERTENSION (7) Infiltrate noted on imaging study Code(s): R93.8 - ABNORMAL FINDINGS ON DIAGNOSTIC IMAGING OF ANN * DO NOT USE * (8) Lung mass Code(s): R91.8 - OTHER NONSPECIFIC ABNORMAL FINDING OF LUNG FIELD (9) Transplanted organ and tissue status Code(s): Z94.9 - TRANSPLANTED ORGAN AND TISSUE STATUS, UNSPECIFIED
[2020-01-02] MEDS ORDERED: PT OWN MED DRAWER 7, Y5N ONE ×3 (10:27→20:47)
[2020-01-02] MEDS: INSULIN (LEVEMIR) 100 UNITS/ML UNITS SQ SCH ×2 (10:34→23:01)
[2020-01-02] MEDS: HEPARIN NA (PORCINE) 5,000 UNITS/ML 1ML VIAL SQ SCH ×2 (10:35→21:40)
[2020-01-02] MEDS: MYCOPHENOLATE MOFETIL 500 MG TABLET PO SCH ×2 (10:37→21:40)
[2020-01-02] MEDS: METOPROLOL TARTRATE 25 MG TABLET (FP) PO SCH ×2 (10:38→21:39)
[2020-01-02] MEDS: TOPIRAMATE 25 MG TABLET PO SCH (10:38)
[2020-01-02] MEDS: NORTRIPTYLINE HCL 25 MG CAPSULE PO SCH (10:38)
[2020-01-02] MEDS: guaiFENesin/D-METHORPHAN HB 10 ML UNIT-DOSE CUPS PO PRN (10:38)
[2020-01-02] MEDS: NIFEdipine E.R 60 MG TABLET PO SCH ×2 (10:38→21:39)
[2020-01-02] MEDS: TACROLIMUS ANHYDROUS 1 MG CAPSULE PO SCH ×2 (10:39→21:41)
[2020-01-02] MEDS: D5-1/2NS+20 MEQ KCL - 20 MEQ/1,000 ML INFUS.BAG IV SCH (12:12)
--- NOTE | 2020-01-02 12:41 | PN ---
Progress Note, Physician Chief Complaint: Shortness of breath History of Present Illness: Seen and examined at the bedside. Awake and alert. continues to have diffuse body pain s/p thoracentesis yesterday with slight improvement in breathing no fever, chills, N/V/D making urine - Current Medication List Current Medications: Active Medications Albuterol Sulfate (Ventolin 0.083% Nebulizer Soln -) 1 amp NEB Q4H PRN PRN Reason: SHORT OF BREATH/WHEEZING Last Admin: 01/01/20 08:32 Dose: 1 amp Documented by: Alprazolam (Xanax) 1 mg PO HS [facility] Last Admin: 01/01/20 21:48 Dose: 1 mg Documented by: Docusate Sodium (Colace -) 300 mg PO HS [facility] Last Admin: 01/01/20 21:48 Dose: 300 mg Documented by: Fentanyl (Duragesic 12mcg Patch -) 1 patch TD Q72H [facility] Stop: 01/04/20 09:59 Last Admin: 12/31/19 10:59 Dose: 1 patch Documented by: Guaifenesin (Robitussin Dm -) 10 ml PO Q4H PRN PRN Reason: COUGH Last Admin: 01/02/20 10:38 Dose: 10 ml Documented by: Heparin Sodium (Porcine) (Heparin -) 5,000 unit SQ BID [facility] Last Admin: 01/02/20 10:35 Dose: 5,000 unit Documented by: Potassium Chloride/Dextrose/Sod Cl (D5-1/2ns+20 Meq Kcl -) 20 meq in 1,000 mls @ 42 mls/hr IV ASDIR [facility] Last Admin: 01/02/20 12:12 Dose: Not Given Documented by: Piperacillin Sod/Tazobactam (Sod 3.375 gm/ Dextrose) 50 mls @ 100 mls/hr IVPB Q8H-IV [facility]; Protocol Last Admin: 01/02/20 09:50 Dose: 100 mls/hr Documented by: Insulin Aspart (Novolog Vial Sliding Scale -) 1 vial SQ TIDAC [facility]; Protocol Last Admin: 01/02/20 12:08 Dose: 4 units Documented by: Insulin Detemir (Levemir Vial) 14 units SQ BID [facility] Last Admin: 01/02/20 10:34 Dose: 14 units Documented by: Metoclopramide HCl (Reglan -) 5 mg PO TIDAC [facility] Last Admin: 01/02/20 10:36 Dose: 5 mg Documented by: Metoprolol Tartrate (Lopressor -) 25 mg PO BID [facility] Last Admin: 01/02/20 10:38 Dose: 25 mg Documented by: Miscellaneous (Duragesic Patch Waste) 1 each [facility] PRN PRN PRN Reason: PAIN Last Admin: 12/31/19 13:08 Dose: 1 each Documented by: Mycophenolate Mofetil (Cellcept -) 500 mg PO BID [facility] Last Admin: 01/02/20 10:37 Dose: 500 mg Documented by: Nifedipine (Procardia Xl -) 60 mg PO BID [facility] Last Admin: 01/02/20 10:38 Dose: 60 mg Documented by: Nortriptyline HCl (Pamelor -) 25 mg PO DAILY [facility] Last Admin: 01/02/20 10:38 Dose: 25 mg Documented by: Nystatin (Nystatin Oral Suspension -) 500,000 units PO Q6HPO [facility] Last Admin: 01/02/20 12:14 Dose: Not Given Documented by: Ondansetron HCl (Zofran Injection) 8 mg IVPUSH Q6H PRN PRN Reason: NAUSEA AND/OR VOMITING Last Admin: 01/01/20 00:16 Dose: 8 mg Documented by: Oxycodone HCl (Roxicodone -) 10 mg PO Q4H PRN PRN Reason: PAIN LEVEL 5-10 Last Admin: 01/02/20 10:37 Dose: 10 mg Documented by: Prednisone (Deltasone -) 5 mg PO HS [facility] Last Admin: 01/01/20 21:51 Dose: 5 mg Documented by: Tacrolimus (Prograf) 1 mg PO BID [facility] Last Admin: 01/02/20 10:39 Dose: 1 mg Documented by: Topiramate (Topamax -) 25 mg PO DAILY [facility] Last Admin: 01/02/20 10:38 Dose: 25 mg Documented by: - Objective Vital Signs: Vital Signs Temperature 98.6 F 01/02/20 09:47 Pulse Rate 98 H 01/02/20 09:47 Respiratory Rate 18 01/02/20 09:47 Blood Pressure 119/61 01/02/20 09:47 O2 Sat by Pulse Oximetry (%) 95 01/02/20 09:47 Constitutional: Yes: No Distress Eyes: Yes: Conjunctiva Clear HENT: Yes: Atraumatic Neck: Yes: Supple Cardiovascular: Yes: Regular Rate and Rhythm Respiratory: Yes: Regular, Diminished Extremities: No: Cyanosis Edema: No Neurological: Yes: Alert Labs: CBC, BMP 01/01/20 07:54 01/01/20 07:54 INR, PTT INR 1.36 (0.82-1.09) H 12/26/19 12:21 Assessment/Plan 59 year old male with history of Hep C with HCC s/p Liver and kidney transplant (2014), CHF, COPD, and hypertension who presented to the ED with anoxrexia and generalized weakness and admitted with suspected pnemonia and pleural effusion with suspicion of empyema. 1. CKD/Renal transplant with preserved eGFR 2. Anorexia/Weakness 3. Suspected pneumonia/empyema 4. Lung mass 5. Colitis/Constipation 6. Lactic acidosis 7. Hyponatremia Renal function stable Prograf level noted to be elevated, will reduce to 1mg BID and check repeat levels Continue prednisone and cellcept and monitor WBC levels Call placed to Priti (wedding day coordinator) at [phone] to discuss alteration in transplant medication. Trend renal function and electrolytes daily Continue zosyn as per ID s/p IR thoracentesis PRN Lasix for shortness of breath Thank you Alvin Alexandra DO
[2020-01-02] MEDS: ALPRAZolam 1 MG TABLET PO SCH ×2 (13:14→21:39)
[2020-01-02] MEDS: MEGESTROL ACETATE 400 MG/10 ML UNIT DOSE CUP PO SCH (13:34)
--- NOTE | 2020-01-02 14:47 | PN ---
Progress Note (short form) - Note Progress Note: pain better with meds no headaches S/P thoracentesis mild pain in left back no sob Vital Signs - 24 hr 01/01/20 01/01/20 01/01/20 18:00 21:00 21:12 Temperature 98.3 F 97.7 F Pulse Rate 98 H Respiratory 22 H 22 H Rate Blood Pressure 106/72 O2 Sat by Pulse 94 L 97 97 Oximetry (%) 01/01/20 01/02/20 01/02/20 21:16 02:00 07:42 Temperature 97.7 F 97.7 F 97.8 F Pulse Rate 70 92 H 101 H Respiratory 22 H 22 H 22 H Rate Blood Pressure 138/75 140/87 142/87 O2 Sat by Pulse 97 92 L 93 L Oximetry (%) 01/02/20 01/02/20 09:47 10:00 Temperature 98.6 F Pulse Rate 98 H Respiratory 18 Rate Blood Pressure 119/61 O2 Sat by Pulse 95 95 Oximetry (%) Current Medications Generic Name Dose Route Start Last Admin Trade Name Freq PRN Reason Stop Dose Admin Albuterol Sulfate 1 amp 12/31/19 12:27 01/01/20 08:32 Ventolin 0.083% Nebulizer Soln - NEB 1 amp Q4H PRN Administration SHORT OF BREATH/WHEEZING Alprazolam 0.5 mg 01/02/20 13:00 01/02/20 13:14 Xanax PO Not Given HS [facility] Amino Acids 30 ml 01/02/20 17:30 Prosource No Carb Liquid Pkt PO BID@0800,1730 [facility] Docusate Sodium 300 mg 12/28/19 22:00 01/01/20 21:48 Colace - PO 300 mg HS [facility] Administration Fentanyl 1 patch 12/28/19 10:00 12/31/19 10:59 Duragesic 12mcg Patch - TD 01/04/20 09:59 1 patch Q72H [facility] Administration Guaifenesin 10 ml 12/31/19 12:26 01/02/20 10:38 Robitussin Dm - PO 10 ml Q4H PRN Administration COUGH Heparin Sodium (Porcine) 5,000 unit 12/28/19 10:00 01/02/20 10:35 Heparin - SQ 5,000 unit BID [facility] Administration Potassium Chloride/Dextrose/Sod Cl 20 meq in 1,000 mls @ 42 mls/hr 12/27/19 11:45 01/02/20 12:12 D5-1/2ns+20 Meq Kcl - IV Not Given ASDIR [facility] Piperacillin Sod/Tazobactam 50 mls @ 100 mls/hr 12/27/19 18:00 01/02/20 09:50 Sod 3.375 gm/ Dextrose IVPB 100 mls/hr Q8H-IV [facility] Administration Protocol Insulin Aspart 1 vial 12/26/19 16:30 01/02/20 12:08 Novolog Vial Sliding Scale - SQ 4 units TIDAC [facility] Administration Protocol Insulin Detemir 14 units 12/26/19 22:00 01/02/20 10:34 Levemir Vial SQ 14 units BID [facility] Administration Megestrol Acetate 400 mg 01/02/20 13:00 01/02/20 13:34 Megace Oral Suspension - PO 400 mg DAILY [facility] Administration Metoclopramide HCl 5 mg 12/31/19 16:30 01/02/20 10:36 Reglan - PO 5 mg TIDAC [facility] Administration Metoprolol Tartrate 25 mg 12/26/19 22:00 01/02/20 10:38 Lopressor - PO 25 mg BID [facility] Administration Miscellaneous 1 each 12/28/19 09:58 12/31/19 13:08 Duragesic Patch Waste MC 1 each PRN PRN Administration PAIN Mycophenolate Mofetil 500 mg 12/26/19 22:00 01/02/20 10:37 Cellcept - PO 500 mg BID [facility] Administration Nifedipine 60 mg 12/26/19 22:00 01/02/20 10:38 Procardia Xl - PO 60 mg BID [facility] Administration Nortriptyline HCl 25 mg 12/27/19 10:00 01/02/20 10:38 Pamelor - PO 25 mg DAILY [facility] Administration Nystatin 500,000 units 12/29/19 18:00 01/02/20 12:14 Nystatin Oral Suspension - PO Not Given Q6HPO [facility] Ondansetron HCl 8 mg 12/30/19 11:40 01/01/20 00:16 Zofran Injection IVPUSH 8 mg Q6H PRN Administration NAUSEA AND/OR VOMITING Oxycodone HCl 10 mg 01/01/20 17:50 01/02/20 10:37 Roxicodone - PO 10 mg Q4H PRN Administration PAIN LEVEL 5-10 Prednisone 5 mg 12/26/19 22:00 01/01/20 21:51 Deltasone - PO 5 mg HS [facility] Administration Tacrolimus 1 mg 12/30/19 22:00 01/02/20 10:39 Prograf PO 1 mg BID [facility] Administration Topiramate 25 mg 12/27/19 10:00 01/02/20 10:38 Topamax - PO 25 mg DAILY [facility] Administration Laboratory Results - last 24 hr 01/01/20 01/02/20 01/02/20 21:50 05:33 11:25 POC Glucometer 279 141 206 vitals noted S1 S2 RRR Weak Lungs decreased Abd- soft, NT no edema PLAN hematology eval noted. radiation oncology noted Bone scan done-- noted results-- do not see bone mets thoracentesis today Pain control--continue oxycodone add Reglan tid decrease xanax will need PET -CT as outpatient DVT prophylaxis Problem List - Problems (1) Lung cancer Code(s): C34.90 - MALIGNANT NEOPLASM OF UNSP PART OF UNSP BRONCHUS OR LUNG (2) Pneumonia Code(s): J18.9 - PNEUMONIA, UNSPECIFIED ORGANISM Qualifiers: Qualified Code(s): J18.9 - Pneumonia, unspecified organism (3) DM Diabetes mellitus type 2 Code(s): E11.9 - TYPE 2 DIABETES MELLITUS WITHOUT COMPLICATIONS (4) HTN (hypertension) Code(s): I10 - ESSENTIAL (PRIMARY) HYPERTENSION
[2020-01-02] MEDS: AMINO ACIDS/PROTEIN HYDROLYS 30 ML LIQUID.PKT PO SCH (16:32)
--- NOTE | 2020-01-02 17:15 | PN ---
Physical Exam: SUBJECTIVE: Patient seen and examined. REports generalized pain, but denies fevers, chills, chest pain, SOB, abdominal pain,diarrhea. OBJECTIVE: Vital Signs Temperature 98.2 F 01/02/20 14:00 Pulse Rate 86 01/02/20 14:00 Respiratory Rate 18 01/02/20 14:00 Blood Pressure 116/65 01/02/20 14:00 O2 Sat by Pulse Oximetry (%) 95 01/02/20 14:00 GENERAL: The patient is awake, alert, and fully oriented, in no acute distress LUNGS: decreased breath sounds bilaterally HEART: Regular rate and rhythm, S1, S2 ABDOMEN: Soft, nontender, nondistended, normoactive bowel sounds EXTREMITIES: warm, well-perfused, no edema. SKIN: Warm, dry, normal turgor Laboratory Results - last 24 hr 01/01/20 01/02/20 01/02/20 21:50 05:33 11:25 POC Glucometer 279 141 206 01/02/20 16:26 POC Glucometer 142 Active Medications Generic Name Dose Route Start Last Admin Trade Name Freq PRN Reason Stop Dose Admin Albuterol Sulfate 1 amp 12/31/19 12:27 01/01/20 08:32 Ventolin 0.083% Nebulizer Soln - NEB 1 amp Q4H PRN Administration SHORT OF BREATH/WHEEZING Alprazolam 0.5 mg 01/02/20 13:00 01/02/20 13:14 Xanax PO Not Given HS [facility] Amino Acids 30 ml 01/02/20 17:30 01/02/20 16:32 Prosource No Carb Liquid Pkt PO 30 ml BID@0800,1730 [facility] Administration Docusate Sodium 300 mg 12/28/19 22:00 01/01/20 21:48 Colace - PO 300 mg HS [facility] Administration Fentanyl 1 patch 12/28/19 10:00 12/31/19 10:59 Duragesic 12mcg Patch - TD 01/04/20 09:59 1 patch Q72H [facility] Administration Guaifenesin 10 ml 12/31/19 12:26 01/01/20 18:12 Robitussin Dm - PO 10 ml Q4H PRN Administration COUGH Heparin Sodium (Porcine) 5,000 unit 12/28/19 10:00 01/02/20 10:35 Heparin - SQ 5,000 unit BID [facility] Administration Potassium Chloride/Dextrose/Sod Cl 20 meq in 1,000 mls @ 42 mls/hr 12/27/19 11:45 01/02/20 12:12 D5-1/2ns+20 Meq Kcl - IV Not Given ASDIR [facility] Piperacillin Sod/Tazobactam 50 mls @ 100 mls/hr 12/27/19 18:00 01/02/20 09:50 Sod 3.375 gm/ Dextrose IVPB 100 mls/hr Q8H-IV [facility] Administration Protocol Insulin Aspart 1 vial 12/26/19 16:30 01/02/20 16:27 Novolog Vial Sliding Scale - SQ Not Given TIDAC [facility] Protocol Insulin Detemir 14 units 12/26/19 22:00 01/02/20 10:34 Levemir Vial SQ 14 units BID [facility] Administration Megestrol Acetate 400 mg 01/02/20 13:00 01/02/20 13:34 Megace Oral Suspension - PO 400 mg DAILY [facility] Administration Metoclopramide HCl 5 mg 12/31/19 16:30 01/02/20 16:32 Reglan - PO 5 mg TIDAC [facility] Administration Metoprolol Tartrate 25 mg 12/26/19 22:00 01/02/20 10:38 Lopressor - PO 25 mg BID [facility] Administration Miscellaneous 1 each 12/28/19 09:58 12/31/19 13:08 Duragesic Patch Waste MC 1 each PRN PRN Administration PAIN Mycophenolate Mofetil 500 mg 12/26/19 22:00 01/02/20 10:37 Cellcept - PO 500 mg BID [facility] Administration Nifedipine 60 mg 12/26/19 22:00 01/02/20 10:38 Procardia Xl - PO 60 mg BID [facility] Administration Nortriptyline HCl 25 mg 12/27/19 10:00 01/02/20 10:38 Pamelor - PO 25 mg DAILY [facility] Administration Nystatin 500,000 units 12/29/19 18:00 01/02/20 12:14 Nystatin Oral Suspension - PO Not Given Q6HPO [facility] Ondansetron HCl 8 mg 12/30/19 11:40 01/01/20 00:16 Zofran Injection IVPUSH 8 mg Q6H PRN Administration NAUSEA AND/OR VOMITING Oxycodone HCl 10 mg 01/01/20 17:50 01/02/20 15:41 Roxicodone - PO 10 mg Q4H PRN Administration PAIN LEVEL 5-10 Prednisone 5 mg 12/26/19 22:00 01/01/20 21:51 Deltasone - PO 5 mg HS [facility] Administration Tacrolimus 1 mg 12/30/19 22:00 01/02/20 10:39 Prograf PO 1 mg BID [facility] Administration Topiramate 25 mg 12/27/19 10:00 01/02/20 10:38 Topamax - PO 25 mg DAILY [facility] Administration ASSESSMENT/PLAN: Patient is a 59 year old male with past medical history of ?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 #LAUREL lung mass -Chest CT : interval increased LAUREL opacity consistent with an infiltrate. Interval development of moderate to large at least partially loculated left pleural fluid collection, sterile vs possibly empyema. Large left hilar lesion with contiguous mediastinal extension. Extensive mediastinal lymphadenopathy. Possible ascending and transverse colitis. 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 -ID consulted. REcs appreciated. -Pulm consulted. Recs appreciated. -Rad-onc consulted. Recs appreciated. 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 - New Patient This patient is new to me today: No - Critical Care Critical Care patient: No ATTENDING PHYSICIAN STATEMENT I saw and evaluated the patient. I reviewed the resident's note and discussed the case with the resident. I agree with the resident's findings and plan as documented. SUBJECTIVE: OBJECTIVE: ASSESSMENT AND PLAN:
--- NOTE | 2020-01-02 20:24 | PN ---
Teaching Attending Note Name of Resident: Martha Briggs ATTENDING PHYSICIAN STATEMENT I saw and evaluated the patient. I reviewed the resident's note and discussed the case with the resident. I agree with the resident's findings and plan as documented. ASSESSMENT AND PLAN: 59 yo M with h/o HCC, liver and renal transplant. On cellcept and prograf. +L. hilar mass, bx c/w SCLCa. Disease to mediatinum, LAUREL bronchus. +L. eff, s/p dx'd thoracentesis, cytology pending. Brain MRI neg, bone scan neg. No current CARMONA, n/v, or SOB. C/o body aches. Improving appetite. Dec BS L. 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 Would benefit from outpt chemotherapy +/- RTX. d/w House Staff.
[2020-01-02] MEDS: predniSONE 5 MG TABLET (UD) PO SCH (21:40)
[2020-01-02] MEDS: DOCUSATE SODIUM 100 MG CAPSULE (FP) PO SCH (21:40)
[2020-01-03] MEDS: D5-1/2NS+20 MEQ KCL - 20 MEQ/1,000 ML INFUS.BAG IV SCH ×2 (00:19→11:51)
[2020-01-03] MEDS: NYSTATIN 500,000 UNITS/5 ML SUSPENSION PO SCH ×5 (00:19→18:15)
[2020-01-03] MEDS ORDERED: PIPERACILLIN/TAZOBACTAM 3.375 GM VIAL IVPB ONE ×3 (01:08→16:06)
[2020-01-03] MEDS ORDERED: DEXTROSE 5%-WATER - 50 ML IVPB ONE ×3 (01:08→16:07)
[2020-01-03] MEDS: PIPERACILLIN/TAZOB 3.375 GM 3.375 GM in DEXTROSE 5%-WATER - 50 ML IVPB SCH ×3 (01:49→18:15)
[2020-01-03] MEDS: oxyCODONE HCL 5 MG TABLET PO PRN ×5 (01:50→20:16)
[2020-01-03] MEDS: guaiFENesin/D-METHORPHAN HB 10 ML UNIT-DOSE CUPS PO PRN (02:01)
[2020-01-03] MEDS: METOCLOPRAMIDE HCL 10 MG TABLET (FP) PO SCH ×3 (06:54→16:09)
[2020-01-03] MEDS: INSULIN SLIDING SCALE (NOVOLOG) 1 VIAL SQ SCH ×3 (06:54→16:15)
[2020-01-03] MEDS ORDERED: INSULIN (NOVOLOG) ASPART 100 UNITS/ML 10ML VIAL ONE (06:58)
[2020-01-03] MEDS: ALBUTEROL SO4 0.083% IH SOL 2.5 MG/3 ML VIAL.NEB. NEB PRN (08:27)
[2020-01-03] MEDS ORDERED: FENTANYL PATCH WASTE MC PRN (10:26)
--- NOTE | 2020-01-03 10:29 | PN ---
Progress Note, Physician History of Present Illness: patient seen and examined today Chart is reviewed awake anxious dont want meds complains of pain sob + - Current Medication List Current Medications: Active Medications Albuterol Sulfate (Ventolin 0.083% Nebulizer Soln -) 1 amp NEB Q4H PRN PRN Reason: SHORT OF BREATH/WHEEZING Last Admin: 01/03/20 08:27 Dose: 1 amp Documented by: Alprazolam (Xanax) 0.5 mg PO [facility] Last Admin: 01/02/20 21:39 Dose: 0.5 mg Documented by: Amino Acids (Prosource No Carb Liquid Pkt) 30 ml PO BID@0800,1730 [facility] Last Admin: 01/02/20 16:32 Dose: 30 ml Documented by: Docusate Sodium (Colace -) 300 mg PO [facility] Last Admin: 01/02/20 21:40 Dose: 300 mg Documented by: Fentanyl (Duragesic 12mcg Patch -) 1 patch TD Q72H [facility] Stop: 01/04/20 09:59 Last Admin: 12/31/19 10:59 Dose: 1 patch Documented by: Fentanyl (Duragesic 25mcg Patch -) 1 patch TD Q72H [facility] Stop: 01/10/20 10:26 Guaifenesin (Robitussin Dm -) 10 ml PO Q4H PRN PRN Reason: COUGH Last Admin: 01/03/20 02:01 Dose: 10 ml Documented by: Heparin Sodium (Porcine) (Heparin -) 5,000 unit SQ BID [facility] Last Admin: 01/02/20 21:40 Dose: 5,000 unit Documented by: Potassium Chloride/Dextrose/Sod Cl (D5-1/2ns+20 Meq Kcl -) 20 meq in 1,000 mls @ 42 mls/hr IV ASDIR [facility] Last Admin: 01/03/20 00:19 Dose: 42 mls/hr Documented by: Piperacillin Sod/Tazobactam (Sod 3.375 gm/ Dextrose) 50 mls @ 100 mls/hr IVPB Q8H-IV [facility]; Protocol Last Admin: 01/03/20 01:49 Dose: 100 mls/hr Documented by: Insulin Aspart (Novolog Vial Sliding Scale -) 1 vial SQ TIDAC [facility]; Protocol Last Admin: 01/03/20 06:54 Dose: Not Given Documented by: Insulin Detemir (Levemir Vial) 14 units SQ BID [facility] Last Admin: 01/02/20 23:01 Dose: Not Given Documented by: Megestrol Acetate (Megace Oral Suspension -) 400 mg PO DAILY [facility] Last Admin: 01/02/20 13:34 Dose: 400 mg Documented by: Metoclopramide HCl (Reglan -) 5 mg PO TIDAC [facility] Last Admin: 01/03/20 06:54 Dose: Not Given Documented by: Metoprolol Tartrate (Lopressor -) 25 mg PO BID [facility] Last Admin: 01/02/20 21:39 Dose: 25 mg Documented by: Miscellaneous (Duragesic Patch Waste) 1 each MC PRN PRN PRN Reason: PAIN Mycophenolate Mofetil (Cellcept -) 500 mg PO BID [facility] Last Admin: 01/02/20 21:40 Dose: 500 mg Documented by: Nifedipine (Procardia Xl -) 60 mg PO BID [facility] Last Admin: 01/02/20 21:39 Dose: 60 mg Documented by: Nortriptyline HCl (Pamelor -) 25 mg PO DAILY [facility] Last Admin: 01/02/20 10:38 Dose: 25 mg Documented by: Nystatin (Nystatin Oral Suspension -) 500,000 units PO Q6HPO [facility] Last Admin: 01/03/20 05:35 Dose: Not Given Documented by: Ondansetron HCl (Zofran Injection) 8 mg IVPUSH Q6H PRN PRN Reason: NAUSEA AND/OR VOMITING Last Admin: 01/01/20 00:16 Dose: 8 mg Documented by: Oxycodone HCl (Roxicodone -) 10 mg PO Q4H PRN PRN Reason: PAIN LEVEL 5-10 Last Admin: 01/03/20 08:56 Dose: 10 mg Documented by: Prednisone (Deltasone -) 5 mg PO HS [facility] Last Admin: 01/02/20 21:40 Dose: 5 mg Documented by: Tacrolimus (Prograf) 1 mg PO BID [facility] Last Admin: 01/02/20 21:41 Dose: 1 mg Documented by: Topiramate (Topamax -) 25 mg PO DAILY [facility] Last Admin: 01/02/20 10:38 Dose: 25 mg Documented by: - Objective Vital Signs: Vital Signs Temperature 98.1 F 01/03/20 09:18 Pulse Rate 103 H 01/03/20 09:18 Respiratory Rate 18 01/03/20 09:18 Blood Pressure 137/79 01/03/20 09:18 O2 Sat by Pulse Oximetry (%) 95 01/03/20 09:18 Constitutional: Yes: Anxious Neck: Yes: Supple Cardiovascular: Yes: Regular Rate and Rhythm Respiratory: Yes: Diminished Gastrointestinal: Yes: Soft Edema: No Neurological: Yes: Alert Labs: CBC, BMP 01/01/20 07:54 01/01/20 07:54 INR, PTT INR 1.36 (0.82-1.09) H 12/26/19 12:21 Problem List - Problems (1) Lung cancer Code(s): C34.90 - MALIGNANT NEOPLASM OF UNSP PART OF UNSP BRONCHUS OR LUNG (2) Pneumonia Code(s): J18.9 - PNEUMONIA, UNSPECIFIED ORGANISM Qualifiers: Pneumonia type: due to unspecified organism Laterality: left Lung location: lower lobe of lung Qualified Code(s): J18.9 - Pneumonia, unspecified organism (3) Diabetes Code(s): E11.9 - TYPE 2 DIABETES MELLITUS WITHOUT COMPLICATIONS (4) Lung mass Code(s): R91.8 - OTHER NONSPECIFIC ABNORMAL FINDING OF LUNG FIELD (5) Transplanted organ and tissue status Code(s): Z94.9 - TRANSPLANTED ORGAN AND TISSUE STATUS, UNSPECIFIED (6) Pericardial effusion Code(s): I31.3 - PERICARDIAL EFFUSION (NONINFLAMMATORY) Assessment/Plan Discussed with RN/ Pt Continue present care Fall precautions matias cath--IR wants to do out pt only- oxygen Increase fentanyl patch dose cxr will follow abx
[2020-01-03] MEDS: fentaNYL 12mcg/hr PATCH.TD72 TD SCH (11:01)
[2020-01-03] MEDS: fentaNYL 25mcg/hr PATCH.TD72 TD SCH (11:29)
[2020-01-03] MEDS ORDERED: ONDANSETRON 4 MG/2 ML VIAL IVPB PRN (11:39)
[2020-01-03] MEDS: ONDANSETRON 4 MG/2 ML VIAL IVPUSH PRN (11:40)
[2020-01-03] MEDS: TOPIRAMATE 25 MG TABLET PO SCH (11:44)
[2020-01-03] MEDS: HEPARIN NA (PORCINE) 5,000 UNITS/ML 1ML VIAL SQ SCH ×2 (11:45→22:29)
[2020-01-03] MEDS: METOPROLOL TARTRATE 25 MG TABLET (FP) PO SCH ×2 (11:45→22:28)
[2020-01-03] MEDS: TACROLIMUS ANHYDROUS 1 MG CAPSULE PO SCH ×2 (11:45→22:30)
--- NOTE | 2020-01-03 11:45 | PN ---
Progress Note (short form) - Note Progress Note: Pulmonary vss/afebrile Constitutional: Yes: Well Nourished, Calm Eyes: Yes: WNL HENT: Yes: WNL Neck: Yes: WNL Cardiovascular: Yes: Regular Rate and Rhythm, S1, S2 Respiratory: Yes: Diminished Gastrointestinal: Yes: Normal Bowel Sounds, Soft Extremities: Yes: WNL Edema: No Labs: reviewed images noted pleural tap bloody/lymphocyte predominant chem/cytol pending LARGE MASS (PRESUMED SMALL CELL ON PATH) AND LOCULATED EFFUSION AWAITING CYTOLOGY INHALED BRONCHODILATORS/ANALGESICS/ANTIBIOTICS ZOILA DUPREE MD Problem List - Problems (1) Nausea Code(s): R11.0 - NAUSEA (2) Lung cancer Code(s): C34.90 - MALIGNANT NEOPLASM OF UNSP PART OF UNSP BRONCHUS OR LUNG (3) Pneumonia Code(s): J18.9 - PNEUMONIA, UNSPECIFIED ORGANISM Qualifiers: Pneumonia type: due to unspecified organism Laterality: left Lung location: lower lobe of lung Qualified Code(s): J18.9 - Pneumonia, unspecified organism (4) CKD (chronic kidney disease) stage 5, GFR less than 15 ml/min Code(s): N18.5 - CHRONIC KIDNEY DISEASE, STAGE 5 (5) DM Diabetes mellitus type 2 Code(s): E11.9 - TYPE 2 DIABETES MELLITUS WITHOUT COMPLICATIONS (6) HTN (hypertension) Code(s): I10 - ESSENTIAL (PRIMARY) HYPERTENSION (7) Infiltrate noted on imaging study Code(s): R93.8 - ABNORMAL FINDINGS ON DIAGNOSTIC IMAGING OF ANN * DO NOT USE * (8) Lung mass Code(s): R91.8 - OTHER NONSPECIFIC ABNORMAL FINDING OF LUNG FIELD (9) Transplanted organ and tissue status Code(s): Z94.9 - TRANSPLANTED ORGAN AND TISSUE STATUS, UNSPECIFIED
[2020-01-03] MEDS: AMINO ACIDS/PROTEIN HYDROLYS 30 ML LIQUID.PKT PO SCH ×3 (11:46→18:15)
[2020-01-03] MEDS: MEGESTROL ACETATE 400 MG/10 ML UNIT DOSE CUP PO SCH (11:46)
[2020-01-03] MEDS: NORTRIPTYLINE HCL 25 MG CAPSULE PO SCH (11:46)
[2020-01-03] MEDS: NIFEdipine E.R 60 MG TABLET PO SCH ×2 (11:46→22:28)
[2020-01-03] MEDS: MYCOPHENOLATE MOFETIL 500 MG TABLET PO SCH ×2 (11:47→22:29)
[2020-01-03] MEDS: INSULIN (LEVEMIR) 100 UNITS/ML UNITS SQ SCH ×2 (11:51→22:30)
--- NOTE | 2020-01-03 11:52 | PATH ---
Cytology Non-Gynecological Report Patient Name: CATRACHO GARCIA [facility]. Rec. #: [id number] /Age/Gender: 1960 (Age: 59) / M Account: [id number] Location: [address] [place] [address]/[facility] Taken: 01/01/2020 Received: 01/01/2020 Reported: 01/03/2020 Physicians: Adrian Merino M.D. Specimen(s) Received A: PLEURAL FLUID B: PLEURAL FLUID Clinical History Pleural effusion Final Diagnosis A-B. PLEURAL FLUID, THORACENTESIS: SATISFACTORY FOR EVALUATION NEGATIVE FOR MALIGNANCY. MESOTHELIAL CELLS, RED BLOOD CELLS, AND LYMPHOCYTES PRESENT. Comment: Prior materials are noted. Electronically Signed Shereen Renteria M.D. Gross Description A. Approximately 35 cc of blood tinged fluid received fixed in 50% alcohol. One cytofunnel prepared and Pap stained. One cellblock prepared. B. Approximately 900 cc dark yellow of yellow fluid received fresh. One cytofunnel prepared and Pap stained. One cellblock prepared.
--- NOTE | 2020-01-03 12:43 | PN ---
Progress Note, Physician History of Present Illness: AWAKE IN BED C/O GENERALIZED PAIN CHRONICALY ILL APPEARING AFEBRILE WBC ELEVATED PLEURAL FLUID CULTURES NEGATIVE - Current Medication List Current Medications: Active Medications Albuterol Sulfate (Ventolin 0.083% Nebulizer Soln -) 1 amp NEB Q4H PRN PRN Reason: SHORT OF BREATH/WHEEZING Last Admin: 01/03/20 08:27 Dose: 1 amp Documented by: Alprazolam (Xanax) 0.5 mg PO [facility] Last Admin: 01/02/20 21:39 Dose: 0.5 mg Documented by: Amino Acids (Prosource No Carb Liquid Pkt) 30 ml PO BID@0800,1730 [facility] Last Admin: 01/03/20 11:46 Dose: 30 ml Documented by: Docusate Sodium (Colace -) 300 mg PO [facility] Last Admin: 01/02/20 21:40 Dose: 300 mg Documented by: Fentanyl (Duragesic 25mcg Patch -) 1 patch TD Q72H [facility] Stop: 01/10/20 10:26 Last Admin: 01/03/20 11:29 Dose: 1 patch Documented by: Guaifenesin (Robitussin Dm -) 10 ml PO Q4H PRN PRN Reason: COUGH Last Admin: 01/03/20 02:01 Dose: 10 ml Documented by: Heparin Sodium (Porcine) (Heparin -) 5,000 unit SQ BID [facility] Last Admin: 01/03/20 11:45 Dose: 5,000 unit Documented by: Potassium Chloride/Dextrose/Sod Cl (D5-1/2ns+20 Meq Kcl -) 20 meq in 1,000 mls @ 42 mls/hr IV ASDIR [facility] Last Admin: 01/03/20 11:51 Dose: Not Given Documented by: Piperacillin Sod/Tazobactam (Sod 3.375 gm/ Dextrose) 50 mls @ 100 mls/hr IVPB Q8H-IV [facility]; Protocol Last Admin: 01/03/20 11:47 Dose: 100 mls/hr Documented by: Insulin Aspart (Novolog Vial Sliding Scale -) 1 vial SQ TIDAC [facility]; Protocol Last Admin: 01/03/20 11:47 Dose: 4 units Documented by: Insulin Detemir (Levemir Vial) 14 units SQ BID [facility] Last Admin: 01/03/20 11:51 Dose: 14 units Documented by: Megestrol Acetate (Megace Oral Suspension -) 400 mg PO DAILY [facility] Last Admin: 01/03/20 11:46 Dose: 400 mg Documented by: Metoclopramide HCl (Reglan -) 5 mg PO TIDAC [facility] Last Admin: 01/03/20 11:44 Dose: 5 mg Documented by: Metoprolol Tartrate (Lopressor -) 25 mg PO BID [facility] Last Admin: 01/03/20 11:45 Dose: 25 mg Documented by: Miscellaneous (Duragesic Patch Waste) 1 each MC PRN PRN PRN Reason: PAIN Mycophenolate Mofetil (Cellcept -) 500 mg PO BID [facility] Last Admin: 01/03/20 11:47 Dose: 500 mg Documented by: Nifedipine (Procardia Xl -) 60 mg PO BID [facility] Last Admin: 01/03/20 11:46 Dose: 60 mg Documented by: Nortriptyline HCl (Pamelor -) 25 mg PO DAILY [facility] Last Admin: 01/03/20 11:46 Dose: 25 mg Documented by: Nystatin (Nystatin Oral Suspension -) 500,000 units PO Q6HPO [facility] Last Admin: 01/03/20 12:28 Dose: Not Given Documented by: Ondansetron HCl (Zofran Injection) 8 mg IVPB Q6H PRN PRN Reason: NAUSEA AND/OR VOMITING Oxycodone HCl (Roxicodone -) 10 mg PO Q4H PRN PRN Reason: PAIN LEVEL 5-10 Last Admin: 01/03/20 08:56 Dose: 10 mg Documented by: Prednisone (Deltasone -) 5 mg PO HS [facility] Last Admin: 01/02/20 21:40 Dose: 5 mg Documented by: Tacrolimus (Prograf) 1 mg PO BID [facility] Last Admin: 01/03/20 11:45 Dose: 1 mg Documented by: Topiramate (Topamax -) 25 mg PO DAILY [facility] Last Admin: 01/03/20 11:44 Dose: 25 mg Documented by: - Objective Vital Signs: Vital Signs Temperature 98.1 F 01/03/20 09:18 Pulse Rate 103 H 01/03/20 09:18 Respiratory Rate 18 01/03/20 09:18 Blood Pressure 137/79 01/03/20 09:18 O2 Sat by Pulse Oximetry (%) 95 01/03/20 10:00 Constitutional: Yes: No Distress Eyes: Yes: Conjunctiva Clear Cardiovascular: Yes: Regular Rate and Rhythm, S1, S2 Respiratory: Yes: CTA Bilaterally Gastrointestinal: Yes: Normal Bowel Sounds, Soft. No: Tenderness Edema: No Labs: CBC, BMP 01/01/20 07:54 01/01/20 07:54 INR, PTT INR 1.36 (0.82-1.09) H 12/26/19 12:21 Assessment/Plan ?POST OBSTRUCTIVE PNEUMONIA LAUREL LOCULATED PLEURAL EFFUSION SMALL CELL CA MEDIASTINAL ADENOPATHY COLITIS AWAIT PLEURAL FLUID C/S CONTINUE EMPIRIC ZOSYN
--- NOTE | 2020-01-03 16:39 | PN ---
Physical Exam: SUBJECTIVE: Patient seen and examined OBJECTIVE: Vital Signs Temperature 97.7 F 01/03/20 14:00 Pulse Rate 92 H 01/03/20 14:00 Respiratory Rate 18 01/03/20 14:00 Blood Pressure 124/73 01/03/20 14:00 O2 Sat by Pulse Oximetry (%) 96 01/03/20 14:00 GENERAL: The patient is awake, alert, and fully oriented, in no acute distress LUNGS: decreased breath sounds bilaterally HEART: Regular rate and rhythm, S1, S2 ABDOMEN: Soft, nontender, nondistended, normoactive bowel sounds EXTREMITIES: warm, well-perfused, no edema. SKIN: Warm, dry, normal turgor Laboratory Results - last 24 hr 01/01/20 01/02/20 01/03/20 12:45 21:47 11:28 POC Glucometer 213 239 Fluid Glucose 142 Fluid Total Protein 3.7 Body Fluid LDH Source 643 Fluid Amylase 14 Fluid Triglycerides 49 01/03/20 16:14 POC Glucometer 204 Fluid Glucose Fluid Total Protein Body Fluid LDH Source Fluid Amylase Fluid Triglycerides Active Medications Generic Name Dose Route Start Last Admin Trade Name Freq PRN Reason Stop Dose Admin Albuterol Sulfate 1 amp 12/31/19 12:27 01/03/20 08:27 Ventolin 0.083% Nebulizer Soln - NEB 1 amp Q4H PRN Administration SHORT OF BREATH/WHEEZING Alprazolam 0.5 mg 01/02/20 13:00 01/02/20 21:39 Xanax PO 0.5 mg HS [facility] Administration Amino Acids 30 ml 01/02/20 17:30 01/03/20 13:07 Prosource No Carb Liquid Pkt PO Not Given BID@0800,1730 [facility] Docusate Sodium 300 mg 12/28/19 22:00 01/02/20 21:40 Colace - PO 300 mg HS [facility] Administration Fentanyl 1 patch 01/03/20 10:30 01/03/20 11:29 Duragesic 25mcg Patch - TD 01/10/20 10:26 1 patch Q72H [facility] Administration Guaifenesin 10 ml 12/31/19 12:26 01/03/20 02:01 Robitussin Dm - PO 10 ml Q4H PRN Administration COUGH Heparin Sodium (Porcine) 5,000 unit 12/28/19 10:00 01/03/20 11:45 Heparin - SQ 5,000 unit BID [facility] Administration Potassium Chloride/Dextrose/Sod Cl 20 meq in 1,000 mls @ 42 mls/hr 12/27/19 11:45 01/03/20 11:51 D5-1/2ns+20 Meq Kcl - IV Not Given ASDIR [facility] Piperacillin Sod/Tazobactam 50 mls @ 100 mls/hr 12/27/19 18:00 01/03/20 11:47 Sod 3.375 gm/ Dextrose IVPB 100 mls/hr Q8H-IV [facility] Administration Protocol Insulin Aspart 1 vial 12/26/19 16:30 01/03/20 16:15 Novolog Vial Sliding Scale - SQ 2 units TIDAC [facility] Administration Protocol Insulin Detemir 14 units 12/26/19 22:00 01/03/20 11:51 Levemir Vial SQ 14 units BID [facility] Administration Megestrol Acetate 400 mg 01/02/20 13:00 01/03/20 11:46 Megace Oral Suspension - PO 400 mg DAILY [facility] Administration Metoclopramide HCl 5 mg 12/31/19 16:30 01/03/20 16:09 Reglan - PO 5 mg TIDAC [facility] Administration Metoprolol Tartrate 25 mg 12/26/19 22:00 01/03/20 11:45 Lopressor - PO 25 mg BID [facility] Administration Miscellaneous 1 each 01/03/20 10:26 01/03/20 12:51 Duragesic Patch Waste MC 1 each PRN PRN Administration PAIN Mycophenolate Mofetil 500 mg 12/26/19 22:00 01/03/20 11:47 Cellcept - PO 500 mg BID [facility] Administration Nifedipine 60 mg 12/26/19 22:00 01/03/20 11:46 Procardia Xl - PO 60 mg BID [facility] Administration Nortriptyline HCl 25 mg 12/27/19 10:00 01/03/20 11:46 Pamelor - PO 25 mg DAILY [facility] Administration Nystatin 500,000 units 12/29/19 18:00 01/03/20 12:28 Nystatin Oral Suspension - PO Not Given Q6HPO [facility] Ondansetron HCl 8 mg 01/03/20 11:39 Zofran Injection IVPB Q6H PRN NAUSEA AND/OR VOMITING Oxycodone HCl 10 mg 01/01/20 17:50 01/03/20 16:09 Roxicodone - PO 10 mg Q4H PRN Administration PAIN LEVEL 5-10 Prednisone 5 mg 12/26/19 22:00 01/02/20 21:40 Deltasone - PO 5 mg HS [facility] Administration Tacrolimus 1 mg 12/30/19 22:00 01/03/20 11:45 Prograf PO 1 mg BID [facility] Administration Topiramate 25 mg 12/27/19 10:00 01/03/20 11:44 Topamax - PO 25 mg DAILY [facility] Administration ASSESSMENT/PLAN: Patient is a 59 year old male with past medical history of ?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 #LAUREL lung mass -Chest CT : interval increased LAUREL opacity consistent with an infiltrate. Interval development of moderate to large at least partially loculated left pleural fluid collection, sterile vs possibly empyema. Large left hilar lesion with contiguous mediastinal extension. Extensive mediastinal lymphadenopathy. Possible ascending and transverse colitis. 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 -ID consulted. REcs appreciated. -Pulm consulted. Recs appreciated. -Rad-onc consulted. Recs appreciated. 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 - New Patient This patient is new to me today: No - Critical Care Critical Care patient: No ATTENDING PHYSICIAN STATEMENT I saw and evaluated the patient. I reviewed the resident's note and discussed the case with the resident. I agree with the resident's findings and plan as documented. SUBJECTIVE: OBJECTIVE: ASSESSMENT AND PLAN:
--- NOTE | 2020-01-03 16:43 | PN ---
Progress Note, Physician Chief Complaint: Shortness of breath History of Present Illness: Seen and examined at the bedside. Awake and alert. offers no acute complaints has no significant shortness of breath now no chest pain making urine - Current Medication List Current Medications: Active Medications Albuterol Sulfate (Ventolin 0.083% Nebulizer Soln -) 1 amp NEB Q4H PRN PRN Reason: SHORT OF BREATH/WHEEZING Last Admin: 01/03/20 08:27 Dose: 1 amp Documented by: Alprazolam (Xanax) 0.5 mg PO [facility] Last Admin: 01/02/20 21:39 Dose: 0.5 mg Documented by: Amino Acids (Prosource No Carb Liquid Pkt) 30 ml PO BID@0800,1730 [facility] Last Admin: 01/03/20 13:07 Dose: Not Given Documented by: Docusate Sodium (Colace -) 300 mg PO [facility] Last Admin: 01/02/20 21:40 Dose: 300 mg Documented by: Fentanyl (Duragesic 25mcg Patch -) 1 patch TD Q72H [facility] Stop: 01/10/20 10:26 Last Admin: 01/03/20 11:29 Dose: 1 patch Documented by: Guaifenesin (Robitussin Dm -) 10 ml PO Q4H PRN PRN Reason: COUGH Last Admin: 01/03/20 02:01 Dose: 10 ml Documented by: Heparin Sodium (Porcine) (Heparin -) 5,000 unit SQ BID [facility] Last Admin: 01/03/20 11:45 Dose: 5,000 unit Documented by: Potassium Chloride/Dextrose/Sod Cl (D5-1/2ns+20 Meq Kcl -) 20 meq in 1,000 mls @ 42 mls/hr IV ASDIR [facility] Last Admin: 01/03/20 11:51 Dose: Not Given Documented by: Piperacillin Sod/Tazobactam (Sod 3.375 gm/ Dextrose) 50 mls @ 100 mls/hr IVPB Q8H-IV [facility]; Protocol Last Admin: 01/03/20 11:47 Dose: 100 mls/hr Documented by: Insulin Aspart (Novolog Vial Sliding Scale -) 1 vial SQ TIDAC [facility]; Protocol Last Admin: 01/03/20 16:15 Dose: 2 units Documented by: Insulin Detemir (Levemir Vial) 14 units SQ BID [facility] Last Admin: 01/03/20 11:51 Dose: 14 units Documented by: Megestrol Acetate (Megace Oral Suspension -) 400 mg PO DAILY [facility] Last Admin: 01/03/20 11:46 Dose: 400 mg Documented by: Metoclopramide HCl (Reglan -) 5 mg PO TIDAC [facility] Last Admin: 01/03/20 16:09 Dose: 5 mg Documented by: Metoprolol Tartrate (Lopressor -) 25 mg PO BID [facility] Last Admin: 01/03/20 11:45 Dose: 25 mg Documented by: Miscellaneous (Duragesic Patch Waste) 1 each MC PRN PRN PRN Reason: PAIN Last Admin: 01/03/20 12:51 Dose: 1 each Documented by: Mycophenolate Mofetil (Cellcept -) 500 mg PO BID [facility] Last Admin: 01/03/20 11:47 Dose: 500 mg Documented by: Nifedipine (Procardia Xl -) 60 mg PO BID [facility] Last Admin: 01/03/20 11:46 Dose: 60 mg Documented by: Nortriptyline HCl (Pamelor -) 25 mg PO DAILY [facility] Last Admin: 01/03/20 11:46 Dose: 25 mg Documented by: Nystatin (Nystatin Oral Suspension -) 500,000 units PO Q6HPO [facility] Last Admin: 01/03/20 12:28 Dose: Not Given Documented by: Ondansetron HCl (Zofran Injection) 8 mg IVPB Q6H PRN PRN Reason: NAUSEA AND/OR VOMITING Oxycodone HCl (Roxicodone -) 10 mg PO Q4H PRN PRN Reason: PAIN LEVEL 5-10 Last Admin: 01/03/20 16:09 Dose: 10 mg Documented by: Prednisone (Deltasone -) 5 mg PO HS [facility] Last Admin: 01/02/20 21:40 Dose: 5 mg Documented by: Tacrolimus (Prograf) 1 mg PO BID [facility] Last Admin: 01/03/20 11:45 Dose: 1 mg Documented by: Topiramate (Topamax -) 25 mg PO DAILY [facility] Last Admin: 01/03/20 11:44 Dose: 25 mg Documented by: - Objective Vital Signs: Vital Signs Temperature 97.7 F 01/03/20 14:00 Pulse Rate 92 H 01/03/20 14:00 Respiratory Rate 18 01/03/20 14:00 Blood Pressure 124/73 01/03/20 14:00 O2 Sat by Pulse Oximetry (%) 96 01/03/20 14:00 Constitutional: Yes: No Distress HENT: Yes: Atraumatic Neck: Yes: Supple Labs: CBC, BMP 01/01/20 07:54 01/01/20 07:54 INR, PTT INR 1.36 (0.82-1.09) H 12/26/19 12:21 Assessment/Plan 59 year old male with history of Hep C with HCC s/p Liver and kidney transplant (2014), CHF, COPD, and hypertension who presented to the ED with anoxrexia and generalized weakness and admitted with suspected pnemonia and pleural effusion with suspicion of empyema. 1. CKD/Renal transplant with preserved eGFR 2. Anorexia/Weakness 3. Suspected pneumonia/empyema 4. Lung mass 5. Colitis/Constipation 6. Lactic acidosis 7. Hyponatremia Renal function stable Continue immunosuppressives as ordered Prograf level noted to be elevated, dose reduced to 1mg BID. Repeat levels pending Continue prednisone and cellcept and monitor WBC levels Call placed to Priti (ems coordinator) at [phone] to discuss alteration in transplant medication. Trend renal function and electrolytes daily Continue zosyn as per ID s/p IR thoracentesis PRN Lasix for shortness of breath Thank you Alvin Alexandra DO
--- NOTE | 2020-01-03 16:58 | PN ---
Teaching Attending Note Name of Resident: Martha Briggs ATTENDING PHYSICIAN STATEMENT I saw and evaluated the patient. I reviewed the resident's note and discussed the case with the resident. I agree with the resident's findings and plan as documented. 59y M with hx of HCC s/p liver transplant and renal transplant on cellcept and prograf with recently diagnosed small cell lung ca (LAUREL bronchus mass with extension into mediastinum + mediastinum LAD; ) had recent thora for pleural effusion to complete staging; path came back today neg for malignancy; pt staged as limited stage Small cell. Rad onc has been following and plan for outpatient xrt. IR will plan for outpatient chest port placement. MRI brain negative. Steven vinayakkriss is currently on IV AB but from an oncology standpoint he can follow up as outpatient to begin concurrent chemoRT once ready for dc.
[2020-01-03] MEDS ORDERED: PT OWN MED DRAWER 7, Y5N ONE (21:00)
[2020-01-03] MEDS: ALPRAZolam 1 MG TABLET PO SCH ×2 (22:28→22:30)
[2020-01-03] MEDS: DOCUSATE SODIUM 100 MG CAPSULE (FP) PO SCH (22:28)
[2020-01-03] MEDS: predniSONE 5 MG TABLET (UD) PO SCH (22:29)
[2020-01-04] MEDS: NYSTATIN 500,000 UNITS/5 ML SUSPENSION PO SCH ×5 (00:10→17:11)
[2020-01-04] MEDS: oxyCODONE HCL 5 MG TABLET PO PRN ×5 (00:16→22:58)
[2020-01-04] MEDS ORDERED: DEXTROSE 5%-WATER - 50 ML IVPB ONE ×3 (01:08→18:20)
[2020-01-04] MEDS ORDERED: PIPERACILLIN/TAZOBACTAM 3.375 GM VIAL IVPB ONE ×3 (01:08→18:20)
[2020-01-04] MEDS: D5-1/2NS+20 MEQ KCL - 20 MEQ/1,000 ML INFUS.BAG IV SCH (01:54)
[2020-01-04] MEDS: PIPERACILLIN/TAZOB 3.375 GM 3.375 GM in DEXTROSE 5%-WATER - 50 ML IVPB SCH ×3 (01:54→18:34)
[2020-01-04] MEDS: METOCLOPRAMIDE HCL 10 MG TABLET (FP) PO SCH ×3 (06:24→17:11)
[2020-01-04] MEDS: INSULIN SLIDING SCALE (NOVOLOG) 1 VIAL SQ SCH ×3 (06:25→17:08)
[2020-01-04] MEDS ORDERED: PT OWN MED DRAWER 7, Y5N ONE (09:50)
[2020-01-04] MEDS: AMINO ACIDS/PROTEIN HYDROLYS 30 ML LIQUID.PKT PO SCH ×2 (09:54→17:18)
[2020-01-04] MEDS: METOPROLOL TARTRATE 25 MG TABLET (FP) PO SCH ×2 (09:54→21:27)
[2020-01-04] MEDS: TACROLIMUS ANHYDROUS 1 MG CAPSULE PO SCH ×2 (09:55→21:28)
[2020-01-04] MEDS: TOPIRAMATE 25 MG TABLET PO SCH (09:55)
[2020-01-04] MEDS: HEPARIN NA (PORCINE) 5,000 UNITS/ML 1ML VIAL SQ SCH ×2 (09:55→21:29)
[2020-01-04] MEDS: MEGESTROL ACETATE 400 MG/10 ML UNIT DOSE CUP PO SCH (09:55)
[2020-01-04] MEDS: NIFEdipine E.R 60 MG TABLET PO SCH ×2 (09:55→21:28)
[2020-01-04] MEDS: MYCOPHENOLATE MOFETIL 500 MG TABLET PO SCH ×2 (09:56→21:30)
[2020-01-04] MEDS: NORTRIPTYLINE HCL 25 MG CAPSULE PO SCH (09:56)
--- NOTE | 2020-01-04 11:03 | PN ---
Progress Note, Physician History of Present Illness: patient seen and examined today Chart is reviewed looks / feels better decreased sob pain much better less anxious - Current Medication List Current Medications: Active Medications Albuterol Sulfate (Ventolin 0.083% Nebulizer Soln -) 1 amp NEB Q4H PRN PRN Reason: SHORT OF BREATH/WHEEZING Last Admin: 01/03/20 08:27 Dose: 1 amp Documented by: Alprazolam (Xanax) 0.5 mg PO [facility] Last Admin: 01/03/20 22:30 Dose: Not Given Documented by: Amino Acids (Prosource No Carb Liquid Pkt) 30 ml PO BID@0800,1730 [facility] Last Admin: 01/04/20 09:54 Dose: 30 ml Documented by: Docusate Sodium (Colace -) 300 mg PO [facility] Last Admin: 01/03/20 22:28 Dose: 300 mg Documented by: Fentanyl (Duragesic 25mcg Patch -) 1 patch TD Q72H [facility] Stop: 01/10/20 10:26 Last Admin: 01/03/20 11:29 Dose: 1 patch Documented by: Guaifenesin (Robitussin Dm -) 10 ml PO Q4H PRN PRN Reason: COUGH Last Admin: 01/03/20 02:01 Dose: 10 ml Documented by: Heparin Sodium (Porcine) (Heparin -) 5,000 unit SQ BID [facility] Last Admin: 01/04/20 09:55 Dose: 5,000 unit Documented by: Potassium Chloride/Dextrose/Sod Cl (D5-1/2ns+20 Meq Kcl -) 20 meq in 1,000 mls @ 42 mls/hr IV ASDIR [facility] Last Admin: 01/04/20 01:54 Dose: 42 mls/hr Documented by: Piperacillin Sod/Tazobactam (Sod 3.375 gm/ Dextrose) 50 mls @ 100 mls/hr IVPB Q8H-IV [facility]; Protocol Last Admin: 01/04/20 09:56 Dose: 100 mls/hr Documented by: Insulin Aspart (Novolog Vial Sliding Scale -) 1 vial SQ TIDAC [facility]; Protocol Last Admin: 01/04/20 06:25 Dose: Not Given Documented by: Insulin Detemir (Levemir Vial) 14 units SQ BID [facility] Last Admin: 01/03/20 22:30 Dose: 14 units Documented by: Megestrol Acetate (Megace Oral Suspension -) 400 mg PO DAILY [facility] Last Admin: 01/04/20 09:55 Dose: 400 mg Documented by: Metoclopramide HCl (Reglan -) 5 mg PO TIDAC [facility] Last Admin: 01/04/20 06:24 Dose: 5 mg Documented by: Metoprolol Tartrate (Lopressor -) 25 mg PO BID [facility] Last Admin: 01/04/20 09:54 Dose: 25 mg Documented by: Miscellaneous (Duragesic Patch Waste) 1 each [facility] PRN PRN PRN Reason: PAIN Last Admin: 01/03/20 12:51 Dose: 1 each Documented by: Mycophenolate Mofetil (Cellcept -) 500 mg PO BID [facility] Last Admin: 01/04/20 09:56 Dose: 500 mg Documented by: Nifedipine (Procardia Xl -) 60 mg PO BID [facility] Last Admin: 01/04/20 09:55 Dose: 60 mg Documented by: Nortriptyline HCl (Pamelor -) 25 mg PO DAILY [facility] Last Admin: 01/04/20 09:56 Dose: 25 mg Documented by: Nystatin (Nystatin Oral Suspension -) 500,000 units PO Q6HPO [facility] Last Admin: 01/04/20 06:26 Dose: Not Given Documented by: Ondansetron HCl (Zofran Injection) 8 mg IVPB Q6H PRN PRN Reason: NAUSEA AND/OR VOMITING Oxycodone HCl (Roxicodone -) 10 mg PO Q4H PRN PRN Reason: PAIN LEVEL 5-10 Last Admin: 01/04/20 04:27 Dose: 10 mg Documented by: Prednisone (Deltasone -) 5 mg PO HS [facility] Last Admin: 01/03/20 22:29 Dose: 5 mg Documented by: Tacrolimus (Prograf) 1 mg PO BID [facility] Last Admin: 01/04/20 09:55 Dose: 1 mg Documented by: Topiramate (Topamax -) 25 mg PO DAILY [facility] Last Admin: 01/04/20 09:55 Dose: 25 mg Documented by: - Objective Vital Signs: Vital Signs Temperature 98.9 F 01/04/20 10:05 Pulse Rate 110 H 01/04/20 10:05 Respiratory Rate 20 01/04/20 10:05 Blood Pressure 133/76 01/04/20 10:05 O2 Sat by Pulse Oximetry (%) 96 01/04/20 10:05 Constitutional: Yes: No Distress Neck: Yes: Supple Cardiovascular: Yes: Regular Rate and Rhythm Respiratory: Yes: Diminished Gastrointestinal: Yes: Soft Edema: No Neurological: Yes: Alert Psychiatric: Yes: Alert Labs: CBC, BMP 01/01/20 07:54 01/01/20 07:54 INR, PTT INR 1.36 (0.82-1.09) H 12/26/19 12:21 Problem List - Problems (1) Lung cancer Code(s): C34.90 - MALIGNANT NEOPLASM OF UNSP PART OF UNSP BRONCHUS OR LUNG (2) Pneumonia Code(s): J18.9 - PNEUMONIA, UNSPECIFIED ORGANISM Qualifiers: Pneumonia type: due to unspecified organism Laterality: left Lung location: lower lobe of lung Qualified Code(s): J18.9 - Pneumonia, unspecified organism (3) Diabetes Code(s): E11.9 - TYPE 2 DIABETES MELLITUS WITHOUT COMPLICATIONS (4) Lung mass Code(s): R91.8 - OTHER NONSPECIFIC ABNORMAL FINDING OF LUNG FIELD (5) Transplanted organ and tissue status Code(s): Z94.9 - TRANSPLANTED ORGAN AND TISSUE STATUS, UNSPECIFIED (6) Pericardial effusion Code(s): I31.3 - PERICARDIAL EFFUSION (NONINFLAMMATORY) Assessment/Plan Discussed with RN/ Pt Continue present care abx out of bed PT d/c fluids Eating better will follow
[2020-01-04] MEDS: INSULIN (LEVEMIR) 100 UNITS/ML UNITS SQ SCH ×3 (11:07→21:30)
--- NOTE | 2020-01-04 13:05 | PN ---
Progress Note (short form) - Note Progress Note: PULMONARY Occasional shortness of breath, cough. No fevers. Vital Signs Period Temp Pulse Resp BP Sys/[place] Pulse Ox Last 24 Hr 97.7 F-98.9 F 91-110 18-20 112-133/72-79 95-97 Gen: NAD at rest Heart: RRR Lung: decreased breath sounds left Abd: soft, nontender Ext: no edema CBC, BMP 01/01/20 07:54 01/01/20 07:54 Active Medications Albuterol Sulfate (Ventolin 0.083% Nebulizer Soln -) 1 amp NEB Q4H PRN PRN Reason: SHORT OF BREATH/WHEEZING Last Admin: 01/03/20 08:27 Dose: 1 amp Documented by: Alprazolam (Xanax) 0.[address] [facility] Last Admin: 01/03/20 22:30 Dose: Not Given Documented by: Amino Acids (Prosource No Carb Liquid Pkt) 30 ml PO BID@0800,1730 [facility] Last Admin: 01/04/20 09:54 Dose: 30 ml Documented by: Docusate Sodium (Colace -) 300 mg PO HS [facility] Last Admin: 01/03/20 22:28 Dose: 300 mg Documented by: Fentanyl (Duragesic 25mcg Patch -) 1 patch TD Q72H [facility] Stop: 01/10/20 10:26 Last Admin: 01/03/20 11:29 Dose: 1 patch Documented by: Guaifenesin (Robitussin Dm -) 10 ml PO Q4H PRN PRN Reason: COUGH Last Admin: 01/03/20 02:01 Dose: 10 ml Documented by: Heparin Sodium (Porcine) (Heparin -) 5,000 unit SQ BID [facility] Last Admin: 01/04/20 09:55 Dose: 5,000 unit Documented by: Piperacillin Sod/Tazobactam (Sod 3.375 gm/ Dextrose) 50 mls @ 100 mls/hr IVPB Q8H-IV [facility]; Protocol Last Admin: 01/04/20 09:56 Dose: 100 mls/hr Documented by: Insulin Aspart (Novolog Vial Sliding Scale -) 1 vial SQ TIDAC [facility]; Protocol Last Admin: 01/04/20 12:16 Dose: Not Given Documented by: Insulin Detemir (Levemir Vial) 14 units SQ BID [facility] Last Admin: 08/29/20 11:07 Dose: 14 units Documented by: Megestrol Acetate (Megace Oral Suspension -) 400 mg PO DAILY [facility] Last Admin: 01/04/20 09:55 Dose: 400 mg Documented by: Metoclopramide HCl (Reglan -) 5 mg PO TIDAC [facility] Last Admin: 01/04/20 11:14 Dose: 5 mg Documented by: Metoprolol Tartrate (Lopressor -) 25 mg PO BID [facility] Last Admin: 01/04/20 09:54 Dose: 25 mg Documented by: Miscellaneous (Duragesic Patch Waste) 1 each [facility] PRN PRN PRN Reason: PAIN Last Admin: 01/03/20 12:51 Dose: 1 each Documented by: Mycophenolate Mofetil (Cellcept -) 500 mg PO BID [facility] Last Admin: 01/04/20 09:56 Dose: 500 mg Documented by: Nifedipine (Procardia Xl -) 60 mg PO BID [facility] Last Admin: 01/04/20 09:55 Dose: 60 mg Documented by: Nortriptyline HCl (Pamelor -) 25 mg PO DAILY [facility] Last Admin: 01/04/20 09:56 Dose: 25 mg Documented by: Nystatin (Nystatin Oral Suspension -) 500,000 units PO Q6HPO [facility] Last Admin: 01/04/20 12:49 Dose: 500,000 units Documented by: Ondansetron HCl (Zofran Injection) 8 mg IVPB Q6H PRN PRN Reason: NAUSEA AND/OR VOMITING Oxycodone HCl (Roxicodone -) 10 mg PO Q4H PRN PRN Reason: PAIN LEVEL 5-10 Last Admin: 01/04/20 04:27 Dose: 10 mg Documented by: Prednisone (Deltasone -) 5 mg PO HS [facility] Last Admin: 01/03/20 22:29 Dose: 5 mg Documented by: Tacrolimus (Prograf) 1 mg PO BID [facility] Last Admin: 01/04/20 09:55 Dose: 1 mg Documented by: Topiramate (Topamax -) 25 mg PO DAILY [facility] Last Admin: 01/04/20 09:55 Dose: 25 mg Documented by: A/P Small Cell Lung Ca Pleural Effusion r/o Post Obstructive Pneumonia - antibiotics per ID - pleural fluid cytology negative - pain control - inhaled bronchodilators - O2 to keep SpO2 >90% - DVT prophylaxis
[2020-01-04] MEDS: ALBUTEROL SO4 2.5/IPRATROPIUM 0.5 INH SOL 3 ML VIAL.NEB. NEB SCH ×2 (14:55→20:52)
--- NOTE | 2020-01-04 16:47 | PN ---
Progress Note (short form) - Note Progress Note: Patient seen in follow up. No new complaints. No significant events overnight. Inpatient Meds reviewed. Current Medications Generic Name Dose Route Start Last Admin Trade Name Freq PRN Reason Stop Dose Admin Albuterol Sulfate 1 amp 12/31/19 12:27 01/03/20 08:27 Ventolin 0.083% Nebulizer Soln - NEB 1 amp Q4H PRN Administration SHORT OF BREATH/WHEEZING Albuterol/Ipratropium 1 amp 01/04/20 14:00 01/04/20 14:55 Duoneb - NEB 1 amp RTID [facility] Administration Alprazolam 0.5 mg 01/02/20 13:00 01/03/20 22:30 Xanax PO Not Given HS [facility] Amino Acids 30 ml 01/02/20 17:30 01/04/20 09:54 Prosource No Carb Liquid Pkt PO 30 ml BID@0800,1730 [facility] Administration Docusate Sodium 300 mg 12/28/19 22:00 01/03/20 22:28 Colace - PO 300 mg HS [facility] Administration Fentanyl 1 patch 01/03/20 10:30 01/03/20 11:29 Duragesic 25mcg Patch - TD 01/10/20 10:26 1 patch Q72H [facility] Administration Guaifenesin 10 ml 12/31/19 12:26 01/03/20 02:01 Robitussin Dm - PO 10 ml Q4H PRN Administration COUGH Heparin Sodium (Porcine) 5,000 unit 01/03/20 22:00 01/04/20 09:55 Heparin - SQ 5,000 unit BID [facility] Administration Piperacillin Sod/Tazobactam 50 mls @ 100 mls/hr 12/27/19 18:00 01/04/20 09:56 Sod 3.375 gm/ Dextrose IVPB 100 mls/hr Q8H-IV [facility] Administration Protocol Insulin Aspart 1 vial 12/26/19 16:30 01/04/20 12:16 Novolog Vial Sliding Scale - SQ Not Given TIDAC COUNTS INCLUDE 234 BEDS AT THE [facility] Protocol Insulin Detemir 14 units 12/26/19 22:00 01/04/20 11:07 Levemir Vial SQ 14 units BID [facility] Administration Megestrol Acetate 400 mg 01/02/20 13:00 01/04/20 09:55 Megace Oral Suspension - PO 400 mg DAILY [facility] Administration Metoclopramide HCl 5 mg 12/31/19 16:30 01/04/20 11:14 Reglan - PO 5 mg TIDAC [facility] Administration Metoprolol Tartrate 25 mg 12/26/19 22:00 01/04/20 09:54 Lopressor - PO 25 mg BID [facility] Administration Miscellaneous 1 each 01/03/20 10:26 01/03/20 12:51 Duragesic Patch Waste MC 1 each PRN PRN Administration PAIN Mycophenolate Mofetil 500 mg 12/26/19 22:00 01/04/20 09:56 Cellcept - PO 500 mg BID [facility] Administration Nifedipine 60 mg 12/26/19 22:00 01/04/20 09:55 Procardia Xl - PO 60 mg BID [facility] Administration Nortriptyline HCl 25 mg 12/27/19 10:00 01/04/20 09:56 Pamelor - PO 25 mg DAILY [facility] Administration Nystatin 500,000 units 12/29/19 18:00 01/04/20 12:49 Nystatin Oral Suspension - PO 500,000 units Q6HPO [facility] Administration Ondansetron HCl 8 mg 01/03/20 11:39 Zofran Injection IVPB Q6H PRN NAUSEA AND/OR VOMITING Oxycodone HCl 10 mg 01/01/20 17:50 01/04/20 14:56 Roxicodone - PO 10 mg Q4H PRN Administration PAIN LEVEL 5-10 Prednisone 5 mg 12/26/19 22:00 01/03/20 22:29 Deltasone - PO 5 mg HS [facility] Administration Tacrolimus 1 mg 12/30/19 22:00 01/04/20 09:55 Prograf PO 1 mg BID [facility] Administration Topiramate 25 mg 12/27/19 10:00 01/04/20 09:55 Topamax - PO 25 mg DAILY [facility] Administration On Examination: Last Vital Signs Temp Pulse Resp BP Pulse Ox 97.9 F 88 20 125/82 95 01/04/20 14:44 01/04/20 14:44 01/04/20 14:44 01/04/20 14:44 01/04/20 14:44 General: In no acute distress, lying comfortably in bed. CVS: S1, S2, regular, no gallop or murmur. Resp: breathing comfortably Abdomen: Non-distended, non-tender.. Neuro: Alert, oriented, non-focal. Labs: CBC, BMP 01/01/20 07:54 01/01/20 07:54 Assessment. HCC s/p liver transplant and renal transplant on cellcept and prograf with recently diagnosed small cell lung ca (LAUREL bronchus mass with extension into mediastinum + mediastinum LAD; ). Pleural effusion negative for malignant cytology, MRI brain negative, implying limited stage SCC. Plan for outpatient RTX. IR will plan for outpatient chest port placement. Discharge at discretion of primary medicine team.
[2020-01-04] MEDS: DOCUSATE SODIUM 100 MG CAPSULE (FP) PO SCH (21:27)
[2020-01-04] MEDS: ALPRAZolam 1 MG TABLET PO SCH (21:30)
[2020-01-04] MEDS: predniSONE 5 MG TABLET (UD) PO SCH (21:30)
[2020-01-05] MEDS ORDERED: DEXTROSE 5%-WATER - 50 ML IVPB ONE ×3 (00:58→17:00)
[2020-01-05] MEDS ORDERED: PIPERACILLIN/TAZOBACTAM 3.375 GM VIAL IVPB ONE ×3 (00:58→16:59)
[2020-01-05] MEDS: NYSTATIN 500,000 UNITS/5 ML SUSPENSION PO SCH ×4 (00:59→17:26)
[2020-01-05] MEDS: PIPERACILLIN/TAZOB 3.375 GM 3.375 GM in DEXTROSE 5%-WATER - 50 ML IVPB SCH ×3 (02:21→17:26)
[2020-01-05] MEDS: oxyCODONE HCL 5 MG TABLET PO PRN ×5 (02:58→20:36)
[2020-01-05] MEDS: INSULIN SLIDING SCALE (NOVOLOG) 1 VIAL SQ SCH ×3 (06:47→16:51)
[2020-01-05] MEDS: METOCLOPRAMIDE HCL 10 MG TABLET (FP) PO SCH ×3 (06:47→16:40)
[2020-01-05] MEDS: AMINO ACIDS/PROTEIN HYDROLYS 30 ML LIQUID.PKT PO SCH ×2 (08:24→16:42)
[2020-01-05] MEDS: ALBUTEROL SO4 2.5/IPRATROPIUM 0.5 INH SOL 3 ML VIAL.NEB. NEB SCH ×3 (08:26→21:15)
[2020-01-05] MEDS ORDERED: PT OWN MED DRAWER 7, Y5N ONE ×2 (09:58→22:12)
[2020-01-05] MEDS ORDERED: INSULIN (NOVOLOG) ASPART 100 UNITS/ML 10ML VIAL ONE (10:01)
[2020-01-05] MEDS: HEPARIN NA (PORCINE) 5,000 UNITS/ML 1ML VIAL SQ SCH ×2 (10:17→22:17)
[2020-01-05] MEDS: MYCOPHENOLATE MOFETIL 500 MG TABLET PO SCH ×2 (10:17→22:16)
[2020-01-05] MEDS: INSULIN (LEVEMIR) 100 UNITS/ML UNITS SQ SCH ×2 (10:19→22:17)
[2020-01-05] MEDS: METOPROLOL TARTRATE 25 MG TABLET (FP) PO SCH ×2 (10:19→22:17)
[2020-01-05] MEDS: MEGESTROL ACETATE 400 MG/10 ML UNIT DOSE CUP PO SCH (10:20)
[2020-01-05] MEDS: NORTRIPTYLINE HCL 25 MG CAPSULE PO SCH (10:21)
[2020-01-05] MEDS: NIFEdipine E.R 60 MG TABLET PO SCH ×2 (10:22→22:18)
[2020-01-05] MEDS: TOPIRAMATE 25 MG TABLET PO SCH (10:23)
[2020-01-05] MEDS: TACROLIMUS ANHYDROUS 1 MG CAPSULE PO SCH ×2 (10:23→22:16)
--- NOTE | 2020-01-05 11:25 | PN ---
Progress Note, Physician History of Present Illness: patient seen and examined today looks / feels better decreased sob pain much better less anxious eating better - Current Medication List Current Medications: Active Medications Albuterol Sulfate (Ventolin 0.083% Nebulizer Soln -) 1 amp NEB Q4H PRN PRN Reason: SHORT OF BREATH/WHEEZING Last Admin: 01/03/20 08:27 Dose: 1 amp Documented by: Albuterol/Ipratropium (Duoneb -) 1 amp NEB RTID [facility] Last Admin: 01/05/20 08:26 Dose: 1 amp Documented by: Alprazolam (Xanax) 0.5 mg PO HS [facility] Last Admin: 01/04/20 21:30 Dose: Not Given Documented by: Amino Acids (Prosource No Carb Liquid Pkt) 30 ml PO BID@0800,1730 [facility] Last Admin: 01/05/20 08:24 Dose: 30 ml Documented by: Docusate Sodium (Colace -) 300 mg PO [facility] Last Admin: 01/04/20 21:27 Dose: 300 mg Documented by: Fentanyl (Duragesic 25mcg Patch -) 1 patch TD Q72H [facility] Stop: 01/10/20 10:26 Last Admin: 01/03/20 11:29 Dose: 1 patch Documented by: Guaifenesin (Robitussin Dm -) 10 ml PO Q4H PRN PRN Reason: COUGH Last Admin: 01/03/20 02:01 Dose: 10 ml Documented by: Heparin Sodium (Porcine) (Heparin -) 5,000 unit SQ BID [facility] Last Admin: 01/05/20 10:17 Dose: 5,000 unit Documented by: Piperacillin Sod/Tazobactam (Sod 3.375 gm/ Dextrose) 50 mls @ 100 mls/hr IVPB Q8H-IV [facility]; Protocol Last Admin: 01/05/20 10:23 Dose: 100 mls/hr Documented by: Insulin Aspart (Novolog Vial Sliding Scale -) 1 vial SQ TIDAC [facility]; Protocol Last Admin: 01/05/20 11:19 Dose: 2 units Documented by: Insulin Detemir (Levemir Vial) 14 units SQ BID [facility] Last Admin: 01/05/20 10:19 Dose: 14 units Documented by: Megestrol Acetate (Megace Oral Suspension -) 400 mg PO DAILY [facility] Last Admin: 01/05/20 10:20 Dose: 400 mg Documented by: Metoclopramide HCl (Reglan -) 5 mg PO TIDAC [facility] Last Admin: 01/05/20 11:01 Dose: 5 mg Documented by: Metoprolol Tartrate (Lopressor -) 25 mg PO BID [facility] Last Admin: 01/05/20 10:19 Dose: 25 mg Documented by: Miscellaneous (Duragesic Patch Waste) 1 each MC PRN PRN PRN Reason: PAIN Last Admin: 01/03/20 12:51 Dose: 1 each Documented by: Mycophenolate Mofetil (Cellcept -) 500 mg PO BID [facility] Last Admin: 01/05/20 10:17 Dose: 500 mg Documented by: Nifedipine (Procardia Xl -) 60 mg PO BID [facility] Last Admin: 01/05/20 10:22 Dose: 60 mg Documented by: Nortriptyline HCl (Pamelor -) 25 mg PO DAILY [facility] Last Admin: 01/05/20 10:21 Dose: 25 mg Documented by: Nystatin (Nystatin Oral Suspension -) 500,000 units PO Q6HPO [facility] Last Admin: 01/05/20 11:04 Dose: 500,000 units Documented by: Ondansetron HCl (Zofran Injection) 8 mg IVPB Q6H PRN PRN Reason: NAUSEA AND/OR VOMITING Oxycodone HCl (Roxicodone -) 10 mg PO Q4H PRN PRN Reason: PAIN LEVEL 5-10 Last Admin: 01/05/20 11:05 Dose: 10 mg Documented by: Prednisone (Deltasone -) 5 mg PO HS [facility] Last Admin: 01/04/20 21:30 Dose: 5 mg Documented by: Tacrolimus (Prograf) 1 mg PO BID [facility] Last Admin: 01/05/20 10:23 Dose: 1 mg Documented by: Topiramate (Topamax -) 25 mg PO DAILY [facility] Last Admin: 01/05/20 10:23 Dose: 25 mg Documented by: - Objective Vital Signs: Vital Signs Temperature 98.1 F 01/05/20 09:00 Pulse Rate 118 H 01/05/20 09:00 Respiratory Rate 19 01/05/20 09:00 Blood Pressure 122/75 01/05/20 09:00 O2 Sat by Pulse Oximetry (%) 94 L 01/05/20 09:00 Constitutional: Yes: No Distress HENT: No: Tonsillar Exudate Neck: Yes: Supple Cardiovascular: Yes: Regular Rate and Rhythm Respiratory: Yes: Diminished Edema: No Labs: CBC, BMP 01/01/20 07:54 01/01/20 07:54 INR, PTT INR 1.36 (0.82-1.09) H 12/26/19 12:21 Problem List - Problems (1) Lung cancer Code(s): C34.90 - MALIGNANT NEOPLASM OF UNSP PART OF UNSP BRONCHUS OR LUNG (2) Pneumonia Code(s): J18.9 - PNEUMONIA, UNSPECIFIED ORGANISM Qualifiers: Pneumonia type: due to unspecified organism Laterality: left Lung location: lower lobe of lung Qualified Code(s): J18.9 - Pneumonia, unspecified organism (3) Diabetes Code(s): E11.9 - TYPE 2 DIABETES MELLITUS WITHOUT COMPLICATIONS (4) Lung mass Code(s): R91.8 - OTHER NONSPECIFIC ABNORMAL FINDING OF LUNG FIELD (5) Transplanted organ and tissue status Code(s): Z94.9 - TRANSPLANTED ORGAN AND TISSUE STATUS, UNSPECIFIED (6) Pericardial effusion Code(s): I31.3 - PERICARDIAL EFFUSION (NONINFLAMMATORY) Assessment/Plan Discussed with RN/ Pt Continue present care abx out of bed able to walk a little bit with his son yesterday PT if stable--- will consider discharging on by mouth antibiotics tomorrow Will follow Will discuss with pulmonary also Chemotherapy and port as outpatient
--- NOTE | 2020-01-05 12:01 | PN ---
Progress Note (short form) - Note Progress Note: PULMONARY States breathing improving with neb treatments. No fevers. Vital Signs Period Temp Pulse Resp BP Sys/[place] Pulse Ox Last 24 Hr 97.8 F-98.2 F 88-118 19-20 110-142/65-84 94-95 Gen: NAD at rest Heart: RRR Lung: decreased breath sounds left Abd: soft, nontender Ext: no edema CBC, BMP 01/01/20 07:54 01/01/20 07:54 Active Medications Albuterol Sulfate (Ventolin 0.083% Nebulizer Soln -) 1 amp NEB Q4H PRN PRN Reason: SHORT OF BREATH/WHEEZING Last Admin: 01/03/20 08:27 Dose: 1 amp Documented by: Albuterol/Ipratropium (Duoneb -) [address] [facility] Last Admin: 01/05/20 08:26 Dose: 1 amp Documented by: Alprazolam (Xanax) 0.[address] [facility] Last Admin: 01/04/20 21:30 Dose: Not Given Documented by: Amino Acids (Prosource No Carb Liquid Pkt) 30 ml PO BID@0800,1730 [facility] Last Admin: 01/05/20 08:24 Dose: 30 ml Documented by: Docusate Sodium (Colace -) 300 mg PO [facility] Last Admin: 01/04/20 21:27 Dose: 300 mg Documented by: Fentanyl (Duragesic 25mcg Patch -) [address] [facility] Stop: 01/10/20 10:26 Last Admin: 01/03/20 11:29 Dose: 1 patch Documented by: Guaifenesin (Robitussin Dm -) 10 ml PO Q4H PRN PRN Reason: COUGH Last Admin: 01/03/20 02:01 Dose: 10 ml Documented by: Heparin Sodium (Porcine) (Heparin -) 5,[address] [facility] Last Admin: 01/05/20 10:17 Dose: 5,000 unit Documented by: Piperacillin Sod/Tazobactam (Sod 3.375 gm/ Dextrose) 50 mls @ 100 mls/hr IVPB Q8H-IV [facility]; Protocol Last Admin: 01/05/20 10:23 Dose: 100 mls/hr Documented by: Insulin Aspart (Novolog Vial Sliding Scale -) [address] [facility]; Protocol Last Admin: 01/05/20 11:19 Dose: 2 units Documented by: Insulin Detemir (Levemir Vial) [address] [facility] Last Admin: 01/05/20 10:19 Dose: 14 units Documented by: Megestrol Acetate (Megace Oral Suspension -) [address] [facility] Last Admin: 01/05/20 10:20 Dose: 400 mg Documented by: Metoclopramide HCl (Reglan -) [address] [facility] Last Admin: 01/05/20 11:01 Dose: 5 mg Documented by: Metoprolol Tartrate (Lopressor -) [address] [facility] Last Admin: 01/05/20 10:19 Dose: 25 mg Documented by: Miscellaneous (Duragesic Patch Waste) 1 each [facility] PRN PRN PRN Reason: PAIN Last Admin: 01/03/20 12:51 Dose: 1 each Documented by: Mycophenolate Mofetil (Cellcept -) [address] [facility] Last Admin: 01/05/20 10:17 Dose: 500 mg Documented by: Nifedipine (Procardia Xl -) [address] [facility] Last Admin: 01/05/20 10:22 Dose: 60 mg Documented by: Nortriptyline HCl (Pamelor -) [address] [facility] Last Admin: 01/05/20 10:21 Dose: 25 mg Documented by: Nystatin (Nystatin Oral Suspension -) 500,[address] [facility] Last Admin: 01/05/20 11:04 Dose: 500,000 units Documented by: Ondansetron HCl (Zofran Injection) 8 mg IVPB Q6H PRN PRN Reason: NAUSEA AND/OR VOMITING Oxycodone HCl (Roxicodone -) 10 mg PO Q4H PRN PRN Reason: PAIN LEVEL 5-10 Last Admin: 01/05/20 11:05 Dose: 10 mg Documented by: Prednisone (Deltasone -) [address] [facility] Last Admin: 01/04/20 21:30 Dose: 5 mg Documented by: Tacrolimus (Prograf) [address] [facility] Last Admin: 01/05/20 10:23 Dose: 1 mg Documented by: Topiramate (Topamax -) [address] [facility] Last Admin: 01/05/20 10:23 Dose: 25 mg Documented by: A/P Small Cell Lung Ca Pleural Effusion r/o Post Obstructive Pneumonia - antibiotics per ID - pleural fluid cytology negative - pain control - inhaled bronchodilators - O2 to keep SpO2 >90% - DVT prophylaxis
[2020-01-05] MEDS: predniSONE 5 MG TABLET (UD) PO SCH (22:16)
[2020-01-05] MEDS: DOCUSATE SODIUM 100 MG CAPSULE (FP) PO SCH (22:17)
[2020-01-05] MEDS: ALPRAZolam 1 MG TABLET PO SCH (22:18)
[2020-01-06] MEDS ORDERED: PIPERACILLIN/TAZOBACTAM 3.375 GM VIAL IVPB ONE ×2 (01:10→09:16)
[2020-01-06] MEDS ORDERED: DEXTROSE 5%-WATER - 50 ML IVPB ONE ×2 (01:11→09:17)
[2020-01-06] MEDS: NYSTATIN 500,000 UNITS/5 ML SUSPENSION PO SCH ×4 (01:12→18:44)
[2020-01-06] MEDS: oxyCODONE HCL 5 MG TABLET PO PRN ×5 (01:32→18:06)
[2020-01-06] MEDS: PIPERACILLIN/TAZOB 3.375 GM 3.375 GM in DEXTROSE 5%-WATER - 50 ML IVPB SCH ×2 (01:33→09:39)
[2020-01-06] MEDS: METOCLOPRAMIDE HCL 10 MG TABLET (FP) PO SCH ×3 (06:10→16:34)
[2020-01-06] MEDS: INSULIN SLIDING SCALE (NOVOLOG) 1 VIAL SQ SCH ×3 (06:31→16:49)
--- NOTE | 2020-01-06 07:51 | PN ---
Progress Note, Physician History of Present Illness: pulmonary alert,less dyspneic,_doe - Current Medication List Current Medications: Active Medications Albuterol Sulfate (Ventolin 0.083% Nebulizer Soln -) 1 amp NEB Q4H PRN PRN Reason: SHORT OF BREATH/WHEEZING Last Admin: 01/03/20 08:27 Dose: 1 amp Documented by: Albuterol/Ipratropium (Duoneb -) 1 amp NEB RTID [facility] Last Admin: 01/05/20 21:15 Dose: 1 amp Documented by: Alprazolam (Xanax) 0.5 mg PO HS [facility] Last Admin: 01/05/20 22:18 Dose: Not Given Documented by: Amino Acids (Prosource No Carb Liquid Pkt) 30 ml PO BID@0800,1730 [facility] Last Admin: 01/05/20 16:42 Dose: 30 ml Documented by: Docusate Sodium (Colace -) 300 mg PO [facility] Last Admin: 01/05/20 22:17 Dose: 300 mg Documented by: Fentanyl (Duragesic 25mcg Patch -) 1 patch TD Q72H [facility] Stop: 01/10/20 10:26 Last Admin: 01/03/20 11:29 Dose: 1 patch Documented by: Guaifenesin (Robitussin Dm -) 10 ml PO Q4H PRN PRN Reason: COUGH Last Admin: 01/03/20 02:01 Dose: 10 ml Documented by: Heparin Sodium (Porcine) (Heparin -) 5,000 unit SQ BID [facility] Last Admin: 01/05/20 22:17 Dose: 5,000 unit Documented by: Piperacillin Sod/Tazobactam (Sod 3.375 gm/ Dextrose) 50 mls @ 100 mls/hr IVPB Q8H-IV [facility]; Protocol Last Admin: 01/06/20 01:33 Dose: 100 mls/hr Documented by: Insulin Aspart (Novolog Vial Sliding Scale -) 1 vial SQ TIDAC [facility]; Protocol Last Admin: 01/06/20 06:31 Dose: Not Given Documented by: Insulin Detemir (Levemir Vial) 14 units SQ BID [facility] Last Admin: 01/05/20 22:17 Dose: 14 units Documented by: Megestrol Acetate (Megace Oral Suspension -) 400 mg PO DAILY [facility] Last Admin: 01/05/20 10:20 Dose: 400 mg Documented by: Metoclopramide HCl (Reglan -) 5 mg PO TIDAC [facility] Last Admin: 01/06/20 06:10 Dose: 5 mg Documented by: Metoprolol Tartrate (Lopressor -) 25 mg PO BID [facility] Last Admin: 01/05/20 22:17 Dose: 25 mg Documented by: Miscellaneous (Duragesic Patch Waste) 1 each [facility] PRN PRN PRN Reason: PAIN Last Admin: 01/03/20 12:51 Dose: 1 each Documented by: Mycophenolate Mofetil (Cellcept -) 500 mg PO BID [facility] Last Admin: 01/05/20 22:16 Dose: 500 mg Documented by: Nifedipine (Procardia Xl -) 60 mg PO BID [facility] Last Admin: 01/05/20 22:18 Dose: 60 mg Documented by: Nortriptyline HCl (Pamelor -) 25 mg PO DAILY [facility] Last Admin: 01/05/20 10:21 Dose: 25 mg Documented by: Nystatin (Nystatin Oral Suspension -) 500,000 units PO Q6HPO [facility] Last Admin: 01/06/20 05:30 Dose: 500,000 units Documented by: Ondansetron HCl (Zofran Injection) 8 mg IVPB Q6H PRN PRN Reason: NAUSEA AND/OR VOMITING Oxycodone HCl (Roxicodone -) 10 mg PO Q4H PRN PRN Reason: PAIN LEVEL 5-10 Last Admin: 01/06/20 05:29 Dose: 10 mg Documented by: Prednisone (Deltasone -) 5 mg PO HS [facility] Last Admin: 01/05/20 22:16 Dose: 5 mg Documented by: Tacrolimus (Prograf) 1 mg PO BID [facility] Last Admin: 01/05/20 22:16 Dose: 1 mg Documented by: Topiramate (Topamax -) 25 mg PO DAILY [facility] Last Admin: 01/05/20 10:23 Dose: 25 mg Documented by: - Objective Vital Signs: Vital Signs Temperature 98.1 F 01/06/20 06:00 Pulse Rate 104 H 01/06/20 06:00 Respiratory Rate 18 01/06/20 06:00 Blood Pressure 114/67 01/06/20 06:00 O2 Sat by Pulse Oximetry (%) 96 01/06/20 06:00 Constitutional: Yes: Calm, Thin Eyes: Yes: WNL HENT: Yes: WNL Neck: Yes: WNL Cardiovascular: Yes: Regular Rate and Rhythm, S1, S2 Respiratory: Yes: Diminished Gastrointestinal: Yes: Normal Bowel Sounds, Soft Extremities: Yes: WNL Edema: No Labs: CBC, BMP 01/01/20 07:54 01/01/20 07:54 INR, PTT INR 1.36 (0.82-1.09) H 12/26/19 12:21 Assessment/Plan A/P Small Cell Lung Ca Pleural Effusion r/o Post Obstructive Pneumonia - pleural fluid cytology negative - pain control - inhaled bronchodilators - O2 to keep SpO2 >90% - DVT prophylaxis DR RIVERA
[2020-01-06] MEDS: ALBUTEROL SO4 2.5/IPRATROPIUM 0.5 INH SOL 3 ML VIAL.NEB. NEB SCH ×2 (08:20→14:35)
[2020-01-06 08:54] LABS: HEMATOCRIT 43.3 % (35.4-49); HEMOGLOBIN 14.1 GM/dL (11.7-16.9); MCH 31.1 pg (25.7-33.7); MCHC 32.5 g/dl (32.0-35.9); MEAN CELL VOLUME 95.8 fl (80-96); MEAN PLT VOLUME 9.6 fl (7.5-11.1); PLATELET COUNT 661 K/MM3 (134-434); RBC 4.52 M/mm3 (4.00-5.60); RDW 14.9 % (11.9-15.9); WHITE BLOOD COUNT 12.5 K/mm3 (4.0-10.0)
[2020-01-06] MEDS ORDERED: PT OWN MED DRAWER 7, Y5N ONE (09:16)
[2020-01-06 09:31] LABS: BLOOD UREA NITROGEN 25.5 mg/dL (7-18); CALCIUM 9.1 mg/dL (8.5-10.1); CREATININE 0.9 mg/dL (0.55-1.3); POTASSIUM 4.8 mmol/L (3.5-5.1)
[2020-01-06] MEDS: AMINO ACIDS/PROTEIN HYDROLYS 30 ML LIQUID.PKT PO SCH ×2 (09:32→16:35)
[2020-01-06] MEDS: MYCOPHENOLATE MOFETIL 500 MG TABLET PO SCH (09:34)
[2020-01-06] MEDS: HEPARIN NA (PORCINE) 5,000 UNITS/ML 1ML VIAL SQ SCH (09:35)
[2020-01-06] MEDS: INSULIN (LEVEMIR) 100 UNITS/ML UNITS SQ SCH (09:35)
[2020-01-06] MEDS: METOPROLOL TARTRATE 25 MG TABLET (FP) PO SCH (09:37)
[2020-01-06] MEDS: MEGESTROL ACETATE 400 MG/10 ML UNIT DOSE CUP PO SCH (09:37)
[2020-01-06] MEDS: NORTRIPTYLINE HCL 25 MG CAPSULE PO SCH (09:37)
[2020-01-06] MEDS: NIFEdipine E.R 60 MG TABLET PO SCH (09:38)
[2020-01-06] MEDS: TACROLIMUS ANHYDROUS 1 MG CAPSULE PO SCH (09:38)
[2020-01-06] MEDS: TOPIRAMATE 25 MG TABLET PO SCH (09:38)
[2020-01-06] MEDS: fentaNYL 25mcg/hr PATCH.TD72 TD SCH (09:39)
[2020-01-06] MEDS ORDERED: INSULIN (NOVOLOG) ASPART 100 UNITS/ML 10ML VIAL ONE (11:30)
--- NOTE | 2020-01-06 11:39 | PN ---
Progress Note, Physician History of Present Illness: patient seen and examined today feels not good today no distress chronic ill appearance pain ok afebrile + sob - Current Medication List Current Medications: Active Medications Albuterol Sulfate (Ventolin 0.083% Nebulizer Soln -) 1 amp NEB Q4H PRN PRN Reason: SHORT OF BREATH/WHEEZING Last Admin: 01/03/20 08:27 Dose: 1 amp Documented by: Albuterol/Ipratropium (Duoneb -) 1 amp NEB RTID [facility] Last Admin: 01/06/20 08:20 Dose: 1 amp Documented by: Alprazolam (Xanax) 0.5 mg PO [facility] Last Admin: 01/05/20 22:18 Dose: Not Given Documented by: Amino Acids (Prosource No Carb Liquid Pkt) 30 ml PO BID@0800,1730 [facility] Last Admin: 01/06/20 09:32 Dose: 30 ml Documented by: Docusate Sodium (Colace -) 300 mg PO [facility] Last Admin: 01/05/20 22:17 Dose: 300 mg Documented by: Fentanyl (Duragesic 25mcg Patch -) 1 patch TD Q72H [facility] Stop: 01/10/20 10:26 Last Admin: 01/06/20 09:39 Dose: 1 patch Documented by: Guaifenesin (Robitussin Dm -) 10 ml PO Q4H PRN PRN Reason: COUGH Last Admin: 01/03/20 02:01 Dose: 10 ml Documented by: Heparin Sodium (Porcine) (Heparin -) 5,000 unit SQ BID [facility] Last Admin: 01/06/20 09:35 Dose: 5,000 unit Documented by: Piperacillin Sod/Tazobactam (Sod 3.375 gm/ Dextrose) 50 mls @ 100 mls/hr IVPB Q8H-IV [facility]; Protocol Last Admin: 01/06/20 09:39 Dose: 100 mls/hr Documented by: Insulin Aspart (Novolog Vial Sliding Scale -) 1 vial SQ TIDAC [facility]; Protocol Last Admin: 01/06/20 06:31 Dose: Not Given Documented by: Insulin Detemir (Levemir Vial) 14 units SQ BID [facility] Last Admin: 01/06/20 09:35 Dose: 14 units Documented by: Megestrol Acetate (Megace Oral Suspension -) 400 mg PO DAILY [facility] Last Admin: 01/06/20 09:37 Dose: 400 mg Documented by: Metoclopramide HCl (Reglan -) 5 mg PO TIDAC [facility] Last Admin: 01/06/20 06:10 Dose: 5 mg Documented by: Metoprolol Tartrate (Lopressor -) 25 mg PO BID [facility] Last Admin: 01/06/20 09:37 Dose: 25 mg Documented by: Miscellaneous (Duragesic Patch Waste) 1 each MC PRN PRN PRN Reason: PAIN Last Admin: 01/03/20 12:51 Dose: 1 each Documented by: Mycophenolate Mofetil (Cellcept -) 500 mg PO BID [facility] Last Admin: 01/06/20 09:34 Dose: 500 mg Documented by: Nifedipine (Procardia Xl -) 60 mg PO BID [facility] Last Admin: 01/06/20 09:38 Dose: 60 mg Documented by: Nortriptyline HCl (Pamelor -) 25 mg PO DAILY [facility] Last Admin: 01/06/20 09:37 Dose: 25 mg Documented by: Nystatin (Nystatin Oral Suspension -) 500,000 units PO Q6HPO [facility] Last Admin: 01/06/20 05:30 Dose: 500,000 units Documented by: Ondansetron HCl (Zofran Injection) 8 mg IVPB Q6H PRN PRN Reason: NAUSEA AND/OR VOMITING Oxycodone HCl (Roxicodone -) 10 mg PO Q4H PRN PRN Reason: PAIN LEVEL 5-10 Last Admin: 01/06/20 09:57 Dose: 10 mg Documented by: Prednisone (Deltasone -) 5 mg PO HS [facility] Last Admin: 01/05/20 22:16 Dose: 5 mg Documented by: Tacrolimus (Prograf) 1 mg PO BID [facility] Last Admin: 01/06/20 09:38 Dose: 1 mg Documented by: Topiramate (Topamax -) 25 mg PO DAILY [facility] Last Admin: 01/06/20 09:38 Dose: 25 mg Documented by: - Objective Vital Signs: Vital Signs Temperature 98.1 F 01/06/20 06:00 Pulse Rate 104 H 01/06/20 06:00 Respiratory Rate 18 01/06/20 06:00 Blood Pressure 114/67 01/06/20 06:00 O2 Sat by Pulse Oximetry (%) 96 01/06/20 06:00 Constitutional: Yes: No Distress, Calm Neck: Yes: Supple Cardiovascular: Yes: Regular Rate and Rhythm Respiratory: Yes: Diminished (left > right) Gastrointestinal: Yes: Soft Edema: No Neurological: Yes: Alert Psychiatric: Yes: Alert Labs: CBC, BMP 01/06/20 07:44 01/06/20 07:44 INR, PTT INR 1.36 (0.82-1.09) H 12/26/19 12:21 - ....Imaging Chest X-ray: Report Reviewed Problem List - Problems (1) Lung cancer Code(s): C34.90 - MALIGNANT NEOPLASM OF UNSP PART OF UNSP BRONCHUS OR LUNG (2) Pneumonia Code(s): J18.9 - PNEUMONIA, UNSPECIFIED ORGANISM Qualifiers: Pneumonia type: due to unspecified organism Laterality: left Lung location: lower lobe of lung Qualified Code(s): J18.9 - Pneumonia, unspecified organism (3) Diabetes Code(s): E11.9 - TYPE 2 DIABETES MELLITUS WITHOUT COMPLICATIONS (4) Lung mass Code(s): R91.8 - OTHER NONSPECIFIC ABNORMAL FINDING OF LUNG FIELD (5) Transplanted organ and tissue status Code(s): Z94.9 - TRANSPLANTED ORGAN AND TISSUE STATUS, UNSPECIFIED (6) Pericardial effusion Code(s): I31.3 - PERICARDIAL EFFUSION (NONINFLAMMATORY) Assessment/Plan Discussed with RN/ Pt Continue present care abx out of bed able to walk a little bit with his son PT cxr - noted -- No change will discuss with pulmonary Will follow
[2020-01-06] MEDS ORDERED: POLYETHYLENE GLYCOL 3350 119 GM BTL PO ONE ×2 (13:13→13:45)
[2020-01-06 14:15] VITALS: BP 127/81; PULSE 100; TEMP 97.7
--- NOTE | 2020-01-06 14:56 | PN ---
Physical Exam: SUBJECTIVE: Patient seen and examined OBJECTIVE: Vital Signs Temperature 97.7 F 01/06/20 14:00 Pulse Rate 100 H 01/06/20 14:00 Respiratory Rate 22 H 01/06/20 14:00 Blood Pressure 127/81 01/06/20 14:00 O2 Sat by Pulse Oximetry (%) 95 01/06/20 14:00 GENERAL: The patient is awake, alert, and fully oriented, in no acute distress LUNGS: decreased breath sounds bilaterally HEART: Regular rate and rhythm, S1, S2 ABDOMEN: Soft, nontender, nondistended, normoactive bowel sounds EXTREMITIES: warm, well-perfused, no edema. SKIN: Warm, dry, normal turgor Laboratory Results - last 24 hr 01/05/20 01/05/20 01/06/20 16:47 22:08 06:27 WBC RBC Hgb Hct MCV MCH MCHC RDW Plt Count MPV Sodium Potassium Chloride Carbon Dioxide Anion Gap BUN Creatinine Est GFR (CKD-EPI)AfAm Est GFR (CKD-EPI)NonAf POC Glucometer 157 236 133 Random Glucose Calcium 01/06/20 01/06/20 01/06/20 07:44 07:44 11:23 WBC 12.5 H RBC 4.52 Hgb 14.1 Hct 43.3 MCV 95.8 MCH 31.1 MCHC 32.5 RDW 14.9 Plt Count 661 H MPV 9.6 Sodium 135 L Potassium 4.8 Chloride 96 L Carbon Dioxide 30 Anion Gap 9 BUN 25.5 H Creatinine 0.9 Est GFR (CKD-EPI)AfAm 108.73 Est GFR (CKD-EPI)NonAf 93.82 POC Glucometer 155 Random Glucose 117 H Calcium 9.1 Active Medications Generic Name Dose Route Start Last Admin Trade Name Freq PRN Reason Stop Dose Admin Albuterol Sulfate 1 amp 12/31/19 12:27 01/03/20 08:27 Ventolin 0.083% Nebulizer Soln - NEB 1 amp Q4H PRN Administration SHORT OF BREATH/WHEEZING Albuterol/Ipratropium 1 amp 01/04/20 14:00 01/06/20 14:35 Duoneb - NEB 1 amp RTID [facility] Administration Alprazolam 0.5 mg 01/02/20 13:00 01/05/20 22:18 Xanax PO Not Given HS [facility] Amino Acids 30 ml 01/02/20 17:30 01/06/20 09:32 Prosource No Carb Liquid Pkt PO 30 ml BID@0800,1730 [facility] Administration Amoxicillin/Clavulanate Potassium 1 tab 01/06/20 17:30 Augmentin - 875mg Tablet PO BID@0800,1730 [facility] Docusate Sodium 300 mg 12/28/19 22:00 01/05/20 22:17 Colace - PO 300 mg HS [facility] Administration Fentanyl 1 patch 01/03/20 10:30 01/06/20 09:39 Duragesic 25mcg Patch - TD 01/10/20 10:26 1 patch Q72H [facility] Administration Guaifenesin 10 ml 12/31/19 12:26 01/03/20 02:01 Robitussin Dm - PO 10 ml Q4H PRN Administration COUGH Heparin Sodium (Porcine) 5,000 unit 01/03/20 22:00 01/06/20 09:35 Heparin - SQ 5,000 unit BID [facility] Administration Insulin Aspart 1 vial 12/26/19 16:30 01/06/20 11:44 Novolog Vial Sliding Scale - SQ 2 units TIDAC [facility] Administration Protocol Insulin Detemir 14 units 12/26/19 22:00 01/06/20 09:35 Levemir Vial SQ 14 units BID [facility] Administration Megestrol Acetate 400 mg 01/02/20 13:00 01/06/20 09:37 Megace Oral Suspension - PO 400 mg DAILY [facility] Administration Metoclopramide HCl 5 mg 12/31/19 16:30 01/06/20 11:45 Reglan - PO 5 mg TIDAC [facility] Administration Metoprolol Tartrate 25 mg 12/26/19 22:00 01/06/20 09:37 Lopressor - PO 25 mg BID [facility] Administration Miscellaneous 1 each 01/03/20 10:26 01/03/20 12:51 Duragesic Patch Waste MC 1 each PRN PRN Administration PAIN Mycophenolate Mofetil 500 mg 12/26/19 22:00 01/06/20 09:34 Cellcept - PO 500 mg BID [facility] Administration Nifedipine 60 mg 12/26/19 22:00 01/06/20 09:38 Procardia Xl - PO 60 mg BID [facility] Administration Nortriptyline HCl 25 mg 12/27/19 10:00 08/31/20 09:37 Pamelor - PO 25 mg DAILY [facility] Administration Nystatin 500,000 units 12/29/19 18:00 01/06/20 11:45 Nystatin Oral Suspension - PO 500,000 units Q6HPO [facility] Administration Ondansetron HCl 8 mg 01/03/20 11:39 Zofran Injection IVPB Q6H PRN NAUSEA AND/OR VOMITING Oxycodone HCl 10 mg 01/01/20 17:50 01/06/20 14:07 Roxicodone - PO 10 mg Q4H PRN Administration PAIN LEVEL 5-10 Prednisone 5 mg 12/26/19 22:00 01/05/20 22:16 Deltasone - PO 5 mg HS [facility] Administration Tacrolimus 1 mg 12/30/19 22:00 01/06/20 09:38 Prograf PO 1 mg BID [facility] Administration Topiramate 25 mg 12/27/19 10:00 01/06/20 09:38 Topamax - PO 25 mg DAILY [facility] Administration ASSESSMENT/PLAN: Patient is a 59 year old male with past medical history of ?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 #LAUREL lung mass -Chest CT : interval increased LAUREL opacity consistent with an infiltrate. Interval development of moderate to large at least partially loculated left pleural fluid collection, sterile vs possibly empyema. Large left hilar lesion with contiguous mediastinal extension. Extensive mediastinal lymphadenopathy. Possible ascending and transverse colitis. 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 -will need port placement, plan as outpatient per IR -plan to schedule follow up with Dr. Yancey in clinic next week -ID consulted. REcs appreciated. -Pulm consulted. Recs appreciated. -Rad-onc consulted. Recs appreciated. 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 - New Patient This patient is new to me today: No - Critical Care Critical Care patient: No ATTENDING PHYSICIAN STATEMENT I saw and evaluated the patient. I reviewed the resident's note and discussed the case with the resident. I agree with the resident's findings and plan as documented. SUBJECTIVE: OBJECTIVE: ASSESSMENT AND PLAN:
--- NOTE | 2020-01-06 15:22 | DS ---
Physical Examination Vital Signs: Vital Signs Temperature 97.7 F 01/06/20 14:00 Pulse Rate 100 H 01/06/20 14:00 Respiratory Rate 22 H 01/06/20 14:00 Blood Pressure 127/81 01/06/20 14:00 O2 Sat by Pulse Oximetry (%) 95 01/06/20 14:00 Findings/Remarks: see today progress note Labs: CBC, BMP 01/06/20 07:44 01/06/20 07:44 Discharge Summary Problems reviewed: Yes Reason For Visit: HADACHE/HYPONATREMIA/PNEUMONIA Current Active Problems Lung cancer (Acute) Nausea (Acute) Pericardial effusion (Acute) Pneumonia (Acute) Hospital Course: pts condition stable Cleared by i/d to d/c on po abx I also had d/w Dr. Arrington Oncology f/y next week after port as out pt-- d/w Rn meds send to pharmacy d/c home today close f/u condition gaurded but stable will f/u in office Condition: Improved - Instructions Referrals: Silvia Delgado MD [Primary Care Provider] - - Home Medications Comprehensive Discharge Medication List: Ambulatory Orders Nifedipine ER [Procardia XL -] 60 mg PO BID 08/10/17 Prednisone 5 mg PO HS 08/10/17 Alprazolam 1 mg PO HS 09/03/18 Insulin Glargine,Hum.rec.anlog [Basaglar Kwikpen U-100] 14 unit SQ BID 09/03/18 Mycophenolate Mofetil 500 mg PO BID 09/03/18 Metoprolol Tartrate 25 mg PO BID 12/14/19 Albuterol 0.083% Nebulizer Deysi [Ventolin 0.083% Nebulizer Soln -] 1 amp NEB Q4H PRN amp 01/06/20 Albuterol 2.5/Ipratropium 0.5 [Duoneb -] 1 amp NEB RTID amp 01/06/20 Amox-Tr/K Cl [Augmentin 875-125mg Tablet -] 1 tab PO BID@0800,1730 7 Days #14 tablet 01/06/20 Docusate Sodium [Colace -] 300 mg PO HS capsule 01/06/20 FENTANYL 25mcg PATCH [DURAGESIC 25mcg PATCH -] 1 each TD Q72H #5 patch.72h MDD 1 01/06/20 FENTANYL 25mcg PATCH [DURAGESIC 25mcg PATCH -] 1 patch TD Q72H #5 patch.72h 01/06/20 Megestrol Acetate Oral Susp [Megace Oral Suspension -] 400 mg PO DAILY #1 cup 01/06/20 Metoclopramide HCl [Reglan -] 5 mg PO TIDAC 30 Days #90 tablet 01/06/20 Nortriptyline HCl [Pamelor -] 25 mg PO DAILY capsule 01/06/20 Nystatin Oral Suspension - [Nystatin Oral Susp 862324 Units/5 ML -] 500,000 units PO Q6HPO 10 Days #1 cup 01/06/20 Tacrolimus Anhydrous [Prograf] 1 mg PO BID capsule 01/06/20 Topiramate [Topamax -] 25 mg PO DAILY tablet 01/06/20 oxyCODONE HCL [Roxicodone -] 10 mg PO Q6H PRN #60 tablet MDD 4 01/06/20
--- NOTE | 2020-01-06 15:23 | PN ---
Progress Note, Physician History of Present Illness: AWAKE, SEATED IN BED SL TACHYPNEIC AT REST CHRONICALY ILL APPEARING AFEBRILE WBC SL ELEVATED PLEURAL FLUID CULTURES NEGATIVE - Current Medication List Current Medications: Active Medications Albuterol Sulfate (Ventolin 0.083% Nebulizer Soln -) 1 amp NEB Q4H PRN PRN Reason: SHORT OF BREATH/WHEEZING Last Admin: 01/03/20 08:27 Dose: 1 amp Documented by: Albuterol/Ipratropium (Duoneb -) 1 amp NEB RTID [facility] Last Admin: 01/06/20 14:35 Dose: 1 amp Documented by: Alprazolam (Xanax) 0.5 mg PO [facility] Last Admin: 01/05/20 22:18 Dose: Not Given Documented by: Amino Acids (Prosource No Carb Liquid Pkt) 30 ml PO BID@0800,1730 [facility] Last Admin: 01/06/20 09:32 Dose: 30 ml Documented by: Amoxicillin/Clavulanate Potassium (Augmentin - 875mg Tablet) 1 tab PO BID@0800,1730 [facility] Docusate Sodium (Colace -) 300 mg PO [facility] Last Admin: 01/05/20 22:17 Dose: 300 mg Documented by: Fentanyl (Duragesic 25mcg Patch -) 1 patch TD Q72H [facility] Stop: 01/10/20 10:26 Last Admin: 01/06/20 09:39 Dose: 1 patch Documented by: Guaifenesin (Robitussin Dm -) 10 ml PO Q4H PRN PRN Reason: COUGH Last Admin: 01/03/20 02:01 Dose: 10 ml Documented by: Heparin Sodium (Porcine) (Heparin -) 5,000 unit SQ BID [facility] Last Admin: 01/06/20 09:35 Dose: 5,000 unit Documented by: Insulin Aspart (Novolog Vial Sliding Scale -) 1 vial SQ TIDAC [facility]; Protocol Last Admin: 01/06/20 11:44 Dose: 2 units Documented by: Insulin Detemir (Levemir Vial) 14 units SQ BID [facility] Last Admin: 01/06/20 09:35 Dose: 14 units Documented by: Megestrol Acetate (Megace Oral Suspension -) 400 mg PO DAILY [facility] Last Admin: 01/06/20 09:37 Dose: 400 mg Documented by: Metoclopramide HCl (Reglan -) 5 mg PO TIDAC [facility] Last Admin: 01/06/20 11:45 Dose: 5 mg Documented by: Metoprolol Tartrate (Lopressor -) 25 mg PO BID [facility] Last Admin: 01/06/20 09:37 Dose: 25 mg Documented by: Miscellaneous (Duragesic Patch Waste) 1 each MC PRN PRN PRN Reason: PAIN Last Admin: 01/03/20 12:51 Dose: 1 each Documented by: Mycophenolate Mofetil (Cellcept -) 500 mg PO BID [facility] Last Admin: 01/06/20 09:34 Dose: 500 mg Documented by: Nifedipine (Procardia Xl -) 60 mg PO BID [facility] Last Admin: 01/06/20 09:38 Dose: 60 mg Documented by: Nortriptyline HCl (Pamelor -) 25 mg PO DAILY [facility] Last Admin: 01/06/20 09:37 Dose: 25 mg Documented by: Nystatin (Nystatin Oral Suspension -) 500,000 units PO Q6HPO [facility] Last Admin: 01/06/20 11:45 Dose: 500,000 units Documented by: Ondansetron HCl (Zofran Injection) 8 mg IVPB Q6H PRN PRN Reason: NAUSEA AND/OR VOMITING Oxycodone HCl (Roxicodone -) 10 mg PO Q4H PRN PRN Reason: PAIN LEVEL 5-10 Last Admin: 01/06/20 14:07 Dose: 10 mg Documented by: Prednisone (Deltasone -) 5 mg PO HS [facility] Last Admin: 01/05/20 22:16 Dose: 5 mg Documented by: Tacrolimus (Prograf) 1 mg PO BID [facility] Last Admin: 01/06/20 09:38 Dose: 1 mg Documented by: Topiramate (Topamax -) 25 mg PO DAILY [facility] Last Admin: 01/06/20 09:38 Dose: 25 mg Documented by: - Objective Vital Signs: Vital Signs Temperature 97.7 F 01/06/20 14:00 Pulse Rate 100 H 01/06/20 14:00 Respiratory Rate 22 H 01/06/20 14:00 Blood Pressure 127/81 01/06/20 14:00 O2 Sat by Pulse Oximetry (%) 95 01/06/20 14:00 Constitutional: Yes: No Distress Eyes: Yes: Conjunctiva Clear Cardiovascular: Yes: Regular Rate and Rhythm Respiratory: Yes: Diminished Gastrointestinal: Yes: Normal Bowel Sounds, Soft. No: Tenderness Edema: No Labs: CBC, BMP 01/06/20 07:44 01/06/20 07:44 INR, PTT INR 1.36 (0.82-1.09) H 12/26/19 12:21 Assessment/Plan ?POST OBSTRUCTIVE PNEUMONIA LAUREL LOCULATED PLEURAL EFFUSION SMALL CELL CA MEDIASTINAL ADENOPATHY COLITIS PLEURAL FLUID C/S (-) SUBSTITUTE PO AUGMENTIN OUTPATIENT PULMONARY/ ONCOLOGY F/U
--- NOTE | 2020-01-06 16:06 | PN ---
Teaching Attending Note Name of Resident: Martha Briggs ATTENDING PHYSICIAN STATEMENT I saw and evaluated the patient. I reviewed the resident's note and discussed the case with the resident. I agree with the resident's findings and plan as documented. 59y M with hx of HCC s/p liver transplant and renal transplant on cellcept and prograf with recently diagnosed small cell lung ca (LAUREL bronchus mass with extension into mediastinum + mediastinum LAD; ) had recent thora for pleural effusion to complete staging; path came back today neg for malignancy. Plan to pursue chemoRT as outpatient. He is scheduled to see us Next Sunday 01/14 at 2pm in the outpatient clinic. Details were relayed to patient today.
--- NOTE | 2020-01-06 16:49 | PN ---
Progress Note (short form) - Note Progress Note: Radiation Oncology follow up MRI brain, bone scan, pleural fluid cytology are neg. 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 Would recommend consideration for upfront concurrent chemotherapy and radiation therapy. Will need PFTs and pulmonary follow up, and outpatient PET-CT. He will follow up in office (contact provided) when discharged.
[2020-01-06] MEDS ORDERED: AMOX TR/POT CLAV 875MG/125MG TABLETS (FP) PO SCH (17:30)
== END 2020-01-06 18:32 | disposition home or self-care (01) | DRG 136 ==
LOC: FER 12:00 → FM/S 14:08 → UNDOADMIN 14:08 → J5S 16:29
PROVIDERS: ADMIT Internal Medicine; ATTEND Internal Medicine
PROC: 0W9B3ZX Drainage of Left Pleural Cavity, Percutaneous Approach, Diagnostic (ICD-10-PCS; principal; 2020-01-01)
DX: C34.90 Malignant neoplasm of unspecified part of unspecified bronchus or lung (principal); E87.1 Hypo-osmolality and hyponatremia; R63.0 Anorexia; D72.829 Elevated white blood cell count, unspecified; K52.9 Noninfective gastroenteritis and colitis, unspecified; E11.9 Type 2 diabetes mellitus without complications; I50.9 Heart failure, unspecified; C78.1 Secondary malignant neoplasm of mediastinum; I31.3 Pericardial effusion (noninflammatory); J18.8 Other pneumonia, unspecified organism; J86.9 Pyothorax without fistula; D75.1 Secondary polycythemia; J90 Pleural effusion, not elsewhere classified; E87.2 Acidosis; N18.5 Chronic kidney disease, stage 5; K59.00 Constipation, unspecified; I10 Essential (primary) hypertension; E11.65 Type 2 diabetes mellitus with hyperglycemia
CPT/HCPCS: 36415; 71045-TC-FY; 71250-TC; 74176-TC; 76942; 78306-TC; 80048; 80053; 80197; 81003; 81015; 82150; 82465; 82550; 82945; 82962; 83605; 83615; 83735; 84100; 84157; 84478; 84484; 84550; 85025; 85027; 85610; 85730; 87040; 87070; 87075; 87086; 87102; 87116; 87205; 87206; 87210; 88108; 88305-TC; 93005; 93306-TC; 94640; 99291; A9503; J1644; J7517; U0003

== ENCOUNTER 2020-01-11 12:01 | Inpatient (IN) | payer OTHER ==
[2020-01-11 12:30] VITALS: BMI 22.3
--- NOTE | 2020-01-11 14:03 | PDOC ---
Attending Attestation - Resident Resident Name: Rose Mary Gardner - ED Attending Attestation I have performed the following: I have examined & evaluated the patient, The case was reviewed & discussed with the resident, I agree w/resident's findings & plan - HPI HPI: 01/11/20 14:00 59 year old male with past medical history of hepatitis C, hepatocellular carcinoma s/p TACE ] s/p kidney/liver transplant (2014), HTN, CHF, COPD, Hx of HCV presenting with LLE swelling, left chest pain. outpatient Duplex with left subclavian and axillary vein DVT noted, sent to the ED for admission and workup. PMD Dr Marvin Delgado - Physicial Exam PE: 01/11/20 14:01 Agree with the resident's HPI and PE as documented in the electronic medical record. malaised appearing, older than stated age. EOMI, PERRL, nl conjunctiva, anicteric; neck supple. lungs clear, +tachycardic., abdomen soft nontender. No rebound, no guarding. +lower abdominal healing ecchymosis and surgical scars. Back nontender. LORENZ x4, no focal neuro deficits. +significant nonpitting LUE peripheral edema, no tenderness. normal color for ethnicity, WWP. - Medical Decision Making 01/11/20 14:01 Vital Signs Temp Pulse Resp BP Pulse Ox 98.4 F 106 H 20 132/90 95 01/11/20 12:25 01/11/20 12:25 01/11/20 12:25 01/11/20 12:25 01/11/20 12:25 vitals reviewed, +tachy pt has outpatient duplex with left proximal DVT in the LUE/ involving axillary and subclavian veins. he does have known malignancy, contributing to his hypercoagulable state. does have left chest pain, sharp and transient. hold off CTA as pt is post renal/hepatic transplant, and risk of nephrotoxicity. on immunosuppressants. heparin gtt labs and lytes with now renal insufficiency/ED. Cr 1.8, baseline normal leukocytosis 15K likely inflammatory; no infectious sx. renal lytes/UA to check for etiology given some gentle IVF for renal perfusion last echo in december 2019 with normal EF 50-55% so can tolerate. small pericardial effusion at that time. admit to Dr Edmondson 09/05/20 16:06 Heart Score/ECG Review #1 ECG reviewed & interpreted by me at: 15:20 General ECG Interpretation: Sinus Rhythm Compared to previous ECG there are: Changes noted 01/11/20 16:08 EKG sinus tachycardia at 110bpm. no interval abnormalities, narrow QRS, ST and T wave segments and morphology normal. Nonspecific T wave abnormalities Discharge - Discharge Information Problems reviewed: Yes Clinical Impression/Diagnosis: DVT of axillary vein, acute left Condition: Fair - Admission Yes - Follow up/Referral - Patient Discharge Instructions - Post Discharge Activity
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
[2020-01-11] MEDS: HEPARIN - 25,000 UNIT in SODIUM CHLORIDE 495 ML IV SCH (14:30)
[2020-01-11] MEDS ORDERED: HEPARIN INFUSION - 25,000 UNITS/500 ML INFUS.BAG IVPB ONE (14:31)
[2020-01-11 14:36] LABS: BASO % 0.5 % (0-2.0); HEMATOCRIT 42.7 % (35.4-49); HEMOGLOBIN 14.1 GM/dL (11.7-16.9); MCH 32.1 pg (25.7-33.7); MEAN CELL VOLUME 97.4 fl (80-96); MEAN PLT VOLUME 9.9 fl (7.5-11.1); MONO % 7.2 % (3.8-10.2); NEUT % 83.3 % (42.8-82.8); PLATELET COUNT 581 K/MM3 (134-434); RBC 4.39 M/mm3 (4.00-5.60); RDW 15.4 % (11.9-15.9); WHITE BLOOD COUNT 15.7 K/mm3 (4.0-10.0)
[2020-01-11 14:43] LABS: INR 1.29 (0.83-1.09); PROTHROMBIN TIME (PATIENT) 15.3 SEC (9.7-13.0)
[2020-01-11 14:46] LABS: ACTIVATED PTT 33.1 SECONDS (25.2-36.5)
[2020-01-11 15:03] LABS: ALBUMIN 2.3 g/dl (3.4-5.0); ANION GAP 13 MMOL/L (8-16); BILIRUBIN,TOTAL 0.7 mg/dL (0.2-1); CALCIUM 9.8 mg/dL (8.5-10.1); CHLORIDE 93 mmol/L (98-107); CO2 28 mmol/L (21-32); CREATININE 1.8 mg/dL (0.55-1.3); GLUCOSE,RANDOM 53 mg/dL (74-106); POTASSIUM 5.2 mmol/L (3.5-5.1); SGOT/AST 54 U/L (15-37); SGPT/ALT 9 U/L (13-61); SODIUM 133 mmol/L (136-145); TOT PROT 6.4 g/dl (6.4-8.2)
[2020-01-11 15:06] LABS: ALK PHOS 86 U/L (45-117)
--- NOTE | 2020-01-11 15:19 | HP ---
Admitting History and Physical - Primary Care Physician PCP: Rosa Edmondson - Admission Chief Complaint: left arm DVT History of Present Illness: ER note 01/11/20 14:00 59 year old male with past medical history of hepatitis C, hepatocellular carcinoma s/p TACE ] s/p kidney/liver transplant (2014), HTN, CHF, COPD, Hx of HCV presenting with LLE swelling, left chest pain. outpatient Duplex with left subclavian and axillary vein DVT noted, sent to the ED for admission and workup. 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 No: Alzheimer's, CVA, Dementia, Migraine, Seizure Cardiovascular: Yes: CHF, HTN. No: Pulmonary Hypertension Pulmonary: Yes: COPD Gastrointestinal: Yes: Cancer (hepatocellular), Other (Hepatitis C) Hepatobiliary: Yes: Hepatitis C Renal/: Yes: Renal Inusuff (CKD V) Heme/Onc: Yes: Anemia - Past Surgical History Past Surgical History: Yes: AV Fistula/Graft, Cholecystectomy, Kidney Transplant, Liver Transplant, Splenectomy - Smoking History Smoking history: Former smoker Have you smoked in the past 12 months: No Aproximately how many cigarettes per day: 20 (20-25 pack years) If you are a former smoker, when did you quit?: 2009 - Alcohol/Substance Use Hx Alcohol Use: Yes (FEW GLASSES OF WINE) History of Substance Use: reports: None - Social History 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 History of Recent Travel: No Home Medications - Allergies Allergies/Adverse Reactions: Allergies Allergy/AdvReac Type Severity Reaction Status Date / Time morphine AdvReac Verified 01/11/20 12:25 - Home Medications Home Medications: Ambulatory Orders Nifedipine ER [Procardia XL -] 60 mg PO BID 08/10/17 Prednisone 5 mg PO HS 08/10/17 Alprazolam 1 mg PO HS 09/03/18 Insulin Glargine,Hum.rec.anlog [Basaglar Kwikpen U-100] 14 unit SQ BID 09/03/18 Mycophenolate Mofetil 500 mg PO BID 09/03/18 Metoprolol Tartrate 25 mg PO BID 12/14/19 Albuterol 0.083% Nebulizer Deysi [Ventolin 0.083% Nebulizer Soln -] 1 amp NEB Q4H PRN amp 01/06/20 Albuterol 2.5/Ipratropium 0.5 [Duoneb -] 1 amp NEB RTID amp 01/06/20 Amox-Tr/K Cl [Augmentin 875-125mg Tablet -] 1 tab PO BID@0800,1730 7 Days #14 tablet 01/06/20 Docusate Sodium [Colace -] 300 mg PO HS capsule 01/06/20 FENTANYL 25mcg PATCH [DURAGESIC 25mcg PATCH -] 1 each TD Q72H #10 5ml MDD 1 01/06/20 FENTANYL 25mcg PATCH [DURAGESIC 25mcg PATCH -] 1 each TD Q72H #5 patch.72h MDD 1 01/06/20 FENTANYL 25mcg PATCH [DURAGESIC 25mcg PATCH -] 1 patch TD Q72H #5 patch.72h 01/06/20 Megestrol Acetate Oral Susp [Megace Oral Suspension -] 400 mg PO DAILY #1 cup 01/06/20 Metoclopramide HCl [Reglan -] 5 mg PO TIDAC 30 Days #90 tablet 01/06/20 Nortriptyline HCl [Pamelor -] 25 mg PO DAILY capsule 01/06/20 Nystatin Oral Suspension - [Nystatin Oral Susp 539445 Units/5 ML -] 500,000 units PO Q6HPO 10 Days #1 cup 01/06/20 Oxycodone HCl 10 mg PO QID PRN #60 tablet MDD 4 01/06/20 Tacrolimus Anhydrous [Prograf] 1 mg PO BID capsule 01/06/20 Topiramate [Topamax -] 25 mg PO DAILY tablet 01/06/20 oxyCODONE HCL 15 mg PO Q4H 01/11/20 Review of Systems - Review of Systems Constitutional: denies: Chills, Fever Cardiovascular: reports: Chest Pain Respiratory: reports: Cough, SOB Physical Examination Vital Signs: Vital Signs Temperature 98.4 F 01/11/20 12:25 Pulse Rate 106 H 01/11/20 12:25 Respiratory Rate 20 01/11/20 12:25 Blood Pressure 132/90 01/11/20 12:25 O2 Sat by Pulse Oximetry (%) 95 01/11/20 12:25 Constitutional: Yes: Moderate Distress Cardiovascular: Yes: Regular Rate and Rhythm Respiratory: Yes: Diminished (left) Gastrointestinal: Yes: Normal Bowel Sounds, Soft. No: Tenderness Edema: Yes Edema: LUE: 2+, LLE: 2+, RLE: 2+ Neurological: Yes: Alert, Oriented Labs: CBC, BMP 01/11/20 14:10 01/11/20 14:10 Imaging - Results Chest X-ray: Image Reviewed Ultrasound: Report Reviewed EKG: Image Reviewed (sinus tachycardia) Problem List - Problems (1) DVT of axillary vein, acute left Code(s): I82.A12 - ACUTE EMBOLISM AND THROMBOSIS OF LEFT AXILLARY VEIN (2) DM Diabetes mellitus type 2 Code(s): E11.9 - TYPE 2 DIABETES MELLITUS WITHOUT COMPLICATIONS (3) Lung cancer Code(s): C34.90 - MALIGNANT NEOPLASM OF UNSP PART OF UNSP BRONCHUS OR LUNG Assessment/Plan PLAN Started Heparin GTT Oncology eval CXR noted may need repeat thoracentesis pain management --on meds Zofran as needed dc Reglan continue with med monitor BGM
[2020-01-11] MEDS ORDERED: ALBUTEROL SO4 0.083% IH SOL 2.5 MG/3 ML VIAL.NEB. NEB PRN (15:20)
[2020-01-11] MEDS ORDERED: ONDANSETRON 4 MG/2 ML VIAL IVPB PRN (15:22)
[2020-01-11] MEDS ORDERED: fentaNYL 25mcg/hr PATCH.TD72 TD SCH (15:30)
[2020-01-11] MEDS ORDERED: SODIUM CHLORIDE 1,000 ML IV SCH (15:30)
[2020-01-11] MEDS: METOCLOPRAMIDE HCL 10 MG TABLET (FP) PO SCH (16:05)
[2020-01-11] MEDS: DOCUSATE SODIUM 100 MG CAPSULE (FP) PO SCH ×2 (18:17→22:19)
[2020-01-11] MEDS: oxyCODONE HCL 5 MG TABLET PO PRN (18:27)
[2020-01-11] MEDS ORDERED: oxyCODONE HCL 5 MG TABLET ONE (18:28)
[2020-01-11 20:55] LABS: INR 1.33 (0.83-1.09); PROTHROMBIN TIME (PATIENT) 15.7 SEC (9.7-13.0)
[2020-01-11 20:57] LABS: ACTIVATED PTT 31.7 SECONDS (25.2-36.5)
[2020-01-11] MEDS ORDERED: HEPARIN NA (PORCINE) 5,000 UNITS/ML 1ML VIAL ONE (21:18)
[2020-01-11] MEDS: HEPARIN NA (PORCINE) 5,000 UNITS/ML 1ML VIAL IVPUSH PRN (21:20)
[2020-01-11] MEDS ORDERED: PATIENT'S OWN MEDICATION (NON-FORMULARY) (Insulin Glargine,Hum.Rec.Anlog [Basaglar Kwikpen SQ SCH (22:00)
[2020-01-11] MEDS ORDERED: METOPROLOL TARTRATE 25 MG TABLET (FP) ONE (22:02)
[2020-01-11] MEDS ORDERED: DOCUSATE SODIUM 100 MG CAPSULE (FP) PO ONE (22:02)
[2020-01-11] MEDS ORDERED: ALPRAZolam 1 MG TABLET ONE (22:02)
[2020-01-11] MEDS ORDERED: PT OWN MED DRAWER 7, Y5N ONE (22:04)
[2020-01-11] MEDS: METOPROLOL TARTRATE 25 MG TABLET (FP) PO SCH (22:19)
[2020-01-11] MEDS: predniSONE 5 MG TABLET (UD) PO SCH (22:19)
[2020-01-11] MEDS: ALPRAZolam 1 MG TABLET PO SCH (22:19)
[2020-01-11] MEDS: MYCOPHENOLATE MOFETIL 500 MG TABLET PO SCH (22:30)
[2020-01-11] MEDS: TACROLIMUS ANHYDROUS 1 MG CAPSULE PO SCH (22:31)
[2020-01-11] MEDS ORDERED: NIFEdipine E.R. 30 MG TABLET ONE (23:33)
[2020-01-11] MEDS: NIFEdipine E.R. 30 MG TABLET PO SCH (23:36)
[2020-01-12] MEDS ORDERED: oxyCODONE HCL 5 MG TABLET PO ONE (00:04)
[2020-01-12] MEDS ORDERED: oxyCODONE HCL 5 MG TABLET ONE (00:07)
[2020-01-12] MEDS: INSULIN (LEVEMIR) 100 UNITS/ML UNITS SQ SCH ×2 (01:27→07:33)
[2020-01-12] MEDS: oxyCODONE HCL 5 MG TABLET PO PRN ×5 (01:27→21:36)
[2020-01-12] MEDS: ALBUTEROL SO4 HFA INHALER IH PRN ×3 (01:30→21:43)
[2020-01-12] MEDS: ALPRAZolam 1 MG TABLET PO SCH (01:37)
[2020-01-12] MEDS: METOCLOPRAMIDE HCL 10 MG TABLET (FP) PO SCH ×3 (06:16→16:56)
[2020-01-12] MEDS ORDERED: DEXTROSE 50%-WATER 25 GM/50 ML DISP.SYRIN ONE (07:16)
--- NOTE | 2020-01-12 07:17 | RAPID ---
Physical Examination Vital Signs: Vital Signs Temperature 97.5 F L 01/12/20 06:00 Pulse Rate 103 H 01/12/20 06:00 Respiratory Rate 20 01/12/20 06:00 Blood Pressure 131/69 01/12/20 06:00 O2 Sat by Pulse Oximetry (%) 98 01/12/20 06:00 Rapid Response - Rapid Response Assessment: Rapid response was called overhead. 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 1 amp d50 ordered and given Patient remain asymptomatic denies dizziness, headache, chest pain, SOB CTAB S1 S2 LUE edema, LLE +2, RLE +1 Will order CMP, Mg., PHOS Will hold levemir Continue to closely monitor BGM Pt encouraged to resume eating and drinking
[2020-01-12] MEDS ORDERED: DEXTROSE 50%-WATER - 25 GM/50 ML VIAL IVPUSH ONE (07:26)
[2020-01-12 07:34] LABS: BASO % 0.3 % (0-2.0); HEMATOCRIT 42.2 % (35.4-49); LYMPH % 9.3 % (8-40); MCH 32.2 pg (25.7-33.7); MCHC 33.2 g/dl (32.0-35.9); MEAN CELL VOLUME 97.2 fl (80-96); MEAN PLT VOLUME 9.9 fl (7.5-11.1); MONO % 7.3 % (3.8-10.2); NEUT % 83.1 % (42.8-82.8); PLATELET COUNT 517 K/MM3 (134-434); RBC 4.35 M/mm3 (4.00-5.60); RDW 14.8 % (11.9-15.9); WHITE BLOOD COUNT 14.6 K/mm3 (4.0-10.0)
[2020-01-12 08:03] LABS: ALBUMIN 2.1 g/dl (3.4-5.0); BILIRUBIN,TOTAL 0.7 mg/dL (0.2-1); BLOOD UREA NITROGEN 36.3 mg/dL (7-18); CALCIUM 9.4 mg/dL (8.5-10.1); CREATININE 1.1 mg/dL (0.55-1.3); POTASSIUM 4.2 mmol/L (3.5-5.1)
[2020-01-12] MEDS: MYCOPHENOLATE MOFETIL 500 MG TABLET PO SCH ×2 (09:05→21:34)
[2020-01-12] MEDS: METOPROLOL TARTRATE 25 MG TABLET (FP) PO SCH ×2 (09:05→21:35)
[2020-01-12 09:32] LABS: BASO % 0.6 % (0-2.0); HEMATOCRIT 40.8 % (35.4-49); HEMOGLOBIN 13.3 GM/dL (11.7-16.9); LYMPH % 5.3 % (8-40); MCH 31.5 pg (25.7-33.7); MCHC 32.6 g/dl (32.0-35.9); MEAN CELL VOLUME 96.7 fl (80-96); MEAN PLT VOLUME 9.6 fl (7.5-11.1); MONO % 6.1 % (3.8-10.2); PLATELET COUNT 489 K/MM3 (134-434); RBC 4.22 M/mm3 (4.00-5.60); RDW 15.2 % (11.9-15.9)
[2020-01-12 09:48] LABS: ALBUMIN 1.9 g/dl (3.4-5.0); BILIRUBIN,TOTAL 0.8 mg/dL (0.2-1); BLOOD UREA NITROGEN 35.5 mg/dL (7-18); CALCIUM 8.9 mg/dL (8.5-10.1); CREATININE 1.1 mg/dL (0.55-1.3); MAGNESIUM 1.8 mg/dL (1.8-2.4); PHOSPHOROUS 3.7 mg/dL (2.5-4.9); POTASSIUM 4.2 mmol/L (3.5-5.1); TOT PROT 5.7 g/dl (6.4-8.2)
[2020-01-12] MEDS ORDERED: MEGESTROL ACETATE 400 MG/10 ML UNIT DOSE CUP PO SCH (10:00)
[2020-01-12] MEDS ORDERED: ALPRAZolam 1 MG TABLET PO PRN (10:03)
[2020-01-12] MEDS ORDERED: POLYETHYLENE GLYCOL 3350 119 GM BTL PO PRN (10:03)
[2020-01-12] MEDS: HEPARIN - 25,000 UNIT in SODIUM CHLORIDE 495 ML IV SCH ×2 (10:31→14:30)
--- NOTE | 2020-01-12 10:31 | PN ---
Progress Note (short form) - Note Progress Note: has pain in left arm Left arm swelling sob+ nausea+ Vital Signs - 24 hr 01/11/20 01/11/20 01/11/20 12:25 16:32 21:35 Temperature 98.4 F Pulse Rate 106 H Pulse Rate [ 110 H 113 H Right Apical] Respiratory 20 20 20 Rate Blood Pressure 132/90 Blood Pressure 116/78 114/70 [Right Arm] O2 Sat by Pulse 95 95 95 Oximetry (%) 01/11/20 01/12/20 01/12/20 23:32 00:30 02:21 Temperature 98.0 F 98.7 F Pulse Rate 107 H 101 H Pulse Rate [ 75 Right Apical] Respiratory 18 20 20 Rate Blood Pressure 119/71 100/66 Blood Pressure 120/77 [Right Arm] O2 Sat by Pulse 95 95 99 Oximetry (%) 01/12/20 01/12/20 01/12/20 06:00 07:15 09:08 Temperature 97.5 F L 97.9 F Pulse Rate 103 H 77 98 H Pulse Rate [ Right Apical] Respiratory 20 18 18 Rate Blood Pressure 131/69 96/54 L 96/59 L Blood Pressure [Right Arm] O2 Sat by Pulse 98 97 98 Oximetry (%) Current Medications Generic Name Dose Route Start Last Admin Trade Name Freq PRN Reason Stop Dose Admin Albuterol Sulfate 2 puff 01/11/20 17:18 01/12/20 06:18 Ventolin Hfa Inhaler - IH 2 puff Q4H PRN Administration SHORT OF BREATH/WHEEZING Alprazolam 0.5 mg 01/12/20 10:03 Xanax PO Q12H PRN ANXIETY Docusate Sodium 300 mg 01/11/20 15:30 01/11/20 22:19 Colace - PO 300 mg HS CONCEPCION Administration Fentanyl 1 patch 01/12/20 10:05 Duragesic 25mcg Patch - TD Q72H CONCEPCION Heparin Sodium (Porcine) 1,000 unit 01/11/20 14:21 Heparin - IVPUSH PRN PRN Heparin Heparin Sodium (Porcine) 5,000 unit 01/11/20 14:21 01/11/20 21:20 Heparin - IVPUSH 5,000 unit PRN PRN Administration Heparin Heparin Sodium (Porcine) 25, 500 mls @ 20 mls/hr 01/11/20 14:30 01/11/20 21:14 000 unit/ Sodium Chloride IV 1,150 unit/hr TITR CONCEPCION 23 mls/hr Titration Protocol 1,000 UNIT/HR Sodium Chloride 1,000 mls @ 125 mls/hr 01/11/20 15:30 01/11/20 16:05 Normal Saline - IV 125 mls/hr ASDIR CONCEPCION Administration Megestrol Acetate 400 mg 01/12/20 10:00 01/12/20 09:05 Megace Oral Suspension - PO 400 mg DAILY CONCEPCION Administration Metoclopramide HCl 5 mg 01/11/20 16:30 01/12/20 06:16 Reglan - PO 5 mg TIDAC CONCEPCION Administration Metoprolol Tartrate 25 mg 01/11/20 22:00 01/12/20 09:05 Lopressor - PO 25 mg BID [facility] Administration Miscellaneous 1 each 01/11/20 15:20 Duragesic Patch Waste MC PRN PRN PAIN Mycophenolate Mofetil 500 mg 01/11/20 22:00 01/12/20 09:05 Cellcept - PO 500 mg BID [facility] Administration Nifedipine 60 mg 01/11/20 22:00 01/11/20 23:36 Procardia Xl - PO 60 mg BID [facility] Administration Non-Formulary Medication 1 amp 01/11/20 20:00 Albuterol 2.5/Ipratropium 0.5 [Duoneb -] NEB RTID CONCEPCION Ondansetron HCl 8 mg 01/11/20 15:22 Zofran Injection IVPB Q6H PRN NAUSEA Oxycodone HCl 10 mg 01/12/20 10:03 Roxicodone - PO Q4H PRN PAIN LEVEL 5-10 Polyethylene Glycol 17 gm 01/12/20 10:03 Miralax (For Daily Use) - PO DAILY PRN CONSTIPATION Prednisone 5 mg 01/11/20 22:00 01/11/20 22:19 Deltasone - PO 5 mg HS CONCEPCION Administration Tacrolimus 1 mg 01/11/20 22:00 01/11/20 22:31 Prograf PO 1 mg BID [facility] Administration Topiramate 25 mg 01/12/20 10:00 Topamax - PO DAILY [facility] Laboratory Results - last 24 hr 01/11/20 01/11/20 01/11/20 14:10 14:10 14:10 WBC 15.7 H RBC 4.39 Hgb 14.1 Hct 42.7 MCV 97.4 H MCH 32.1 MCHC 33.0 RDW 15.4 Plt Count 581 H MPV 9.9 Absolute Neuts (auto) 13.0 H Neutrophils % 83.3 H Lymphocytes % 9.0 Monocytes % 7.2 Eosinophils % 0.0 Basophils % 0.5 Nucleated RBC % 0 PT with INR INR PTT (Actin FS) Sodium 133 L Potassium 5.2 H Chloride 93 L Carbon Dioxide 28 Anion Gap 13 BUN 45.0 H Creatinine 1.8 H Est GFR (CKD-EPI)AfAm 47.03 Est GFR (CKD-EPI)NonAf 40.58 POC Glucometer Random Glucose 53 L Calcium 9.8 Phosphorus Magnesium Total Bilirubin 0.7 AST 54 H ALT 9 L Alkaline Phosphatase 86 Creatine Kinase 84 Troponin I < 0.02 Total Protein 6.4 Albumin 2.3 L Blood Type Cancelled Antibody Screen Cancelled 01/11/20 01/11/20 01/11/20 14:10 18:34 20:00 WBC RBC Hgb Hct MCV MCH MCHC RDW Plt Count MPV Absolute Neuts (auto) Neutrophils % Lymphocytes % Monocytes % Eosinophils % Basophils % Nucleated RBC % PT with INR 15.30 H 15.70 H INR 1.29 H 1.33 H PTT (Actin FS) 33.1 31.7 Sodium Potassium Chloride Carbon Dioxide Anion Gap BUN Creatinine Est GFR (CKD-EPI)AfAm Est GFR (CKD-EPI)NonAf POC Glucometer 61 Random Glucose Calcium Phosphorus Magnesium Total Bilirubin AST ALT Alkaline Phosphatase Creatine Kinase Troponin I Total Protein Albumin Blood Type Antibody Screen 01/12/20 01/12/20 01/12/20 06:30 06:30 07:12 WBC 14.6 H RBC 4.35 Hgb 14.0 Hct 42.2 MCV 97.2 H MCH 32.2 MCHC 33.2 RDW 14.8 Plt Count 517 H MPV 9.9 Absolute Neuts (auto) 12.1 H Neutrophils % 83.1 H Lymphocytes % 9.3 Monocytes % 7.3 Eosinophils % 0.0 Basophils % 0.3 Nucleated RBC % 0 PT with INR INR PTT (Actin FS) Sodium 132 L Potassium 4.2 Chloride 95 L Carbon Dioxide 25 Anion Gap 13 BUN 36.3 H Creatinine 1.1 Est GFR (CKD-EPI)AfAm 85.31 Est GFR (CKD-EPI)NonAf 73.61 POC Glucometer 20 Random Glucose 20 L* Calcium 9.4 Phosphorus Magnesium Total Bilirubin 0.7 AST 56 H ALT 9 L Alkaline Phosphatase 84 Creatine Kinase Troponin I Total Protein 6.0 L Albumin 2.1 L Blood Type Antibody Screen 01/12/20 01/12/20 01/12/20 07:15 07:18 07:21 WBC RBC Hgb Hct MCV MCH MCHC RDW Plt Count MPV Absolute Neuts (auto) Neutrophils % Lymphocytes % Monocytes % Eosinophils % Basophils % Nucleated RBC % PT with INR INR PTT (Actin FS) Sodium Potassium Chloride Carbon Dioxide Anion Gap BUN Creatinine Est GFR (CKD-EPI)AfAm Est GFR (CKD-EPI)NonAf POC Glucometer 16 19 182 Random Glucose Calcium Phosphorus Magnesium Total Bilirubin AST ALT Alkaline Phosphatase Creatine Kinase Troponin I Total Protein Albumin Blood Type Antibody Screen 01/12/20 01/12/20 01/12/20 09:00 09:00 09:00 WBC 16.0 H RBC 4.22 Hgb 13.3 Hct 40.8 MCV 96.7 H MCH 31.5 MCHC 32.6 RDW 15.2 Plt Count 489 H MPV 9.6 Absolute Neuts (auto) 14.0 H Neutrophils % 88.0 H Lymphocytes % 5.3 L D Monocytes % 6.1 Eosinophils % 0.0 Basophils % 0.6 Nucleated RBC % 0 PT with INR INR PTT (Actin FS) 44.6 H Sodium 133 L Potassium 4.2 Chloride 97 L Carbon Dioxide 26 Anion Gap 11 BUN 35.5 H Creatinine 1.1 Est GFR (CKD-EPI)AfAm 85.31 Est GFR (CKD-EPI)NonAf 73.61 POC Glucometer Random Glucose 87 Calcium 8.9 Phosphorus 3.7 Magnesium 1.8 Total Bilirubin 0.8 AST 56 H ALT 9 L Alkaline Phosphatase 80 Creatine Kinase Troponin I Total Protein 5.7 L Albumin 1.9 L Blood Type Antibody Screen S1 S2 RRR Lungs decraesed on left left arm edema+ left hand edema Abd- soft, NT leg edema++ PLAN On heparin gtt CXR noted-- may need thoracentesis, consider pleurx Pulmonary eval and Oncology eval Needs port placement need to consider further therapy in terms of treating Lung CA rapid response this AM for hypoglycemis-- will wayne Morris for now, check BGM Problem List - Problems (1) DVT of axillary vein, acute left Code(s): I82.A12 - ACUTE EMBOLISM AND THROMBOSIS OF LEFT AXILLARY VEIN (2) DM Diabetes mellitus type 2 Code(s): E11.9 - TYPE 2 DIABETES MELLITUS WITHOUT COMPLICATIONS (3) HTN (hypertension) Code(s): I10 - ESSENTIAL (PRIMARY) HYPERTENSION (4) Lung cancer Code(s): C34.90 - MALIGNANT NEOPLASM OF UNSP PART OF UNSP BRONCHUS OR LUNG
[2020-01-12] MEDS: TOPIRAMATE 25 MG TABLET PO SCH (10:59)
[2020-01-12] MEDS: fentaNYL 25mcg/hr PATCH.TD72 TD SCH (10:59)
[2020-01-12] MEDS: TACROLIMUS ANHYDROUS 1 MG CAPSULE PO SCH ×2 (10:59→21:47)
[2020-01-12] MEDS: NIFEdipine E.R. 30 MG TABLET PO SCH ×2 (10:59→21:35)
[2020-01-12] MEDS: FENTANYL PATCH WASTE MC PRN (11:00)
[2020-01-12] MEDS: HEPARIN NA (PORCINE) 5,000 UNITS/ML 1ML VIAL IVPUSH PRN ×2 (11:02→16:58)
--- NOTE | 2020-01-12 12:42 | EKG ---
Test Reason : Blood Pressure : / mmHG Vent. Rate : 110 BPM Atrial Rate : 110 BPM P-R Int : 098 ms QRS Dur : 086 ms QT Int : 312 ms P-R-T Axes : 048 040 079 degrees QTc Int : 422 ms POOR DATA QUALITY, INTERPRETATION MAY BE ADVERSELY AFFECTED SINUS TACHYCARDIA WITH SHORT DE POSSIBLE LEFT ATRIAL ENLARGEMENT SEPTAL INFARCT (CITED ON OR BEFORE 11-JAN-2020) ABNORMAL ECG WHEN COMPARED WITH ECG OF 26-DEC-2019 12:30, PREMATURE SUPRAVENTRICULAR COMPLEXES ARE NO LONGER PRESENT QUESTIONABLE CHANGE IN QRS DURATION CRITERIA FOR INFERIOR INFARCT ARE NO LONGER PRESENT QUESTIONABLE CHANGE IN INITIAL FORCES OF SEPTAL LEADS Confirmed by Michael Smith ([id number]) on 01/12/2020 12:41:53 PM Referred By: Confirmed By:Michael Smith
[2020-01-12] MEDS: AMINO ACIDS/PROTEIN HYDROLYS 30 ML LIQUID.PKT PO SCH (16:57)
[2020-01-12] MEDS ORDERED: DEXTROSE 5%-NORMAL SALINE 1,000 ML IV SCH (18:00)
--- NOTE | 2020-01-12 20:05 | CON.HO ---
Consult Consult Specialty:: hematology/oncology Referred by:: Dr. Dangelo Reason for Consultation:: Lung ca, DVT - History of Present Illness History of Present Illness: 59M with hx HCV, hepatocellular carcinoma s/p TACE ] s/p kidney/liver tr ansplant (2014), on cellcelpt/prograf, HTN, CHF, COPD, and recently diagnosed limited stage small cell lung cancer (LAUREL bronchus mass with extension into mediastinum + mediastinum LAD, cytology negative from thoracentesis), planned for chemo/RT now admitted with left subclavian and axillary vein DVT found on outpatient US. Started on UFH. Also with and episode of severe hypoglycemia this am. Endorses left arm/pain swelling. +Cough without hemoptysis. No other bleeding. 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 No: Alzheimer's, CVA, Dementia, Migraine, Seizure Cardio/Vascular: Yes: CHF, HTN. No: Pulmonary Hypertension Pulmonary: Yes: COPD Gastrointestinal: Yes: Cancer (hepatocellular), Other (Hepatitis C) Hepatobiliary: Yes: Hepatitis C Renal/: Yes: Renal Inusuff (CKD V) - Past Surgical History Past Surgical History: Yes: AV Fistula/Graft, Cholecystectomy, Kidney Transplant, Liver Transplant, Splenectomy - Alcohol/Substance Use Hx Alcohol Use: Yes (FEW GLASSES OF WINE) History of Substance Use: reports: None - Smoking History Smoking history: Former smoker Have you smoked in the past 12 months: No Aproximately how many cigarettes per day: 20 If you are a former smoker, when did you quit?: 2009 - Social History Usual Living Arrangement: With Parent 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 History of Recent Travel: No Home Medications - Allergies Allergies/Adverse Reactions: Allergies Allergy/AdvReac Type Severity Reaction Status Date / Time morphine AdvReac Verified 01/11/20 12:25 - Home Medications Home Medications: Ambulatory Orders Nifedipine ER [Procardia XL -] 60 mg PO BID 08/10/17 Prednisone 5 mg PO HS 08/10/17 Alprazolam 1 mg PO HS 09/03/18 Insulin Glargine,Hum.rec.anlog [Basaglar Kwikpen U-100] 14 unit SQ BID 09/03/18 Mycophenolate Mofetil 500 mg PO BID 09/03/18 Metoprolol Tartrate 25 mg PO BID 12/14/19 Albuterol 0.083% Nebulizer Deysi [Ventolin 0.083% Nebulizer Soln -] 1 amp NEB Q4H PRN amp 01/06/20 Albuterol 2.5/Ipratropium 0.5 [Duoneb -] 1 amp NEB RTID amp 01/06/20 Amox-Tr/K Cl [Augmentin 875-125mg Tablet -] 1 tab PO BID@0800,1730 7 Days #14 tablet 01/06/20 Docusate Sodium [Colace -] 300 mg PO HS capsule 01/06/20 FENTANYL 25mcg PATCH [DURAGESIC 25mcg PATCH -] 1 each TD Q72H #10 5ml MDD 1 01/06/20 FENTANYL 25mcg PATCH [DURAGESIC 25mcg PATCH -] 1 each TD Q72H #5 patch.72h MDD 1 01/06/20 FENTANYL 25mcg PATCH [DURAGESIC 25mcg PATCH -] 1 patch TD Q72H #5 patch.72h 01/06/20 Megestrol Acetate Oral Susp [Megace Oral Suspension -] 400 mg PO DAILY #1 cup 01/06/20 Metoclopramide HCl [Reglan -] 5 mg PO TIDAC 30 Days #90 tablet 01/06/20 Nortriptyline HCl [Pamelor -] 25 mg PO DAILY capsule 01/06/20 Nystatin Oral Suspension - [Nystatin Oral Susp 134612 Units/5 ML -] 500,000 units PO Q6HPO 10 Days #1 cup 01/06/20 Oxycodone HCl 10 mg PO QID PRN #60 tablet MDD 4 01/06/20 Tacrolimus Anhydrous [Prograf] 1 mg PO BID capsule 01/06/20 Topiramate [Topamax -] 25 mg PO DAILY tablet 01/06/20 oxyCODONE HCL 15 mg PO Q4H 01/11/20 Review of Systems - Review of Systems Constitutional: denies: Fever, Loss of Appetite Cardiovascular: reports: Shortness of Breath Respiratory: reports: Cough, SOB Hematology/Lymphatic: denies: Excessive Bleeding Physical Exam Vital Signs: Vital Signs Temperature 97.5 F L 01/12/20 14:25 Pulse Rate 71 01/12/20 14:25 Respiratory Rate 19 01/12/20 14:25 Blood Pressure 96/57 L 01/12/20 14:25 O2 Sat by Pulse Oximetry (%) 98 01/12/20 09:08 Constitutional: Yes: No Distress, Other (Eating dinner) Eyes: Yes: Conjunctiva Clear Respiratory: Yes: Regular Edema: No (no LE edema) Edema: LUE: 2+ (left arm with swelling, tender) Labs: CBC, BMP 01/12/20 09:00 01/12/20 09:00 Assessment/Plan 59M with hx HCV, hepatocellular carcinoma s/p TACE ] s/p kidney/liver transplant (2014), on cellcelpt/prograf, HTN, CHF, COPD, and recently diagnosed limited stage small cell lung cancer (LAUREL bronchus mass with extension into mediastinum + mediastinum LAD, cytology negative from thoracentesis, MRI brain - ) now admitted with left subclavian and axillary vein DVT. On UFH. Discussed Lovenox vs. Eliquis with patient. He will think about it but likely Lovenox. Planned for chemo/RT. Needs PAC. Will follow.
[2020-01-12] MEDS ORDERED: PT OWN MED DRAWER 7, Y5N ONE (21:17)
[2020-01-12] MEDS: predniSONE 5 MG TABLET (UD) PO SCH (21:35)
[2020-01-12] MEDS: DOCUSATE SODIUM 100 MG CAPSULE (FP) PO SCH (21:35)
[2020-01-13] MEDS: oxyCODONE HCL 5 MG TABLET PO PRN ×5 (01:59→22:14)
[2020-01-13] MEDS: HEPARIN NA (PORCINE) 5,000 UNITS/ML 1ML VIAL IVPUSH PRN ×2 (02:05→17:56)
[2020-01-13] MEDS: ALBUTEROL SO4 HFA INHALER IH PRN ×2 (05:54→22:00)
[2020-01-13] MEDS: METOCLOPRAMIDE HCL 10 MG TABLET (FP) PO SCH ×2 (06:03→10:12)
[2020-01-13] MEDS ORDERED: PT OWN MED DRAWER 7, Y5N ONE ×2 (06:57→21:47)
[2020-01-13 07:30] LABS: HEMATOCRIT 37.9 % (35.4-49); HEMOGLOBIN 12.2 GM/dL (11.7-16.9); MCH 31.3 pg (25.7-33.7); MCHC 32.2 g/dl (32.0-35.9); MEAN CELL VOLUME 97.1 fl (80-96); MEAN PLT VOLUME 9.9 fl (7.5-11.1); PLATELET COUNT 494 K/MM3 (134-434); RDW 15.1 % (11.9-15.9); WHITE BLOOD COUNT 17.3 K/mm3 (4.0-10.0)
[2020-01-13] MEDS: AMINO ACIDS/PROTEIN HYDROLYS 30 ML LIQUID.PKT PO SCH ×2 (09:53→17:32)
[2020-01-13] MEDS: MYCOPHENOLATE MOFETIL 500 MG TABLET PO SCH ×2 (09:55→22:00)
[2020-01-13] MEDS: METOPROLOL TARTRATE 25 MG TABLET (FP) PO SCH ×2 (09:55→22:00)
[2020-01-13] MEDS: TOPIRAMATE 25 MG TABLET PO SCH (09:55)
[2020-01-13] MEDS: NIFEdipine E.R 60 MG TABLET PO SCH ×2 (09:55→21:59)
[2020-01-13] MEDS: TACROLIMUS ANHYDROUS 1 MG CAPSULE PO SCH ×2 (09:56→22:00)
[2020-01-13] MEDS ORDERED: fentaNYL 25mcg/hr PATCH.TD72 TD SCH (10:00)
[2020-01-13] MEDS: HEPARIN - 25,000 UNIT in SODIUM CHLORIDE 495 ML IV SCH ×2 (10:11→15:21)
--- NOTE | 2020-01-13 10:17 | CON.PULM ---
Consult Consult Specialty:: PULMONARY Referred by:: Dr Edmondson Reason for Consultation:: lung cancer, pleural effusion - History of Present Illness Chief Complaint: DVT History of Present Illness: 59yo male with h/o HTN, CHF, COPD, small cell lung cancer, Hep C, liver cancer s/p TACE, s/p kidney/liver transplant who was found to have a left subclavian and axillary DVT on an outpt ultrasound. Reports increased shortness of breath, nonproductive cough. CXR showing opacification of the left hemithorax. He did have a thoracentesis last admission, he does not recall if draining the fluid improved his breathing. 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 No: Pulmonary Hypertension Pulmonary: Yes: COPD Gastrointestinal: Yes: Cancer (hepatocellular), Other (Hepatitis C) Hepatobiliary: Yes: Hepatitis C Renal/: Yes: Renal Inusuff (CKD V) - Past Surgical History Past Surgical History: Yes: AV Fistula/Graft, Cholecystectomy, Kidney Transplant, Liver Transplant, Splenectomy - Alcohol/Substance Use Hx Alcohol Use: Yes (FEW GLASSES OF WINE) History of Substance Use: reports: None - Smoking History Smoking history: Former smoker Have you smoked in the past 12 months: No Aproximately how many cigarettes per day: 20 If you are a former smoker, when did you quit?: 2009 - Social History Usual Living Arrangement: With Parent 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 History of Recent Travel: No Home Medications - Allergies Allergies/Adverse Reactions: Allergies Allergy/AdvReac Type Severity Reaction Status Date / Time morphine AdvReac Verified 01/11/20 12:25 - Home Medications Home Medications: Ambulatory Orders Nifedipine ER [Procardia XL -] 60 mg PO BID 08/10/17 Prednisone 5 mg PO HS 08/10/17 Alprazolam 1 mg PO HS 09/03/18 Insulin Glargine,Hum.rec.anlog [Basaglar Kwikpen U-100] 14 unit SQ BID 09/03/18 Mycophenolate Mofetil 500 mg PO BID 09/03/18 Metoprolol Tartrate 25 mg PO BID 12/14/19 Albuterol 0.083% Nebulizer Deysi [Ventolin 0.083% Nebulizer Soln -] 1 amp NEB Q4H PRN amp 01/06/20 Albuterol 2.5/Ipratropium 0.5 [Duoneb -] 1 amp NEB RTID amp 01/06/20 Amox-Tr/K Cl [Augmentin 875-125mg Tablet -] 1 tab PO BID@0800,1730 7 Days #14 tablet 01/06/20 Docusate Sodium [Colace -] 300 mg PO HS capsule 01/06/20 FENTANYL 25mcg PATCH [DURAGESIC 25mcg PATCH -] 1 each TD Q72H #10 5ml MDD 1 01/06/20 FENTANYL 25mcg PATCH [DURAGESIC 25mcg PATCH -] 1 each TD Q72H #5 patch.72h MDD 1 01/06/20 FENTANYL 25mcg PATCH [DURAGESIC 25mcg PATCH -] 1 patch TD Q72H #5 patch.72h 01/06/20 Megestrol Acetate Oral Susp [Megace Oral Suspension -] 400 mg PO DAILY #1 cup 01/06/20 Metoclopramide HCl [Reglan -] 5 mg PO TIDAC 30 Days #90 tablet 01/06/20 Nortriptyline HCl [Pamelor -] 25 mg PO DAILY capsule 01/06/20 Nystatin Oral Suspension - [Nystatin Oral Susp 944443 Units/5 ML -] 500,000 units PO Q6HPO 10 Days #1 cup 01/06/20 Oxycodone HCl 10 mg PO QID PRN #60 tablet MDD 4 01/06/20 Tacrolimus Anhydrous [Prograf] 1 mg PO BID capsule 01/06/20 Topiramate [Topamax -] 25 mg PO DAILY tablet 01/06/20 oxyCODONE HCL 15 mg PO Q4H 01/11/20 Review of Systems - Review of Systems Constitutional: reports: Weakness Eyes: denies: Recent Change in Vision HENT: denies: Nasal Congestion, Throat Pain Neck: denies: Stiffness, Tenderness Cardiovascular: reports: Edema, Shortness of Breath. denies: Chest Pain, Palpitations Respiratory: reports: Cough, SOB on Exertion. denies: Wheezing Gastrointestinal: denies: Abdominal Pain, Nausea, Vomiting Genitourinary: denies: Dysuria, Hematuria Neurological: denies: Dizziness, Headache Physical Exam Vital Sings: Vital Signs Temperature 97.6 F 09/07/20 04:00 Pulse Rate 76 01/13/20 04:00 Respiratory Rate 20 01/13/20 04:00 Blood Pressure 88/51 L 01/13/20 04:00 O2 Sat by Pulse Oximetry (%) 97 01/13/20 04:00 Constitutional: Yes: Mild Distress Eyes: Yes: Conjunctiva Clear, EOM Intact HENT: Yes: Atraumatic, Normocephalic Neck: Yes: Supple, Trachea Midline Cardiovascular: Yes: Regular Rate and Rhythm Respiratory: Yes: Diminished (on left) ...Clubbing: No Gastrointestinal: Yes: Normal Bowel Sounds, Soft. No: Tenderness Edema: Yes Neurological: Yes: Alert, Oriented Labs: CBC, BMP 01/13/20 07:06 01/12/20 09:00 Imaging - Results Chest X-ray: Report Reviewed, Image Reviewed (opacification of left hemithorax) Assessment/Plan L Subclavian/Axillary DVT Small Cell Lung Ca Left Pleural Effusion COPD LV Diastolic Dysfunction Hep C h/o Hepatocellular Ca h/o Kidney/Liver Transplant HTN - continue anticoagulation - inhaled bronchodilators - O2 to keep SpO2 >90% - CT chest noncontrast - if significant effusion, may benefit from pleur-x catheter placement Thank you for this consult Kranthi Rivas MD
[2020-01-13] MEDS: ALBUTEROL SO4 2.5/IPRATROPIUM 0.5 INH SOL 3 ML VIAL.NEB. NEB SCH ×3 (11:36→20:00)
--- NOTE | 2020-01-13 11:42 | CON.HO ---
Consult - text type - Consultation Consultation Note: 59yo male with h/o HTN, CHF, COPD, small cell lung cancer, Hep C, liver cancer s/p TACE, s/p kidney/liver transplant who was found to have a left subclavian and axillary DVT on an outpt ultrasound. 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 No: Pulmonary Hypertension Pulmonary: Yes: COPD Gastrointestinal: Yes: Cancer (hepatocellular), Other (Hepatitis C) Hepatobiliary: Yes: Hepatitis C Renal/: Yes: Renal Inusuff (CKD V) - Past Surgical History Past Surgical History: Yes: AV Fistula/Graft, Cholecystectomy, Kidney Transplant, Liver Transplant, Splenectomy - Alcohol/Substance Use Hx Alcohol Use: Yes (FEW GLASSES OF WINE) History of Substance Use: reports: None - Smoking History Smoking history: Former smoker Have you smoked in the past 12 months: No Aproximately how many cigarettes per day: 20 If you are a former smoker, when did you quit?: 2009 - Social History Usual Living Arrangement: With Parent 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 History of Recent Travel: No Home Medications - Allergies Allergies/Adverse Reactions: Allergies Allergy/AdvReac Type Severity Reaction Status Date / Time morphine AdvReac Verified 01/11/20 12:25 - Home Medications Home Medications: Ambulatory Orders Nifedipine ER [Procardia XL -] 60 mg PO BID 08/10/17 Prednisone 5 mg PO HS 08/10/17 Alprazolam 1 mg PO HS 09/03/18 Insulin Glargine,Hum.rec.anlog [Basaglar Goranpen U-100] 14 unit SQ BID 09/03/18 Mycophenolate Mofetil 500 mg PO BID 09/03/18 Metoprolol Tartrate 25 mg PO BID 12/14/19 Albuterol 0.083% Nebulizer Deysi [Ventolin 0.083% Nebulizer Soln -] 1 amp NEB Q4H PRN amp 01/06/20 Albuterol 2.5/Ipratropium 0.5 [Duoneb -] 1 amp NEB RTID amp 01/06/20 Amox-Tr/K Cl [Augmentin 875-125mg Tablet -] 1 tab PO BID@0800,1730 7 Days #14 tablet 01/06/20 Docusate Sodium [Colace -] 300 mg PO HS capsule 01/06/20 FENTANYL 25mcg PATCH [DURAGESIC 25mcg PATCH -] 1 each TD Q72H #10 5ml MDD 1 01/06/20 FENTANYL 25mcg PATCH [DURAGESIC 25mcg PATCH -] 1 each TD Q72H #5 patch.72h MDD 1 01/06/20 FENTANYL 25mcg PATCH [DURAGESIC 25mcg PATCH -] 1 patch TD Q72H #5 patch.72h 01/06/20 Megestrol Acetate Oral Susp [Megace Oral Suspension -] 400 mg PO DAILY #1 cup 01/06/20 Metoclopramide HCl [Reglan -] 5 mg PO TIDAC 30 Days #90 tablet 01/06/20 Nortriptyline HCl [Pamelor -] 25 mg PO DAILY capsule 01/06/20 Nystatin Oral Suspension - [Nystatin Oral Susp 644079 Units/5 ML -] 500,000 units PO Q6HPO 10 Days #1 cup 01/06/20 Oxycodone HCl 10 mg PO QID PRN #60 tablet MDD 4 01/06/20 Tacrolimus Anhydrous [Prograf] 1 mg PO BID capsule 01/06/20 Topiramate [Topamax -] 25 mg PO DAILY tablet 01/06/20 oxyCODONE HCL 15 mg PO Q4H 01/11/20 Physical Exam Vital Sings: Vital Signs Temperature 97.6 F 01/13/20 04:00 Pulse Rate 76 01/13/20 04:00 Respiratory Rate 20 01/13/20 04:00 Blood Pressure 88/51 L 01/13/20 04:00 O2 Sat by Pulse Oximetry (%) 97 01/13/20 04:00 Constitutional: Yes: Mild Distress Eyes: Yes: Conjunctiva Clear, EOM Intact HENT: Yes: Atraumatic, Normocephalic Neck: Yes: Supple, Trachea Midline Cardiovascular: Yes: Regular Rate and Rhythm Respiratory: Yes: Diminished (on left) ...Clubbing: No Gastrointestinal: Yes: Normal Bowel Sounds, Soft. No: Tenderness Edema: Yes Neurological: Yes: Alert, Oriented Labs: CBC, BMP 01/13/20 07:06 01/12/20 09:00 Imaging - Results Chest X-ray: Report Reviewed, Image Reviewed (opacification of left hemithorax) Assessment/Plan L Subclavian/Axillary DVT ---on heparin drip Small Cell Lung Ca Left Pleural Effusion COPD LV Diastolic Dysfunction Hep C h/o Hepatocellular Ca h/o Kidney/Liver Transplant HTN Large left hilar lesion with mediastinal extension. Extensive mediastinal adenopathy. Occlusion of LAUREL bronchus. Large left , partially loculated effusion MRI brain w/o contrast 12/16/19 -- negative Pathology : Necrotic neoplasm with neuroendocrine differentiation. suspect small cell carcinoma. Pleural fluid cytology negative CT surgery consult regarding left pleural effusion Port placement Will start carboplatin/etoposide this admission Discussed with patient and son in great detail. Informational material given
--- NOTE | 2020-01-13 11:48 | PN ---
Progress Note (short form) - Note Progress Note: has pain in left arm Left arm swelling sob+ less was hypoglycemic yesterday Vital Signs - 24 hr 01/12/20 01/12/20 01/12/20 14:25 20:24 21:00 Temperature 97.5 F L 97.8 F Pulse Rate 71 97 H Respiratory 19 18 21 H Rate Blood Pressure 96/57 L 101/66 O2 Sat by Pulse 91 L 96 Oximetry (%) 01/13/20 01/13/20 00:00 04:00 Temperature 97.7 F 97.6 F Pulse Rate 101 H 76 Respiratory 21 H 20 Rate Blood Pressure 110/54 L 88/51 L O2 Sat by Pulse 96 97 Oximetry (%) Current Medications Generic Name Dose Route Start Last Admin Trade Name Freq PRN Reason Stop Dose Admin Albuterol Sulfate 2 puff 01/11/20 17:18 01/13/20 05:54 Ventolin Hfa Inhaler - IH 2 puff Q4H PRN Administration SHORT OF BREATH/WHEEZING Albuterol/Ipratropium 1 amp 01/13/20 12:00 01/13/20 11:36 Duoneb - NEB 1 amp RQID [facility] Administration Alprazolam 0.5 mg 01/13/20 11:17 Xanax - PO Q8H PRN ANXIETY Amino Acids 30 ml 01/12/20 17:30 01/13/20 09:53 Prosource No Carb Liquid Pkt PO 30 ml BID@0800,1730 [facility] Administration Docusate Sodium 300 mg 01/11/20 15:30 01/12/20 21:35 Colace - PO 300 mg HS [facility] Administration Fentanyl 1 patch 01/12/20 10:05 01/12/20 10:59 Duragesic 25mcg Patch - TD 1 patch Q72H [facility] Administration Heparin Sodium (Porcine) 1,000 unit 01/11/20 14:21 01/12/20 16:58 Heparin - IVPUSH 1,000 unit PRN PRN Administration Heparin Heparin Sodium (Porcine) 5,000 unit 01/11/20 14:21 01/13/20 02:05 Heparin - IVPUSH 5,000 unit PRN PRN Administration Heparin Heparin Sodium (Porcine) 25, 500 mls @ 20 mls/hr 01/11/20 14:30 01/13/20 10:11 000 unit/ Sodium Chloride IV 1,600 unit/hr TITR [facility] 32 mls/hr Administration Protocol 1,000 UNIT/HR Metoclopramide HCl 5 mg 01/11/20 16:30 01/13/20 10:12 Reglan - PO 5 mg TIDAC [facility] Administration Metoprolol Tartrate 25 mg 01/11/20 22:00 01/13/20 09:55 Lopressor - PO 25 mg BID [facility] Administration Miscellaneous 1 each 01/11/20 15:20 01/12/20 11:00 Duragesic Patch Waste MC 1 each PRN PRN Administration PAIN Mycophenolate Mofetil 500 mg 01/11/20 22:00 01/13/20 09:55 Cellcept - PO 500 mg BID [facility] Administration Nifedipine 60 mg 01/13/20 10:00 01/13/20 09:55 Procardia Xl - PO 60 mg BID [facility] Administration Ondansetron HCl 8 mg 01/11/20 15:22 Zofran Injection IVPB Q6H PRN NAUSEA Oxycodone HCl 10 mg 01/12/20 10:03 01/13/20 11:14 Roxicodone - PO 10 mg Q4H PRN Administration PAIN LEVEL 5-10 Polyethylene Glycol 17 gm 01/12/20 10:03 Miralax (For Daily Use) - PO DAILY PRN CONSTIPATION Prednisone 5 mg 01/11/20 22:00 01/12/20 21:35 Deltasone - PO 5 mg HS [facility] Administration Tacrolimus 1 mg 01/11/20 22:00 01/13/20 09:56 Prograf PO 1 mg BID [facility] Administration Topiramate 25 mg 01/12/20 10:00 01/13/20 09:55 Topamax - PO 25 mg DAILY [facility] Administration Laboratory Results - last 24 hr 01/12/20 01/12/20 01/12/20 00:01 13:23 15:59 WBC RBC Hgb Hct MCV MCH MCHC RDW Plt Count MPV PTT (Actin FS) 45.1 H POC Glucometer 71 COVID-19 (FRANKO) Not detected 01/12/20 01/12/20 01/12/20 16:07 21:27 23:50 WBC RBC Hgb Hct MCV MCH MCHC RDW Plt Count MPV PTT (Actin FS) 34.7 POC Glucometer 84 65 COVID-19 (FRANKO) 09/11/2401/13/20 01/13/20 00:17 05:51 07:06 WBC 17.3 H RBC 3.90 L Hgb 12.2 Hct 37.9 MCV 97.1 H MCH 31.3 MCHC 32.2 RDW 15.1 Plt Count 494 H MPV 9.9 PTT (Actin FS) POC Glucometer 71 154 COVID-19 (FRANKO) 01/13/20 01/13/20 07:06 11:10 WBC RBC Hgb Hct MCV MCH MCHC RDW Plt Count MPV PTT (Actin FS) 44.7 H POC Glucometer 287 COVID-19 (FRANKO) swelling noted on right side of neck and Right supraclavicular LNE+ S1 S2 RRR Lungs decreased on left left arm edema+ left hand edema Abd- soft, NT leg edema++ PLAN On heparin gtt-- may need to switch to Lovenox or Eliquis per Oncology CXR noted-- may need thoracentesis, consider pleurx cath Pulmonary eval and Oncology eval Needs port placement need to consider further therapy in terms of treating Lung CA consult cardiothoracic surgeon for pleur-x cath placement port a cath placement neck is swollen, r/o SVC syndrome pt does not want contrast study due to kidney transplant will check CT soft tissue neck along with CT chest plan for chemo later this week spoke with Oncologist- DR Yancey Problem List - Problems (1) DVT of axillary vein, acute left Code(s): I82.A12 - ACUTE EMBOLISM AND THROMBOSIS OF LEFT AXILLARY VEIN (2) DM Diabetes mellitus type 2 Code(s): E11.9 - TYPE 2 DIABETES MELLITUS WITHOUT COMPLICATIONS (3) HTN (hypertension) Code(s): I10 - ESSENTIAL (PRIMARY) HYPERTENSION (4) Lung cancer Code(s): C34.90 - MALIGNANT NEOPLASM OF UNSP PART OF UNSP BRONCHUS OR LUNG
[2020-01-13] MEDS: DOCUSATE SODIUM 100 MG CAPSULE (FP) PO SCH (21:59)
[2020-01-13] MEDS: predniSONE 5 MG TABLET (UD) PO SCH (22:00)
[2020-01-13] MEDS: IPRATROPIUM NEB SCH ×2 (22:17→22:18)
[2020-01-13] MEDS: [UNRECOGNIZED DRUG - OTHER] NEB SCH ×2 (22:17→22:18)
[2020-01-13] MEDS: ALBUTEROL NEB SCH ×2 (22:17→22:18)
[2020-01-14] MEDS: HEPARIN NA (PORCINE) 5,000 UNITS/ML 1ML VIAL IVPUSH PRN ×3 (01:21→18:24)
[2020-01-14] MEDS ORDERED: PT OWN MED DRAWER 7, Y5N ONE ×4 (01:37→21:25)
[2020-01-14] MEDS: ALBUTEROL NEB SCH (02:47)
[2020-01-14] MEDS: [UNRECOGNIZED DRUG - OTHER] NEB SCH (02:47)
[2020-01-14] MEDS: IPRATROPIUM NEB SCH (02:47)
[2020-01-14 07:31] LABS: HEMATOCRIT 41.3 % (35.4-49); HEMOGLOBIN 13.2 GM/dL (11.7-16.9); MCH 30.9 pg (25.7-33.7); MCHC 31.9 g/dl (32.0-35.9); MEAN PLT VOLUME 10.2 fl (7.5-11.1); PLATELET COUNT 443 K/MM3 (134-434); RBC 4.26 M/mm3 (4.00-5.60); RDW 15.1 % (11.9-15.9); WHITE BLOOD COUNT 16.3 K/mm3 (4.0-10.0)
[2020-01-14 08:00] LABS: URIC ACID 7.8 mg/dL (2.6-7.2)
[2020-01-14] MEDS: ALBUTEROL SO4 2.5/IPRATROPIUM 0.5 INH SOL 3 ML VIAL.NEB. NEB SCH ×4 (08:39→20:18)
[2020-01-14] MEDS: TOPIRAMATE 25 MG TABLET PO SCH (09:42)
[2020-01-14] MEDS: NIFEdipine E.R 60 MG TABLET PO SCH ×2 (09:42→21:39)
[2020-01-14] MEDS: MYCOPHENOLATE MOFETIL 500 MG TABLET PO SCH ×2 (09:42→21:39)
[2020-01-14] MEDS: AMINO ACIDS/PROTEIN HYDROLYS 30 ML LIQUID.PKT PO SCH ×2 (09:42→18:22)
[2020-01-14] MEDS: METOPROLOL TARTRATE 25 MG TABLET (FP) PO SCH ×2 (09:42→21:39)
[2020-01-14] MEDS: TACROLIMUS ANHYDROUS 1 MG CAPSULE PO SCH ×2 (09:43→21:39)
--- NOTE | 2020-01-14 10:23 | PN ---
Progress Note (short form) - Note Progress Note: PULMONARY States breathing is improving with nebulizer treatments. CT chest done showing significant progression of disease, small area of loculated effusion. Vital Signs Period Temp Pulse Resp BP Sys/[place] Pulse Ox Last 24 Hr 97.5 F-98.6 F 74-104 20-22 100-107/55-64 94-98 Gen: NAD at rest Heart: RRR Lung: decreased breath sounds left Abd: soft, nontender Ext: + edema CBC, BMP 01/14/20 07:10 01/12/20 09:00 Active Medications Albuterol Sulfate (Ventolin Hfa Inhaler -) 2 puff IH Q4H PRN PRN Reason: SHORT OF BREATH/WHEEZING Last Admin: 01/13/20 22:00 Dose: 2 puff Documented by: Albuterol/Ipratropium (Duoneb -) 1 amp NEB RQID [facility] Last Admin: 01/14/20 08:39 Dose: 1 amp Documented by: Alprazolam (Xanax -) 0.5 mg PO Q8H PRN PRN Reason: ANXIETY Amino Acids (Prosource No Carb Liquid Pkt) 30 ml PO BID@0800,1730 [facility] Last Admin: 01/14/20 09:42 Dose: 30 ml Documented by: Docusate Sodium (Colace -) 300 mg PO HS [facility] Last Admin: 01/13/20 21:59 Dose: 300 mg Documented by: Fentanyl (Duragesic 25mcg Patch -) 1 patch TD Q72H [facility] Last Admin: 01/12/20 10:59 Dose: 1 patch Documented by: Heparin Sodium (Porcine) (Heparin -) 1,000 unit IVPUSH PRN PRN PRN Reason: Heparin Last Admin: 01/12/20 16:58 Dose: 1,000 unit Documented by: Heparin Sodium (Porcine) (Heparin -) 5,000 unit IVPUSH PRN PRN PRN Reason: Heparin Last Admin: 01/14/20 09:43 Dose: 5,000 unit Documented by: Heparin Sodium (Porcine) 25, (000 unit/ Sodium Chloride) 500 mls @ 20 mls/hr IV TITR [facility]; Protocol Last Titration: 01/14/20 09:41 Dose: 2,050 unit/hr, 41 mls/hr Documented by: Metoprolol Tartrate (Lopressor -) 25 mg PO BID [facility] Last Admin: 01/14/20 09:42 Dose: 25 mg Documented by: Miscellaneous (Duragesic Patch Waste) 1 each MC PRN PRN PRN Reason: PAIN Last Admin: 01/12/20 11:00 Dose: 1 each Documented by: Mycophenolate Mofetil (Cellcept -) 500 mg PO BID [facility] Last Admin: 01/14/20 09:42 Dose: 500 mg Documented by: Nifedipine (Procardia Xl -) 60 mg PO BID [facility] Last Admin: 01/14/20 09:42 Dose: 60 mg Documented by: Ondansetron HCl (Zofran Injection) 8 mg IVPB Q6H PRN PRN Reason: NAUSEA Oxycodone HCl (Roxicodone -) 10 mg PO Q4H PRN PRN Reason: PAIN LEVEL 5-10 Last Admin: 01/13/20 22:14 Dose: 10 mg Documented by: Polyethylene Glycol (Miralax (For Daily Use) -) 17 gm PO DAILY PRN PRN Reason: CONSTIPATION Last Admin: 01/13/20 15:24 Dose: 17 grams Documented by: Prednisone (Deltasone -) 5 mg PO [facility] Last Admin: 01/13/20 22:00 Dose: 5 mg Documented by: Tacrolimus (Prograf) 1 mg PO BID [facility] Last Admin: 01/14/20 09:43 Dose: 1 mg Documented by: Topiramate (Topamax -) 25 mg PO DAILY [facility] Last Admin: 01/14/20 09:42 Dose: 25 mg Documented by: A/P L Subclavian/Axillary DVT Small Cell Lung Ca Left Pleural Effusion COPD LV Diastolic Dysfunction Hep C h/o Hepatocellular Ca h/o Kidney/Liver Transplant HTN - continue anticoagulation - inhaled bronchodilators - O2 to keep SpO2 >90% - needs chemotherapy
--- NOTE | 2020-01-14 12:44 | PN ---
Progress Note (short form) - Note Progress Note: has pain in left arm Left arm swelling sob+ less feeling "miserable" Vital Signs - 24 hr 01/13/20 01/13/20 01/13/20 14:33 18:00 21:00 Temperature 97.5 F L 98.6 F Pulse Rate 83 74 Respiratory 20 20 22 H Rate Blood Pressure 100/64 104/55 L O2 Sat by Pulse 98 97 94 L Oximetry (%) 01/13/20 01/14/20 01/14/20 22:00 02:00 05:44 Temperature 98.2 F 98.1 F 97.5 F L Pulse Rate 104 H 101 H 77 Respiratory 22 H 22 H 22 H Rate Blood Pressure 107/64 105/56 L 104/57 L O2 Sat by Pulse 94 L 94 L 98 Oximetry (%) Current Medications Generic Name Dose Route Start Last Admin Trade Name Freq PRN Reason Stop Dose Admin Albuterol Sulfate 2 puff 01/11/20 17:18 01/13/20 22:00 Ventolin Hfa Inhaler - IH 2 puff Q4H PRN Administration SHORT OF BREATH/WHEEZING Albuterol/Ipratropium 1 amp 01/13/20 12:00 01/14/20 11:37 Duoneb - NEB 1 amp RQID [facility] Administration Alprazolam 0.5 mg 01/13/20 11:17 Xanax - PO Q8H PRN ANXIETY Amino Acids 30 ml 01/12/20 17:30 01/14/20 09:42 Prosource No Carb Liquid Pkt PO 30 ml BID@0800,1730 [facility] Administration Docusate Sodium 300 mg 01/11/20 15:30 01/13/20 21:59 Colace - PO 300 mg HS [facility] Administration Fentanyl 1 patch 01/12/20 10:05 01/12/20 10:59 Duragesic 25mcg Patch - TD 1 patch Q72H [facility] Administration Heparin Sodium (Porcine) 1,000 unit 01/11/20 14:21 01/12/20 16:58 Heparin - IVPUSH 1,000 unit PRN PRN Administration Heparin Heparin Sodium (Porcine) 5,000 unit 01/11/20 14:21 01/14/20 09:43 Heparin - IVPUSH 5,000 unit PRN PRN Administration Heparin Heparin Sodium (Porcine) 25, 500 mls @ 20 mls/hr 01/11/20 14:30 01/14/20 09:41 000 unit/ Sodium Chloride IV 2,050 unit/hr TITR [facility] 41 mls/hr Titration Protocol 1,000 UNIT/HR Metoprolol Tartrate 25 mg 01/11/20 22:00 01/14/20 09:42 Lopressor - PO 25 mg BID [facility] Administration Miscellaneous 1 each 01/11/20 15:20 01/12/20 11:00 Duragesic Patch Waste MC 1 each PRN PRN Administration PAIN Mycophenolate Mofetil 500 mg 01/11/20 22:00 01/14/20 09:42 Cellcept - PO 500 mg BID [facility] Administration Nifedipine 60 mg 01/13/20 10:00 01/14/20 09:42 Procardia Xl - PO 60 mg BID [facility] Administration Ondansetron HCl 8 mg 01/11/20 15:22 Zofran Injection IVPB Q6H PRN NAUSEA Oxycodone HCl 10 mg 01/12/20 10:03 01/13/20 22:14 Roxicodone - PO 10 mg Q4H PRN Administration PAIN LEVEL 5-10 Polyethylene Glycol 17 gm 01/12/20 10:03 01/13/20 15:24 Miralax (For Daily Use) - PO 17 grams DAILY PRN Administration CONSTIPATION Prednisone 5 mg 01/11/20 22:00 01/13/20 22:00 Deltasone - PO 5 mg HS [facility] Administration Tacrolimus 1 mg 01/11/20 22:00 01/14/20 09:43 Prograf PO 1 mg BID [facility] Administration Topiramate 25 mg 01/12/20 10:00 01/14/20 09:42 Topamax - PO 25 mg DAILY [facility] Administration Laboratory Results - last 24 hr 01/12/20 01/13/20 01/13/20 07:11 14:51 15:45 WBC RBC Hgb Hct MCV MCH MCHC RDW Plt Count MPV PTT (Actin FS) 38.4 H POC Glucometer 22 310 Uric Acid LD Total Stool Occult Blood 01/13/20 01/13/20 01/14/20 18:00 21:57 00:00 WBC RBC Hgb Hct MCV MCH MCHC RDW Plt Count MPV PTT (Actin FS) 38.3 H POC Glucometer 314 314 Uric Acid LD Total Stool Occult Blood 01/14/20 01/14/20 01/14/20 00:00 05:54 07:10 WBC 16.3 H RBC 4.26 Hgb 13.2 Hct 41.3 MCV 97.0 H MCH 30.9 MCHC 31.9 L RDW 15.1 Plt Count 443 H MPV 10.2 PTT (Actin FS) POC Glucometer 283 Uric Acid LD Total Stool Occult Blood Negative 01/14/20 01/14/20 01/14/20 07:10 07:10 10:03 WBC RBC Hgb Hct MCV MCH MCHC RDW Plt Count MPV PTT (Actin FS) 36.5 POC Glucometer 317 Uric Acid 7.8 H LD Total 1552 H Stool Occult Blood swelling noted on right side of neck and Right supraclavicular LNE+ S1 S2 RRR Lungs decreased on left left arm edema+ left hand edema Abd- soft, NT leg edema++ PLAN On heparin gtt-- may need to switch to Lovenox or Eliquis per Oncology Needs port placement- wont be able to do it today - he needs to be off heparin gtt for 6 hours per IR need to consider further therapy in terms of treating Lung CA consult cardiothoracic surgeon for pleur-x cath placement port a cath placement neck is swollen-- ct neck shows LNE ct chest noted plan for chemo later this week spoke with Oncologist- DR Yancey Problem List - Problems (1) DVT of axillary vein, acute left Code(s): I82.A12 - ACUTE EMBOLISM AND THROMBOSIS OF LEFT AXILLARY VEIN (2) DM Diabetes mellitus type 2 Code(s): E11.9 - TYPE 2 DIABETES MELLITUS WITHOUT COMPLICATIONS (3) Lung cancer Code(s): C34.90 - MALIGNANT NEOPLASM OF UNSP PART OF UNSP BRONCHUS OR LUNG
[2020-01-14] MEDS: oxyCODONE HCL 5 MG TABLET PO PRN ×2 (12:55→21:47)
--- NOTE | 2020-01-14 16:18 | PN ---
Physical Exam: SUBJECTIVE: Patient seen and examined. Patient sitting comfortably in bed, with mom at bedside. Patient reports generalized body pain but denies any chest pain, dizziness or shortness of breath. OBJECTIVE: Vital Signs Temperature 98.5 F 01/14/20 14:13 Pulse Rate 92 H 01/14/20 14:13 Respiratory Rate 22 H 01/14/20 14:13 Blood Pressure 103/61 01/14/20 14:13 O2 Sat by Pulse Oximetry (%) 96 01/14/20 14:13 GENERAL: The patient is awake, alert, and fully oriented, in no acute distress LUNGS: decreased breath sounds on the left lung HEART: Regular rate and rhythm, S1, S2 ABDOMEN: Soft, nontender, nondistended, normoactive bowel sounds EXTREMITIES: warm, well-perfused, +LUE, b/l LE edema SKIN: Warm, dry, normal turgor Laboratory Results - last 24 hr 01/12/20 01/13/20 01/13/20 07:11 15:45 18:00 WBC RBC Hgb Hct MCV MCH MCHC RDW Plt Count MPV PTT (Actin FS) 38.4 H POC Glucometer 22 314 Uric Acid LD Total Stool Occult Blood 01/13/20 01/14/20 01/14/20 21:57 00:00 00:00 WBC RBC Hgb Hct MCV MCH MCHC RDW Plt Count MPV PTT (Actin FS) 38.3 H POC Glucometer 314 Uric Acid LD Total Stool Occult Blood Negative 01/14/20 01/14/20 01/14/20 05:54 07:10 07:10 WBC 16.3 H RBC 4.26 Hgb 13.2 Hct 41.3 MCV 97.0 H MCH 30.9 MCHC 31.9 L RDW 15.1 Plt Count 443 H MPV 10.2 PTT (Actin FS) 36.5 POC Glucometer 283 Uric Acid LD Total Stool Occult Blood 01/14/20 01/14/20 01/14/20 07:10 10:03 15:13 WBC RBC Hgb Hct MCV MCH MCHC RDW Plt Count MPV PTT (Actin FS) POC Glucometer 317 282 Uric Acid 7.8 H LD Total 1552 H Stool Occult Blood Active Medications Generic Name Dose Route Start Last Admin Trade Name Freq PRN Reason Stop Dose Admin Albuterol Sulfate 2 puff 01/11/20 17:18 01/13/20 22:00 Ventolin Hfa Inhaler - IH 2 puff Q4H PRN Administration SHORT OF BREATH/WHEEZING Albuterol/Ipratropium 1 amp 01/13/20 12:00 01/14/20 11:37 Duoneb - NEB 1 amp RQID [facility] Administration Alprazolam 0.5 mg 01/13/20 11:17 Xanax - PO Q8H PRN ANXIETY Amino Acids 30 ml 01/12/20 17:30 01/14/20 09:42 Prosource No Carb Liquid Pkt PO 30 ml BID@0800,1730 [facility] Administration Docusate Sodium 300 mg 01/11/20 15:30 01/13/20 21:59 Colace - PO 300 mg HS [facility] Administration Fentanyl 1 patch 01/12/20 10:05 01/12/20 10:59 Duragesic 25mcg Patch - TD 1 patch Q72H [facility] Administration Heparin Sodium (Porcine) 1,000 unit 01/11/20 14:21 01/12/20 16:58 Heparin - IVPUSH 1,000 unit PRN PRN Administration Heparin Heparin Sodium (Porcine) 5,000 unit 01/11/20 14:21 01/14/20 09:43 Heparin - IVPUSH 5,000 unit PRN PRN Administration Heparin Heparin Sodium (Porcine) 25, 500 mls @ 20 mls/hr 01/11/20 14:30 01/14/20 09:41 000 unit/ Sodium Chloride IV 2,050 unit/hr TITR [facility] 41 mls/hr Titration Protocol 1,000 UNIT/HR Metoprolol Tartrate 25 mg 01/11/20 22:00 01/14/20 09:42 Lopressor - PO 25 mg BID [facility] Administration Miscellaneous 1 each 01/11/20 15:20 01/12/20 11:00 Duragesic Patch Waste MC 1 each PRN PRN Administration PAIN Mycophenolate Mofetil 500 mg 01/11/20 22:00 01/14/20 09:42 Cellcept - PO 500 mg BID [facility] Administration Nifedipine 60 mg 01/13/20 10:00 01/14/20 09:42 Procardia Xl - PO 60 mg BID [facility] Administration Ondansetron HCl 8 mg 01/11/20 15:22 Zofran Injection IVPB Q6H PRN NAUSEA Oxycodone HCl 10 mg 01/12/20 10:03 01/14/20 12:55 Roxicodone - PO 10 mg Q4H PRN Administration PAIN LEVEL 5-10 Polyethylene Glycol 17 gm 01/12/20 10:03 01/13/20 15:24 Miralax (For Daily Use) - PO 17 grams DAILY PRN Administration CONSTIPATION Prednisone 5 mg 01/11/20 22:00 01/13/20 22:00 Deltasone - PO 5 mg HS [facility] Administration Tacrolimus 1 mg 01/11/20 22:00 01/14/20 09:43 Prograf PO 1 mg BID [facility] Administration Topiramate 25 mg 01/12/20 10:00 01/14/20 09:42 Topamax - PO 25 mg DAILY [facility] Administration ASSESSMENT/PLAN: Patient is a 59 year old male with past medical history of ?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 #Small Cell Lung Ca -Chest CT 01/12 : large left chest heterogenous consolidation, significantly incre ased in size from prior study. There may be some loculated pleural fluid within this consolidation. 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 -On heparin gtt Visit type - Emergency Visit Emergency Visit: Yes ED Registration Date: 01/11/20 Care time: The patient presented to the Emergency Department on the above date and was hospitalized for further evaluation of their emergent condition. - New Patient This patient is new to me today: No - Critical Care Critical Care patient: No ATTENDING PHYSICIAN STATEMENT I saw and evaluated the patient. I reviewed the resident's note and discussed the case with the resident. I agree with the resident's findings and plan as documented. SUBJECTIVE: OBJECTIVE: ASSESSMENT AND PLAN:
--- NOTE | 2020-01-14 17:41 | PN ---
Teaching Attending Note Name of Resident: Martha Briggs ATTENDING PHYSICIAN STATEMENT I saw and evaluated the patient. I reviewed the resident's note and discussed the case with the resident. I agree with the resident's findings and plan as documented. 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 Plan: 1) SCLC ES. Plan to place port and start Carboplatin/Etoposide 2) Rest per Dr. Briggs note
[2020-01-14] MEDS: ALPRAZolam 0.25 MG TABLET PO PRN (18:21)
[2020-01-14] MEDS: predniSONE 5 MG TABLET (UD) PO SCH (21:39)
[2020-01-14] MEDS: DOCUSATE SODIUM 100 MG CAPSULE (FP) PO SCH (21:39)
[2020-01-14] MEDS: HEPARIN - 25,000 UNIT in SODIUM CHLORIDE 495 ML IV SCH (21:40)
[2020-01-15] MEDS: HEPARIN NA (PORCINE) 5,000 UNITS/ML 1ML VIAL IVPUSH PRN ×2 (01:14→14:06)
[2020-01-15] MEDS: HEPARIN - 25,000 UNIT in SODIUM CHLORIDE 495 ML IV SCH ×2 (01:18→14:05)
--- NOTE | 2020-01-15 07:54 | PN ---
Progress Note, Physician History of Present Illness: pulmonary alert,c/o sob,for port placement tomorrow - Current Medication List Current Medications: Active Medications Albuterol Sulfate (Ventolin Hfa Inhaler -) 2 puff IH Q4H PRN PRN Reason: SHORT OF BREATH/WHEEZING Last Admin: 01/13/20 22:00 Dose: 2 puff Documented by: Albuterol/Ipratropium (Duoneb -) 1 amp NEB RQID [facility] Last Admin: 01/14/20 20:18 Dose: 1 amp Documented by: Alprazolam (Xanax -) 0.5 mg PO Q8H PRN PRN Reason: ANXIETY Last Admin: 01/14/20 18:21 Dose: 0.5 mg Documented by: Amino Acids (Prosource No Carb Liquid Pkt) 30 ml PO BID@0800,1730 [facility] Last Admin: 01/14/20 18:22 Dose: 30 ml Documented by: Docusate Sodium (Colace -) 300 mg PO HS [facility] Last Admin: 01/14/20 21:39 Dose: 300 mg Documented by: Fentanyl (Duragesic 25mcg Patch -) 1 patch TD Q72H [facility] Last Admin: 01/12/20 10:59 Dose: 1 patch Documented by: Heparin Sodium (Porcine) (Heparin -) 1,000 unit IVPUSH PRN PRN PRN Reason: Heparin Last Admin: 01/14/20 18:24 Dose: 1,000 unit Documented by: Heparin Sodium (Porcine) (Heparin -) 5,000 unit IVPUSH PRN PRN PRN Reason: Heparin Last Admin: 01/15/20 01:14 Dose: 5,000 unit Documented by: Heparin Sodium (Porcine) 25, (000 unit/ Sodium Chloride) 500 mls @ 20 mls/hr IV TITR [facility]; Protocol Last Admin: 01/15/20 01:18 Dose: 2,300 unit/hr, 46 mls/hr Documented by: Metoprolol Tartrate (Lopressor -) 25 mg PO BID [facility] Last Admin: 01/14/20 21:39 Dose: 25 mg Documented by: Miscellaneous (Duragesic Patch Waste) 1 each MC PRN PRN PRN Reason: PAIN Last Admin: 01/12/20 11:00 Dose: 1 each Documented by: Mycophenolate Mofetil (Cellcept -) 500 mg PO BID [facility] Last Admin: 01/14/20 21:39 Dose: 500 mg Documented by: Nifedipine (Procardia Xl -) 60 mg PO BID [facility] Last Admin: 01/14/20 21:39 Dose: 60 mg Documented by: Ondansetron HCl (Zofran Injection) 8 mg IVPB Q6H PRN PRN Reason: NAUSEA Oxycodone HCl (Roxicodone -) 10 mg PO Q4H PRN PRN Reason: PAIN LEVEL 5-10 Last Admin: 01/14/20 21:47 Dose: 10 mg Documented by: Polyethylene Glycol (Miralax (For Daily Use) -) 17 gm PO DAILY PRN PRN Reason: CONSTIPATION Last Admin: 01/13/20 15:24 Dose: 17 grams Documented by: Prednisone (Deltasone -) 5 mg PO HS [facility] Last Admin: 01/14/20 21:39 Dose: 5 mg Documented by: Tacrolimus (Prograf) 1 mg PO BID [facility] Last Admin: 01/14/20 21:39 Dose: 1 mg Documented by: Topiramate (Topamax -) 25 mg PO DAILY [facility] Last Admin: 01/14/20 09:42 Dose: 25 mg Documented by: - Objective Vital Signs: Vital Signs Temperature 97.4 F L 01/15/20 05:00 Pulse Rate 103 H 01/15/20 05:00 Respiratory Rate 20 01/15/20 05:00 Blood Pressure 98/42 L 01/15/20 05:00 O2 Sat by Pulse Oximetry (%) 97 01/15/20 05:00 Constitutional: Yes: Calm, Thin Eyes: Yes: WNL HENT: Yes: WNL Neck: Yes: WNL Cardiovascular: Yes: Regular Rate and Rhythm, S1, S2 Respiratory: Yes: Diminished Gastrointestinal: Yes: Normal Bowel Sounds, Soft Extremities: Yes: WNL Edema: No Labs: CBC, BMP Laboratory Tests 01/15/20 06:55 WBC 15.5 H Hgb 12.7 Hct 39.8 Plt Count 467 H Problem List - Problems (1) DVT of axillary vein, acute left Code(s): I82.A12 - ACUTE EMBOLISM AND THROMBOSIS OF LEFT AXILLARY VEIN (2) CKD (chronic kidney disease) stage 5, GFR less than 15 ml/min Code(s): N18.5 - CHRONIC KIDNEY DISEASE, STAGE 5 (3) DM Diabetes mellitus type 2 Code(s): E11.9 - TYPE 2 DIABETES MELLITUS WITHOUT COMPLICATIONS (4) Diabetes Code(s): E11.9 - TYPE 2 DIABETES MELLITUS WITHOUT COMPLICATIONS (5) HTN (hypertension) Code(s): I10 - ESSENTIAL (PRIMARY) HYPERTENSION (6) Lung cancer Code(s): C34.90 - MALIGNANT NEOPLASM OF UNSP PART OF UNSP BRONCHUS OR LUNG Assessment/Plan A/P L Subclavian/Axillary DVT Small Cell Lung Ca Left Pleural Effusion COPD LV Diastolic Dysfunction Hep C h/o Hepatocellular Ca h/o Kidney/Liver Transplant HTN - anticoagulation - inhaled bronchodilators - O2 to keep SpO2 >90% - chemotherapy s per oncology DR RIVERA
[2020-01-15 08:12] LABS: HEMATOCRIT 39.8 % (35.4-49); HEMOGLOBIN 12.7 GM/dL (11.7-16.9); MEAN CELL VOLUME 96.7 fl (80-96); MEAN PLT VOLUME 10.6 fl (7.5-11.1); PLATELET COUNT 467 K/MM3 (134-434); RBC 4.12 M/mm3 (4.00-5.60); RDW 15.3 % (11.9-15.9); WHITE BLOOD COUNT 15.5 K/mm3 (4.0-10.0)
[2020-01-15] MEDS: ALBUTEROL SO4 2.5/IPRATROPIUM 0.5 INH SOL 3 ML VIAL.NEB. NEB SCH ×4 (08:15→20:28)
[2020-01-15] MEDS: AMINO ACIDS/PROTEIN HYDROLYS 30 ML LIQUID.PKT PO SCH ×2 (08:56→17:23)
[2020-01-15] MEDS ORDERED: PT OWN MED DRAWER 7, Y5N ONE ×2 (10:42→23:22)
[2020-01-15] MEDS: fentaNYL 25mcg/hr PATCH.TD72 TD SCH (10:44)
[2020-01-15] MEDS: TACROLIMUS ANHYDROUS 1 MG CAPSULE PO SCH ×2 (10:45→21:47)
[2020-01-15] MEDS: TOPIRAMATE 25 MG TABLET PO SCH (10:45)
[2020-01-15] MEDS: MYCOPHENOLATE MOFETIL 500 MG TABLET PO SCH ×2 (10:45→21:46)
[2020-01-15] MEDS: FENTANYL PATCH WASTE MC PRN (10:46)
--- NOTE | 2020-01-15 12:24 | PN ---
Progress Note (short form) - Note Progress Note: has pain in left arm Left arm swelling sob+ less feeling "miserable" decreased appetite Vital Signs - 24 hr 01/14/20 01/14/20 01/14/20 14:13 19:45 21:00 Temperature 98.5 F 98.3 F Pulse Rate 92 H 88 Respiratory 22 H 20 20 Rate Blood Pressure 103/61 117/62 O2 Sat by Pulse 96 93 L 97 Oximetry (%) 01/14/20 01/15/20 01/15/20 22:00 01:15 05:00 Temperature 98.3 F 97.4 F L 97.4 F L Pulse Rate 88 107 H 103 H Respiratory 20 20 20 Rate Blood Pressure 105/82 111/71 98/42 L O2 Sat by Pulse 97 96 97 Oximetry (%) 01/15/20 09:00 Temperature 97.5 F L Pulse Rate 109 H Respiratory 22 H Rate Blood Pressure 97/61 O2 Sat by Pulse 97 Oximetry (%) Current Medications Generic Name Dose Route Start Last Admin Trade Name Freq PRN Reason Stop Dose Admin Albuterol Sulfate 2 puff 01/11/20 17:18 01/13/20 22:00 Ventolin Hfa Inhaler - IH 2 puff Q4H PRN Administration SHORT OF BREATH/WHEEZING Albuterol/Ipratropium 1 amp 01/13/20 12:00 01/15/20 08:15 Duoneb - NEB 1 amp RQID CONCEPCION Administration Alprazolam 0.5 mg 01/13/20 11:17 01/14/20 18:21 Xanax - PO 0.5 mg Q8H PRN Administration ANXIETY Amino Acids 30 ml 01/12/20 17:30 01/15/20 08:56 Prosource No Carb Liquid Pkt PO 30 ml BID@0800,1730 CONCEPCION Administration Docusate Sodium 300 mg 01/11/20 15:30 01/14/20 21:39 Colace - PO 300 mg HS CONCEPCION Administration Fentanyl 1 patch 01/12/20 10:05 01/15/20 10:44 Duragesic 25mcg Patch - TD 1 patch Q72H CONCEPCION Administration Heparin Sodium (Porcine) 1,000 unit 01/11/20 14:21 01/14/20 18:24 Heparin - IVPUSH 1,000 unit PRN PRN Administration Heparin Heparin Sodium (Porcine) 5,000 unit 01/11/20 14:21 01/15/20 01:14 Heparin - IVPUSH 5,000 unit PRN PRN Administration Heparin Heparin Sodium (Porcine) 25, 500 mls @ 20 mls/hr 01/11/20 14:30 01/15/20 01:18 000 unit/ Sodium Chloride IV 2,300 unit/hr TITR CONCEPCION 46 mls/hr Administration Protocol 1,000 UNIT/HR Metoprolol Tartrate 25 mg 01/11/20 22:00 01/14/20 21:39 Lopressor - PO 25 mg BID CONCEPCION Administration Miscellaneous 1 each 01/11/20 15:20 01/15/20 10:46 Duragesic Patch Waste MC 1 each PRN PRN Administration PAIN Mycophenolate Mofetil 500 mg 01/11/20 22:00 01/15/20 10:45 Cellcept - PO 500 mg BID CONCEPCION Administration Nifedipine 60 mg 01/13/20 10:00 01/14/20 21:39 Procardia Xl - PO 60 mg BID CONCEPCION Administration Ondansetron HCl 8 mg 01/11/20 15:22 Zofran Injection IVPB Q6H PRN NAUSEA Oxycodone HCl 10 mg 01/12/20 10:03 01/14/20 21:47 Roxicodone - PO 10 mg Q4H PRN Administration PAIN LEVEL 5-10 Polyethylene Glycol 17 gm 01/12/20 10:03 01/13/20 15:24 Miralax (For Daily Use) - PO 17 grams DAILY PRN Administration CONSTIPATION Prednisone 5 mg 01/11/20 22:00 01/14/20 21:39 Deltasone - PO 5 mg HS CONCEPCION Administration Tacrolimus 1 mg 01/11/20 22:00 01/15/20 10:45 Prograf PO 1 mg BID CONCEPCION Administration Topiramate 25 mg 01/12/20 10:00 01/15/20 10:45 Topamax - PO 25 mg DAILY CONCEPCION Administration Laboratory Results - last 24 hr 01/14/20 01/14/20 01/14/20 15:13 15:30 19:48 WBC RBC Hgb Hct MCV MCH MCHC RDW Plt Count MPV PTT (Actin FS) 43.4 H POC Glucometer 282 320 01/15/20 01/15/20 01/15/20 00:09 00:30 04:09 WBC RBC Hgb Hct MCV MCH MCHC RDW Plt Count MPV PTT (Actin FS) 38.5 H POC Glucometer 304 274 01/15/20 01/15/20 01/15/20 06:55 06:55 11:09 WBC 15.5 H RBC 4.12 Hgb 12.7 Hct 39.8 MCV 96.7 H MCH 31.0 MCHC 32.0 RDW 15.3 Plt Count 467 H MPV 10.6 PTT (Actin FS) 35.0 POC Glucometer 289 swelling noted on right side of neck and Right supraclavicular LNE+ S1 S2 RRR Lungs decreased on left left arm edema+ left hand edema Abd- soft, NT leg edema++ PLAN On heparin gtt-- may need to switch to Lovenox or Eliquis per Oncology Needs port placement-scheduled tomorrow need to consider further therapy in terms of treating Lung CA add remeron for depression and appetite port a cath placement neck is swollen-- ct neck shows LNE ct chest noted plan for chemo later this week spoke with Oncologist- DR Yancey Problem List - Problems (1) DVT of axillary vein, acute left Code(s): I82.A12 - ACUTE EMBOLISM AND THROMBOSIS OF LEFT AXILLARY VEIN (2) DM Diabetes mellitus type 2 Code(s): E11.9 - TYPE 2 DIABETES MELLITUS WITHOUT COMPLICATIONS (3) Lung cancer Code(s): C34.90 - MALIGNANT NEOPLASM OF UNSP PART OF UNSP BRONCHUS OR LUNG
[2020-01-15] MEDS ORDERED: MIRTAZAPINE 15 MG TABLET (FP) PO SCH ×2 (12:30→22:00)
[2020-01-15] MEDS: METOPROLOL TARTRATE 25 MG TABLET (FP) PO SCH ×2 (13:34→21:46)
[2020-01-15] MEDS: NIFEdipine E.R 60 MG TABLET PO SCH (13:35)
--- NOTE | 2020-01-15 13:41 | PN ---
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 I don't believe any procedure will open this. Best palliation attempt may be XRT. Full consult to follow.
--- NOTE | 2020-01-15 15:39 | CONSULT ---
Consult Consult Specialty:: Thoracic Surgery Referred by:: Medicine Team Reason for Consultation:: Left chest mass - History of Present Illness Chief Complaint: LUE swelling with DVT, cough, DEUTSCH History of Present Illness: 59M with MMP and recently diagnosed advanced small cell lung cancer with near white-out of left chest field. 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 No: Pulmonary Hypertension Pulmonary: Yes: COPD Gastrointestinal: Yes: Cancer (hepatocellular), Other (Hepatitis C) Hepatobiliary: Yes: Hepatitis C Renal/: Yes: Renal Inusuff (CKD V) - Past Surgical History Past Surgical History: Yes: AV Fistula/Graft, Cholecystectomy, Kidney Transplant, Liver Transplant, Splenectomy - Alcohol/Substance Use Hx Alcohol Use: Yes (FEW GLASSES OF WINE) History of Substance Use: reports: None - Smoking History Smoking history: Former smoker Have you smoked in the past 12 months: No Aproximately how many cigarettes per day: 20 If you are a former smoker, when did you quit?: 2009 - Social History Usual Living Arrangement: With Parent Occupation: [employer] History of Recent Travel: No Home Medications - Allergies Allergies/Adverse Reactions: Allergies Allergy/AdvReac Type Severity Reaction Status Date / Time morphine AdvReac Verified 01/11/20 12:25 - Home Medications Home Medications: Ambulatory Orders Nifedipine ER [Procardia XL -] 60 mg PO BID 08/10/17 Prednisone 5 mg PO HS 08/10/17 Alprazolam 1 mg PO HS 09/03/18 Insulin Glargine,Hum.rec.anlog [Basaglar Laiikpen U-100] 14 unit SQ BID 09/03/18 Mycophenolate Mofetil 500 mg PO BID 09/03/18 Metoprolol Tartrate 25 mg PO BID 12/14/19 Albuterol 0.083% Nebulizer Deysi [Ventolin 0.083% Nebulizer Soln -] 1 amp NEB Q4H PRN amp 01/06/20 Albuterol 2.5/Ipratropium 0.5 [Duoneb -] 1 amp NEB RTID amp 01/06/20 Amox-Tr/K Cl [Augmentin 875-125mg Tablet -] 1 tab PO BID@0800,1730 7 Days #14 tablet 08/31/20 Docusate Sodium [Colace -] 300 mg PO HS capsule 01/06/20 FENTANYL 25mcg PATCH [DURAGESIC 25mcg PATCH -] 1 each TD Q72H #10 5ml MDD 1 01/06/20 FENTANYL 25mcg PATCH [DURAGESIC 25mcg PATCH -] 1 each TD Q72H #5 patch.72h MDD 1 01/06/20 FENTANYL 25mcg PATCH [DURAGESIC 25mcg PATCH -] 1 patch TD Q72H #5 patch.72h 01/06/20 Megestrol Acetate Oral Susp [Megace Oral Suspension -] 400 mg PO DAILY #1 cup 01/06/20 Metoclopramide HCl [Reglan -] 5 mg PO TIDAC 30 Days #90 tablet 01/06/20 Nortriptyline HCl [Pamelor -] 25 mg PO DAILY capsule 01/06/20 Nystatin Oral Suspension - [Nystatin Oral Susp 606772 Units/5 ML -] 500,000 uni ts PO Q6HPO 10 Days #1 cup 01/06/20 Oxycodone HCl 10 mg PO QID PRN #60 tablet MDD 4 01/06/20 Tacrolimus Anhydrous [Prograf] 1 mg PO BID capsule 01/06/20 Topiramate [Topamax -] 25 mg PO DAILY tablet 01/06/20 oxyCODONE HCL 15 mg PO Q4H 01/11/20 Review of Systems - Review of Systems Constitutional: reports: Unintentional Wgt. Loss, Weakness Eyes: reports: No Symptoms HENT: reports: No Symptoms Neck: reports: No Symptoms Cardiovascular: reports: Shortness of Breath Respiratory: reports: SOB Physical Exam Vital Signs: Vital Signs Temperature 97.8 F 01/15/20 14:43 Pulse Rate 118 H 01/15/20 14:43 Respiratory Rate 22 H 01/15/20 14:43 Blood Pressure 117/61 01/15/20 14:43 O2 Sat by Pulse Oximetry (%) 97 01/15/20 14:43 Constitutional: Yes: Cachectic Eyes: Yes: WNL HENT: Yes: WNL Neck: Yes: WNL Cardiovascular: Yes: Tachycardia Respiratory: Yes: Cough Edema: Yes Labs: CBC, BMP 01/15/20 06:55 01/12/20 09:00 Imaging - Results Cat Scan: Report Reviewed, Image Reviewed Problem List - Problems (1) DVT of axillary vein, acute left Code(s): I82.A12 - ACUTE EMBOLISM AND THROMBOSIS OF LEFT AXILLARY VEIN (2) Acute renal failure syndrome Code(s): N17.9 - ACUTE KIDNEY FAILURE, UNSPECIFIED (3) DM Diabetes mellitus type 2 Code(s): E11.9 - TYPE 2 DIABETES MELLITUS WITHOUT COMPLICATIONS (4) Hoarseness Code(s): R49.0 - DYSPHONIA (5) Lung cancer Code(s): C34.90 - MALIGNANT NEOPLASM OF UNSP PART OF UNSP BRONCHUS OR LUNG (6) Lung mass Code(s): R91.8 - OTHER NONSPECIFIC ABNORMAL FINDING OF LUNG FIELD (7) Pericardial effusion Code(s): I31.3 - PERICARDIAL EFFUSION (NONINFLAMMATORY) (8) Transplanted organ and tissue status Code(s): Z94.9 - TRANSPLANTED ORGAN AND TISSUE STATUS, UNSPECIFIED Assessment/Plan Advanced lung cancer that has progressed. He has not started therapy. Tube drainage or stent unlikely to expand his lung. Could reassess after gets therapy. Prognosis is extremely poor.
[2020-01-15] MEDS: INSULIN SLIDING SCALE (NOVOLOG) 1 VIAL SQ SCH (17:23)
[2020-01-15] MEDS: predniSONE 5 MG TABLET (UD) PO SCH (21:46)
[2020-01-15] MEDS: DOCUSATE SODIUM 100 MG CAPSULE (FP) PO SCH (21:46)
[2020-01-16] MEDS: HEPARIN - 25,000 UNIT in SODIUM CHLORIDE 495 ML IV SCH (00:45)
[2020-01-16] MEDS: ALPRAZolam 0.25 MG TABLET PO PRN (04:05)
[2020-01-16] MEDS: INSULIN SLIDING SCALE (NOVOLOG) 1 VIAL SQ SCH ×3 (06:00→16:19)
[2020-01-16 06:03] LABS: ARTERIAL BLD GAS O2 SATURATION 99.3 mmHg (95-98); ARTERIAL BLOOD GAS BASE EXCESS -11.4 mmol/L (-2-2); ARTERIAL BLOOD GAS PO2 243.7 mmHg (80-100)
[2020-01-16 06:04] LABS: ALLENS TEST POSITIVE
[2020-01-16 06:08] LABS: ARTERIAL BLOOD GAS pH 7.159 (7.350-7.450)
[2020-01-16] MEDS ORDERED: SODIUM BICARBONATE 4.2% 5 MEQ/10 ML DISP.SYRIN IVPUSH ONE (06:17)
[2020-01-16] MEDS ORDERED: HEPARIN INFUSION - 25,000 UNITS/500 ML INFUS.BAG IVPB SCH (06:45)
[2020-01-16] MEDS ORDERED: HEPARIN NA (PORCINE) 5,000 UNITS/ML 1ML VIAL IVPUSH PRN ×4 (06:45→07:17)
--- NOTE | 2020-01-16 07:14 | PN.HO ---
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 #Small Cell Lung Ca -Chest CT 01/12 : large left chest heterogenous consolidation, significantly increased in size from prior study. There may be some loculated pleural fluid within this consolidation. -mediastinal mass s/p CT guided biopsy (12/23) : necrotic neoplasm w/ neuroendocrine differentiation suspicious for small cell ca -Brain MRI w/o contrast 12/15, bone scan 12/29 : no suspicious metastatic disease -Thoracentesis 12/31, pathology negative for malignancy - rediscussed overall prognosis. rediscussed palliative chemotherapy. to consider carbo/etoposide with dose reduction #LUE DVT -LUE duplex 01/10 : findings consistent with deep vein thromboses involving the left subclavian and axillary vein. -On heparin gtt
[2020-01-16] MEDS ORDERED: ALBUTEROL SO4 HFA INHALER IH PRN (07:17)
[2020-01-16] MEDS ORDERED: oxyCODONE HCL 5 MG TABLET PO PRN (07:17)
[2020-01-16] MEDS ORDERED: ONDANSETRON 4 MG/2 ML VIAL IVPB PRN (07:17)
[2020-01-16] MEDS ORDERED: ALPRAZolam 0.25 MG TABLET PO PRN (07:17)
[2020-01-16] MEDS ORDERED: POLYETHYLENE GLYCOL 3350 119 GM BTL PO PRN (07:17)
[2020-01-16] MEDS ORDERED: FENTANYL PATCH WASTE MC PRN ×2 (07:17)
--- NOTE | 2020-01-16 07:34 | PN ---
Progress Note (short form) - Note Progress Note: Spoke with son (proxy) who would like patient to be made DNI. Telephone consent for DNI received and papers signed with witnesses. Patient has DNR order signed in chart from 2012. Unclear if this is active currently, nursing staff unaware of this. Day team (Dr. Dangelo) to address. Calls placed to Dr. Dangelo to notify her but unable to reach her, will continue to attempt. Nursing staff notified of DNI status.
[2020-01-16] MEDS ORDERED: AMINO ACIDS/PROTEIN HYDROLYS 30 ML LIQUID.PKT PO SCH (08:00)
[2020-01-16] MEDS: ALBUTEROL SO4 2.5/IPRATROPIUM 0.5 INH SOL 3 ML VIAL.NEB. NEB SCH ×3 (08:00→15:41)
[2020-01-16 08:29] LABS: HEMATOCRIT 41.2 % (35.4-49); MCH 31.2 pg (25.7-33.7); MCHC 31.5 g/dl (32.0-35.9); MEAN CELL VOLUME 99.1 fl (80-96); PLATELET COUNT 461 K/MM3 (134-434); RBC 4.16 M/mm3 (4.00-5.60); RDW 15.8 % (11.9-15.9); WHITE BLOOD COUNT 15.4 K/mm3 (4.0-10.0)
[2020-01-16] MEDS ORDERED: TOPIRAMATE 25 MG TABLET PO SCH (10:00)
[2020-01-16] MEDS ORDERED: NIFEdipine E.R. 30 MG TABLET PO SCH ×2 (10:00)
[2020-01-16] MEDS ORDERED: NIFEdipine E.R 60 MG TABLET PO SCH (10:00)
[2020-01-16] MEDS ORDERED: MYCOPHENOLATE MOFETIL 500 MG TABLET PO SCH (10:00)
[2020-01-16] MEDS ORDERED: METOPROLOL TARTRATE 25 MG TABLET (FP) PO SCH (10:00)
[2020-01-16] MEDS ORDERED: TACROLIMUS ANHYDROUS 1 MG CAPSULE PO SCH (10:00)
[2020-01-16] MEDS ORDERED: LORazepam 2 MG/ML SDV VIAL ONE (11:00)
[2020-01-16] MEDS ORDERED: MORPHINE SULFATE/0.9% NACL/PF 100 MG/100 ML BAG IVPB SCH (11:00)
[2020-01-16] MEDS ORDERED: LORazepam 2 MG/ML SDV VIAL IVPUSH PRN (11:17)
--- NOTE | 2020-01-16 11:17 | PN ---
Progress Note (short form) - Note Progress Note: encephalopathic spoke with resident this AM pt was in respiratory distress not oriented restless son at bedside breathing is labored Vital Signs - 24 hr 01/15/20 01/15/20 01/15/20 14:43 18:00 21:00 Temperature 97.8 F 97.3 F L Pulse Rate 118 H 125 H Respiratory 22 H 20 22 H Rate Blood Pressure 117/61 126/62 O2 Sat by Pulse 97 94 L 93 L Oximetry (%) 01/15/20 01/16/20 01/16/20 22:00 02:00 06:00 Temperature 97.7 F 97.5 F L Pulse Rate 123 H 106 H 100 H Respiratory 22 H 22 H 20 Rate Blood Pressure 114/69 119/73 105/74 O2 Sat by Pulse 93 L 95 100 Oximetry (%) 01/16/20 01/16/20 01/16/20 06:56 08:00 10:00 Temperature 97.1 F L Pulse Rate 98 H 96 H Respiratory 20 20 Rate Blood Pressure 110/75 111/76 O2 Sat by Pulse 100 100 Oximetry (%) Current Medications Generic Name Dose Route Start Last Admin Trade Name Freq PRN Reason Stop Dose Admin Albuterol Sulfate 2 puff 01/16/20 07:17 Ventolin Hfa Inhaler - IH Q4H PRN SHORT OF BREATH/WHEEZING Albuterol/Ipratropium 1 amp 01/16/20 08:00 01/16/20 08:00 Duoneb - NEB 1 amp RQID CONCEPCION Administration Alprazolam 0.5 mg 01/16/20 07:17 Xanax - PO Q8H PRN ANXIETY Amino Acids 30 ml 01/16/20 08:00 01/16/20 09:09 Prosource No Carb Liquid Pkt PO Not Given BID@0800,1730 CONCEPCION Docusate Sodium 300 mg 01/16/20 22:00 Colace - PO HS CONCEPCION Fentanyl 1 patch 01/18/20 10:05 Duragesic 25mcg Patch - TD Q72H CONCEPCION Morphine Sulfate 100 mg in 100 mls @ 1 mls/hr 01/16/20 11:00 Morphine 100mg/100ml-0.9% Nacl IVPB TITR CONCEPCION Protocol 1 MG/HR Insulin Aspart 1 vial 01/16/20 11:00 Novolog Vial Sliding Scale - SQ TIDAC CONCEPCION Protocol Lorazepam 1 mg 01/16/20 10:52 Ativan Injection - IVPUSH Q4H PRN ANXIETY Miscellaneous 1 each 01/16/20 07:17 Duragesic Patch Waste MC PRN PRN PAIN Mycophenolate Mofetil 500 mg 01/16/20 10:00 01/16/20 09:09 Cellcept - PO Not Given BID CONCEPCION Ondansetron HCl 8 mg 01/16/20 07:17 Zofran Injection IVPB Q6H PRN NAUSEA Polyethylene Glycol 17 gm 01/16/20 07:17 Miralax (For Daily Use) - PO DAILY PRN CONSTIPATION Prednisone 5 mg 01/16/20 22:00 Deltasone - PO HS CONCEPCION Tacrolimus 1 mg 01/16/20 10:00 01/16/20 09:10 Prograf PO Not Given BID [facility] Laboratory Results - last 24 hr 01/15/20 01/15/20 01/15/20 17:14 19:35 21:32 WBC RBC Hgb Hct MCV MCH MCHC RDW Plt Count MPV PTT (Actin FS) 64.3 H Anticoagulation Therapy Puncture Site Patient Temperature ABG pH ABG pCO2 ABG pO2 ABG HCO3 ABG O2 Sat (Measured) ABG O2 Content ABG Base Excess Mikey Test Patient On Oxygen O2 Delivery Device Oxygen Flow Rate Vent Mode Vent Rate Mechanical Rate PEEP Pressure Support Vent POC Glucometer 264 282 01/16/20 01/16/20 01/16/20 04:09 05:30 05:50 WBC RBC Hgb Hct MCV MCH MCHC RDW Plt Count MPV PTT (Actin FS) Anticoagulation Therapy No Result Required. Puncture Site Right radial Patient Temperature No Result Required. ABG pH 7.159 L* ABG pCO2 50.10 H ABG pO2 243.7 H ABG HCO3 17.4 L ABG O2 Sat (Measured) 99.3 H ABG O2 Content No Result Required. ABG Base Excess -11.4 L Mikey Test Positive Patient On Oxygen No Result Required. O2 Delivery Device Nonrebreather Oxygen Flow Rate 100% Vent Mode No Result Required. Vent Rate No Result Required. Mechanical Rate No Result Required. PEEP No Result Required. Pressure Support Vent No Result Required. POC Glucometer 293 304 01/16/20 01/16/20 08:10 08:10 WBC 15.4 H RBC 4.16 Hgb 13.0 Hct 41.2 MCV 99.1 H MCH 31.2 MCHC 31.5 L RDW 15.8 Plt Count 461 H MPV 10.0 PTT (Actin FS) 49.8 H Anticoagulation Therapy Puncture Site Patient Temperature ABG pH ABG pCO2 ABG pO2 ABG HCO3 ABG O2 Sat (Measured) ABG O2 Content ABG Base Excess Mikey Test Patient On Oxygen O2 Delivery Device Oxygen Flow Rate Vent Mode Vent Rate Mechanical Rate PEEP Pressure Support Vent POC Glucometer swelling noted on right side of neck and Right supraclavicular LNE+ S1 S2 RRR Lungs decreased on left left arm edema+ left hand edema Abd- soft, NT leg edema++ PLAN discussed with son pt is DNR/DNI At this time he is unfortunately not a candidate for chemo, pleurx cath Worsening status Will dc all aggressive management, dc heparin gtt and po meds start on Ativan iv as needed and Morphine GTT Problem List - Problems (1) DVT of axillary vein, acute left Code(s): I82.A12 - ACUTE EMBOLISM AND THROMBOSIS OF LEFT AXILLARY VEIN (2) DM Diabetes mellitus type 2 Code(s): E11.9 - TYPE 2 DIABETES MELLITUS WITHOUT COMPLICATIONS (3) Lung cancer Code(s): C34.90 - MALIGNANT NEOPLASM OF UNSP PART OF UNSP BRONCHUS OR LUNG
--- NOTE | 2020-01-16 12:33 | PN ---
Teaching Attending Note ATTENDING PHYSICIAN STATEMENT I saw and evaluated the patient. I reviewed the resident's note and discussed the case with the resident. I agree with the resident's findings and plan as documented. SUBJECTIVE: OBJECTIVE: ASSESSMENT AND PLAN:
--- NOTE | 2020-01-16 12:35 | EKG ---
Test Reason : Blood Pressure : / mmHG Vent. Rate : 108 BPM Atrial Rate : 300 BPM P-R Int : 000 ms QRS Dur : 092 ms QT Int : 324 ms P-R-T Axes : -83 053 059 degrees QTc Int : 434 ms ATRIAL FLUTTER WITH VARIABLE A-V BLOCK ABNORMAL ECG WHEN COMPARED WITH ECG OF 11-JAN-2020 15:19, ATRIAL FLUTTER HAS REPLACED SINUS RHYTHM NONSPECIFIC T WAVE ABNORMALITY NO LONGER EVIDENT IN LATERAL LEADS Confirmed by BELTRAN ANDERSON MD ([id number]) on 01/16/2020 12:35:00 PM Referred By: Confirmed By:BELTRAN ANDERSON MD
--- NOTE | 2020-01-16 12:46 | PN.HO ---
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 -Chest CT 01/12 : large left chest heterogenous consolidation, significantly increased in size from prior study. There may be some loculated pleural fluid within this consolidation. -mediastinal mass s/p CT guided biopsy (12/23) : necrotic neoplasm w/ neuroendocrine differentiation suspicious for small cell ca -Brain MRI w/o contrast 12/15, bone scan 12/29 : no suspicious metastatic disease worsening clinical status Discussed with patients son. Given his comorbidities, performance status, aggressive cancer, worsening clinical status , and his preferences ( which he expressed to his son and family) decision was made to make him hospice. Discussed with his mother aswell . Discused with PMD
[2020-01-16 13:28] VITALS: TEMP 97
--- NOTE | 2020-01-16 15:40 | PN ---
Progress Note (short form) - Note Progress Note: Lethargic and tachypneic. Made DNR / DNI. Supportive measures. Intake & Output 01/13/20 01/14/20 01/15/20 01/16/20 23:59 23:59 23:59 23:59 Intake Total 1629 2326 1058 Output Total 400 550 Balance 1229 1776 1058 Weight 160 lb Last Vital Signs Temp Pulse Resp BP Pulse Ox 97 F L 92 H 20 90/62 100 01/16/20 14:00 01/16/20 14:00 01/16/20 14:00 01/16/20 14:00 01/16/20 10:00 Active Medications Albuterol Sulfate (Ventolin Hfa Inhaler -) 2 puff IH Q4H PRN PRN Reason: SHORT OF BREATH/WHEEZING Albuterol/Ipratropium (Duoneb -) 1 amp NEB RQID [facility] Last Admin: 01/16/20 11:33 Dose: 1 amp Documented by: Alprazolam (Xanax -) 0.5 mg PO Q8H PRN PRN Reason: ANXIETY Amino Acids (Prosource No Carb Liquid Pkt) 30 ml PO BID@0800,1730 [facility] Last Admin: 01/16/20 09:09 Dose: Not Given Documented by: Docusate Sodium (Colace -) 300 mg PO HS [facility] Fentanyl (Duragesic 25mcg Patch -) 1 patch TD Q72H [facility] Morphine Sulfate (Morphine 100mg/100ml-0.9% Nacl) 100 mg in 100 mls @ 1 mls/hr IVPB TITR [facility]; Protocol Last Admin: 01/16/20 11:15 Dose: 1 mg/hr, 1 mls/hr Documented by: Insulin Aspart (Novolog Vial Sliding Scale -) 1 vial SQ TIDAC [facility]; Protocol Last Admin: 01/16/20 11:16 Dose: Not Given Documented by: Lorazepam (Ativan Injection -) 1 mg IVPUSH Q4H PRN PRN Reason: ANXIETY Miscellaneous (Duragesic Patch Waste) 1 each MC PRN PRN PRN Reason: PAIN Mycophenolate Mofetil (Cellcept -) 500 mg PO BID [facility] Last Admin: 01/16/20 09:09 Dose: Not Given Documented by: Ondansetron HCl (Zofran Injection) 8 mg IVPB Q6H PRN PRN Reason: NAUSEA Polyethylene Glycol (Miralax (For Daily Use) -) 17 gm PO DAILY PRN PRN Reason: CONSTIPATION Prednisone (Deltasone -) 5 mg PO HS CONCEPCION Tacrolimus (Prograf) 1 mg PO BID CONCEPCION Last Admin: 01/16/20 09:10 Dose: Not Given Documented by: Constitutional: Yes: Lethargic, tachypneic Eyes: Yes: WNL HENT: Yes: WNL Neck: Yes: WNL Cardiovascular: Yes: Regular Rate and Rhythm, S1, S2 Respiratory: Yes: Bilateral scattered rhonchi Gastrointestinal: Yes: Normal Bowel Sounds, Soft Extremities: Yes: WNL Edema: No Labs: Laboratory Results - last 24 hr 01/15/20 01/15/20 01/15/20 17:14 19:35 21:32 WBC RBC Hgb Hct MCV MCH MCHC RDW Plt Count MPV PTT (Actin FS) 64.3 H Anticoagulation Therapy Puncture Site Patient Temperature ABG pH ABG pCO2 ABG pO2 ABG HCO3 ABG O2 Sat (Measured) ABG O2 Content ABG Base Excess Mikey Test Patient On Oxygen O2 Delivery Device Oxygen Flow Rate Vent Mode Vent Rate Mechanical Rate PEEP Pressure Support Vent POC Glucometer 264 282 01/16/20 01/16/20 01/16/20 04:09 05:30 05:50 WBC RBC Hgb Hct MCV MCH MCHC RDW Plt Count MPV PTT (Actin FS) Anticoagulation Therapy No Result Required. Puncture Site Right radial Patient Temperature No Result Required. ABG pH 7.159 L* ABG pCO2 50.10 H ABG pO2 243.7 H ABG HCO3 17.4 L ABG O2 Sat (Measured) 99.3 H ABG O2 Content No Result Required. ABG Base Excess -11.4 L Mikey Test Positive Patient On Oxygen No Result Required. O2 Delivery Device Nonrebreather Oxygen Flow Rate 100% Vent Mode No Result Required. Vent Rate No Result Required. Mechanical Rate No Result Required. PEEP No Result Required. Pressure Support Vent No Result Required. POC Glucometer 293 304 01/16/20 01/16/20 08:10 08:10 WBC 15.4 H RBC 4.16 Hgb 13.0 Hct 41.2 MCV 99.1 H MCH 31.2 MCHC 31.5 L RDW 15.8 Plt Count 461 H MPV 10.0 PTT (Actin FS) 49.8 H Anticoagulation Therapy Puncture Site Patient Temperature ABG pH ABG pCO2 ABG pO2 ABG HCO3 ABG O2 Sat (Measured) ABG O2 Content ABG Base Excess Mikey Test Patient On Oxygen O2 Delivery Device Oxygen Flow Rate Vent Mode Vent Rate Mechanical Rate PEEP Pressure Support Vent POC Glucometer Problem List - Problems (1) DVT of axillary vein, acute left Code(s): I82.A12 - ACUTE EMBOLISM AND THROMBOSIS OF LEFT AXILLARY VEIN (2) CKD (chronic kidney disease) stage 5, GFR less than 15 ml/min Code(s): N18.5 - CHRONIC KIDNEY DISEASE, STAGE 5 (3) DM Diabetes mellitus type 2 Code(s): E11.9 - TYPE 2 DIABETES MELLITUS WITHOUT COMPLICATIONS (4) Diabetes Code(s): E11.9 - TYPE 2 DIABETES MELLITUS WITHOUT COMPLICATIONS (5) HTN (hypertension) Code(s): I10 - ESSENTIAL (PRIMARY) HYPERTENSION (6) Lung cancer Code(s): C34.90 - MALIGNANT NEOPLASM OF UNSP PART OF UNSP BRONCHUS OR LUNG Assessment/Plan Left Subclavian/Axillary DVT Small Cell Lung Ca Left Pleural Effusion COPD LV Diastolic Dysfunction Hep C h/o Hepatocellular Ca h/o Kidney/Liver Transplant HTN MS and Ativan for comfort measures Aspiration precautions Supplemental O2 as needed DNR / DNI Dr Manuel
[2020-01-16 16:19] VITALS: BP 73/45; PULSE 106
--- NOTE | 2020-01-16 16:59 | PN ---
Progress Note (short form) - Note Progress Note: 4:47 pm time of
--- NOTE | 2020-01-16 19:26 | DS ---
Physical Examination Vital Signs: Vital Signs Temperature 97 F L 01/16/20 14:00 Pulse Rate 106 H 01/16/20 16:00 Respiratory Rate 16 01/16/20 16:00 Blood Pressure 73/45 L 01/16/20 16:00 O2 Sat by Pulse Oximetry (%) 100 01/16/20 10:00 Labs: CBC, BMP 01/16/20 08:10 01/12/20 09:00 Discharge Summary Problems reviewed: Yes Reason For Visit: DVT OF AXILLARY VEIN,ACUTE LEFT Current Active Problems DVT of axillary vein, acute left (Acute) - Instructions Referrals: Silvia Delgado MD [Primary Care Provider] - Disposition: - Home Medications Comprehensive Discharge Medication List: Ambulatory Orders Nifedipine ER [Procardia XL -] 60 mg PO BID 08/10/17 Prednisone 5 mg PO HS 08/10/17 Alprazolam 1 mg PO HS 09/03/18 Insulin Glargine,Hum.rec.anlog [Basaglar Kwikpen U-100] 14 unit SQ BID 09/03/18 Mycophenolate Mofetil 500 mg PO BID 09/03/18 Metoprolol Tartrate 25 mg PO BID 12/14/19 Albuterol 0.083% Nebulizer Deysi [Ventolin 0.083% Nebulizer Soln -] 1 amp NEB Q4H PRN amp 01/06/20 Albuterol 2.5/Ipratropium 0.5 [Duoneb -] 1 amp NEB RTID amp 01/06/20 Amox-Tr/K Cl [Augmentin 875-125mg Tablet -] 1 tab PO BID@0800,1730 7 Days #14 tablet 01/06/20 Docusate Sodium [Colace -] 300 mg PO HS capsule 01/06/20 FENTANYL 25mcg PATCH [DURAGESIC 25mcg PATCH -] 1 each TD Q72H #10 5ml MDD 1 01/06/20 FENTANYL 25mcg PATCH [DURAGESIC 25mcg PATCH -] 1 each TD Q72H #5 patch.72h MDD 1 01/06/20 FENTANYL 25mcg PATCH [DURAGESIC 25mcg PATCH -] 1 patch TD Q72H #5 patch.72h 01/06/20 Megestrol Acetate Oral Susp [Megace Oral Suspension -] 400 mg PO DAILY #1 cup 01/06/20 Metoclopramide HCl [Reglan -] 5 mg PO TIDAC 30 Days #90 tablet 01/06/20 Nortriptyline HCl [Pamelor -] 25 mg PO DAILY capsule 01/06/20 Nystatin Oral Suspension - [Nystatin Oral Susp 992519 Units/5 ML -] 500,000 units PO Q6HPO 10 Days #1 cup 01/06/20 Oxycodone HCl 10 mg PO QID PRN #60 tablet MDD 4 01/06/20 Tacrolimus Anhydrous [Prograf] 1 mg PO BID capsule 01/06/20 Topiramate [Topamax -] 25 mg PO DAILY tablet 01/06/20 oxyCODONE HCL 15 mg PO Q4H 01/11/20
[2020-01-16] MEDS ORDERED: MIRTAZAPINE 15 MG TABLET (FP) PO SCH (22:00)
[2020-01-16] MEDS ORDERED: predniSONE 5 MG TABLET (UD) PO SCH (22:00)
[2020-01-16] MEDS ORDERED: DOCUSATE SODIUM 100 MG CAPSULE (FP) PO SCH (22:00)
[2020-01-18] MEDS ORDERED: fentaNYL 25mcg/hr PATCH.TD72 TD SCH (10:05)
== END 2020-01-16 16:47 | disposition expired | DRG 136 ==
LOC: JER 12:01 → JERBED 15:16 → J7W 01-12 00:30 → JICU 01-16 05:40
PROVIDERS: ADMIT Internal Medicine; ATTEND Internal Medicine
DX: C34.90 Malignant neoplasm of unspecified part of unspecified bronchus or lung (principal); R63.0 Anorexia; Z68.22 Body mass index [BMI] 22.0-22.9, adult; I50.9 Heart failure, unspecified; J44.9 Chronic obstructive pulmonary disease, unspecified; R11.0 Nausea; D63.8 Anemia in other chronic diseases classified elsewhere; B19.20 Unspecified viral hepatitis C without hepatic coma; G62.9 Polyneuropathy, unspecified; E16.2 Hypoglycemia, unspecified; I82.B12 Acute embolism and thrombosis of left subclavian vein; I82.A12 Acute embolism and thrombosis of left axillary vein; I12.9 Hypertensive chronic kidney disease with stage 1 through stage 4 chronic kidney disease, or unspecified chronic kidney disease; N18.5 Chronic kidney disease, stage 5; D63.1 Anemia in chronic kidney disease; J90 Pleural effusion, not elsewhere classified; G93.40 Encephalopathy, unspecified; Z94.0 Kidney transplant status; Z94.4 Liver transplant status
CPT/HCPCS: 36415; 36600; 70490-TC; 71046-TC-FY; 71250-TC; 80053; 82272; 82550; 82803; 82962; 83615; 83735; 84100; 84484; 84550; 85025; 85027; 85610; 85730; 93005; 93010; 94640; 97116-GP; 97162-GP; 99285-25; J1644; J7517; U0003